=== PATIENT | female | born 1990 | race Caucasian/White ===

== ENCOUNTER → 2022-07-06 | Outpatient (CLI) | payer BC, SELFPAY ==
[2022-07-10 04:06] LABS: Chlamydia By Nucleic Acid AMP Negative (Negative)
[2022-07-10 18:54] LABS: Gonococcus By Nucleic Acid AMP Negative (Negative)
[2022-07-14 08:27] LABS: HPV APTIMA, High Risk Negative (Negative)
== END | disposition home or self-care (01) ==
LOC: LABSPEC 16:22
PROVIDERS: Referring Provider Obstetrics & Gynecology; Visit Provider Obstetrics & Gynecology
DX: Z34.00 Encounter for supervision of normal first pregnancy, unspecified trimester (principal)
CPT/HCPCS: 87086; 87088; 87491; 87591; 87624; 88175; G0145

== ENCOUNTER → 2022-07-20 | Outpatient (CLI) | payer BC, SELFPAY ==
[2022-07-20 14:44] LABS: Absolute Neutrophil Count 6.4 X10^3/uL (2.0-7.7); Basophil# 0.05 X10^3/uL; Basophil% 0.5 % (0-1); Eosinophil# 0.14 X10^3/uL; Eosinophils% 1.4 % (0-5); Hematocrit 38.1 % (37-47); Hemoglobin 13.4 g/dL (12.0-15.0); Lymphocyte % 27.9 % (19-41); Mean Corp Hgb Conc 35.2 g/dL (32-36); Mean Corpuscular Hgb 32.4 pg (27.0-32.0); Mean Corpuscular Volume 92.3 fL (81-99); Mean Platelet Vol. 9.5 fl (6.2-12.0); Monocyte# 0.64 X10^3/uL; Monocyte% 6.4 % (0-10); NRBC Flagged by Analyzer 0 % (0-5); Neutrophil # 6.39 X10^3/uL (2.7-7.7); Neutrophil % 63.5 % (47-70); Platelet Count 346 K/mm3 (150-450); RBC Distribution Width CV 11.9 % (11.6-14.6); RBC Distribution Width SD 41.1 fl (35.1-43.9); Red Blood Count 4.13 M/mm3 (4.2-5.4); White Blood Count 10.1 K/mm3 (4.4-11.0)
[2022-07-20 15:58] LABS: HIV - WCH Non-Reactive (Nonreactive); Hepatitis B Surface Antigen Non-Reactive (Nonreactive); Hepatitis C Antibody Non-Reactive (Nonreactive); Rubella IgG Reactive (Nonreactive); Syphilis Antibodies Non-reactive
[2022-07-20 16:09] LABS: NATERA MAILED SPECIMEN
== END | disposition home or self-care (01) ==
LOC: PAVLAB 14:12
PROVIDERS: Referring Provider Obstetrics & Gynecology; Visit Provider Obstetrics & Gynecology
DX: Z34.81 Encounter for supervision of other normal pregnancy, first trimester (principal); Z31.430 Encounter of female for testing for genetic disease carrier status for procreative management
CPT/HCPCS: 36415; 85025; 86703; 86762; 86780; 86803; 86850; 86900; 86901; 87340

== ENCOUNTER → 2022-11-17 | Outpatient (CLI) | payer BC, SELFPAY ==
[2022-11-17 11:32] LABS: Absolute Lymphocyte Count 2.12 X10^3/uL (0.83-4.51); Absolute Neutrophil Count 7.1 X10^3/uL (2.0-7.7); Basophil# 0.05 X10^3/uL; Basophil% 0.5 % (0-1); Eosinophil# 0.23 X10^3/uL; Eosinophils% 2.2 % (0-5); Hemoglobin 11.8 g/dL (12.0-15.0); Lymphocyte # 2.12 X10^3/ul (0.83-4.51); Lymphocyte % 20.3 % (19-41); Mean Corp Hgb Conc 33.7 g/dL (32-36); Mean Corpuscular Hgb 32.3 pg (27.0-32.0); Mean Corpuscular Volume 95.9 fL (81-99); Mean Platelet Vol. 9.4 fl (6.2-12.0); Monocyte# 0.88 X10^3/uL; Monocyte% 8.4 % (0-10); NRBC Flagged by Analyzer 0 % (0-5); Neutrophil # 7.08 X10^3/uL (2.7-7.7); Neutrophil % 67.9 % (47-70); Platelet Count 319 K/mm3 (150-450); RBC Distribution Width SD 41.7 fl (35.1-43.9); Red Blood Count 3.65 M/mm3 (4.2-5.4); White Blood Count 10.4 K/mm3 (4.4-11.0)
[2022-11-17 11:59] LABS: Glucose Challenge Gest 1H 50g 120 mg/dL (70-140)
[2022-11-17 12:23] LABS: HIV - WCH Non-Reactive (Nonreactive); Syphilis Antibodies Non-reactive
--- NOTE | 2022-11-17 12:26 | US_ITS ---
STUDY: SECOND AND THIRD TRIMESTER OBSTETRICAL ULTRASOUND - LIMITED REASON FOR EXAM: Female, 32 years old placental location -- 28 wks PRIOR ULTRASOUND: None. TECHNIQUE: Transabdominal TECHNICAL QUALITY: Adequate. FINDINGS: There is a single intrauterine fetus. The fetus is in a cephalic presentation. There is demonstrated cardiac activity with a heart rate of 137 bpm. There is a normal amniotic fluid volume. The largest amniotic fluid pocket measures 2.4 cm x 4.1 cm. The amniotic fluid index (CORIN) is within normal limits. The placenta is posterior in location and is not low lying. The tip of the placenta is a 2.3 cm away from the cervical os. There are Grade 1 placental changes. The cervix measures 3.2 cm in length. BIOMETRY: Age by LMP: 28 weeks, 4 days. MARIMAR by LMP: February 05, 2023. US/OB Limited (No Biometrics) IMPRESSION: The placenta is along the posterior wall of the uterus without placenta previa. The tip of the placenta is a 2.3 cm away from the cervical os. Electronically Signed: Gregg Cerna MD at 14:33 EDT ,
== END | disposition home or self-care (01) ==
LOC: US 12:21
PROVIDERS: Obstetrics & Gynecology; Referring Provider Obstetrics & Gynecology; Visit Provider Obstetrics & Gynecology
DX: O26.899 Other specified pregnancy related conditions, unspecified trimester (principal); O44.43 Low lying placenta NOS or without hemorrhage, third trimester; Z13.1 Encounter for screening for diabetes mellitus
CPT/HCPCS: 36415; 76815; 82950; 85025; 86703; 86780; 86850; 86900; 86901

== ENCOUNTER → 2022-12-11 | Outpatient (CLI) | payer BC, SELFPAY ==
--- NOTE | 2022-12-11 11:33 | US_ITS ---
STUDY: SECOND AND THIRD TRIMESTER OBSTETRICAL ULTRASOUND - LIMITED REASON FOR EXAM: Female, 32 years old, evaluate growth. LMP: 05/01/2022. PRIOR ULTRASOUND: 11/17/2022. TECHNIQUE: Transabdominal TECHNICAL QUALITY: Adequate. FINDINGS: There is a single intrauterine fetus. The fetus is in a cephalic presentation. There is demonstrated cardiac activity with a heart rate of 144 bpm. There is a normal amniotic fluid volume. The largest amniotic fluid pocket measures 6.2 cm. The amniotic fluid index (CORIN) is 13.8 cm. The placenta is posterior in location and is not low lying. There are Grade 1 placental changes. The cervix measures 3.5 cm in length. BIOMETRY: BPD: 8.2 cm: 32 weeks, 6 days HC: 29 cm: 32 weeks, 0 days AC: 20 cm: 32 weeks, 0 days FL: 5.9 cm: 30 weeks, 5 days Age by LMP: 32 weeks, 0 days. MARIMAR by LMP: 02/05/2023. age by prior US: Not included on prior exam. age by current US: 31 weeks, 4 days. MARIMAR by current US: 02/08/2023. Estimated weight: 1850 grams, +/- 278 grams, 35 percentile. anatomy is not included on this examination and is not evaluated. US/OB Limited With Biometrics IMPRESSION: Single live intrauterine fetus in cephalic presentation with an estimated gestational age of 31 weeks and 4 days. The MARIMAR is 02/08/2023. Electronically Signed: Timothy Olmedo MD at 12:14 EDT ,
== END | disposition home or self-care (01) ==
LOC: US 11:32
PROVIDERS: Referring Provider Obstetrics & Gynecology; Visit Provider Obstetrics & Gynecology
DX: Z34.00 Encounter for supervision of normal first pregnancy, unspecified trimester (principal)
CPT/HCPCS: 76816

== ENCOUNTER → 2023-01-09 | Outpatient (CLI) | payer BC, SELFPAY ==
--- NOTE | 2023-01-09 11:26 | US_ITS ---
STUDY: SECOND AND THIRD TRIMESTER OBSTETRICAL ULTRASOUND - LIMITED REASON FOR EXAM: Female, 32 years old growth LMP: May 01, 2022 PRIOR ULTRASOUND: Prior study dated: December 11, 2022 TECHNIQUE: Transabdominal TECHNICAL QUALITY: Adequate. FINDINGS: There is a single intrauterine fetus. The fetus is in a cephalic presentation. There is demonstrated cardiac activity with a heart rate of 135 bpm. There is a normal amniotic fluid volume. The largest amniotic fluid pocket measures 5.74 cm. The amniotic fluid index (CORIN) is 20.44 cm. The placenta is posterior. There are Grade 2 placental changes. BIOMETRY: BPD: 8.90 cm: 36 weeks, 0 days HC: 31.84 cm: 35 weeks, 6 days AC: 30.58 cm: 34 weeks, 4 days FL: 6.76 cm: 34 weeks, 5 days Age by LMP: 36 weeks, 1 days. MARIMAR by LMP: February 05, 2023. age by prior US: 31 weeks, 4 days. MARIMAR by prior US: February 08, 2023. age by current US: 35 weeks, 2 days. MARIMAR by current US: February 11, 2023. Estimated weight: 2559 grams, +/- 384 grams, 22.5 percentile. US/OB Limited With Biometrics IMPRESSION: Single live intrauterine with an estimated gestational age of 35 weeks and 2 days. Electronically Signed: Lovely Ceballos MD at 8:52 EDT ,
== END | disposition home or self-care (01) ==
LOC: US 11:25
PROVIDERS: Referring Provider Obstetrics & Gynecology; Visit Provider Obstetrics & Gynecology
DX: Z34.00 Encounter for supervision of normal first pregnancy, unspecified trimester (principal)
CPT/HCPCS: 76816

== ENCOUNTER → 2023-01-12 | Outpatient (CLI) | payer BC, SELFPAY | END | disposition home or self-care (01) | LOC: LABSPEC 17:11 | PROVIDERS: Referring Provider Advanced Practice Midwife; Visit Provider Advanced Practice Midwife | DX: Z34.00 Encounter for supervision of normal first pregnancy, unspecified trimester (principal) | CPT/HCPCS: 87077; 87081; 87186 ==

== ENCOUNTER → 2023-01-23 | Outpatient (CLI) | payer BC, SELFPAY ==
--- NOTE | 2023-01-23 12:22 | US_ITS ---
STUDY: SECOND AND THIRD TRIMESTER OBSTETRICAL ULTRASOUND - LIMITED REASON FOR EXAM: Female, 32 years old . Amniotic fluid check. LMP: May 01, 2022. PRIOR ULTRASOUND: Comparison is made with prior study January 09, 2023. TECHNIQUE: Transabdominal TECHNICAL QUALITY: Adequate. FINDINGS: There is a single intrauterine fetus. The fetus is in a cephalic presentation. There is demonstrated cardiac activity with a heart rate of 129 bpm. There is a normal amniotic fluid volume. The largest amniotic fluid pocket measures 5.8 cm x 6.9 cm. The amniotic fluid index (CORIN) is 15.12 cm. The placenta is posterior in location and is not low lying. There are Grade 2 placental changes. The cervical length was not measured due to head position. BIOMETRY: Age by LMP: 38 weeks, 1 days. MARIMAR by LMP: February 05, 2023. age by prior US: 37 weeks, 2 days. MARIMAR by prior US: February 11, 2023. US/OB Limited (No Biometrics) IMPRESSION: Normal amniotic fluid. Electronically Signed: Gregg Cerna MD at 13:31 EDT ,
== END | disposition home or self-care (01) ==
PROVIDERS: Referring Provider Registered Nurse; Visit Provider Registered Nurse
DX: O40.9XX0 Polyhydramnios, unspecified trimester, not applicable or unspecified (principal); Z3A.36 36 weeks gestation of pregnancy
CPT/HCPCS: 76815

== ENCOUNTER 2023-02-10 09:15 | Inpatient (IN) | payer BC, SELFPAY ==
[2023-02-10] VITALS (50 sets, daily range): BP systolic 103–147; BP diastolic 56–91; PULSE 80–127; RESP 16; TEMP 36.6–37.5; O2SAT 97–100; BMI 28.0
[2023-02-10] MEDS: LACTATED RINGERS 500 ML 999 ML IV ×2 (09:51→15:09)
[2023-02-10 10:08] LABS: Absolute Lymphocyte Count 1.63 X10^3/uL (0.83-4.51); Absolute Neutrophil Count 14.1 X10^3/uL (2.0-7.7); Basophil# 0.04 X10^3/uL; Basophil% 0.2 % (0-1); Eosinophil# 0.04 X10^3/uL; Eosinophils% 0.2 % (0-5); Hematocrit 36.1 % (37-47); Lymphocyte # 1.63 X10^3/ul (0.83-4.51); Lymphocyte % 9.5 % (19-41); Mean Corp Hgb Conc 33.2 g/dL (32-36); Mean Corpuscular Hgb 31.3 pg (27.0-32.0); Mean Platelet Vol. 10.3 fl (6.2-12.0); Monocyte# 1.17 X10^3/uL; Monocyte% 6.9 % (0-10); NRBC Flagged by Analyzer 0 % (0-5); Neutrophil # 14.09 X10^3/uL (2.7-7.7); Neutrophil % 82.6 % (47-70); Platelet Count 267 K/mm3 (150-450); RBC Distribution Width CV 14.4 % (11.6-14.6); RBC Distribution Width SD 49.3 fl (35.1-43.9); Red Blood Count 3.84 M/mm3 (4.2-5.4); White Blood Count 17.1 K/mm3 (4.4-11.0)
[2023-02-10] MEDS: Lactated Ringers 1,000 ML 200 ML IV (10:25)
[2023-02-10 10:34] LABS: Syphilis Antibodies Non-reactive
[2023-02-10] MEDS: fentaNYL-bupivacaine (epidural) 100 ML BAG EPIDURAL ×2 (10:34→15:08)
--- NOTE | 2023-02-10 10:52 | HP.PCM.OB_ITS ---
HPI - General General Date of Admission: 02/10/23 Date of Service: 02/10/23 Chief Complaint: contraction HPI Narrative MANPREET ZAMORANO, is a 32 F who presents at 40+5 with intensifying contractions since this 4am this morning. active fetus. no lof/vb. GBS positive fetus with echogenic bowel on ultrasound with stable growth scans. 01/09 22% 2559g Maternal Data Information MARIMAR Calculator Estimated Delivery Date Method Current WG Current Estimate 02/05/23 LMP (Certain) 40w 5d Other Estimates 01/31/23 Ultrasound #1 41w 3d PFSH PFSH Medical History Abnormal genetic test during Home Medications pyridoxine (vitamin B6) 25 mg tablet 25 mg PO DAILY 06/27/22 [History Last Taken Unknown] [id number] 1 mg tablet tab PO 02/10/23 [History Last Taken 02/09/23] Allergy/AdvReac Type Severity Reaction Status Date / Time No Known Allergies Allergy Verified 02/10/23 09:08 Family History Grandmother Diabetes Grandmother Colon cancer maternal grandmother Grandfather Heart disease Myocardial infarction paternal grandfather Father Myocardial infarction, Onset Age: 52 Heart disease Surgical History H/O colonoscopy Social History adopted: No household members: significant other housing: apartment current occupational status: employed current occupation: [employer] current occupational exposures/hazards: No pets and animals: Yes (does not do litter box) pets and animals: cat(s) history of recent travel: Yes (maggie in march) out of country: Yes sexually active: Yes Smoking Status: Former smoker Electronic Cigarette Use: with nicotine how long ago did patient quit smoking: not since aware of preg second hand exposure: No alcohol intake: current substance use type: does not use well-balanced diet: rarely or never caffeine: Yes Type: coffee eating out: 4 or more times/week seatbelt use: always do you feel safe at home: Yes additional social history: boyfriend- Meño- IT History 1 Elective abortions Hx Para 0 Spontaneous abortions Hx # Term Pregnancies Ectopic pregnancies Hx # Pregnancies Multiple births # of living children Visit Details Expected Delivery Route/Plan Labor Preferences- CB/BF classes: discussed labor support person: Meño labor intervention preferences: none pain management options preferred: epidural cut cord/dad catch: yes cord : Wants PP control planned: NFP discussed possible routes of delivery and associated risks: special requests: [] Plans Covid status: discussed Flu vaccine: discussed Tdap vaccine: declines Rhogam: done LARC form signed: done movement and labor precautions reviewed. Problem list reviewed and updated with the most current plan of care details and appropriate orders placed. Relevant counseling for the gestational age provided. Continue routine care and follow up unless otherwise noted in visit notes/problem list details OB Flowsheet Initial Weight: 127 lb Date -?-?-?-?-?-?-?-?-?-?-?-?- EGA Weight BP Urine Prot -?-?-?-?-?-?-?-?-?-?-?-?- Glucose FHR FuHt Pres Dilation -?-?-?-?-?-?-?-?-?-?-?-?- Effaced St Visit Note 07/06/22 -?-?-?-?-?-?-?-?-?-?-?-?- 9w 3d 127 lb (+0 oz) 114/76 -?-?-?-?-?-?-?-?-?-?-?-?- 175 -?-?-?-?-?-?-?-?-?-?-?-?- JV- single live iUP measuring 10 weeks 1 day. within 7 days of LMP. MARIMAR per LMP 02/05/23 JV- single live iUP measurin g 10 weeks 1 day. within 7 days of LMP. MARIMAR per LMP 02/05/23. Desires NIPT and carrier testing 08/03/22 -?-?-?-?-?-?-?-?-?-?-?-?- 13w 3d 124 lb 2 oz (-2 lb 14 oz) 137/80 Negative -?-?-?-?-?-?-?-?-?-?-?-?- Negative 150 -?-?-?-?-?-?-?-?-?-?-?-?- JV- bedside hand held us performed. normal NIPT. horizon is pending. no complaints other than some low level nausea. plan to start pepcid. 08/28/22 -?-?-?-?-?-?-?-?-?-?-?-?- 17w 0d 128 lb 6 oz (+1 lb 6 oz) 118/82 Negative -?-?-?-?-?-?-?-?-?-?-?-?- Negative 152 -?-?-?-?-?-?-?-?-?-?-?-?- MH-No VB. Thinks feels flutters. BF has not done genetic screen yet but has box and will do soon. MFM US next week 09/29/22 -?-?-?-?-?-?-?-?-?-?-?-?- 21w 4d 131 lb (+4 lb) 130/83 Negative -?-?-?-?-?-?-?-?-?-?-?-?- Negative 150 -?-?-?-?-?-?-?-?-?-?-?-?- JV- previa, has follow up next week for echogenic bowel. 10/27/22 -?-?-?-?-?-?-?-?-?-?-?-?- 25w 4d 137 lb (+10 lb) 118/68 Negative -?-?-?-?-?-?-?-?-?-?-?-?- Negative 144 26 -?-?-?-?-?-?-?-?-?-?-?-?- JV- no lof, vagi nal bleeding, or dec fm. needs follow up scan for previa follow up. 11/17/22 -?-?-?-?-?-?-?-?-?-?-?-?- 28w 4d 140 lb 8 oz (+13 lb 8 oz) 120/76 Negative -?-?-?-?-?-?-?-?-?-?-?-?- Negative 150 29 -?-?-?-?-?-?-?-?-?-?-?-?- KW- +fm. No vb/c tx/lof. labs today. us after appt for previa KW- +fm. No vb/ctx/lof. labs today. Rhogam today. discussed Tdap. us after appt for previa 11/27/22 -?-?-?-?-?-?-?-?-?-?-?-?- 30w 0d 142 lb (+15 lb) 139/71 Negative -?-?-?-?-?-?-?-?-?-?-?-?- Negative 136 30 -?-?-?-?-?-?-?-?-?-?-?-?- KW-+fm, no vb/lo f/ctx. US reviewed. previa resolved. LARC done. 12/11/22 -?--?-?-?-?-?-?-?-?-?-?-?- 32w 0d 145 lb 8 oz (+18 lb 8 oz) 124/85 Negative -?-?-?-?-?-?-?-?-?-?-?-?- Negative 140 32 -?-?-?-?-?-?-?-?-?-?--?-?- LC- no lof/vb/ct x. good fm. growth obtained today- results pending. declines tdap 12/29/22 -?-?-?-?-?-?-?-?-?-?-?-?- 34w 4d 146 lb 2 oz (+19 lb 2 oz) 122/80 Negative -?-?-?-?-?-?-?-?-?-?-?-?- Negative 143 35 Cephalic -?-?-?-?-?-?-?-?-?-?-?-?- JV- no lof, vagi nal bleeding, or dec fm. 01/12/23 -?-?-?-?-?-?-?-?-?-?-?-?- 36w 4d 148 lb 6 oz (+21 lb 6 oz) 125/76 -?-?-?-?-?-?-?-?-?-?-?-?- 135 37 Cephalic 2 -?-?-?-?-?-?-?-?-?-?-?-?- 60 -2 KW-no vb/l of/ctx. good. fm. GBS today. 01/19/23 -?-?-?-?-?-?-?-?-?-?-?-?- 37w 4d 149 lb 4 oz (+22 lb 4 oz) 126/84 Negative -?-?-?-?-?-?-?-?-?-?-?-?- Negative 140 37 Cephalic 2 -?-?-?-?-?-?-?-?-?-?-?-?- 70 -1 LC- no vb/ ctx/lof. good fm. GBS positive. 01/26/23 -?-?-?-?-?-?-?-?-?-?-?-?- 38w 4d 149 lb (+22 lb) 124/75 -?-?-?-?-?-?-?-?-?-?-?-?- 140 39 Cephalic 2 -?-?-?-?-?-?-?-?-?-?-?-?- 70 -1 Sm- no vb lof good fm no regular ctx 01/31/23 -?-?-?-?-?-?-?-?-?-?-?-?- 39w 2d 152 lb 8 oz (+25 lb 8 oz) 128/84 Negative -?-?-?-?-?-?-?-?-?-?-?-?- Negative 156 39 Cephalic 2 -?-?-?-?-?-?-?-?-?-?-?-?- 80 -1 JV- no lof , vaginal bleeding, or dec fm. labor precautions discussed. 02/05/23 -?-?-?-?-?-?-?-?-?-?-?-?- 40w 0d 152 lb 6 oz (+25 lb 6 oz) 130/86 Negative -?-?-?-?-?-?-?-?-?-?-?-?- Negative 140 40 Cephalic 2 -?-?-?-?-?-?-?-?-?-?-?-?- 80 -1 LC- here f or vaginal bleeding after orgasm. lightening now. +brown blood in vagina. no active bleeding. active fetus. no lof. pelvic rest for now. 02/07/23 -?-?-?-?-?-?-?-?-?-?-?-?- 40w 2d 155 lb 4 oz (+28 lb 4 oz) 145/91 126/82 Negative -?-?-?-?-?-?-?-?-?-?-?-?- Negative 136 40 Cephalic 2 .5 -?-?-?-?-?-?-?-?-?-?-?-?- 80 -1 LC- dark b rown discharge. no regular ctx LC- dark brown discharge. no regular ctx, no lof. good fm. membrane sweep today. IOL set up for sunday. NST FHR Rate Baby A Baseline: 130 Variability:: Moderate Accelerations:: 15 x 15 Decelerations:: None NST Reactive:: Yes FHR Category:: Category I Uterine Activity:: q4 minutes ROS Cardiovascular Cardiovascular: Denies abdominal pain, chest pain, diaphoresis or dyspnea Respiratory/Chest Respiratory/Chest: Denies change in mental status, chest congestion, chest tight ness, cough, shortness of breath at rest, shortness of breath with exertion, breast mass, breast pain, breast skin changes, breast swelling, change in breast shape or nipple discharge Genitourinary Genitourinary: Reports change in urinary stream Musculoskeletal Musculoskeletal: Reports none Integumentary Integumentary: Reports none Neurologic Neurologic: Reports none Psychiatric Psychiatric: Reports none Endocrine Endocrinology: Reports none Hematologic/Lymphatic Hematologic/Lymphatic: Reports none Allergic/Immunologic Allergic/Immunologic: Reports none Vital Signs Vital Signs Vital Signs: 02/10/23 09:01 02/10/23 09:01 02/10/23 09:49 Temperature Temperature Source Pulse Rate 93 Blood Pressure 140/91 H 118/73 BP Systolic 140 118 BP Diastolic 91 73 Pulse Ox 02/10/23 09:49 02/10/23 10:03 02/10/23 10:03 Temperature Temperature Source Pulse Rate 97 94 Blood Pressure 125/79 H BP Systolic 125 BP Diastolic 79 Pulse Ox 02/10/23 10:22 02/10/23 10:22 02/10/23 10:27 Temperature Temperature Source Pulse Rate 117 H 106 H Blood Pressure BP Systolic BP Diastolic Pulse Ox 98 02/10/23 10:27 02/10/23 10:31 02/10/23 10:31 Temperature Temperature Source Pulse Rate 109 H Blood Pressure 122/64 H BP Systolic 122 BP Diastolic 64 Pulse Ox 100 02/10/23 10:32 02/10/23 10:32 02/10/23 10:37 Temperature Temperature Source Pulse Rate 105 H Blood Pressure 123/71 H BP Systolic 123 BP Diastolic 71 Pulse Ox 100 02/10/23 10:37 02/10/23 10:37 02/10/23 10:41 Temperature Temperature Source Pulse Rate 109 H Blood Pressure 129/73 H BP Systolic 129 BP Diastolic 73 Pulse Ox 99 02/10/23 10:41 02/10/23 10:42 02/10/23 10:42 Temperature Temperature Source Pulse Rate 102 H 92 Blood Pressure BP Systolic BP Diastolic Pulse Ox 100 02/10/23 10:45 02/10/23 10:45 02/10/23 10:47 Temperature 98.0 F Temperature Source Temporal Pulse Rate Blood Pressure 138/85 H BP Systolic 138 BP Diastolic 85 Pulse Ox 02/10/23 10:47 02/10/23 10:47 02/10/23 10:47 Temperature Temperature Source Pulse Rate 106 H 94 Blood Pressure BP Systolic BP Diastolic Pulse Ox 100 02/10/23 10:51 02/10/23 10:51 Temperature Temperature Source Pulse Rate 115 H Blood Pressure 122/76 H BP Systolic 122 BP Diastolic 76 Pulse Ox Weight Weight: 153 lb 6.4 oz Body Mass Index (BMI) 28.0 Physical Exam Const alert, oriented x3 and no apparent distress General Appearance: cooperative, comfortable and well kempt Orientation / Consciousness: awake and oriented to person Exam Limitations: no limitations HEENT normocephalic Neck full ROM Chest inspection of chest normal Resp normal respiratory effort, normal air movement and no retractions Effort and Inspection: able to speak in complete sentences and symmetric chest movement Cardio regular rate Peripheral Pulses: pulses 2+ throughout GI normal to inspection, nondistended, normoactive bowel sounds Inspection: gravid no CVA tenderness and appearance of the vagina normal External Female Exam: normal appearance of the urethra; Negative for external lesion OB / External & Speculum: external exam normal Manual OB Exam: estimated gestational size appropriate and presentation cephalic Uterus Palpation: Negative for uterus tender Extremity normal to inspection Skin no rashes or lesions noted Neuro deep tendon reflexes 2+ bilaterally and gait normal Motor Exam: strength 5/5 throughout and clonus absent Psych Activity / Motor Behavior: appropriate eye contact Speech: normal speech Labs Labs Labs: Blood Type B NEGATIVE Antibody Screen NEGATIVE Hct 36.1 % (37-47) L Hgb 12.0 g/dL (12.0-15.0) Obstetrics US Syphilis Total Ab Non-reactive Rubella IgG Antibody Reactive (Nonreactive) Hep Bs Antigen Non-Reactive (Nonreactive) Chlamydia DNA (RUSLAN) Negative (Negative) Neisseria gonorrhoeae DNA (RUSLAN) Negative (Negative) HIV 1&2 Antibody Non-Reactive (Nonreactive) Glucose 1 Hr 50 gm 120 mg/dL (70-140) Assessment & Plan (1) Spontaneous onset of labor: PLAN: admit to [facility] with routine orders. (2) Positive GBS test: COMMENT: treat in labor (3) Echogenic bowel of fetus on ultrasound: COMMENT: growth scans q4 weeks: 8/7 35%, 9/5 22% (4) Abnormal genetic test during : COMMENT: FOB neg. carrier for Cystic Fibrosis, Glycogen Storage Disease Type 2, (Pompe Disease), Glycogen Storage Disease Type 5 (Clover Disease) and Irgdpw-Plrecvt-Asdoey Dysplasia/Jugucz-Vqsevg-Ysopzdm Syndrome (5) Rh negative status during : COMMENT: Rhogam @ 28 weeks and PRN bleeding (6) Supervision of normal first : COMMENT: PRR MARIMAR-02/05/23 girl Arabella Reinoso (7) : QUALIFIERS: Weeks of gestation: 40 weeks Qualified Code(s): Z3A.40 - 40 weeks gestation of COMMENT: GBS pos, NIPT low risk, afp declined. carrier screening done. 270/274. FOB neg.254/254 PLAN: Plan Patient presents IAL, plan expectant management for , pitocin/AROM PRN if needed. Pain management: plans epidural. GBS positive plan IV PCN. Management of any complications: none I have reviewed the PFSH and made any clinically relevant updates. updated on admission, exam and poc and agrees with primary reforestation worker management. available as needed.
[2023-02-10] MEDS: Penicillin G Pot 5,000,000 UNITS in 0.9% Normal Saline (100mL MB+) 100 ML 150 UNITS IV (11:05)
[2023-02-10] MEDS: Penicillin G 3,000,000 Units 50 ML 100 UNITS IV (15:50)
[2023-02-10] MEDS: Ondansetron 4 MG/2 ML Vial IV (16:42)
[2023-02-10] MEDS: Oxytocin 15 Units/NS 250ml 15 UNITS/250 ML IV.SOLN 83 UNITS IV (18:30)
[2023-02-10] MEDS: Oxytocin 10 UNITS/ML Vial IM (18:30)
--- NOTE | 2023-02-10 19:21 | EX.PCM.OBRPT ---
Assessment & Plan (1) (spontaneous vaginal delivery): COMMENT: LC IAL 40+5, girl Arabella (2) Third degree laceration of perineum during delivery, : Maternal Data Information MARIMAR Calculator Estimated Delivery Date Method Current WG Current Estimate 02/05/23 LMP (Certain) 40w 5d Other Estimates 01/31/23 Ultrasound #1 41w 3d Final MARIMAR: 02/05/23 Final MARIMAR Source: LMP Vaginal Delivery Maternal Presentation Maternal Presentation: Active Labor Maternal Presentation: pt presented with spontaneous labor at at 40+5, AROM for light/mod meconium. Operative Information Date of Procedure: 02/10/23 Pre-Operative Diagnosis: see problem list Post-Operative Diagnosis: Surgery / Procedure Performed: Spontaneous Vaginal Delivery Type of Anesthesia: Epidural Drain: Sherman to straight drain Estimated Blood Loss: 600 Time of Delivery: 18:21 Findings Description of Procedure: Patient began pushing and delivered the head in the NADEEN presentation. The head was delivered atraumatically. The anterior and posterior shoulders delivered without complication followed by the rest of the infant and the was placed on the maternal abdomen. Management Supervisor and respiratory therapist at bedside for meconium. Delayed cord clamping was employed for approximately 3 minutes as infant had spontaneous cry and vigorous. Cord was clamped and cut and gentle traction was applied to the cord and the placenta delivered spontaneously immediately following it was noted to be intact with three-vessel cord. The perineum and vagina were inspected and noted to have a 3rd degree laceration involving anal mucosa with right perilabial tear. dr diaz consulted for third degree repair, see note. EBL was 600cc. Patient and tolerated delivery well, entered recovery phase bonding skin to skin Presentation: Vertex Amniotic Membrane Rupture Type: Artificial Amniotic Fluid Description: Lightly stained meconium and Moderate meconium Placental Delivery Description: Spontaneous Placenta Disposition: [facility] Cord Vessel Description: 3 Vessels Cord Entanglement: None A Gender: Female (1 minute): 8 (5 minute): 8 Delayed Cord Clamping: Yes Post Vaginal Delivery Medications Given After Delivery: IV Pitocin and IM Pitocin Admit VTE Documentation VTE Present on Admission: No Procedures Urinary/Genital [id number]: [id number] Vaginal Delivery [facility]
--- NOTE | 2023-02-10 19:41 | DCINST_ITS ---
Discharge Instructions Diet Discharge Diet: No restrictions Activity Discharge Activity: May Not Drive and May Shower May resume sexual activity in: 6 weeks Weight Bearing Status: Full weight bearing Dressing / Incision Call your doctor if your incision/area has: Sudden Increased Bleeding, Increased Pain/ Swelling and Foul Smelling Discharge Call your doctor if you observe: Fever of 101 or Higher, Numbness or Tingling, Change in Color, Inability to urinate, Inability to have a bowel movement, Using more than 1 pad per hour, Shortness of breath, Dizziness, Fainting spells, Chest pain, Calf discomfort and Uncontrolled pain Follow Up Care Please Follow Up With: Tiffanie Velasquez CNM When: 6 weeks , please call office to make an appointment. Congratulations on the of your baby! Test Results: Test results from this visit will be discussed in further detail at your follow- up appointment, if applicable. Discharge Plan Admission Admit Date/Time: 02/10/23 09:15 Attending Provider: Tiffanie Velasquez Primary Care Provider: Care Physician,Shadia Primary Discharge Orders/Prescriptions Prescriptions: No Action pyridoxine (vitamin B6) 25 mg tablet 25 mg PO DAILY [id number]-[id number]-FA 1 mg tablet PO Referrals / Follow Up: Care Physician,No Primary [Primary Care Provider] - Disposition Disposition (needs filled in before D/C Order can be placed): Home, Self Care
--- NOTE | 2023-02-10 19:45 | PCM.OP.BLANK ---
Operative Report third degree laceration identified- cleansed with betadine twice through the repair. capsule reapproximated with two figure or eight sutures of 2-0 vicryl, and the the rest of the repair closed in the usual fashion with 3-0 rapide, no button holes present as confirm with several rectal exams. stool softeners and antibiotics will be ordered postop. interrupted sutures placed over right labial tear. Procedures Urinary/Genital [id number]: [id number] Episiotomy or vaginal repair(non-delivery)
[2023-02-10] MEDS: Cefotetan 1 GM in 0.9% Normal Saline (50mL MB+) 50 ML IV (20:40)
[2023-02-10] MEDS: Naproxen 500 MG Tablet PO (20:41)
[2023-02-10] MEDS: Senna/Docusate Sodium 1 Tablet PO (21:12)
[2023-02-10] MEDS: 0.9% Saline Lock 10 ML Syringe IV (21:13)
--- NOTE | 2023-02-10 21:40 | NURSING ---
epidural catheter removed at this time tip intact, pt tolerated well, band aid applied
[2023-02-10] MEDS: Acetaminophen 500 MG Tablet 1000 MG PO (22:13)
--- NOTE | 2023-02-10 22:16 | NURSING ---
Report received from Maryellen PALAFOX, taking over pt care at this time.
[2023-02-11 03:36] VITALS: BP 115/62; PULSE 103; RESP 16; TEMP 36.4; O2SAT 97
[2023-02-11] MEDS: Benzocaine/Lanolin/Aloe Vera 1 SPRAY EACH TOPICAL (03:36)
[2023-02-11 06:07] LABS: Hematocrit 25.3 % (37-47); Hemoglobin 8.5 g/dL (12.0-15.0); Mean Corp Hgb Conc 33.6 g/dL (32-36); Mean Corpuscular Hgb 31.8 pg (27.0-32.0); Mean Corpuscular Volume 94.8 fL (81-99); Mean Platelet Vol. 10.6 fl (6.2-12.0); Platelet Count 255 K/mm3 (150-450); RBC Distribution Width CV 14.5 % (11.6-14.6); RBC Distribution Width SD 49.7 fl (35.1-43.9); Red Blood Count 2.67 M/mm3 (4.2-5.4); White Blood Count 18.7 K/mm3 (4.4-11.0)
[2023-02-11 07:55] VITALS: BP 115/55; PULSE 98; RESP 18; TEMP 36.4; O2SAT 99
[2023-02-11] MEDS: Naproxen 500 MG Tablet PO (11:14)
--- NOTE | 2023-02-11 11:45 | PN.OBGYN_ITS ---
Subjective Subjective Patient doing well without complaints. Tolerating PO. Ambulating and voiding without difficulty. passing gas. Feeding well, pinching at time. Denies chest pain, shortness of breath, calf pain/swelling, fevers, chills, lightheadedness. Objective Data Objective Data Vital Signs: Vital Signs Temp Pulse Resp BP Pulse Ox O2 Del Method 97.5 F L 98 18 115/55 L 99 Room Air 02/11/23 07:55 02/11/23 07:55 02/11/23 07:55 02/11/23 07:55 02/11/23 07:55 02/11/23 07:55 Oxygen Delivery Method Room Air Weight: 153 lb 6.4 oz Body Mass Index (BMI) 28.0 Intake & Output: Intake and Output for Last 24 Hours 02/09/23 02/10/23 02/11/23 23:59 23:59 23:59 Intake Total 3155.00 / 3155.00 Output Total 1900 / 1900 1200 / 1200 Balance 1255.00 / 1255.00 -1200 / -1200 Lab / Micro Data 02/11/23 05:20 Labs: Laboratory Results - last 24 hr 02/10/23 21:15: Screen NEGATIVE, Baby's Blood Type A POSITIVE, Baby's BROOK NEGATIVE 02/11/23 05:20: WBC 18.7 H, RBC 2.67 L, Hgb 8.5 L, Hct 25.3 L, MCV 94.8, MCH 31.8, MCHC 33.6, RDW Std Deviation 49.7 H, RDW Coeff of Gildardo 14.5, Plt Count 255, MPV 10.6 Physical Exam Const alert and no apparent distress Chest inspection of chest normal Nipple/Areola: nipples/areola normal Resp normal respiratory effort and normal air movement Cardio regular rate and regular rhythm Uterus Palpation: uterus fundus firm Extremity normal to inspection, no calf tenderness and no pedal edema Skin no rashes or lesions noted Psych mental status grossly normal Assessment & Plan (1) Third degree laceration of perineum during delivery, : COMMENT: sitz bath TID, colace BID. fiber rich food, pain management (2) (spontaneous vaginal delivery): COMMENT: LC IAL 40+5, girl Bell (3) Anemia: COMMENT: asymptomatic Venofer x1 PLAN: Plan s/p PPD # 1 1. routine post delivery care 2. breast feeding- support given, desires to see for additional suppor t today. 3. rh positive 4. rubella immune 5. anticipate d/c tomorrow.
[2023-02-11] MEDS: 0.9% Saline Lock 10 ML Syringe IV (13:22)
[2023-02-11 14:00] VITALS: BP 120/58; PULSE 94; RESP 18; TEMP 36.8
[2023-02-11] MEDS: Senna/Docusate Sodium 1 Tablet PO ×2 (15:44→22:08)
--- NOTE | 2023-02-11 16:00 | NURSING ---
This RN assuming care at 1600
[2023-02-11 18:20] VITALS: BP 113/65; PULSE 98; RESP 16; TEMP 37
[2023-02-11 20:36] VITALS: BP 111/52; PULSE 91; RESP 16; TEMP 36.3
[2023-02-12] MEDS: Acetaminophen 500 MG Tablet 1000 MG PO (01:13)
[2023-02-12 01:16] VITALS: BP 117/64; PULSE 93; RESP 16; TEMP 36.5
[2023-02-12 08:00] VITALS: BP 126/72; PULSE 100; RESP 16; TEMP 36.4
[2023-02-12] MEDS: Senna/Docusate Sodium 1 Tablet PO (08:25)
[2023-02-12] MEDS: Naproxen 500 MG Tablet PO (08:26)
--- NOTE | 2023-02-12 08:29 | PCM.PN.OB ---
Subjective Subjective Patient doing well without complaints. Tolerating PO. Ambulating and voiding without difficulty. Feeding well. Denies chest pain, shortness of breath, calf pain/swelling, fevers, chills, lightheadedness. Objective Data Objective Data Vital Signs: Vital Signs Temp Pulse Resp BP Pulse Ox O2 Del Method 97.7 F L 93 16 117/64 99 Room Air 02/12/23 01:16 02/12/23 01:16 02/12/23 01:16 02/12/23 01:16 02/11/23 07:55 02/11/23 18:20 Oxygen Delivery Method Room Air Weight: 153 lb 6.4 oz Body Mass Index (BMI) 28.0 Intake & Output: Intake and Output for Last 24 Hours 02/10/23 02/11/23 02/12/23 23:59 23:59 23:59 Intake Total 3155.00 / 3155.00 Output Total 1900 / 1900 1200 / 1200 Balance 1255.00 / 1255.00 -1200 / -1200 Lab / Micro Data 02/11/23 05:20 Physical Exam Const alert and no apparent distress Chest inspection of chest normal Nipple/Areola: nipples/areola normal Resp normal respiratory effort and normal air movement Cardio regular rate and regular rhythm Uterus Palpation: uterus fundus firm Extremity normal to inspection, no calf tenderness and no pedal edema Skin no rashes or lesions noted Psych mental status grossly normal Assessment & Plan (1) Anemia: COMMENT: asymptomatic unable to obtain iv access. will start floradix daily at home. (2) Third degree laceration of perineum during delivery, : COMMENT: sitz bath TID, colace BID. fiber rich food, pain management (3) (spontaneous vaginal delivery): COMMENT: LC IAL 40+5, girl Arabella (4) Rh negative status during : COMMENT: Rhogam @ 28 weeks and PRN bleeding PLAN: Plan s/p PPD # 1. routine post delivery care 2. breast feeding- support given 3. rh negative, rhogam per policy 4. rubella immune 5. d/c home today
--- NOTE | 2023-02-12 08:31 | PCM.DC.SUM ---
Providers Date of Admission: 02/10/23 Date of Discharge: 02/12/23 Primary Care Physician: No Primary Care Phys Reason For Visit: VAGINAL DELIVERY Diagnosis Discharge Diagnosis (1) Anemia: Status: Acute Code(s): D64.9 - Anemia, unspecified (2) Third degree laceration of perineum during delivery, : Status: Acute Code(s): O70.20 - Third degree perineal laceration during delivery, unspecified (3) (spontaneous vaginal delivery): Status: Acute Code(s): O80 - Encounter for full-term uncomplicated delivery (4) Rh negative status during : Status: Acute Code(s): O26.899 - Other specified related conditions, unspecified trimester; Z67.91 - Unspecified blood type, Rh negative Plan s/p PPD # 1. routine post delivery care 2. breast feeding- support given 3. rh negative, rhogam per policy 4. rubella immune 5. d/c home today Medications at Discharge Home Medications pyridoxine (vitamin B6) 25 mg tablet 25 mg PO DAILY 06/27/22 [id number] 1 mg tablet tab PO 02/10/23 Hospital Course Operations None Procedures None Physical Exam Narrative admitted in spontaneous labor, with 3rd degree laceration. required additional support and laceration care Const alert and no apparent distress Chest inspection of chest normal Nipple/Areola: nipples/areola normal Resp normal respiratory effort and normal air movement Cardio regular rate and regular rhythm Uterus Palpation: uterus fundus firm Extremity normal to inspection, no calf tenderness and no pedal edema Skin no rashes or lesions noted Psych mental status grossly normal Weight / BMI Weight Weight: 153 lb 6.4 oz Body Mass Index (BMI) 28.0 ABG / Lab / Microbiology Data 02/11/23 05:20 D/C Instructions Discharge Diet: No restrictions (increased fiber) Discharge Activity: Return to Normal Activity (no tubs/swimming x6 weeks) May resume sexual activity in: - (addressed at visit. do not resume sexual activity until after 6 weeks appointment) Weight Bearing Status: Full weight bearing Call your doctor if your incision/area has: Sudden Increased Bleeding, Increased Pain/ Swelling and Foul Smelling Discharge Call your doctor if you observe: Fever of 101 or Higher, Numbness or Tingling, Change in Color, Inability to urinate, Inability to have a bowel movement, Using more than 1 pad per hour, Shortness of breath, Dizziness, Fainting spells, Chest pain, Calf discomfort and Uncontrolled pain Additional Instructions: colace 100mg twice to three times a day for stool softener. sitz bath for comfort at home Please Follow Up With: Tiffanie Velasquez CNM When: 6 weeks , please call office to make an appointment. Congratulations on the of your baby girl Bell!!! Meaningful Use Info Meaningful Use Diagnoses (Choose all that apply): None applicable Discharge Plan Admission Admit Date/Time: 02/10/23 09:15 Attending Provider: Tiffanie Velasqeuz Primary Care Provider: Care Physician,Shadia Primary Discharge Orders/Prescriptions Prescriptions: No Action pyridoxine (vitamin B6) 25 mg tablet 25 mg PO DAILY [id number] 1 mg tablet PO Referrals / Follow Up: Care Physician,No Primary [Primary Care Provider] - Disposition Disposition (needs filled in before D/C Order can be placed): Home, Self Care
--- NOTE | 2023-02-12 10:13 | CASEMGMT ---
Labor and Delivery Social Work Sw received consult due to family member with substance abuse history. Sw spoke to bedside RN, Luisa, who reports that she does not feel as though a full social work/psychosocial assessment is not necessary at this time. Luisa stated that parents will be ready for discharge soon and can meet with social work. - Sw presented to bedside, introduced self to parents and assessed for needs. - Mother of baby (MOB- Justine) and father of baby (FOB) state that they do not have any needs. Parents report that they have all necessary items for baby including: car seat, safe sleep space, clothes, diapers, wipes and a breast pump. - Sw assessed for any needs or concerns at this time, to which parents deny. - MOB and baby to be discharged today when medically ready Malgorzata Sampson, TABLE MAKER, TELECOMMUNICATIONS CLERK
== END 2023-02-12 11:40 | disposition home or self-care (01) | DRG 768 ==
LOC: WPOUT 09:17 → WP 09:17
PROVIDERS: Admitting Provider Registered Nurse; Visit Provider Registered Nurse
DX: O48.0 Post-term pregnancy (principal); O90.81 Anemia of the puerperium; Z37.0 Single live birth; O99.824 Streptococcus B carrier state complicating childbirth; Z3A.40 40 weeks gestation of pregnancy; Z87.891 Personal history of nicotine dependence; O77.0 Labor and delivery complicated by meconium in amniotic fluid
CPT/HCPCS: 59025; 59050; 85025; 85027; 85461; 86780; 86850; 86900; 86901; 99221; J1756; J7120; A4216; G0378; J2405; J2790; J3490

== ENCOUNTER → 2023-03-26 | Outpatient (CLI) | payer BC, SELFPAY ==
[2023-03-26 12:58] LABS: Absolute Lymphocyte Count 2.05 X10^3/uL (0.83-4.51); Absolute Neutrophil Count 3.3 X10^3/uL (2.0-7.7); Basophil# 0.05 X10^3/uL; Basophil% 0.8 % (0-1); Eosinophil# 0.38 X10^3/uL; Eosinophils% 5.9 % (0-5); Hemoglobin 12.8 g/dL (12.0-15.0); Lymphocyte # 2.05 X10^3/ul (0.83-4.51); Lymphocyte % 32.1 % (19-41); Mean Corpuscular Volume 93.7 fL (81-99); Mean Platelet Vol. 9.3 fl (6.2-12.0); Monocyte# 0.61 X10^3/uL; Monocyte% 9.5 % (0-10); NRBC Flagged by Analyzer 0 % (0-5); Neutrophil # 3.28 X10^3/uL (2.7-7.7); Neutrophil % 51.4 % (47-70); Platelet Count 333 K/mm3 (150-450); RBC Distribution Width CV 12.5 % (11.6-14.6); RBC Distribution Width SD 42.7 fl (35.1-43.9); Red Blood Count 4.27 M/mm3 (4.2-5.4); White Blood Count 6.4 K/mm3 (4.4-11.0)
== END | disposition home or self-care (01) ==
LOC: LAB 11:57
PROVIDERS: Referring Provider Registered Nurse; Visit Provider Registered Nurse
DX: O72.1 Other immediate postpartum hemorrhage (principal)
CPT/HCPCS: 36415; 85025

== ENCOUNTER → 2023-04-05 | Outpatient (CLI) | payer BC, SELFPAY ==
--- NOTE | 2023-04-05 09:59 | US_ITS ---
STUDY: ULTRASOUND TRANSVAGINAL CLINICAL: Female, 32 years old. continued bleeding, enlarged uterus TECHNIQUE: Transvaginal COMPARISON: None. FINDINGS: Normal uterine size measuring 7.5 x 6.5 x 4.1 cm in maximal craniocaudal dimension. There are no myometrial masses. The uterus is retroflexed. Normal endometrial thickness measuring 8 mm. There are no endometrial masses, and there is no fluid in the endometrial cavity. Normal uterine cervix. Normal right ovary, measuring 3.6 x 1.7 x 1.9 cm. There are multiple follicles without a dominant cyst. Normal left ovary, measuring 4.1 x 2.4 x 2.4 cm. There are multiple follicles without a dominant cyst. There is a small amount of free fluid in the pelvis. Polycystic ovary disease: No. US/Transvaginal Non- IMPRESSION: Normal transvaginal pelvic ultrasound. Electronically Signed: Varinder Bazzi MD at 19:25 EST ,
== END | disposition home or self-care (01) ==
LOC: US 09:57
PROVIDERS: Referring Provider Registered Nurse; Visit Provider Registered Nurse
DX: O72.1 Other immediate postpartum hemorrhage (principal); Z3A.00 Weeks of gestation of pregnancy not specified
CPT/HCPCS: 76830

== ENCOUNTER → 2025-01-21 | Outpatient (CLI) | payer BC, SELFPAY ==
[2025-01-21 16:41] LABS: Hematocrit 40.1 % (37-47); Hemoglobin 13.3 g/dL (12.0-15.0); Immature Granulocytes Count 0.020 X10^3/uL (0.0-0.0); Mean Corp Hgb Conc 33.2 g/dL (32-36); Mean Corpuscular Volume 92.2 fL (81-99); Mean Platelet Vol. 9.4 fl (6.2-12.0); NRBC Flagged by Analyzer 0 % (0-5); Platelet Count 401 K/mm3 (150-450); RBC Distribution Width CV 12.4 % (11.6-14.6); RBC Distribution Width SD 42.1 fl (35.1-43.9); Red Blood Count 4.35 M/mm3 (4.2-5.4); White Blood Count 9.7 K/mm3 (4.4-11.0)
[2025-01-21 16:56] LABS: AST(SGOT) 20 U/L (<=31); Alanine Aminotransfer ALT/SGPT 13 U/L (<=34); Albumin, Serum 4.9 g/dL (3.5-5.0); Alkaline Phosphatase 63 U/L (35-104); Anion Gap 13 (5-15); BUN 14 mg/dL (4-19); BUN/Creat Ratio 14.6 RATIO (10-20); Calcium,Total 9.5 mg/dL (7.6-11.0); Carbon Dioxide 22.8 mmol/L (21.0-32.0); Chloride 101 mmol/L (98-108); Globulin 3.1 g/dL (2.2-4.2); Glucose 86 mg/dL (70-99); Potassium 4.3 mmol/L (3.3-5.1)
[2025-01-23 04:07] LABS: PROGESTERONE 13.9 ng/mL (.)
== END | disposition home or self-care (01) ==
PROVIDERS: Referring Provider Nurse Practitioner Family; Visit Provider Nurse Practitioner Family
DX: Z31.9 Encounter for procreative management, unspecified (principal)
CPT/HCPCS: 36415; 80053; 84144; 84439; 84443; 85025

== ENCOUNTER → 2025-01-26 | Outpatient (CLI) | payer BC, SELFPAY ==
--- NOTE | 2025-01-26 15:24 | US_ITS ---
PROCEDURE: PELVIC W/ TRANSVAGINAL REASON FOR EXAM: INFERTILITY TECHNIQUE: Procedure Code: [id number] Modality: US Procedure: PELVIC W/ TRANSVAGINAL COMPARISON: Prior study dated April 05, 2023. FINDINGS: LMP: April 05, 2023. Measurements: Uterus: 6.9 cm x 5.8 cm x 3.7 cm with a volume of 78.8 mL Endometrial Thickness: 9 mm. It is echogenic. Right Ovary: 3.6 cm x 2.2 cm x 1.8 cm with a volume of 7.7 mL. Left Ovary: 2.9 cm x 2.4 cm x 2 cm with a volume of 6.6 mL. TRANSABDOMINAL: Uterus: Normal size, myometrial echotexture, and contour. Endometrium: Unremarkable. Right ovary: Normal size and echotexture. Left ovary: Dominant follicle measuring 2 cm x 1.6 cm 1.8 cm. Other: No large pelvic mass identified. Transvaginal sonography was performed to better visualize the endometrium. TRANSVAGINAL: Uterus: Retroverted. Normal contour and myometrial echotexture. Endometrium: Normal echotexture. Right ovary: Normal size and echotexture. Left ovary: Dominant follicle in the left ovary. Other adnexal findings: None. Cul-de-sac: No free intraperitoneal fluid identified. Tenderness: No tenderness US/Pelvic w/ Transvaginal IMPRESSION: Dominant follicle in the left ovary. No other abnormality is seen. Reading Location: [place] [id number]
== END | disposition home or self-care (01) ==
PROVIDERS: PCP Registered Nurse; Referring Provider Nurse Practitioner Family; Visit Provider Nurse Practitioner Family
DX: Z31.9 Encounter for procreative management, unspecified (principal)
CPT/HCPCS: 76830; 76856

== ENCOUNTER → 2025-02-02 | Outpatient (CLI) | payer BC, SELFPAY | END | disposition home or self-care (01) | LOC: BWCLAB 13:33 | PROVIDERS: PCP Registered Nurse; Referring Provider Nurse Practitioner Family; Visit Provider Nurse Practitioner Family | DX: Z31.9 Encounter for procreative management, unspecified (principal) ==

== ENCOUNTER → 2025-02-20 | Outpatient (CLI) | payer BC, SELFPAY ==
--- OUTSIDE RECORDS SUMMARY | 2025-02-20 15:58 | XMS RPT_ITS | CCD ---
Author Organization [facility] Care Team Providers Care Sql Server Dba Name Role Phone Care Physician, No Primary Primary Care Provider Unavailable Care Physician, No Primary Referring Provider Un available Dr. Flower Hatch Attending Provider [phone] No pickle cutter, Md Primary Care Provider Hortensia vailable FLOWER CONWAY Referring Unavailab le NO PRIMARY CARE, Primary Care Unavailable BRAYDEN MCCOY Attending Unavailable FLOWER CONWAY Referring Unavailab le NO PRIMARY CARE, Primary Care Unavailable JANETH BURCH Attending Unavailable NO PRIMARY CARE, Primary Care Unavailable JANETH BURCH Attending Unavailable JANETH BURCH Referring Unavailable FLOWER CONWAY Referring Unavailab le NO PRIMARY CARE, Primary Care Unavailable JANETH BURCH Attending Unavailable NO PRIMARY CARE, Primary Care Unavailable JANETH BURCH Attending Unavailable FLOWER CONWAY Referring Unavailab le Care Physician, No Primary Primary Care Provider Unavailable Care Physician, No Primary Referring Provider Un available Dr. Flower Hatch Attending Provider [phone] Dorys ROSALES, FREDDIE Rosado Attending Provider [phone] BRANDON Laird Attending Provider [phone] Care Physician, No Primary Primary Care Provider Unavailable Care Physician, No Primary Referring Provider Un available Dr. Flower Hatch Attending Provider [phone] BRANDON Velasquez Attending Provider 1 Care Physician, No Primary Primary Care Provider Unavailable Care Physician, No Primary Referring Provider Un available Care Physician, No Primary Primary Care Provider Unavailable Care Physician, No Primary Referring Provider Un available Dr. Flower Hatch Attending Provider [phone] Dr. Cathei Farr Attending Provider [phone] Care Physician, No Primary Primary Care Provider Unavailable Care Physician, No Primary Referring Provider Un available BRANDON Velasquez Attending Provider [phone] Dr. Flower Hatch Attending Provider [phone] BRANDON Laird Attending Provider [phone] Dr. Cathie Farr Attending Provider [phone] BRANDON Velasquez Admit Provider [phone] BRANDON Velasquze Other Provider Malik ORCHARD WORKER, ORCHARD WORKER-C Kaye Attending Provider [phone] MONICA CNC MACHINE OPERATOR-LATHING SUPERVISOR, MARYELLEN Quiroz Primary Care Physi wayne MONICA CNC MACHINE OPERATOR-LATHING SUPERVISOR, MARYELLEN Quiroz Attending Un available MONICA FOREMAN-LATHING SUPERVISOR, MARYELLEN Quiroz Primary Care Un available Care Physician, No Primary Primary Care Physicia n Unavailable Care Physician, No Primary Referring Provider Un available Shivam ROSALES-C, Crystal Attending Physician [phone] Shivam ORCHARD WORKER-C, Crystal Referring Provider [phone] Monica ORCHARD WORKER-C, Maryellen Primary Care Physician Crystal Langley Referring Unavailable Care Physician, No Primary Primary Care Unava ilable Crystal Langley Attending Unavailable Crystal Langley Referring Unavailable Monica ORCHARD WORKER, Maryellen Primary Care UnavailCrystal Stallworth Attending Unavailable Crystal Langley Referring Unavailable Monica ORCHARD WORKER, Maryellen Primary Care Unavailabl e Crystal Langley Attending Unavailable Crystal Langley Attending Unavailable Care Physician, No Primary Primary Care Unava ilable Care Physician, No Primary Referring Unava ilable Crystal Langley Attending Unavailable Monica ORCHARD WORKER, Maryellen Primary Care Unavailabl e Care Physician, No Primary Referring Unava ilable Medications Current Medications Medication Drug Class(es) Dates Sig (Normalized) Sig (Original) levothyroxine sodium 0.025 mg oral tablet (4 sources) l-Thyroxine Start: 01-21-2025 take 1 tablet by mouth once daily Hxartefs-Qbg-Lm-Fa (2 sources) Start: 02-10-2023 take 1 tablet by mouth once Ervqfnnv-Wqu-Kw-Fa Active TABLET PO February 09, 2023 11:00pm valACYclovir 1000 mg oral tablet (1 source) Herpesvirus Nucleoside Analog DNA Polymerase Inhibitor, Herpes Simplex Virus Nucleoside Analog DNA Polymerase Inhibitor, Herpes Zoster Virus Nucleoside Analog DNA Polymerase Inhibitor Start: 11-17-2024 take 1 tablet by mouth twice daily valACYclovir 1 g oral tablet TAKE ONE TABLET BY MOUTH TWICE DAILY FOR 7 DAYS Start Date: 11/17/24 Status: Ordered Repeat number: 1 Completed/Discontinued Medications Medication Drug Class(es) Dates Sig (Normalized) Sig (Original) cyclobenzaprine hydrochloride 10 mg oral tablet (6 sources) Muscle Relaxant Start: 03-26-2023 End: 01-21-2025 take 1 tablet by mouth three times daily as needed for muscle spasms Cyclobenzaprine 10 mg tablet Discontinued 10 mg PO THREE TIMES A DAY as needed for muscle spasm 30 0 March 26, 2023 1:00am January 21, 2025 2:26pm docusate sodium 100 mg oral tablet (6 sources) Start: 03-26-2023 End: 01-21-2025 take 1 tablet by mouth twice daily Docusate Sodium 100 mg tablet Discontinued 100 mg PO TWICE A DAY 60 6 March 26, 2023 1:00am January 21, 2025 2:26pm Refsmptf-Zvv-Yr-Fa 1 mg tablet (4 sources) Start: 02-10-2023 End: 01-21-2025 take 1 tablet by mouth once Mcninofc-Oxb-Do-Fa 1 mg tablet Discontinued {tbl} PO February 10, 2023 12:00am January 21, 2025 2:26pm pyridoxine hydrochloride 25 mg oral tablet (12 sources) Start: 06-27-2022 End: 01-21-2025 take 1 tablet by mouth once daily Pyridoxine (Vitamin B6) 25 mg tablet Discontinued 25 mg PO DAILY June 27, 2022 1:00am January 21, 2025 2:27pm Problems Active Problems Problem Classification Problem Date Documented Date Episodic/Chronic Bacterial infection; unspecified site (20 sources) Bacteria present; Translations: [Streptococcus, group B, as the cause of diseases classified elsewhere] 01-15-2023 Episodic Comment on above: treat in labor Contraceptive and procreative management (8 sources) Infertility study done; Translations: [Encounter for fertility testing] Onset: Episodic Deficiency and other anemia (6 sources) Anemia; Translations: [Anemia, unspecified] 02-13-2023 Episodic Comment on above: asymptomaticunable t o obtain iv access. will start floradix daily at home. Deficiency and other anemia (2 sources) Anemia, unspecified; Translations: [Anemia, unspecified] 02-12-2023 Episodic Genitourinary symptoms and ill-defined conditions (8 sources) Incontinence; Translations: [Unspecified urinary incontinence] 03-26-2023 Chronic Comment on above: colace BIDtoilet q2- 3 hours for urinationpelvic floor PT Hemorrhage during ; abruptio placenta; placenta previa (20 sources) Low lying placenta; Translations: [Low lying placenta NOS or without hemorrhage, third trimester] 11-16-2022 Episodic Comment on above: repeat US to confirm location, 11/20 not previa or low lying- Resolved. pelvic rest and rpt at 28 weeks, previa resolved but still low lying OB-related trauma to perineum and vulva (8 sources) Third degree perineal tear during delivery with problem ; Translations: [Third degree perineal laceration during delivery, unspecified] 03-26-2023 Episodic Comment on above: sitz bath TID, colac e BID. fiber rich food, pain managementcontinue colace for stool incontinences- having BM 2x a week currently.pelvic floor PT Other complications of ; puerperium affecting management of mother (6 sources) hemorrhage; Translations: [Other immediate hemorrhage] 03-26-2023 Episodic Comment on above: >6 week bleeding enl arged uterus on pelvic exam.TVUS orderedcontinue on floradix for iron supplementation Other complications of ; puerperium affecting management of mother (2 sources) Other disorders of breast associated with and the puerperium; Translations: [Other and unspecified disorder of breast associated with childbirth, condition or complication] 02-14-2023 Episodic Other complications of ; puerperium affecting management of mother (2 sources) Other immediate hemorrhage; Translations: [Other immediate hemorrhage, unspecified as to episode of care or not applicable] 03-26-2023 Episodic Other complications of (11 sources) RhD negative; Translations: [Other specified related conditions, unspecified trimester] 07-21-2022 Episodic Comment on above: Rhogam @ 28 weeks an d PRN bleeding Other complications of (11 sources) ultrasound scan abnormal; Translations: [Abnormal ultrasonic finding on screening of mother] Onset: 3 09-06-2022 Episodic Comment on above: growth scans q4 week s: 8/7 35%, 9/5 22% Other complications of (10 sources) Abnormal findings on screening of mother; Translations: [Abnormal chromosomal and genetic finding on screening of mother] 08-08-2022 Episodic Comment on above: FOB neg. carrier for Cystic Fibrosis, Glycogen Storage Disease Type 2, (Pompe Disease), Glycogen Storage Disease Type 5 (Clover Disease) and Rbllla-Boszzlp-Dnvoai Dysplasia/Zegczx-Jgnwor-Sgitfco Syndrome Other complications of (20 sources) Other specified related conditions, unspecified trimester; Translations: [Other specified complications of , antepartum condition or complication] 2022 Episodic Other complications of (20 sources) Abnormal chromosomal and genetic finding on screening of mother; Translations: [Abnormal finding on screening] 08-28-2022 Episodic Other complications of (20 sources) Abnormal ultrasonic finding on screening of mother; Translations: [Abnormal finding on screening] 12-29-2022 Episodic Other and delivery including normal (20 sources) Normal ; Translations: [Encounter for supervision of normal first , unspecified trimester] 06-27-2022 Episodic Comment on above: PRR MARIMAR-02/05/23 girl Arabella BF-Emño LC IAL 40+5, girl Arabella GBS pos, NIPT low ri sk, afp declined. carrier screening done. 270/274. FOB neg.254/254 Polyhydramnios and other problems of amniotic cavity (13 sources) Polyhydramnios; Translations: [Polyhydramnios, unspecified trimester, not applicable or unspecified] 01-26-2023 Episodic Comment on above: mild CORIN 20, rescan normal CORIN =15 Residual codes; unclassified (12 sources) Family history of gene mutation; Translations: [Family history of carrier of genetic disease] 07-06-2022 Episodic Comment on above: [id number] mutation. car rier screen ordered. pt states it is part of cystic fibrosis diagnosis Residual codes; unclassified (12 sources) History of colonoscopy; Translations: [Other specified postprocedural states] 06-27-2022 Episodic Comment on above: normal per pt Residual codes; unclassified (20 sources) Family history of carrier of genetic disease; Translations: [Family history of genetic disease carrier] 07-06-2022 Episodic Residual codes; unclassified (4 sources) bowel echogenicity on obstetric ultrasound scan 11-16-2022 Episodic Comment on above: [facility] recommends growt hs q 4 weeks Spondylosis; intervertebral disc disorders; other back problems (8 sources) Spasm of back muscles; Translations: [Muscle spasm of back] 03-26-2023 Episodic Comment on above: flexeril PRN, advil, heating pad, stretcheschiropractic care Past or Other Problems Problem Classification Problem Date Documented Da te Episodic/Chronic Unclassified (13 sources) bowel echogenicity on obstetric ultrasound scan; Translations: [Echogenic bowel of fetus] 11-16-2022 Unclassified (8 sources) Spontaneous onset of labor; Translations: [Spontaneous onset of labor] 02-13-2023 Results Test Name Value Interpretation Reference Range Facility Pelvic w/ Transvaginalon Pelvic w/ Transvaginal [facility] [address] [place], [place] [id number] Pelvic w/ Transvaginal MR#: [id number] Acct: [id number] Name: MANPREET TANG Rep #: [id number] : 1990 F 34 From: Gregg mims MD PCP: FREDDIE Duron Status: REG CLI Study: Pelvic w/ Transvaginal Date of Exam: 01/26/25 Exam# [id number] Ordering Dr: Crystal Langley ORCHARD WORKERLucienC PROCEDURE: PELVIC W/ TRANSVAGINAL REASON FOR EXAM: INFERTILITY TECHNIQUE: Procedure Code: [id number] Modality: US Procedure: PELVIC W/ TRANSVAGINAL COMPARISON: Prior study dated April 05, 2023. FINDINGS: LMP: April 05, 2023. Measurements: Uterus: 6.9 cm x 5.8 cm x 3.7 cm with a volume of 78.8 mL Endometrial Thickness: 9 mm. It is echogenic. Right Ovary: 3.6 cm x 2.2 cm x 1.8 cm with a volume of 7.7 mL. Left Ovary: 2.9 cm x 2.4 cm x 2 cm with a volume of 6.6 mL. TRANSABDOMINAL: Uterus: Normal size, myometrial echotexture, and contour. Endometrium: Unremarkable. Right ovary: Normal size and echotexture. Left ovary: Dominant follicle measuring 2 cm x 1.6 cm 1.8 cm. Other: No large pelvic mass identified. Transvaginal sonography was performed to better visualize the endometrium. TRANSVAGINAL: Uterus: Retroverted. Normal contour and myometrial echotexture. Endometrium: Normal echotexture. Right ovary: Normal size and echotexture. Left ovary: Dominant follicle in the left ovary. Other adnexal findings: None. Cul-de-sac: No free intraperitoneal fluid identified. Tenderness: No tenderness US/Pelvic w/ Transvaginal IMPRESSION: Dominant follicle in the left ovary. No other abnormality is seen. Reading Location: [place] [address] CC: FREDDIE Langley; FREDDIE Anderson [employer] Door Fundraising Collector: Signed Normal [facility] PROGESTERONE [id number] 01-24-20 PROGESTERONE 13.9 ng/mL Normal . [facility] Comment on above: Order Comment: N day 21 Result Comment: Foll icular phase 0.1 - 0.9 Luteal phase 1.8 - 23.9 Ovulation phase 0.1 - 12.0 First trimester 11.0 - 44.3 Second trimester 25.4 - 83.3 Third trimester 58.7 - 214.0 Postmenopausal 0.0 - 0.1 Performed at: [facility] [id number] Supervisor Television Chassis Repair: Abel Tran PhD, Phone: [phone] Performed By: #### L 501.1454, S306.0790, L500.7620, L578.0950, L100.0100 #### [facility] [address] [place], [place], [id number] Absolute lymphocyte countOrd ered By: Crystal Langley on 01-21-2025 Lymphocytes Auto (Unsp spec) [#/Vol] 2.49 10*3/uL 0.83-4.51 [facility] Absolute neutrophil countOrd ered By: Crystal Langley on 01-21-2025 Neutrophils (Bld) [#/Vol] 5.8 10*3/uL 2.0-7.7 [facility] Anion gap in Serum or Plasma Ordered By: Crystal Langley on 01-21-2025 Anion gap [Moles/Vol] 13 mmol/L 5-15 [facility] Automated lymphocyte count a s percentage of total leukocytesOrdered By: Crystal Langley on 01-21-2025 Lymphocytes/100 WBC Auto (Unsp spec) 25.6 % 19- [facility] BUN/creatinine ratioOrdered By: Crystal Langley on 01-21-2025 Urea nitrogen/Creatinine [Mass ratio] 14.6 mg/mg 10- [facility] Basophil percentageOrdered B y: Crystal Langley on 01-21-2025 Basophils/100 WBC (Bld) 0.8 % 0-1 [facility] Bilirubin, totalOrdered By: Crystal Langley on 01-21-2025 Bilirubin [Mass/Vol] 0.27 mg/dL 0.00-1.30 [facility] CBC W/Diff, Automatedon 01-05 Absolute Lymph 2.49 X10 3/uL Normal 0.83-4.51 [facility] Comment on above: Performed By: #### L [id number], L506.0400, L500.4050, L801.2600, L100.0100 #### [facility] [address] [place], [address] Absolute Neut 5.8 X10 3/uL Normal 2.0-7.7 [facility] Comment on above: Performed By: #### L [id number], L506.0400, L500.4050, L801.2600, L100.0100 #### [facility] [address] [place], [address] Basophils/100 WBC (Bld) 0.8 % Normal 0-1 [facility] Comment on above: Performed By: #### L [id number], L506.0400, L500.4050, L801.2600, L100.0100 #### [facility] [address] [place], [address] Eosinophils/100 WBC (Bld) 3.6 % Normal 0-5 [facility] Comment on above: Performed By: #### L [id number], L506.0400, L500.4050, L801.2600, L100.0100 #### [facility] [address] [place], [address] Erythrocyte distribution width (RBC) [Ratio] 12.4 % Normal 11.6-14.6 [facility] Comment on above: Performed By: #### L [id number], L506.0400, L500.4050, L801.2600, L100.0100 #### [facility] [address] [place], [address] Hematocrit (Bld) [Volume fraction] 40.1 % Normal 37-47 [facility] Comment on above: Performed By: #### L 501.9520, L506.0400, L500.4050, L801.2600, L100.0100 #### [facility] [address] [place], [address] Hemoglobin (Bld) [Mass/Vol] 13.3 g/dL Normal 12.0-15.0 [facility] Comment on above: Performed By: #### L 501.9520, L506.0400, L500.4050, L801.2600, L100.0100 #### [facility] [address] [place], [address] IG% 0.200 Normal 0.0-0.9 [facility] Comment on above: Result Comment: IG% - Immature Granulocytes (promyelocytes, myelocytes and metamyelocytes) > 1% indicates that a LEFT SHIFT is Present. Performed By: #### L 501.9520, L506.0400, L500.4050, L801.2600, L100.0100 #### [facility] [address] [place], [address] Lymphocytes/100 WBC (Bld) 25.6 % Normal 19-41 [facility] Comment on above: Performed By: #### L 501.9520, L506.0400, L500.4050, L801.2600, L100.0100 #### [facility] [address] [place], [address] MCH (RBC) [Entitic mass] 30.6 pg Normal 27.0-32.0 [facility] Comment on above: Performed By: #### L 501.9520, L506.0400, L500.4050, L801.2600, L100.0100 #### [facility] [address] [place], [address] MCHC (RBC) [Mass/Vol] 33.2 g/dL Normal 32-36 [facility] Comment on above: Performed By: #### L 501.9520, L506.0400, L500.4050, L801.2600, L100.0100 #### [facility] [address] [place], [address] MCV (RBC) [Entitic vol] 92.2 fL Normal 81-99 [facility] Comment on above: Performed By: #### L 501.9520, L506.0400, L500.4050, L801.2600, L100.0100 #### [facility] [address] [place], [address] Monocytes/100 WBC (Bld) 9.9 % Normal 0-10 [facility] Comment on above: Performed By: #### L 501.9520, L506.0400, L500.4050, L801.2600, L100.0100 #### [facility] [address] [place], [address] Neutrophils/100 WBC (Bld) 59.9 % Normal 47-70 [facility] Comment on above: Performed By: #### L 501.9520, L506.0400, L500.4050, L801.2600, L100.0100 #### [facility] [address] [place], [address] Nucleated RBC (Bld) [#/Vol] 0 10*3/uL Normal 0-5 [facility] Comment on above: Performed By: #### L 501.9520, L506.0400, L500.4050, L801.2600, L100.0100 #### [facility] [address] [place], [address] Platelet mean volume (Bld) [Entitic vol] 9.4 fL Normal 6.2-12.0 [facility] Comment on above: Performed By: #### L 501.9520, L506.0400, L500.4050, L801.2600, L100.0100 #### [facility] [address] [place], [address] Platelets (Bld) [#/Vol] 401 10*3/uL Normal 150-450 [facility] Comment on above: Performed By: #### L 501.9520, L506.0400, L500.4050, L801.2600, L100.0100 #### [facility] [address] [place], [address] RBC (Bld) [#/Vol] 4.35 10*6/uL Normal 4.2-5.4 [facility] Comment on above: Performed By: #### L 501.9520, L506.0400, L500.4050, L801.2600, L100.0100 #### [facility] [address] [place], [address] RDW SD 42.1 fl Normal 35.1-43.9 [facility] Comment on above: Performed By: #### L 501.9520, L506.0400, L500.4050, L801.2600, L100.0100 #### [facility] [address] [place], [address] WBC (Bld) [#/Vol] 9.7 10*3/uL Normal 4.4-11.0 [facility] Comment on above: Performed By: #### L 501.9520, L506.0400, L500.4050, L801.2600, L100.0100 #### [facility] [address] [place], [address] Carbon dioxide, total [Moles /volume] in Central venous bloodOrdered By: Crystal Langley on 01-21-2025 CO2 [Moles/Vol] 22.8 mmol/L 21.0-32.0 [facility] Chloride assayOrdered By: Hilda Langley on 01-21-2025 Chloride [Moles/Vol] 101 mmol/L 98-108 [facility] Comprehensive Metabolic Prof ilon 01-21-2025 Albumin [Mass/Vol] 4.9 g/dL Normal 3.5-5.0 [facility] Comment on above: Order Comment: day 2 1 Performed By: #### L 501.9520, L506.0400, L500.4050, L801.2600, L100.0100 #### [facility] [address] [place], [address] Albumin/Globulin [Mass ratio] 1.6 {ratio} Normal 0.9-2.4 [facility] Comment on above: Order Comment: day 2 1 Performed By: #### L 501.9520, L506.0400, L500.4050, L801.2600, L100.0100 #### [facility] [address] [place], [address] ALK PHOS 63 U/L Normal 35-104 [facility] Comment on above: Order Comment: day 2 1 Performed By: #### L 501.9520, L506.0400, L500.4050, L801.2600, L100.0100 #### [facility] [address] [place], [address] ALT [Catalytic activity/Vol] 13 U/L Normal <=34 [facility] Comment on above: Order Comment: day 2 1 Performed By: #### L 501.9520, L506.0400, L500.4050, L801.2600, L100.0100 #### [facility] [address] [place], [address] AST [Catalytic activity/Vol] 20 U/L Normal <=31 [facility] Comment on above: Order Comment: day 2 1 Performed By: #### L 501.9520, L506.0400, L500.4050, L801.2600, L100.0100 #### [facility] [address] [place], [address] Bilirubin [Mass/Vol] 0.27 mg/dL Normal 0.00-1.30 [facility] Comment on above: Order Comment: day 2 1 Performed By: #### L 501.9520, L506.0400, L500.4050, L801.2600, L100.0100 #### [facility] [address] [place], [address] BUN/CRE 14.6 RATIO Normal 10-20 [facility] Comment on above: Order Comment: day 2 1 Performed By: #### L 501.9520, L506.0400, L500.4050, L801.2600, L100.0100 #### [facility] [address] [place], [address] Calcium [Mass/Vol] 9.5 mg/dL Normal 7.6-11.0 [facility] Comment on above: Order Comment: day 2 1 Performed By: #### L 501.9520, L506.0400, L500.4050, L801.2600, L100.0100 #### [facility] [address] [place], [address] Chloride [Moles/Vol] 101 mmol/L Normal 98-108 [facility] Comment on above: Order Comment: day 2 1 Performed By: #### L 501.9520, L506.0400, L500.4050, L801.2600, L100.0100 #### [facility] [address] [place], [address] CO2 [Moles/Vol] 22.8 mmol/L Normal 21.0-32.0 [facility] Comment on above: Order Comment: day 2 1 Performed By: #### L [id number], L506.0400, L500.4050, L801.2600, L100.0100 #### [facility] [address] [place], [address] Creatinine [Mass/Vol] 0.96 mg/dL Normal 0.70-1.20 [facility] Comment on above: Order Comment: day 2 1 Performed By: #### L [id number], L506.0400, L500.4050, L801.2600, L100.0100 #### [facility] [address] [place], [address] GAP 13 Normal 5-15 [facility] Comment on above: Order Comment: day 2 1 Performed By: #### L [id number], L506.0400, L500.4050, L801.2600, L100.0100 #### [facility] [address] [place], [address] GFR/1.73 sq M.predicted among non-blacks MDRD (S/P/Bld) [Vol rate/Area] 80 mL/min/{1.73_m2} Normal >60 [facility] Comment on above: Order Comment: day 2 1 Result Comment: mL/m in/1.73m2 CKD-EPI Creatinine Equation (2020) Performed By: #### L [id number], L506.0400, L500.4050, L801.2600, L100.0100 #### [facility] [address] [place], [address] Globulin (S) [Mass/Vol] 3.1 g/dL Normal 2.2-4.2 [facility] Comment on above: Order Comment: day 2 1 Performed By: #### L [id number], L506.0400, L500.4050, L801.2600, L100.0100 #### [facility] [address] [place], [address] Glucose [Mass/Vol] 86 mg/dL Normal 70-99 [facility] Comment on above: Order Comment: day 2 1 Performed By: #### L [id number], L506.0400, L500.4050, L801.2600, L100.0100 #### [facility] [address] [place], [address] Potassium [Moles/Vol] 4.3 mmol/L Normal 3.3-5.1 [facility] Comment on above: Order Comment: day 2 1 Performed By: #### L [id number], L506.0400, L500.4050, L801.2600, L100.0100 #### [facility] [address] [place], [address] Sodium [Moles/Vol] 137 mmol/L Normal 133-145 [facility] Comment on above: Order Comment: day 2 1 Performed By: #### L [id number], L506.0400, L500.4050, L801.2600, L100.0100 #### [facility] [address] [place], [place], [id number] (112) T PROT 8.0 g/dL Normal 5.9-8.4 [facility] Comment on above: Order Comment: day 2 1 Performed By: #### L [id number], L506.0400, L500.4050, L801.2600, L100.0100 #### [facility] [address] [place], [address] Urea nitrogen [Mass/Vol] 14 mg/dL Normal 4-19 [facility] Comment on above: Order Comment: day 2 1 Performed By: #### L [id number], L506.0400, L500.4050, L801.2600, L100.0100 #### [facility] [address] [place], [address] Eosinophil percentageOrdered By: Crystal Langley on 01-21-2025 Eosinophils/100 WBC (Bld) 3.6 % 0-5 [facility] Erythrocyte distribution wid th ratioOrdered By: Crystal Langley on 01-21-2025 Erythrocyte distribution width (RBC) [Ratio] 12.4 % 11.6-14.6 [facility] Erythrocyte distribution wid th standard deviationOrdered By: Crystal Langley on 01-21-2025 Erythrocyte distribution width (RBC) [Ratio] 42.1 fl 35.1-43.9 [facility] Glomerular filtration rate ( GFR) estimation/1.73 sq m using serum, plasma, or whole bOrdered By: Crystal Langley on 01-21-2025 GFR/1.73 sq M.predicted among non-blacks MDRD (S/P/Bld) [Vol rate/Area] 80 mL/min/{1.73_m2} >60 [facility] Comment on above: mL/min/1.73m2 CKD-EP I Creatinine Equation (2020) Hematocrit Auto (Bld) [Volum e fraction]Ordered By: Crystal Langley on 01-21-2025 Hematocrit (Bld) [Volume fraction] 40.1 % 37-47 [facility] Hemoglobin measurementOrdere d By: Crystal Langley on 01-21-2025 Hemoglobin (Bld) [Mass/Vol] 13.3 g/dL 12.0-15.0 [facility] Immature granulocytes/100 WB C Auto (Bld)Ordered By: Crystal Langley on 01-21-2025 Immature granulocytes/100 WBC (Bld) 0.200 % 0.0-0.9 [facility] Comment on above: IG% - Immature Granu locytes (promyelocytes, myelocytes and metamyelocytes) > 1% indicates that a LEFT SHIFT is Present. Laboratory - Chemistry and C hemistry - challengeOrdered By: Crystal Langley on 01-21-2025 AST [Catalytic activity/Vol] 20 U/L <32 [facility] MCV (mean corpuscular volume ) determinationOrdered By: Crystal Langley on 01-21-2025 MCV (RBC) [Entitic vol] 92.2 fL 81-99 [facility] Mean corpuscular hemoglobin (MCH) determinationOrdered By: Crystal Langley on 01-21-2025 MCH (RBC) [Entitic mass] 30.6 pg 27.0-32.0 [facility] Mean corpuscular hemoglobin concentration (MCHC) determinationOrdered By: Crystal Langley on 01-21-2025 MCHC (RBC) [Mass/Vol] 33.2 g/dL 32-36 [facility] Mean platelet volume determi nationOrdered By: Crystal Langley on 01-21-2025 Platelet mean volume (Bld) [Entitic vol] 9.4 fL 6.2-12.0 [facility] Monocyte percentageOrdered B y: Crystal Langley on 01-21-2025 Monocytes/100 WBC (Bld) 9.9 % 0-10 [facility] Neutrophil percentageOrdered By: Crystal Langley on 01-21-2025 Neutrophils/100 WBC (Bld) 59.9 % 47-70 [facility] Nucleated red blood cell per centageOrdered By: Crystal Langley on 01-21-2025 Nucleated RBC/100 WBC (Bld) [Ratio] 0 % 0-5 [facility] Track Walker Office Visit Reporton 01-21-2025 Track Walker Office Visit Report [facility] [address], [address] [place] [address] OFFICE VISIT Date of Service: 01/21/25 MR#: [id number] Acct: [id number] Name: MANPREET TANG Rep #: [id number] : 1990 Provider: FREDDIE Hudson Age/Sex: 34/F Location: [facility] Status: Signed Intake Vital Signs 03/28/23 10:06 01/21/25 14:26 01/21/25 14:29 Height 5 ft 2 in 5 ft 2 in 5 ft 2 in Weight: 136 lb 5 oz BMI 24.9 BP 146/83 H Intake Visit Reasons: DISCUSS FERTILITY Funder Required: No Is patient in pain?: No Allergies No Known Allergies Allergy (Verified 01/21/25 14:26) Medications ???Medication ???Instructions ???Recorded ???Confirmed ???Type levothyroxine 25 mcg tablet 25 mcg PO QDAY 01/21/25 01/21/25 H istory (Levoxyl) Is last menstrual period known: Yes Last Menstrual Period: 01/04/25 Post menopausal: No Patient : No : Yes Control Method: none PFSH Medical History Abnormal genetic test during Surgical History H/O colonoscopy Family History Grandmother Diabetes Grandmother Colon cancer maternal grandmother Grandfather Heart disease Myocardial infarction paternal grandfather Father Myocardial infarction, Onset Age: 52 Heart disease Social History adopted: No household members: significant other housing: apartment current occupational status: employed current occupation: [employer] current occupational exposures/hazards: No pets and animals: Yes (does not do litter box) pets and animals: cat(s) history of recent travel: Yes (maggie in march) out of country: Yes sexually active: Yes Smoking Status: Former smoker Electronic Cigarette Use: with nicotine how long ago did patient quit smoking: not since aware of preg second hand exposure: No alcohol intake: current substance use type: does not use well-balanced diet: rarely or never caffeine: Yes Type: coffee eating out: 4 or more times/week seatbelt use: always do you feel safe at home: Yes additional social history: boyfriend- Meño- [employer] HPI DISCUSS FERTILITY Details: MANPREET TANG is a 34 year old who presents for discussion on fertility. Has not been on control since the of her first child in 2022; she continues to breast feed. Just at night time. She has had regular menses since 2022. Did not have any issues with fertility with first child. She is tracking ovulation at home with Ovia. She did do ovulation testing strips but felt these were giving mixed results. Female Reproductive History Last Menstrual Period: 01/04/25 Cycle Length: 21-35 Bleeding Duration: 5 History 1 Elective abortions Hx Para 1 Spontaneous abortions Hx # Term Pregnancies Ectopic pregnancies Hx # Pregnancies Multiple births # of living children 1 Past Pregnancies Del. Date Name GA/Weeks Outcome Route Bth Weight [facility]23 Arabella [facility] live - full term Female [facility] Ana Velasquez Delivery Date: 02/10/23 Last Updated by: Cyndi Espinosa 3rd degree tear ROS Const Constitutional: Reports system reviewed and no additional complaints, except as documented Eyes Eyes: Reports system reviewed and no additional complaints, except as documented Cardio Card: Reports system reviewed and no additional complaints, except as documented Resp Resp: Reports system reviewed and no additional complaints, except as documented : Reports system reviewed and no additional complaints, except as documented Exam Const General: cooperative, healthy appearing, comfortable, no acute distress and well developed Orientation: alert, awake and oriented x3 HENMT Head: normal to inspection Eyes General: appearance normal, both eyes and all related structures Neck Neck: normal visual inspection Resp Effort Inspection: normal respiratory effort and able to speak in complete sentences Skin General: no rashes or lesions noted Neuro General: patient alert, patient awake, patient oriented x3 and moves all extremities Psych Affect: normal affect Speech and Movement: speech and movement normal Coding Level of Care Code Established Pt Off vis,est,level 3 Patient Type Established Diagnoses Infertility counseling Z31.69 Assessment and Plan Assessment and Plan (1) Infertility counseling: Status: Acute Plan: planning to stop in the next few weeks. Labwork and ultrasound ordered. Records request from PCP to review labs. Day 3 and 21 labs ordered. Mariza (more content not included)... Normal [facility] Platelet countOrdered By: Hilda Langley on 01-21-2025 Platelets (Bld) [#/Vol] 401 10*3/uL 150-450 [facility] Potassium measurement (mass/ volume)Ordered By: Crystal Langley on 01-21-2025 Potassium (Unsp spec) [Mass/Vol] 4.3 mmol/L 3.3-5.1 [facility] RBC Auto (Bld) [#/Vol]Ordere d By: Crystal Langley on 01-21-2025 RBC (Bld) [#/Vol] 4.35 10*6/uL 4.2-5.4 [facility] Serum creatinine measurement (mass/volume)Ordered By: Crystal Langley on 01-21-2025 Creatinine [Mass/Vol] 0.96 mg/dL 0.70-1.20 [facility] Serum globulin measurementOr dered By: Crystal Langley on 01-21-2025 Globulin (S) [Mass/Vol] 3.1 g/dL 2.2-4.2 [facility] Serum glucose measurement (m ass/volume)Ordered By: Crystal Langley on 01-21-2025 Glucose [Mass/Vol] 86 mg/dL 70-99 [facility] Serum or plasma alanine floyd otransferase (ALT) measurementOrdered By: Crystal Langley on 01-21-2025 ALT [Catalytic activity/Vol] 13 U/L <35 [facility] Serum or plasma albumin corrine urement (mass/volume)Ordered By: Crystal Langley on 01-21-2025 Albumin [Mass/Vol] 4.9 g/dL 3.5-5.0 [facility] Serum or plasma albumin/glob ulin mass ratioOrdered By: Crystal Langley on 01-21-2025 Albumin/Globulin [Mass ratio] 1.6 {ratio} 0.9-2.4 [facility] Serum or plasma alkaline berto sphatase measurementOrdered By: Crystal Langley on 01-21-2025 ALP [Catalytic activity/Vol] 63 U/L 35-104 [facility] Serum or plasma calcium corrine urement (mass/volume)Ordered By: Crystal Langley on 01-21-2025 Calcium [Mass/Vol] 9.5 mg/dL 7.6-11.0 [facility] Serum or plasma urea nitroge n measurement (mass/volume)Ordered By: Crystal Langley on 01-21-2025 Urea nitrogen [Mass/Vol] 14 mg/dL 4-19 [facility] Sodium levelOrdered By: Danuta Langley on 01-21-2025 Sodium [Moles/Vol] 137 mmol/L 133-145 [facility] T4 Free Directon 01-21-2025 T4 FREE DIRECT 1.10 ng/dL Normal 0.76-1.46 [facility] Comment on above: Order Comment: N day Performed By: #### L [id number], L506.0400, L500.4050, L801.2600, L100.0100 #### [facility] [address] [place], [place], [address] T4 freeOrdered By: Crystal miller on 01-21-2025 Free T4 [Mass/Vol] 1.10 ng/dL 0.76-1.46 [facility] TSH DL <= 0.005 mIU/L QnOrde red By: Crystal Langley on 01-21-2025 TSH Qn 0.716 uIU/mL 0.300-4.200 [facility] Thyroid Stim Hormone (TSH)on 01-21-2025 TSH 0.716 uIU/mL Normal 0.300-4.200 [facility] Comment on above: Performed By: #### L [id number], L506.0400, L500.4050, L801.2600, L100.0100 #### [facility] [address] [place], [address] Total proteinOrdered By: Earl Langley on 01-21-2025 Protein [Mass/Vol] 8.0 g/dL 5.9-8.4 [facility] White blood cell (WBC) count Ordered By: Crystal Langley on 01-21-2025 WBC (Bld) [#/Vol] 9.7 10*3/uL 4.4-11.0 [facility] ESTGENon 11-20-2024 Estradiol 32.9 pg/mL Normal [facility] Comment on above: Result Comment: Adul t Female Range Follicular phase 12.5 - 166.0 Ovulation phase 85.8 - 498.0 Luteal phase 43.8 - 211.0 Postmenopausal <6.0 - 54.7 1st trimester 215.0 - >4300.0 Nina ECLIA methodology Performed At: [facility] [address] [id number] Augusto Stephens MD Ph:[phone] Performed At: [facility] [address] [id number] Marc Roman PhD Ph:[phone] Performed By: #### P SAMY, FSH, TESTO, LH #### [address] [address] #### [id number], ANEU, TSH, FT4, CMP, ADIFF, GFR, CBC #### [address] [address] Estrone 29 pg/mL Normal 27-231 [facility] Comment on above: Result Comment: Rang e Adult (Premenopausal) 27 - 231 Menstrual Cycle (1-10 days) 19 - 149 Menstrual Cycle (11-20 days) 32 - 176 Menstrual Cycle (21-30 days) 37 - 200 Performed By: #### P SAMY, FSH, TESTO, LH #### [address] [address] #### [id number], ANEU, TSH, FT4, CMP, ADIFF, GFR, CBC #### [address] [address] FSHon 11-18-2024 FSH 8.5 mIU/mL Normal [facility] Comment on above: Result Comment: Adul t Female FSH Reference Ranges (03/30/99): Follicular phase 2.5 - 10.2 mIU/mL Midcycle phase 3.4 - 33.4 mIU/mL Luteal phase 1.5 - 9.1 mIU/mL Post menopausal 23.0 -116.3 mIU/mL Adult Male: 1.4 - 18.1 mIU/mL Performed By: #### P SAMY, FSH, TESTO, LH #### [place] [address] #### [id number], ANEU, TSH, FT4, CMP, ADIFF, GFR, CBC #### [address] [address] LHon 11-18-2024 LH 5.4 mIU/mL Normal [facility] Comment on above: Result Comment: No te - New Reference Range in effect 19Adult Female LH Reference Ranges: Follicular phase 1.9 - 12.5 mIU/mL Midcycle phase 8.7 - 76.3 mIU/mL Luteal phase 0.5 - 16.9 mIU/mL Post menopausal 5.0 - 55.2 mIU/mL Performed By: #### P SAMY, FSH, TESTO, LH #### [place] [address] #### [id number], ANEU, TSH, FT4, CMP, ADIFF, GFR, CBC #### [address] [address] PROGon 11-18-2024 Progesterone Level 0.2 ng/mL Normal [facility] Comment on above: Result Comment: Adul t Female Progesterone Reference Ranges: Follicular phase <0.21 - 1.40 ng/mL Luteal phase 3.34 - 25.56 ng/mL Mid-Luteal phase 4.44 - 28.03 ng/mL Postmenopausal <0.21 - 0.73 ng/ml Female: First trimester 11.22 - 90.00 ng/ml Second trimester 25.55 - 89.40 ng/ml Third trimester 48.40 - 422.50 ng/ml Performed By: #### P SAMY, FSH, TESTO, LH #### [place] [address] #### [id number], ANEU, TSH, FT4, CMP, ADIFF, GFR, CBC #### [address] [address] TESTOon 11-18-2024 Testosterone Lvl 14.82 ng/dL Normal [facility] Comment on above: Result Comment: Norm al Reference Ranges for Females: Female Premenopause Age 21-60 9.01-47.94 ng/dL Female Postmenopause Age 45-89 <7.00-45.62 ng/dL Performed By: #### P SAMY, FSH, TESTO, LH #### [place] [address] #### [id number], ANEU, TSH, FT4, CMP, ADIFF, GFR, CBC #### [address] [address] .Auto Diffon 11-17-2024 Basophil, Absolute 0.1 10 3/mcL Normal 0.0-0.3 [facility] Comment on above: Performed By: #### P SAMY, FSH, TESTO, LH #### [place] [address] #### [id number], ANEU, TSH, FT4, CMP, ADIFF, GFR, CBC #### [address] [address] Basophils/100 WBC (Bld) 0.8 % Normal 0.0-2.5 [facility] Comment on above: Performed By: #### P SAMY, FSH, TESTO, LH #### [place] [address] #### [id number], ANEU, TSH, FT4, CMP, ADIFF, GFR, CBC #### [address] [address] Eosinophil, Absolute 0.2 10 3/mcL Normal 0.0-0.7 [facility] Comment on above: Performed By: #### P SAMY, FSH, TESTO, LH #### [place] [address] #### [id number], ANEU, TSH, FT4, CMP, ADIFF, GFR, CBC #### [address] [address] Eosinophils/100 WBC (Bld) 3.7 % Normal 0.0-6.0 [facility] Comment on above: Performed By: #### P SAMY, FSH, TESTO, LH #### [place] [address] #### [id number], ANEU, TSH, FT4, CMP, ADIFF, GFR, CBC #### [address] [address] Lymphocyte, Absolute 2.0 10 3/mcL Normal 0.9-4.3 [facility] Comment on above: Performed By: #### P SAMY, FSH, TESTO, LH #### [place] [address] #### [id number], ANEU, TSH, FT4, CMP, ADIFF, GFR, CBC #### [address] [address] Lymphocytes/100 WBC (Bld) 30.5 % Normal 20.0-40.0 [facility] Comment on above: Performed By: #### P SAMY, FSH, TESTO, LH #### [place] [address] #### [id number], ANEU, TSH, FT4, CMP, ADIFF, GFR, CBC #### [address] [address] Monocyte, Absolute 0.6 10 3/mcL Normal 0.1-1.4 [facility] Comment on above: Performed By: #### P SAMY, FSH, TESTO, LH #### [place] [address] #### [id number], ANEU, TSH, FT4, CMP, ADIFF, GFR, CBC #### [address] [address] Monocytes/100 WBC (Bld) 8.5 % Normal 2.0-13.0 [facility] Comment on above: Performed By: #### P SAMY, FSH, TESTO, LH #### [address] [address] #### [id number], ANEU, TSH, FT4, CMP, ADIFF, GFR, CBC #### [address] [address] Neutrophils/100 WBC (Bld) 56.5 % Normal 50.0-75.0 [facility] Comment on above: Performed By: #### P SAMY, FSH, TESTO, #### [place] [address] #### [id number], ANEU, TSH, FT4, CMP, ADIFF, GFR, CBC #### [address] [address] .GFRon 11-17-2024 Estimated Glomerular Filtration Rate 105 ml/min/1.73sqm Normal [facility] Comment on above: Result Comment: Stages of Chronic Kidney Disease (CKD) Stage Description eGFR(ml/min/1.73 sq.m.) CKD 1 Normal kidney function or >=90 normal kindney function with possible kidney damage (ex. Proteinuria) CKD 2 Kidney damage with mild loss 60-89 of kidney function CKD 3a Mild to moderate loss of kidney 45-59 function CKD 3b Moderate to severe loss of 30-44 of kindey function CKD 4 Severe loss of kidney function 15-29 CKD 5 Kidney failure <15 Note: (go live 2024) the eGFR calculation was updated to the 2020 CKD-EPI creatinine equation without a race factor to calculate the eGFR results. Performed By: #### P SAMY, FSH, TESTO, #### [address] [address] #### [id number], ANEU, TSH, FT4, CMP, ADIFF, GFR, CBC #### [address] [address] .NEUABSon 11-17-2024 Neutrophil, Absolute 3.7 10 3/mcL Normal 2.3-8.1 [facility] Comment on above: Performed By: #### P SAMY, FSH, TESTO, LH #### [place] [address] #### [id number], ANEU, TSH, FT4, CMP, ADIFF, GFR, CBC #### [address] [address] CBCon 11-17-2024 Erythrocyte distribution width (RBC) [Ratio] 13.5 % Normal 11.5-15.5 [facility] Comment on above: Performed By: #### P SAMY, FSH, TESTO, LH #### [place] [address] #### [id number], ANEU, TSH, FT4, CMP, ADIFF, GFR, CBC #### [address] [address] Hematocrit (Bld) [Volume fraction] 38.0 % Normal 34.0-46.0 [facility] Comment on above: Performed By: #### P SAMY, FSH, TESTO, LH #### [place] [address] #### 324243, ANEU, TSH, FT4, CMP, ADIFF, GFR, CBC #### [address] [address] Hgb 13.0 G/dL Normal 12.0-16.0 [facility] Comment on above: Performed By: #### P SAMY, FSH, TESTO, LH #### [place] [address] #### [id number], ANEU, TSH, FT4, CMP, ADIFF, GFR, CBC #### [address] [address] MCH (RBC) [Entitic mass] 30.9 pg Normal 27.0-33.0 [facility] Comment on above: Performed By: #### P SAMY, FSH, TESTO, LH #### [place] [address] #### [id number], ANEU, TSH, FT4, CMP, ADIFF, GFR, CBC #### [address] [address] MCHC 34.1 G/dL Normal 32.0-36.0 [facility] Comment on above: Performed By: #### P SAMY, FSH, TESTO, LH #### [place] [address] #### [id number], ANEU, TSH, FT4, CMP, ADIFF, GFR, CBC #### [address] [address] MCV (RBC) [Entitic vol] 90.6 fL Normal 80.0-99.0 [facility] Comment on above: Performed By: #### P SAMY, FSH, TESTO, LH #### [place] [address] #### [id number], ANEU, TSH, FT4, CMP, ADIFF, GFR, CBC #### [address] [address] Platelet 360 10 3/mcL Normal 150-450 [facility] Comment on above: Performed By: #### P SAMY, FSH, TESTO, LH #### [place] [address] #### [id number], ANEU, TSH, FT4, CMP, ADIFF, GFR, CBC #### [address] [address] Platelet mean volume (Bld) [Entitic vol] 7.3 fL Normal 6.6-10.5 [facility] Comment on above: Performed By: #### P SAMY, FSH, TESTO, LH #### [place] [address] #### [id number], ANEU, TSH, FT4, CMP, ADIFF, GFR, CBC #### [address] [address] RBC 4.20 10 6/mcL Normal 4.10-5.30 [facility] Comment on above: Performed By: #### P SAMY, FSH, TESTO, LH #### [place] [address] #### [id number], ANEU, TSH, FT4, CMP, ADIFF, GFR, CBC #### [address] [address] WBC 6.6 10 3/mcL Normal 4.5-10.8 [facility] Comment on above: Performed By: #### P SAMY, FSH, TESTO, LH #### [place] [address] #### [id number], ANEU, TSH, FT4, CMP, ADIFF, GFR, CBC #### [address] [address] CMPon 11-17-2024 Albumin Level 4.2 G/dL Normal 3.5-5.0 [facility] Comment on above: Performed By: #### P SAMY, FSH, TESTO, LH #### [place] [address] #### [id number], ANEU, TSH, FT4, CMP, ADIFF, GFR, CBC #### [address] [address] Albumin/Globulin [Mass ratio] 1.2 {ratio} Normal 1.1-2.5 [facility] Comment on above: Performed By: #### P SAMY, FSH, TESTO, LH #### [place] [address] #### [id number], ANEU, TSH, FT4, CMP, ADIFF, GFR, CBC #### [address] [address] ALP [Catalytic activity/Vol] 55 U/L Normal 40-135 [facility] Comment on above: Performed By: #### P SAMY, FSH, TESTO, LH #### [place] [address] #### [id number], ANEU, TSH, FT4, CMP, ADIFF, GFR, CBC #### [address] [address] ALT [Catalytic activity/Vol] 21 U/L Normal 14-59 [facility] Comment on above: Performed By: #### P SAMY, FSH, TESTO, LH #### [place] [address] #### [id number], ANEU, TSH, FT4, CMP, ADIFF, GFR, CBC #### [address] [address] AST [Catalytic activity/Vol] 11 U/L Normal 10-40 [facility] Comment on above: Performed By: #### P SAMY, FSH, TESTO, LH #### [place] [address] #### [id number], ANEU, TSH, FT4, CMP, ADIFF, GFR, CBC #### [address] [address] Bili Total 0.3 mg/dL Normal 0.2-1.0 [facility] Comment on above: Result Comment: Use of this assay is not recommended for patients undergoing treatment with eltrombopag due to the potential for falsely elevated results. Performed By: #### P SAMY, FSH, TESTO, LH #### [place] [address] #### [id number], ANEU, TSH, FT4, CMP, ADIFF, GFR, CBC #### [address] [address] BUN/Creatinine Ratio 21 ratio Normal 7-27 [facility] Comment on above: Performed By: #### P SAMY, FSH, TESTO, LH #### [place] [address] #### [id number], ANEU, TSH, FT4, CMP, ADIFF, GFR, CBC #### [address] [address] Calcium [Mass/Vol] 9.2 mg/dL Normal 8.4-10.2 [facility] Comment on above: Performed By: #### P SAMY, FSH, TESTO, LH #### [place] [address] #### 994130, ANEU, TSH, FT4, CMP, ADIFF, GFR, CBC #### [address] [address] Chloride [Moles/Vol] 103 mmol/L Normal 98-107 [facility] Comment on above: Performed By: #### P SAMY, FSH, TESTO, LH #### [place] [address] #### [id number], ANEU, TSH, FT4, CMP, ADIFF, GFR, CBC #### [address] [address] CO2 [Moles/Vol] 28 mmol/L Normal 22-29 [facility] Comment on above: Performed By: #### P SAMY, FSH, TESTO, LH #### [place] [address] #### 857757, ANEU, TSH, FT4, CMP, ADIFF, GFR, CBC #### [place] [id number] Creatinine [Mass/Vol] 0.76 mg/dL Normal 0.51-0.95 [facility] Comment on above: Performed By: #### P SAMY, FSH, TESTO, LH #### [place] [address] #### [id number], ANEU, TSH, FT4, CMP, ADIFF, GFR, CBC #### [address] [address] Electrolyte Balance 9.0 mEq/L Normal 4.0-15.0 [facility] Comment on above: Performed By: #### P SAMY, FSH, TESTO, LH #### [place] [address] #### [id number], ANEU, TSH, FT4, CMP, ADIFF, GFR, CBC #### [address] [address] Globulin 3.5 G/dL Normal 2.7-4.4 [facility] Comment on above: Performed By: #### P SAMY, FSH, TESTO, LH #### [address] [address] #### 935862, ANEU, TSH, FT4, CMP, ADIFF, GFR, CBC #### [address] [address] Glucose [Mass/Vol] 92 mg/dL Normal 70-105 [facility] Comment on above: Performed By: #### P SAMY, FSH, TESTO, LH #### [place] [address] #### [id number], ANEU, TSH, FT4, CMP, ADIFF, GFR, CBC #### [address] [address] Potassium [Moles/Vol] 3.8 mmol/L Normal 3.5-5.1 [facility] Comment on above: Performed By: #### P SAMY, FSH, TESTO, LH #### [place] [address] #### [id number], ANEU, TSH, FT4, CMP, ADIFF, GFR, CBC #### [address] [address] Sodium [Moles/Vol] 140 mmol/L Normal 136-145 [facility] Comment on above: Performed By: #### P SAMY, FSH, TESTO, LH #### [place] [address] #### [id number], ANEU, TSH, FT4, CMP, ADIFF, GFR, CBC #### [address] [address] Total Protein 7.7 G/dL Normal 6.4-8.2 [facility] Comment on above: Performed By: #### P SAMY, FSH, TESTO, LH #### [place] [address] #### [id number], ANEU, TSH, FT4, CMP, ADIFF, GFR, CBC #### [address] [address] Urea nitrogen [Mass/Vol] 16 mg/dL Normal 7-18 [facility] Comment on above: Performed By: #### P SAMY, FSH, TESTO, LH #### [address] [address] #### [id number], ANEU, TSH, FT4, CMP, ADIFF, GFR, CBC #### [place] [address] [place], [place] [address] FT4on 11-17-2024 Free T4 [Mass/Vol] 0.67 ng/dL Low 0.76-1.46 [facility] Comment on above: Performed By: #### P SAMY, FSH, TESTO, LH #### [address] [address] #### [id number], ANEU, TSH, FT4, CMP, ADIFF, GFR, CBC #### [address] [address] LABORATORYOrdered By: SYSTEM SYSTEM on 11-17-2024 Albumin BCP dye [Mass/Vol] 4.2 G/dL Normal 3.5 - 5.0 G/dL AO ADM SS Albumin/Globulin [Mass ratio] 1.2 {ratio} Normal 1.1 - 2.5 ratio AO ADM SS ALP [Catalytic activity/Vol] 55 U/L Normal 40 - 135 U/L AO ADM SS ALT With P-5'-P [Catalytic activity/Vol] 21 U/L Normal 14 - 59 U/L AO ADM SS AST With P-5'-P [Catalytic activity/Vol] 11 U/L Normal 10 - 40 U/L AO ADM SS Basophils (Bld) [#/Vol] 0.1 103/mcL Normal 0.0 - 0.3 10^3/mcL AO Workflow SS Basophils/100 WBC (Bld) 0.8 % Normal 0.0 - 2.5 % AO Workflow SS Bilirubin [Mass/Vol] 0.3 mg/dL Normal 0.2 - 1 .0 mg/dL AO ADM SS Comment on above: Interpretive Data: U se of this assay is not recommended for patients undergoing treatment with eltrombopag due to the potential for falsely elevated results. Calcium [Mass/Vol] 9.2 mg/dL Normal 8.4 - 10. 2 mg/dL AO ADM SS Chloride [Moles/Vol] 103 mmol/L Normal 98 - 10 7 mmol/L AO ADM SS CO2 [Moles/Vol] 28 mmol/L Normal 22 - 29 mmol/L AO ADM SS Creatinine [Mass/Vol] 0.76 mg/dL Normal 0.51 - 0.95 mg/dL AO ADM SS Electrolyte Balance 9.0 mEq/L Normal 4.0 - 15 .0 mEq/L AO ADM SS Eosinophil, Absolute 0.2 103/mcL Normal 0.0 - 0 .7 10^3/mcL AO Workflow SS Eosinophils/100 WBC (Bld) 3.7 % Normal 0.0 - 6.0 % AO Workflow SS Erythrocyte distribution width (RBC) [Ratio] 13.5 % Normal 11.5 - 15.5 % AO Workflow SS Estimated Glomerular Filtration Rate 105 ml/min/1.73sqm Invalid Interpretation Code AO Chemistry S Comment on above: Interpretive Data: Stages of Chronic Kidney Disease (CKD) Stage Description eGFR(ml/min/1.73 sq.m.) CKD 1 Normal kidney function or >=90 normal kindney function with possible kidney damage (ex. Proteinuria) CKD 2 Kidney damage with mild loss 60-89 of kidney function CKD 3a Mild to moderate loss of kidney 45-59 function CKD 3b Moderate to severe loss of 30-44 of kindey function CKD 4 Severe loss of kidney function 15-29 CKD 5 Kidney failure <15 Note: (go live 2024) the eGFR calculation was updated to the 2020 CKD-EPI creatinine equation without a race factor to calculate the eGFR results. Free T4 [Mass/Vol] 0.67 ng/dL Low 0.76 - 1. 46 ng/dL AO ADM SS Globulin 3.5 G/dL Normal 2.7 - 4.4 G/dL AO ADM SS Glucose [Mass/Vol] 92 mg/dL Normal 70 - 105 mg/dL AO ADM SS Hematocrit (Bld) [Volume fraction] 38.0 % Normal 34.0 - 46.0 % AO Workflow SS Hemoglobin (Bld) [Mass/Vol] 13.0 G/dL Normal 12.0 - 16.0 G/dL AO Workflow SS Lymphocytes (Bld) [#/Vol] 2.0 103/mcL Normal 0.9 - 4.3 10^3/mcL AO Workflow SS Lymphocytes/100 WBC (Bld) 30.5 % Normal 20.0 - 40.0 % AO Workflow SS MCH (RBC) [Entitic mass] 30.9 pg Normal 27. 0 - 33.0 pg AO Workflow SS MCHC 34.1 G/dL Normal 32.0 - 36.0 G/dL AO Workflow SS MCV (RBC) [Entitic vol] 90.6 fL Normal 80.0 - 99.0 fL AO Workflow SS Monocytes (Bld) [#/Vol] 0.6 103/mcL Normal 0.1 - 1.4 10^3/mcL AO Workflow SS Monocytes/100 WBC (Bld) 8.5 % Normal 2.0 - 13.0 % AO Workflow SS Neutrophils (Bld) [#/Vol] 3.7 103/mcL Normal 2.3 - 8.1 10^3/mcL AO Workflow SS Neutrophils/100 WBC (Bld) 56.5 % Normal 50.0 - 75.0 % AO Workflow SS Platelet mean volume (Bld) [Entitic vol] 7.3 fL Normal 6.6 - 10.5 fL AO Workflow SS Platelets (Bld) [#/Vol] 360 103/mcL Normal 150 - 450 10^3/mcL AO Workflow SS Potassium [Moles/Vol] 3.8 mmol/L Normal 3.5 - 5.1 mmol/L AO ADM SS Protein [Mass/Vol] 7.7 G/dL Normal 6.4 - 8.2 G/dL AO ADM SS RBC (Bld) [#/Vol] 4.20 106/mcL Normal 4.10 - 5.3 0 10^6/mcL AO Workflow SS Sodium [Moles/Vol] 140 mmol/L Normal 136 - 145 mmol/L AO ADM SS TSH Qn 1.39 m[IU]/L Normal 0.36 - 3.74 mcIU/mL AO ADM SS Urea nitrogen [Mass/Vol] 16 mg/dL Normal 7 - 18 mg/d L AO ADM SS Urea nitrogen/Creatinine [Mass ratio] 21 ratio Normal 7 - 27 ratio AO ADM SS WBC (Bld) [#/Vol] 6.6 103/mcL Normal 4.5 - 10.8 10^3/mcL AO Workflow SS TSHon 11-17-2024 TSH Qn 1.39 m[IU]/L Normal 0.36-3.74 [facility] Comment on above: Performed By: #### P SAMY, FSH, TESTO, LH #### [facility] [address] [place] [address] #### [id number], ANEU, TSH, FT4, CMP, ADIFF, GFR, CBC #### [facility] [address] [place], [place] [address] Absolute lymphocyte countOrd ered By: Tiffanie Velasquez on 03-26-2023 Lymphocytes Auto (Unsp spec) [#/Vol] 2.05 10*3/uL 0.83-4.51 [facility] Basophil percentageOrdered B y: Tiffanie Velasquez on 03-26-2023 Basophils/100 WBC (Bld) 0.8 % 0-1 [facility] Eosinophils/100 WBC (Bld) 5.9 % 0-5 [facility] Neutrophils (Bld) [#/Vol] 3.3 10*3/uL 2.0-7.7 [facility] Neutrophils/100 WBC (Bld) 51.4 % 47-70 [facility] WBC (Bld) [#/Vol] 6.4 10*3/uL 4.4-11.0 [facility] Blood erythrocytes count (nu mber/volume)Ordered By: Tiffanie Velasquez on 03-26-2023 RBC (Bld) [#/Vol] 4.27 10*6/uL 4.2-5.4 [facility] Blood hemoglobin measurement (mass/volume)Ordered By: Tiffanie Velasquez on 03-26-2023 Hemoglobin (Bld) [Mass/Vol] 12.8 g/dL 12.0-15.0 [facility] Blood lymphocytes/100 leukoc ytesOrdered By: Tiffanie Velasquez on 03-26-2023 Lymphocytes/100 WBC (Bld) 32.1 % 19-41 [facility] Blood monocytes/100 leukocyt esOrdered By: Tiffanie Velasquez on 03-26-2023 Monocytes/100 WBC (Bld) 9.5 % 0-10 [facility] Blood platelet mean volumeOr dered By: Tiffanie Velasquez on 03-26-2023 Platelet mean volume (Bld) [Entitic vol] 9.3 fL 6.2-12.0 [facility] Determination of erythrocyte mean corpuscular volume (MCV)Ordered By: Tiffanie Velasquez on 03-26-2023 MCV (RBC) [Entitic vol] 93.7 fL 81-99 [facility] Hematocrit Auto (Bld) [Volum e fraction]Ordered By: Tiffanie Velasquez on 03-26-2023 Hematocrit (Bld) [Volume fraction] 40.0 % 37-47 [facility] Laboratory - Hematology and Cell countsOrdered By: Tiffanie Velasquez on 03-26-2023 Erythrocyte distribution width (RBC) [Entitic vol] 42.7 fL 35.1-43.9 [facility] Erythrocyte distribution width (RBC) [Ratio] 12.5 % 11.6-14.6 [facility] Immature granulocytes/100 WBC (Bld) 0.300 % 0.0-0.9 [facility] Comment on above: IG% - Immature Granu locytes (promyelocytes, myelocytes and metamyelocytes) > 1% indicates that a LEFT SHIFT is Present. MCH (RBC) [Entitic mass] 30.0 pg 27.0-32.0 [facility] Nucleated RBC/100 WBC (Bld) [Ratio] 0 % 0-5 [facility] MCHC Auto (RBC) [Mass/Vol]Or dered By: Tiffanie Velasquez on 03-26-2023 MCHC (RBC) [Mass/Vol] 32.0 g/dL 32-36 [facility] Platelets bldOrdered By: Sherron Velasquez on 03-26-2023 Platelets (Bld) [#/Vol] 333 10*3/uL 150-450 [facility] Basophil percentageOrdered B y: Tiffanie Velasquez on 02-11-2023 WBC (Bld) [#/Vol] 18.7 10*3/uL 4.4-11.0 [facility] Blood erythrocytes count (nu mber/volume)Ordered By: Tiffanie Velasquez on 02-11-2023 RBC (Bld) [#/Vol] 2.67 10*6/uL 4.2-5.4 [facility] Blood hemoglobin measurement (mass/volume)Ordered By: Tiffanie Velasquez on 02-11-2023 Hemoglobin (Bld) [Mass/Vol] 8.5 g/dL 12.0-15.0 [facility] Blood platelet mean volumeOr dered By: Tiffanie Velasquez on 02-11-2023 Platelet mean volume (Bld) [Entitic vol] 10.6 fL 6.2-12.0 [facility] Determination of erythrocyte mean corpuscular volume (MCV)Ordered By: Tiffanie Velasquez on 02-11-2023 MCV (RBC) [Entitic vol] 94.8 fL 81-99 [facility] Hematocrit Auto (Bld) [Volum e fraction]Ordered By: Tiffanie Velasquez on 02-11-2023 Hematocrit (Bld) [Volume fraction] 25.3 % 37-47 [facility] Laboratory - Hematology and Cell countsOrdered By: Tiffanie Velasquez on 02-11-2023 Erythrocyte distribution width (RBC) [Entitic vol] 49.7 fL 35.1-43.9 [facility] Erythrocyte distribution width (RBC) [Ratio] 14.5 % 11.6-14.6 [facility] MCH (RBC) [Entitic mass] 31.8 pg 27.0-32.0 [facility] MCHC Auto (RBC) [Mass/Vol]Or dered By: Tiffanie Velasquez on 02-11-2023 MCHC (RBC) [Mass/Vol] 33.6 g/dL 32-36 [facility] Platelets bldOrdered By: Sherron Velasquez on 02-11-2023 Platelets (Bld) [#/Vol] 255 10*3/uL 150-450 [facility] Absolute lymphocyte countOrd ered By: Tiffanie Velasquez on 02-10-2023 Lymphocytes Auto (Unsp spec) [#/Vol] 1.63 10*3/uL 0.83-4.51 [facility] Basophil percentageOrdered B y: Tiffanie Velasquez on 02-10-2023 Basophils/100 WBC (Bld) 0.2 % 0-1 [facility] Eosinophils/100 WBC (Bld) 0.2 % 0-5 [facility] Neutrophils (Bld) [#/Vol] 14.1 10*3/uL 2.0-7.7 [facility] Neutrophils/100 WBC (Bld) 82.6 % 47-70 [facility] Blood lymphocytes/100 leukoc ytesOrdered By: Tiffanie Velasquez on 02-10-2023 Lymphocytes/100 WBC (Bld) 9.5 % 19-41 [facility] Blood monocytes/100 leukocyt esOrdered By: Tiffanie Velasquez on 02-10-2023 Monocytes/100 WBC (Bld) 6.9 % 0-10 [facility] Laboratory - Hematology and Cell countsOrdered By: Tiffanie Velasquez on 02-10-2023 Immature granulocytes/100 WBC (Bld) 0.600 % 0.0-0.9 [facility] Comment on above: IG% - Immature Granu locytes (promyelocytes, myelocytes and metamyelocytes) > 1% indicates that a LEFT SHIFT is Present. Nucleated RBC/100 WBC (Bld) [Ratio] 0 % 0-5 [facility] Serum Treponema species anti body detectionOrdered By: Tiffanie Velasquez on 02-10-2023 Treponema sp Ab Ql (S) Non-Reactive [facility] Laboratory - Chemistry and C hemistry - challengeon 02-07-2023 Glucose Ql (U) Negative [facility] Laboratory - Urinalysison Protein Ql (U) Negative [facility] Laboratory - Chemistry and C hemistry - challengeon 02-05-2023 Glucose Ql (U) Negative [facility] Laboratory - Urinalysison Protein Ql (U) Negative [facility] Laboratory - Chemistry and C hemistry - challengeon 01-31-2023 Glucose Ql (U) Negative [facility] Laboratory - Urinalysison Protein Ql (U) Negative [facility] Laboratory - Chemistry and C hemistry - challengeon 01-19-2023 Glucose Ql (U) Negative [facility] Laboratory - Urinalysison Protein Ql (U) Negative [facility] No Panel InformationOrdered By: Leigh Ann Laird on 01-12-2023 Group B Streptococcus Culture Streptococcus agalactiae (B) [facility] Group B Streptococcus Culture Streptococcus agalactiae (B) [facility] Laboratory - Chemistry and C hemistry - challengeon 12-29-2022 Glucose Ql (U) Negative [facility] Laboratory - Urinalysison Protein Ql (U) Negative [facility] Laboratory - Chemistry and C hemistry - challengeon 12-11-2022 Glucose Ql (U) Negative [facility] Laboratory - Urinalysison Protein Ql (U) Negative [facility] Laboratory - Chemistry and C hemistry - challengeon 11-27-2022 Glucose Ql (U) Negative [facility] Laboratory - Urinalysison Protein Ql (U) Negative [facility] Absolute lymphocyte countOrd ered By: Flower Llamas on 11-17-2022 Lymphocytes Auto (Unsp spec) [#/Vol] 2.12 10*3/uL 0.83-4.51 [facility] Basophil percentageOrdered B y: Flower Llamas on 11-17-2022 Basophils/100 WBC (Bld) 0.5 % 0-1 [facility] Eosinophils/100 WBC (Bld) 2.2 % 0-5 [facility] Neutrophils (Bld) [#/Vol] 7.1 10*3/uL 2.0-7.7 [facility] Neutrophils/100 WBC (Bld) 67.9 % 47-70 [facility] WBC (Bld) [#/Vol] 10.4 10*3/uL 4.4-11.0 [facility] Blood erythrocytes count (nu mber/volume)Ordered By: Flower Llamas on 11-17-2022 RBC (Bld) [#/Vol] 3.65 10*6/uL 4.2-5.4 [facility] Blood hemoglobin measurement (mass/volume)Ordered By: Flower Llamas on 11-17-2022 Hemoglobin (Bld) [Mass/Vol] 11.8 g/dL 12.0-15.0 [facility] Blood lymphocytes/100 leukoc ytesOrdered By: Flower Llamas on 11-17-2022 Lymphocytes/100 WBC (Bld) 20.3 % 19-41 [facility] Blood monocytes/100 leukocyt esOrdered By: Flower Llamas on 11-17-2022 Monocytes/100 WBC (Bld) 8.4 % 0-10 [facility] Blood platelet mean volumeOr dered By: Flower Llamas on 11-17-2022 Platelet mean volume (Bld) [Entitic vol] 9.4 fL 6.2-12.0 [facility] Determination of erythrocyte mean corpuscular volume (MCV)Ordered By: Flower Llamas on 11-17-2022 MCV (RBC) [Entitic vol] 95.9 fL 81-99 [facility] Gestational diabetes screen 1-hour screen with 50g oral glucose loadOrdered By: Flower Llamas on 11-17-2022 Glucose 1 Hr post 50 g glucose PO [Mass/Vol] 120 mg/dL 70-140 [facility] HIV 1 and HIV-2 antibody ass ay with HIV-1 p24 antigen detectionOrdered By: Flower Llamas on 11-17-2022 HIV 1+2 Ab+HIV1 p24 Ag IA Ql Non-Reactive Nonreactive [facility] Hematocrit Auto (Bld) [Volum e fraction]Ordered By: Flower Llamas on 11-17-2022 Hematocrit (Bld) [Volume fraction] 35.0 % 37-47 [facility] Laboratory - Chemistry and C hemistry - challengeon 11-17-2022 Glucose Ql (U) Negative [facility] Laboratory - Hematology and Cell countsOrdered By: Flower Llamas on 11-17-2022 Erythrocyte distribution width (RBC) [Entitic vol] 41.7 fL 35.1-43.9 [facility] Erythrocyte distribution width (RBC) [Ratio] 12.0 % 11.6-14.6 [facility] Immature granulocytes/100 WBC (Bld) 0.700 % 0.0-0.9 [facility] Comment on above: IG% - Immature Granu locytes (promyelocytes, myelocytes and metamyelocytes) > 1% indicates that a LEFT SHIFT is Present. MCH (RBC) [Entitic mass] 32.3 pg 27.0-32.0 [facility] Nucleated RBC/100 WBC (Bld) [Ratio] 0 % 0-5 [facility] Laboratory - Urinalysison Protein Ql (U) Negative [facility] MCHC Auto (RBC) [Mass/Vol]Or dered By: Flower Llamas on 11-17-2022 MCHC (RBC) [Mass/Vol] 33.7 g/dL 32-36 [facility] Platelets bldOrdered By: Darcy Pazsebastien on 11-17-2022 Platelets (Bld) [#/Vol] 319 10*3/uL 150-450 [facility] Serum Treponema species anti body detectionOrdered By: Flower Llamas on 11-17-2022 Treponema sp Ab Ql (S) Non-Reactive [facility] Laboratory - Chemistry and C hemistry - challengeon 10-27-2022 Glucose Ql (U) Negative [facility] Laboratory - Urinalysison Protein Ql (U) Negative [facility] Laboratory - Chemistry and C hemistry - challengeon 09-29-2022 Glucose Ql (U) Negative [facility] Laboratory - Urinalysison Protein Ql (U) Negative [facility] Toxoplasma IGG AND IGM (Pren atal Screen)on 09-15-2022 Toxoplasma IgG (Dye Test) <1:16 Normal <1:16 NEGATIVE [facility] Comment on above: Order Comment: Order a CMV Avidity test if IgM is positive. Release to patient->Automatic [id number]&Blood Performed By: #### T SLPN #### [place] [address] Toxoplasma IgM LOLY 0.0 Normal [facility] Comment on above: Order Comment: Order a CMV Avidity test if IgM is positive. Release to patient->Automatic 72067&Blood Result Comment: 0.0-1.6 = Negative 1.7-1.9 = Equivocal >= 2.0 = Positive Testing Performed: [facility] [address] [facility] [place] [address] Performed By: #### T SLPN #### [address] [id number] CMV IgG Abon 09-09-2022 CMV IgG Ab Positive Abnormal Negative [facility] Comment on above: Order Comment: Order a CMV Avidity test if IgM is positive. Release to patient->Automatic [id number]&Blood Result Comment: Test Performed by: [address] [address] [employer]: Gomez Canas M.D. Ph.D.; CLIA# [id number] Performed By: #### C MVIG #### [address] [address] CMV IgM Abon 09-09-2022 CMV IgM Ab Negative Normal Negative [facility] Comment on above: Order Comment: Order a CMV Avidity test if IgM is positive. Release to patient->Automatic [id number]&Blood Result Comment: Test Performed by: [facility] - [address] [address] [employer]: Gomez Canas M.D. Ph.D.; CLIA# [id number] Performed By: #### C MVIM #### [address] [address] Progress Noteon 09-05-2022 Track Fitter Authentication Interface Message Text MFM ultrasound finding telephone call after her ultrasound: 1. Elias living intrauterine at 18w 1d with biometry consistent with clinical dates. 2. Anatomic survey was adequately visualized and appeared normal. There is the appearance of echogenic bowel today 3. Amniotic fluid appeared normal. 4. Placenta is posterior, grade 1. 5. Transvaginal cervical length to evaluate for risk for labor was performed and appeared normal, 46.9 mm. I discussed the findings of echogenic bowel today. She denies early vaginal bleeding. She reports no early rash, does not work with Children. 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 FOB has the kit to be tested. We talked about the findings of isolated echogenic bowel today, for which the prevalence is 0.4-1% in normal fetuses without structural abnormalities, We talked about possible other underlying pathologies/etiologi es which can explain this finding which include: uterine bleeding, aneuploidy, cystic fibrosis, infection such as CMV and Toxoplasmosis, possible early growth restriction, and GI obstruction or malformations, and also etiology undetermined. 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 She has low risk NIPT today. There are no other abnormalities noted on today's ultrasound and this was discussed with the patient today. Isolated echogenic bowel without evidence of underlying pathology is unlikely to be clinically significant, but we will follow for evidence of growth restriction throughout the remainder of the with serial growth ultrasounds every 4 weeks. In normal fetuses this will resolve over a period of weeks without adverse sequelae, but will follow closely. Possible amniocentesis for confirmation of cause if any of our initial testing returns abnormal was discussed and also discussed the possibility of genetics and follow up MFM consultation with her next growth scan. Orders placed for Toxo IgM and IgG and CMV IgM and IgG and she plans to have her have his carrier screening sent today I let Dr. Conway know also of this finding today and her follow up with Dr. Conway is 09/29/22 for her next routine visit Plan CMV/TOXO IgM and IgG ordered and to be drawn 2. Carrier screening for FOB, he has the kit for send off 3. Continued serial growth every 4 weeks throughout the , possible genetics with follow up as well as follow up [facility] visit 4. I will send handout to her email today as well regarding echogenic bowel. Normal [facility] Laboratory - Chemistry and C hemistry - challengeon 08-28-2022 Glucose Ql (U) Negative [facility] Laboratory - Urinalysison Protein Ql (U) Negative [facility] Laboratory - Chemistry and C hemistry - challengeon 2022 Glucose Ql (U) Negative [facility] Laboratory - Urinalysison Protein Ql (U) Negative [facility] Absolute lymphocyte countOrd ered By: Dr. Llamas on 07-20-2022 Lymphocytes Auto (Unsp spec) [#/Vol] 2.80 10*3/uL 0.83-4.51 [facility] Basophil percentageOrdered B y: Dr. Llamas on 07-20-2022 Basophils/100 WBC (Bld) 0.5 % 0-1 [facility] Eosinophils/100 WBC (Bld) 1.4 % 0-5 [facility] Neutrophils (Bld) [#/Vol] 6.4 10*3/uL 2.0-7.7 [facility] Neutrophils/100 WBC (Bld) 63.5 % 47-70 [facility] WBC (Bld) [#/Vol] 10.1 10*3/uL 4.4-11.0 [facility] Blood erythrocytes count (nu mber/volume)Ordered By: Dr. Llamas on 07-20-2022 RBC (Bld) [#/Vol] 4.13 10*6/uL 4.2-5.4 [facility] Blood hemoglobin measurement (mass/volume)Ordered By: Dr. Llamas on 07-20-2022 Hemoglobin (Bld) [Mass/Vol] 13.4 g/dL 12.0-15.0 [facility] Blood lymphocytes/100 leukoc ytesOrdered By: Dr. Llamas on 07-20-2022 Lymphocytes/100 WBC (Bld) 27.9 % 19-41 [facility] Blood monocytes/100 leukocyt esOrdered By: Dr. Llamas on 07-20-2022 Monocytes/100 WBC (Bld) 6.4 % 0-10 [facility] Blood platelet mean volumeOr dered By: Dr. Llamas on 07-20-2022 Platelet mean volume (Bld) [Entitic vol] 9.5 fL 6.2-12.0 [facility] Determination of erythrocyte mean corpuscular volume (MCV)Ordered By: Dr. Llamas on 07-20-2022 MCV (RBC) [Entitic vol] 92.3 fL 81-99 [facility] HIV 1 and HIV-2 antibody ass ay with HIV-1 p24 antigen detectionOrdered By: Dr. Llamas on 07-20-2022 HIV 1+2 Ab+HIV1 p24 Ag IA Ql Non-Reactive Nonreactive [facility] Hematocrit Auto (Bld) [Volum e fraction]Ordered By: Dr. Llamas on 07-20-2022 Hematocrit (Bld) [Volume fraction] 38.1 % 37-47 [facility] Laboratory - Hematology and Cell countsOrdered By: Dr. Llamas on 07-20-2022 Erythrocyte distribution width (RBC) [Entitic vol] 41.1 fL 35.1-43.9 [facility] Erythrocyte distribution width (RBC) [Ratio] 11.9 % 11.6-14.6 [facility] Immature granulocytes/100 WBC (Bld) 0.300 % 0.0-0.9 [facility] Comment on above: IG% - Immature Granu locytes (promyelocytes, myelocytes and metamyelocytes) > 1% indicates that a LEFT SHIFT is Present. MCH (RBC) [Entitic mass] 32.4 pg 27.0-32.0 [facility] Nucleated RBC/100 WBC (Bld) [Ratio] 0 % 0-5 [facility] MCHC Auto (RBC) [Mass/Vol]Or dered By: Dr. Llamas on 07-20-2022 MCHC (RBC) [Mass/Vol] 35.2 g/dL 32-36 [facility] No Panel InformationOrdered By: Dr. Llamas on 07-20-2022 Miscellaneous Test Comment MAILED SPECIMEN [facility] Hepatitis B Surface Antigen Non-Reactive Nonreactive [facility] Hepatitis C Antibody Non-Reactive Nonreactive [facility] Comment on above: Non Reactive: < 0.8 Equivocal: >/= 0.8 to < 1.0 Reactive: >/= 1.0The CDC recommends that a reactive/equivocal HCV antibody result be followed up by the HCV Nucleic Acid Amplificationtest (921820) Rubella IgG Antibody Reactive Nonreactive [facility] Comment on above: Antibody Results Int erpretation of Immune Status Non Reactive Presumed Non-Immune Equivocal Equivocal Reactive Presumed Immune Platelets bldOrdered By: Dr. Llamas on 07-20-2022 Platelets (Bld) [#/Vol] 346 10*3/uL 150-450 [facility] Serum Treponema species anti body detectionOrdered By: Dr. Llamas on 07-20-2022 Treponema sp Ab Ql (S) Non-Reactive [facility] Culture, urineOrdered By: Dr Sydney Llamas on 07-08-2022 Bacteria identified Cx Nom (U) Mixed Gram Pos & Gram Neg Org [facility] [facility] Cervical or vagninal specime n microscopic examination by cytology stain (reported asOrdered By: Dr. Llamas on 07-06-2022 Cytology report Cyto stain Doc (Cvx/Vag) Comment . [facility] Comment on above: The Pap smear is a s creening test designed to aid in thedetection of premalignant and malignant conditions of theuterine cervix. It is not a diagnostic procedure andshould not be used as the sole means of detecting cervicalcancer. Both false-positive and false-negative reports dooccur. Chlamydia trachomatis rRNA d etection by probe and target amplification methodOrdered By: Dr. Llamas on 07-06-2022 C. trachomatis rRNA RUSLAN+probe Ql (Unsp spec) Negative Negative [facility] Detection in cervical specim en of any of human papilloma virus (HPV) 16, 18, 31, 33,Ordered By: Dr. Llamas on 07-06-2022 HPV 16+18+31+33+35+39+45+51+ 52+56+58+59+66+68 DNA Probe+sig amp Ql (Cvx) Negative Negative [facility] Comment on above: This nucleic acid am plification test detects fourteen high-risk HPV types (16,18,31,33,35,39,45,51,52,56,58,59,66,68)without differentiation. Laboratory - CytologyOrdered By: Dr. Llamas on 07-06-2022 Director [facility] Cyto stain Nom (Cvx/Vag) [ID] Comment . [facility] Comment on above: Katt Stewart, Cyto technologist (ASCP) Laboratory - Microbiology an d Antimicrobial susceptibilityOrdered By: Dr. Llamas on 07-06-2022 N. gonorrhoeae DNA RUSLAN+probe Ql (Unsp spec) Negative Negative [facility] Comment on above: Performed at: =[address] [id number] Director: Libby Jin MD, Phone: [phone] Laboratory - Miscellaneous t estsOrdered By: Dr. Llamas on 07-06-2022 Service comment (Unsp spec) [Interp] Comment . [facility] Comment on above: This liquid based Th inPrep(R) pap test was screened withthe use of an image guided system. Service comment (Unsp spec) [Interp] . . [facility] Liquid-based cerv Pap + CT/G C by RUSLAN w reflex to high-risk HPV for ASCUSOrdered By: Dr. Llamas on 07-06-2022 Cytology report Cyto stain.thin prep Doc (Cvx/Vag) Comment . [facility] Comment on above: Criteria not met, HP V Genotype not performed.Performed at: - [facility] [id number] [place], [place] [id number] Director: Libby Jin MD, Phone: [phone] at: =G - [facility] [address] [place], [place] [id number] Director: Libby Jin MD, Phone: [phone] No Panel InformationOrdered By: Dr. Llamas on 07-06-2022 Pathology report final diagnosis Narrative Comment . [facility] Comment on above: NEGATIVE FOR INTRAEP ITHELIAL LESION OR MALIGNANCY. OBSOLETEon 07-14-2019 OBSOLETE Refill (OBGYLN) MANPREET TANG ([id number]) 1990 F Date Time Provider Department 07/14/19 SILVIA SCHMITZ OBGYPRATIBHA During your visit today, we recorded the following information about you: Cora Blackwell RN 07/14/2019 11:52 AM Signed Patient overdue for annual exam, last . Seen 10/2018 for problem visit. Order pended, routed to provider. Routed to schedulers, please assist with appt for avoid interruption in medication. Thank you. Magda Be 07/15/2019 5:05 PM Signed Called patient in regard to scheduling below Annual REFUELING RAMPMAN Exam. Advised patient that she would not received any further refills of below medication from provider until Annual REFUELING RAMPMAN Exam had been completed per overdue since 2017. Patient verbalized understanding and states that she lives closer to [place] and will schedule with a provider closer to there. Allergies As of Date: 07/14/2019 (No Known Allergies) Date Reviewed: 11/29/2018 Reviewed by: Brett Lagunas Ma - Fully Assessed Reason for Visit: Refill Request [94] Visit Diagnosis:Dysmenorrh ea [N94.6] Order(s):L-Norgest and E Estradiol-E Estrad (SEASONIQUE) 0.15 mg-30 mcg (84)/10 mcg (7)Take 1 tablet by mouth once daily.Disp: 3 PackageRfl: 0 Prescriptions as of 07/14/2019 Sig: L NORGEST/E ESTRADIOL-E ESTRA* Take 1 tablet by mouth once d* METRONIDAZOLE 500 MG TABLET Take 1 tablet by mouth twice * Patient not taking: Reported on 11/29/2018 Problem List As Of Date 07/14/2019 Noted Resolved Bloating [R14.0] 11/29/2018 Prescriptions ordered this encounter Disp Refills Start End L NORGEST/E ESTRADIOL-E ESTRAD 0.15 * 3 Pa* 0 07/14/2019 Route: ORAL Sig: Take 1 tablet by mouth once daily. Medications Discontinued During This Encounter L-Norgest and E Estradiol-E Estrad (* 1 Pa* 5 01/22/2019 07/14/2019 Route: ORAL Sig: Take 1 tablet by mouth once daily. Disc: Auto DC at discharge. Encounter Status:Closed by SILVIA SCHMITZ MD on 07/14/19 [facility] OBSOLETEon 01-17-2019 OBSOLETE Refill (OBGYLN) MANPREET TANG ([id number]) 1990 F Date Time Provider Department 01/17/19 DAVIN EDGE (LATHING SUPERVISOR) OBGYLN During your visit today, we recorded the following information about you: Silvia Schmitz MD 01/22/2019 10:31 AM Signed Rx Filed Allergies As of Date: 01/17/2019 (No Known Allergies) Date Reviewed: 11/29/2018 Reviewed by: Brett Lagunas Ma - Fully Assessed Reason for Visit: Refill Request [94] Visit Diagnosis:Dysmenorrh ea [N94.6] Order(s):L-Norgest and E Estradiol-E Estrad (SEASONIQUE) 0.15 mg-30 mcg (84)/10 mcg (7) 3MPkTake 1 tablet by mouth once daily.Disp: 1 PackageRfl: 5 Prescriptions as of 01/17/2019 Sig: L NORGEST/E ESTRADIOL-E ESTRA* Take 1 tablet by mouth once d* METRONIDAZOLE 500 MG TABLET Take 1 tablet by mouth twice * Patient not taking: Reported on 11/29/2018 Problem List As Of Date 01/17/2019 Noted Resolved Bloating [R14.0] INVALID FOR* Prescriptions ordered this encounter Disp Refills Start End L NORGEST/E ESTRADIOL-E ESTRAD 0.15 * 1 Pa* 5 01/22/2019 Route: ORAL Sig: Take 1 tablet by mouth once daily. Medications Discontinued During This Encounter L-Norgest and E Estradiol-E Estrad (* 1 Pa* 3 10/31/2018 01/22/2019 Route: ORAL Sig: Take 1 tablet by mouth once daily. Disc: Reason for discontinue is not on file. Encounter Status:Closed by SILVIA SCHMITZ MD on 01/22/19 [facility] MANPREET TANG ([id number]) 1990 F Date Time Provider Department 12/17/18 8:00 AM NURSE GI LAB I GASTMN During your visit today, we recorded the following information about you: Arias Jones, RN, RN 12/17/2018 9:02 AM Signed Name: Manpreet S Clyde [facility]#: [id number] Date: 12/17/2018 H-PYLORI BREATH TEST Indication: Bloating The patient has been NPO for 12 hours, and has not had any antibiotic treatment during the last 4 weeks. A baseline alveolar breath sample was obtained. then which the patient was given a 75mg dose of Pranactin - Citric (C-Urea). 15 minutes later a second alveolar breath sample was obtained and the specimens were sent to the [facility]'s lab for processing. Arias Jones RN Referring Provider: KI LOUIS [[id number]] Allergies As of Date: 12/17/2018 (No Known Allergies) Date Reviewed: 11/29/2018 Reviewed by: Brett Lagunas Ma - Fully Assessed Reason for Visit: Procedure [88] Cmt: Breath Test H Pylori Visit Diagnosis:Bloating [R14.0] Order(s):BREATH TEST H PYLORI [SQHPYLBR] Order #: [id number] Prescriptions as of 12/17/2018 Sig: METRONIDAZOLE 500 MG TABLET Take 1 tablet by mouth twice * Patient not taking: Reported on 11/29/2018 L NORGEST/E ESTRADIOL-E ESTRA* Take 1 tablet by mouth once d* Problem List As Of Date 12/17/2018 Noted Resolved Bloating [R14.0] INVALID FOR* Encounter Status:Closed by ARIAS JONES on 12/17/[address] [facility] H pylori Breath Teston 12-17 H pylori Breath Test 0.4 Normal <2.4 [facility] Comment on above: Result Comment: Nega tive for H. pylori Performed By: #### H PYLBR ####[facility] [id number] [place], [place] [id number] PROGRESSon 12-17-2018 PROGRESS HNO ID: [id number] Author: Arias De La Cruz) VIVIENNE Jones Service: ? Author Type: Registered Nurse Type: Progress Notes Filed: 12/17/2018 9:02 AM Note Text: Name: Manpreet Tang [facility]#: [id number] Date: 12/17/2018 H-PYLORI BREATH TEST Indication: Bloating The patient has been NPO for 12 hours, and has not had any antibiotic treatment during the last 4 weeks. A baseline alveolar breath sample was obtained. then which the patient was given a 75mg dose of Pranactin - Citric (C-Urea). 15 minutes later a second alveolar breath sample was obtained and the specimens were sent to the [facility]'s lab for processing. Arias Jones RN Normal [facility] CNOVon 11-29-2018 CNOV Office Visit (GAINLL) MANPREET TANG ([id number]) 1990 F Date Time Provider Department 11/29/18 11:30 AM KI LOUIS During your visit today, we recorded the following information about you: Pulse Blood pressure Weight Height 86/minute 110/60 54.4 kg 1.575 m Brett Lagunas Ma 11/29/2018 11:31 AM Signed [facility] LAB AND RADIOLOGY FACTS LAB HOURS: Lab is open 7:30am to 6pm -, and open 8am -12pm on Saturdays RADIOLOGY HOURS: Sunday- 7:00 am-6:00 pm, Sunday 7:30 am- 5 pm. Lab Orders 365 days after they are entered. If your lab orders , you may be required to wait in the lab while they are reinstated STANDING ORDERS are recurring orders with an expiration date. The interval will indicate how often the test should be completed. FASTING LAB means nothing to eat or drink (except water) 10-12 hours before your blood is drawn. CT/MRI/IVP If you have one of these radiology exams ordered along with blood work, please complete the blood work at least one day prior to the scheduled exam. [facility] [place] [facility]: Sunday through Sunday 6:00am to 9:00pm. Sunday and Sunday 8:00am to 4:00pm. The walk in clinic is for patients 2 years and older. [facility]: Sunday through Sunday 8:00am to 8:00pm. Sunday and Sunday 8:00am to 4:00pm. The walk in clinic is for patients 2 years and older. [facility]: Sunday through Sunday 8:00am to 8:00pm. Sunday and Sunday 8:00am to 4:00pm. The walk in clinic is for patients 2 years and older. [facility] WALK IN MAMMOGRAM HOURS Sunday-Sunday 3:00pm- 7:00 pm Sunday 8:00 am- 12:00 pm For Express Care LOCATIONS, HOURS OF OPERATION and CURRENT WAIT TIMES, visit the following link [email or web address] dFR[types][0]=Expres s%20Care%20ClinicsAN D for details. Ki Louis MD 11/29/2018 11:51 AM Signed DEPARTMENT OF GASTROENTEROLOGY - NEW PATIENT/CONSULT REASON FOR VISIT Manpreet Tang is a 28 year old female who is scheduled at the request of Silvia Schmitz for New Patient (bloating); Rectal Bleeding; and Diarrhea. My final recommendations will be communicated back to the requesting physician by the way of the shared medical record, fax, or via US Mail HISTORY OF PRESENT ILLNESS Manpreet Tang is a 28 year old female who presents today for an evaluation of gas and bloating that began 3.5 years ago, intermittent, but continues to occur. Also has had rectal bleeding. Colonoscopy 2017: The perianal exam findings include a skin tag. The digital rectal exam was normal. The colon (entire examined portion) appeared normal. There is no endoscopic evidence of bleeding, diverticula,?inflamm ation, mass or polyps in the entire colon. The terminal ileum appeared normal. The retroflexed view of the distal rectum and anal verge was normal and showed no anal or rectal abnormalities. Celiac screen 2017: IgA 145 78 - 391 mg/dL Final CCM Transglutaminase Ab, IgA 4 <20 Units Final CCM Comment: Negative ? ? ? : ? < 20 Units Weak Positive ?: ?20 - 30 Units Moderate Pos to Strong Pos: >30 Units CRP normal, ESR normal TSH ok. Amylase/lipase normal. CMP/CBC normal No unintentional weight loss. Drinks 1 cup of regular coffee per day. +non-dairy creamer. No soda. No juice. Eats a lot of cheese. No improvement when she eliminated dairy x 30 days. Trial of Miralax and a probiotic did increase her bowel movements but did not reduce bloating. Flagyl for BV did not incidentally reduce bloating. Gets bigger as day progresses. No past medical history on file. PAST SURGICAL HISTORY Procedure Laterality Date - COLONOSCOPY N/A 05/31/2016 Colin- skin tags, repeat at age 50 Current Outpatient Medications Medication Sig Dispense Refill - L-Norgest and E Estradiol-E Estrad (SEASONIQUE) 0.15 mg-30 mcg (84)/10 mcg (7) 3MPk Take 1 tablet by mouth once daily. 1 Package 3 - metroNIDAZOLE (FLAGYL) 500 mg tablet Take 1 tablet by mouth twice daily. for vaginosis. Do not drink alcohol while taking this medication (Patient not taking: Reported on 11/29/2018 ) 14 tablet 0 No current facility-administere d medications for this visit. ALLERGIES No Known Allergies Social History Socioeconomic History Marital status: Single Spouse name: Not on file Number of children: Not on file Years of education: Not on file Highest education level: Not on file Occupational History Not on file Social Needs Financial resource strain: Not on file Food insecurity: Worry: Not on file Inability: Not on file Transportation needs: Medical: Not on file Non-medical: Not on file Tobacco Use Smoking status: Current Some Day Smoker Smokeless tobacco: Never Used Tobacco comment: uses the e-cig Substance and Sexual Activity Alcohol use: Yes Comment: occasionally Drug use: Not on file Sexual activity: Not on file Lifestyle Physical activity: Days per week: Not on file Minutes per session: Not on file Stress: Not on file Relationships Social connections: Talks on phone: Not on file Gets together: Not on file Attends synagogue service: Not on file Active member of club or organization: Not on file Attends meetings of clubs or organizations: Not on file Relationship status: Not on file Intimate partner violence: Fear of current or ex partner: Not on file Emotionally abused: Not on file Physically abused: Not on file Forced sexual activity: Not on file Other Topics Concerns: Not on file Social History Narrative Not on file FAMILY HISTORY (grandparents, parents, brothers, sisters, aunts, or uncles) Liver Problems: No Ulcerative Colitis: No Crohn's Disease: No Colon Cancer: No Colon Polyps: No IBS: No Celiac disease: No Bleeding Disorders: No GI SPECIFIC REVIEW OF SYMPTOMS Difficulty swallowing / foods sticking in throat: no Heartburn: no Hoarseness: no Chronic cough: no Regurgitation: no Chest pain: no Filling up quickly at meals:no Loss of appetite: no Nausea: no Vomiting: no Abdominal pain: no Recent change in bowel movements: no Bloody or black, bowel movements: no Constipation: no Diarrhea: no Loss of control of bowel movements: no Night sweats: no Fever: no Chills: no Thought or memory problems: no Fluid in abdomen (ascites): no Prominent leg swelling: no Vomiting blood: no Recent change in weight: No REVIEW OF SYSTEMS EyesNegative for vision changes, diplopia or epiphora. Ears, Mouth, nose, throat:No problems Cardiovascular: No Problems Respiratory: Negative for cough, wheezing and shortness of breath Gastrointestinal : No problems Genitourinary: Negative Musuloskeletal: Denies significant problems Integumentary: no rashes, lesions, or jaundice Neurological: No history of neurologic problems Endocrine: Negative for cold or heat intolerance, polyuria, polydipsia and goiter. Psychiatric: Cooperative and agreeable Allergic/ Immunologic: Negative All others negative PAST MEDICAL HISTORY Colon polyps: no Colon cancer: no Other cancer: no Radiation / Chemotherapy: no Crohn's disease / Ulcerative colitis: no High cholesterol or triglycerides: no Ulcers: no Gallstones: no Hepatitis / Jaundice: no Heart Disease: no Lung Disease: no Liver problems: no Thyroid disease: no Kidney stones: no Pancreatitis: no Diabetes: no Arthritis: no Rheumatic fever: no Gastrointestinal bleeding: no Depression or other mental illness: no Other personal illness: as above PHYSICAL EXAMINATION BP 110/60 Pulse 86 Ht 5' 2 (1.58m) Wt 120 lb (54.4kg) BMI 21.94 kg/(m2). General Appearance: Well appearing, alert, in no acute distress, well-hydrated, well nourished. Eyes: PERRLA, conjunctiva and sclera normal Oropharynx: Lips, tongue, and oral mucosa normal. There is no thrush or oral ulcers. Lungs:breath sounds clear to auscultation bilaterally, no crackles, rhonchi, or wheezes Heart: regular rate and rhythm, no murmurs or gallops. Abdomen: not distended, normal bowel sounds, soft and depressible, no guarding or rebound, no palpable mass, no organomegaly Rectal exam: Deferred. Extremities: no cyanosis or edema Skin: no jaundice, no spider angiomas, no palmar erythema Neuro:alert, oriented x 3, pleasant and in no acute distress RECENT LABS CBC: WBC (k/uL) Date Value 07/03/2016 5.48 10/26/2015 8.05 Hematocrit (%) Date Value 07/03/2016 41.9 MCV (fL) Date Value 07/03/2016 93.7 Platelet Count (k/uL) Date Value 07/03/2016 323 Lymph% (%) Date Value 07/03/2016 31.6 Comprehensive Metabolic Panel: Glucose (mg/dL) Date Value 07/03/2016 78 BUN (mg/dL) Date Value 07/03/2016 8 Creatinine (mg/dL) Date Value 07/03/2016 0.73 Sodium (mmol/L) Date Value 07/03/2016 143 Potassium (mmol/L) Date Value 07/03/2016 4.4 Chloride (mmol/L) Date Value 07/03/2016 105 CO2 (mmol/L) Date Value 07/03/2016 24 Protein, Total (g/dL) Date Value 10/26/2015 7.0 Albumin (g/dL) Date Value 10/26/2015 4.7 Calcium (mg/dL) Date Value 07/03/2016 9.7 Alkaline Phosphatase (U/L) Date Value 10/26/2015 48 Bilirubin, Total (mg/dL) Date Value 10/26/2015 0.3 AST (U/L) Date Value 10/26/2015 17 ALT (U/L) Date Value 10/26/2015 6 Assessment IMPRESSION Ms. Tang is a 28 year old year old female who presents with chronic bloating that has not improved with probiotics, miralax, celiac testing negative. PLAN ASSESSMENT/PLAN: 1. Bloating - ICD9: 787.3, ICD10: R14.0 - Trial of IBGard - BREATH TEST H PYLORI - BREATH TEST GLUCOSE - Trial of FODMAP diet. Instructions given to patient. Plan is to follow up after test(s) Ki Louis MD November 29, 2018 11:39 AM Referring Provider: SILVIA SCHMITZ [[id number]] Allergies As of Date: 11/29/2018 (No Known Allergies) Date Reviewed: 11/29/2018 Reviewed by: Brett Lagunas Ma - Fully Assessed Reason for Visit: New Patient [172] Cmt: bloating Rectal Bleeding [202] Diarrhea [35] Reason For Visit History Recorded Visit Diagnosis:Bloating [R14.0] Order(s):BREATH TEST H PYLORI [SQHPYLBR] Order #: [id number] FUTURE BREATH TEST GLUCOSE [[id number]] Order #: [id number] FUTURE Prescriptions as of 11/29/2018 Sig: L NORGEST/E ESTRADIOL-E ESTRA* Take 1 tablet by mouth once d* METRONIDAZOLE 500 MG TABLET Take 1 tablet by mouth twice * Patient not taking: Reported on 11/29/2018 Problem List As Of Date 11/29/2018 Noted Resolved Bloating [R14.0] INVALID FOR* Other instructions from your clinician: [facility] LAB AND RADIOLOGY FACTS LAB HOURS: Lab is open 7:30am to 6pm , and open 8am -12pm on Saturdays RADIOLOGY HOURS: Sunday- 7:00 am-6:00 pm, Sunday 7:30 am- 5 pm. Lab Orders 365 days after they are entered. If your lab orders , you may be required to wait in the lab while they are reinstated STANDING ORDERS are recurring orders with an expiration date. The interval will indicate how often the test should be completed. FASTING LAB means nothing to eat or drink (except water) 10-12 hours before your blood is drawn. CT/MRI/IVP If you have one of these radiology exams ordered along with blood work, please complete the blood work at least one day prior to the scheduled exam. [facility] [place] [facility]: Sunday through Sunday 6:00am to 9:00pm. Sunday and Sunday 8:00am to 4:00pm. The walk in clinic is for patients 2 years and older. [facility]: Sunday through Sunday 8:00am to 8:00pm. Sunday and Sunday 8:00am to 4:00pm. The walk in clinic is for patients 2 years and older. [facility]: Sunday 8:00am to 8:00pm. Sunday and Sunday 8:00am to 4:00pm. The walk in clinic is for patients 2 years and older. [facility] WALK IN MAMMOGRAM HOURS Sunday-Sunday 3:00pm- 7:00 pm Sunday 8:00 am- 12:00 pm For Express Care LOCATIONS, HOURS OF OPERATION and CURRENT WAIT TIMES, visit the following link [email or web address] dFR[types][0]=Expres s%20Care%20Clin icsS[facility] for details. Encounter Status:Closed by KI LOUIS MD on 11/29/18 Normal [facility] US BREAST LTD LTon 11-29 [facility] US BREAST LTD LT * * *Final Report* * * DATE OF EXAM: Nov 29 2018 2:10PM [facility] Denisse - MARIO US BREAST LTD LT / PROCEDURE REASON: Breast pain, left * * * * Physician Interpretation * * * * RESULT: #[id number] - [facility] US BREAST LTD LT ULTRASOUND OF LEFT BREAST: 11/29/2018 HISTORY: Breast Pain, Left. RESULT: No prior exams were available for comparison. Real-time ultrasound of the left breast was performed. Targeted ultrasound was performed for the patient's regions of pain at 9:00, 12:00, 3:00, and 6:00. There are no suspicious sonographic findings. IMPRESSION: NEGATIVE There is no sonographic evidence of malignancy. There is no abnormality seen in the left breast to correspond with the pain, however, clinical followup is recommended. Follow-up with ACR/NCCN guidelines. Gwyn morris/nahid:11/29/2018 17:08:52 Regional Business Development Manager(s): RT Nikole(Dwayne)(M), [facility] Ultrasound BI-RADS: 1 Negative Multiple national specialty organizations have released breast cancer screening guidelines for women at average risk for developing breast cancer - guidelines that are based on both evidence and opinion, yet differ on when to start and how often to screen for breast cancer. With representation from Breast Imaging, Internal Medicine, Women's Health, Family Medicine, and Medical/Surgical Oncology, the [facility] has carefully reviewed the data and reached the following consensus: 1) All women should engage in shared decision-making with their providers to decide when to start and how often to screen; 2) All women should have the opportunity to start screening mammography at age 40; 3) For women ages 45-55, we recommend annual screening mammograms; 4) For women ages 55 and over, we support both the transition from an annual to a biennial interval if this aligns more with patient's values and preferences, or continuation with annual screening; 5) All women should discuss with their providers when to stop screening mammograms. [employer] To Door Fundraising Collector: Nahid Transcribe Date/Time: Nov 29 2018 2:23P Dictated by : GWYN OBANDO MD This examination was interpreted and the report reviewed and electronically signed by: GWYN OBANDO MD on Nov 29 2018 5:08PM EST [id number] Normal [facility] PROGRESSon 11-29-2018 PROGRESS HNO ID: [id number] Author: Yen Burton Mamm-T Service: Radiology Author Type: ? Type: Progress Notes Filed: 11/29/2018 2:08 PM Note Text: Radiology Service Progress Note PATIENT NAME: Manpreet Tang DATE OF SERVICE: November 29, 2018 TIME: 2:07 PM PATIENT IDENTITY VERIFICATION COMPLETED USING TWO (2) METHODS: Patient confirmed name verbally and Date of . PATIENT GENDER DATA: Female. status: : No status: NO. PATIENT RELEVANT IMPLANT DATA REVIEWED: Yes RADIOLOGY DEPARTMENT: Mammography PERIPHERAL IV DATA: Not applicable SIGNED BY: Yen Burton Mamm-T November 29, 2018 2:[address] [facility] PROGRESS HNO ID: [id number] Author: Ki Louis Service: ? Author Type: Physician Type: Progress Notes Filed: 11/29/2018 11:51 AM Note Text: DEPARTMENT OF GASTROENTEROLOGY - NEW PATIENT/CONSULT REASON FOR VISIT Manpreet Tang is a 28 year old female who is scheduled at the request of Silvia Schmitz for New Patient (bloating); Rectal Bleeding; and Diarrhea. My final recommendations will be communicated back to the requesting physician by the way of the shared medical record, fax, or via US Mail HISTORY OF PRESENT ILLNESS Manpreet Tang is a 28 year old female who presents today for an evaluation of gas and bloating that began 3.5 years ago, intermittent, but continues to occur. Also has had rectal bleeding. Colonoscopy 2017: The perianal exam findings include a skin tag. The digital rectal exam was normal. The colon (entire examined portion) appeared normal. There is no endoscopic evidence of bleeding, diverticula,?inflamm ation, mass or polyps in the entire colon. The terminal ileum appeared normal. The retroflexed view of the distal rectum and anal verge was normal and showed no anal or rectal abnormalities. Celiac screen 2017: IgA 145 78 - 391 mg/dL Final CCM Transglutaminase Ab, IgA 4 <20 Units Final CCM Comment: Negative ? ? ? : ? < 20 Units Weak Positive ?: ?20 - 30 Units Moderate Pos to Strong Pos: >30 Units CRP normal, ESR normal TSH ok. Amylase/lipase normal. CMP/CBC normal No unintentional weight loss. Drinks 1 cup of regular coffee per day. +non-dairy creamer. No soda. No juice. Eats a lot of cheese. No improvement when she eliminated dairy x 30 days. Trial of Miralax and a probiotic did increase her bowel movements but did not reduce bloating. Flagyl for BV did not incidentally reduce bloating. Gets bigger as day progresses. No past medical history on file. PAST SURGICAL HISTORY Procedure Laterality Date - COLONOSCOPY N/A 05/31/2016 Colin- skin tags, repeat at age 50 Current Outpatient Medications Medication Sig Dispense Refill - L-Norgest and E Estradiol-E Estrad (SEASONIQUE) 0.15 mg-30 mcg (84)/10 mcg (7) 3MPk Take 1 tablet by mouth once daily. 1 Package 3 - metroNIDAZOLE (FLAGYL) 500 mg tablet Take 1 tablet by mouth twice daily. for vaginosis. Do not drink alcohol while taking this medication (Patient not taking: Reported on 11/29/2018 ) 14 tablet 0 No current facility-administere d medications for this visit. ALLERGIES No Known Allergies Social History Socioeconomic History Marital status: Single Spouse name: Not on file Number of children: Not on file Years of education: Not on file Highest education level: Not on file Occupational History Not on file Social Needs Financial resource strain: Not on file Food insecurity: Worry: Not on file Inability: Not on file Transportation needs: Medical: Not on file Non-medical: Not on file Tobacco Use Smoking status: Current Some Day Smoker Smokeless tobacco: Never Used Tobacco comment: uses the e-cig Substance and Sexual Activity Alcohol use: Yes Comment: occasionally Drug use: Not on file Sexual activity: Not on file Lifestyle Physical activity: Days per week: Not on file Minutes per session: Not on file Stress: Not on file Relationships Social connections: Talks on phone: Not on file Gets together: Not on file Attends synagogue service: Not on file Active member of club or organization: Not on file Attends meetings of clubs or organizations: Not on file Relationship status: Not on file Intimate partner violence: Fear of current or ex partner: Not on file Emotionally abused: Not on file Physically abused: Not on file Forced sexual activity: Not on file Other Topics Concerns: Not on file Social History Narrative Not on file FAMILY HISTORY (grandparents, parents, brothers, sisters, aunts, or uncles) Liver Problems: No Ulcerative Colitis: No Crohn's Disease: No Colon Cancer: No Colon Polyps: No IBS: No Celiac disease: No Bleeding Disorders: No GI SPECIFIC REVIEW OF SYMPTOMS Difficulty swallowing / foods sticking in throat: no Heartburn: no Hoarseness: no Chronic cough: no Regurgitation: no Chest pain: no Filling up quickly at meals:no Loss of appetite: no Nausea: no Vomiting: no Abdominal pain: no Recent change in bowel movements: no Bloody or black, bowel movements: no Constipation: no Diarrhea: no Loss of control of bowel movements: no Night sweats: no Fever: no Chills: no Thought or memory problems: no Fluid in abdomen (ascites): no Prominent leg swelling: no Vomiting blood: no Recent change in weight: No REVIEW OF SYSTEMS EyesNegative for vision changes, diplopia or epiphora. Ears, Mouth, nose, throat:No problems Cardiovascular: No Problems Respiratory: Negative for cough, wheezing and shortness of breath Gastrointestinal : No problems Genitourinary: Negative Musuloskeletal: Denies significant problems Integumentary: no rashes, lesions, or jaundice Neurological: No history of neurologic problems Endocrine: Negative for cold or heat intolerance, polyuria, polydipsia and goiter. Psychiatric: Cooperative and agreeable Allergic/ Immunologic: Negative All others negative PAST MEDICAL HISTORY Colon polyps: no Colon cancer: no Other cancer: no Radiation / Chemotherapy: no Crohn's disease / Ulcerative colitis: no High cholesterol or triglycerides: no Ulcers: no Gallstones: no Hepatitis / Jaundice: no Heart Disease: no Lung Disease: no Liver problems: no Thyroid disease: no Kidney stones: no Pancreatitis: no Diabetes: no Arthritis: no Rheumatic fever: no Gastrointestinal bleeding: no Depression or other mental illness: no Other personal illness: as above PHYSICAL EXAMINATION BP 110/60 Pulse 86 Ht 5' 2 (1.58m) Wt 120 lb (54.4kg) BMI 21.94 kg/(m2). General Appearance: Well appearing, alert, in no acute distress, well-hydrated, well nourished. Eyes: PERRLA, conjunctiva and sclera normal Oropharynx: Lips, tongue, and oral mucosa normal. There is no thrush or oral ulcers. Lungs:breath sounds clear to auscultation bilaterally, no crackles, rhonchi, or wheezes Heart: regular rate and rhythm, no murmurs or gallops. Abdomen: not distended, normal bowel sounds, soft and depressible, no guarding or rebound, no palpable mass, no organomegaly Rectal exam: Deferred. Extremities: no cyanosis or edema Skin: no jaundice, no spider angiomas, no palmar erythema Neuro:alert, oriented x 3, pleasant and in no acute distress RECENT LABS CBC: WBC (k/uL) Date Value 07/03/2016 5.48 10/26/2015 8.05 Hematocrit (%) Date Value 07/03/2016 41.9 MCV (fL) Date Value 07/03/2016 93.7 Platelet Count (k/uL) Date Value 07/03/2016 323 Lymph% (%) Date Value 07/03/2016 31.6 Comprehensive Metabolic Panel: Glucose (mg/dL) Date Value 07/03/2016 78 BUN (mg/dL) Date Value 07/03/2016 8 Creatinine (mg/dL) Date Value 07/03/2016 0.73 Sodium (mmol/L) Date Value 07/03/2016 143 Potassium (mmol/L) Date Value 07/03/2016 4.4 Chloride (mmol/L) Date Value 07/03/2016 105 CO2 (mmol/L) Date Value 07/03/2016 24 Protein, Total (g/dL) Date Value 10/26/2015 7.0 Albumin (g/dL) Date Value 10/26/2015 4.7 Calcium (mg/dL) Date Value 07/03/2016 9.7 Alkaline Phosphatase (U/L) Date Value 10/26/2015 48 Bilirubin, Total (mg/dL) Date Value 10/26/2015 0.3 AST (U/L) Date Value 10/26/2015 17 ALT (U/L) Date Value 10/26/2015 6 Assessment IMPRESSION Ms. Tang is a 28 year old year old female who presents with chronic bloating that has not improved with probiotics, miralax, celiac testing negative. PLAN ASSESSMENT/PLAN: 1. Bloating - ICD9: 787.3, ICD10: R14.0 - Trial of IBGard - BREATH TEST H PYLORI - BREATH TEST GLUCOSE - Trial of FODMAP diet. Instructions given to patient. Plan is to follow up after test(s) Ki Louis MD November 29, 2018 11:[address] [facility] CNPNon 11-04-2018 CNPN Telephone (OBGYLN) MANPREET TANG ([id number]) 1990 F Date Time Provider Department 11/04/18 SILVIA SCHMITZ OBKATIA During your visit today, we recorded the following information about you: Silvia Schmitz MD 11/04/2018 1:15 PM Signed Positive Yeast Infection. eRx sent to pharmacy. 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 Thank you Dr Schmitz. Cora Dailey RN 11/04/2018 1:51 PM Signed Attempted to call patient, VM not set up. Cora Dailey RN 11/05/2018 10:26 AM Signed Attempted to call patient, VM not set up. Cora Dailey RN 11/06/2018 10:44 AM Signed Attempted to call patient, VM not set up. Charmaine Soto RN 11/08/2018 2:38 PM Signed attempted to reach. VM full. Charmaine Soto RN 11/08/2018 2:41 PM Signed letter sent Allergies As of Date: 11/04/2018 (No Known Allergies) Date Reviewed: 10/29/2018 Reviewed by: Anel Calderon Ma - Fully Assessed Reason for Visit: Vaginal Problem [117] Primary Visit Diagnosis:Yeast vaginitis [B37.3] Order(s):[] terconazole vaginal cream (TERAZOL 3) 0.8 % vaginal creamUse 1 Applicator vaginally daily at bedtime for 3 days.Disp: 3 ApplicatorRfl: 0 Prescriptions as of 11/04/2018 Sig: TERCONAZOLE 0.8 % VAGINAL CRE* Use 1 Applicator vaginally da* METRONIDAZOLE 500 MG TABLET Take 1 tablet by mouth twice * L NORGEST/E ESTRADIOL-E ESTRA* Take 1 tablet by mouth once d* Problem List As Of Date: 11/04/2018 (None) Prescriptions ordered this encounter Disp Refills Start End TERCONAZOLE 0.8 % VAGINAL CREAM 3 Ap* 0 11/04/2018 11/07/2018 Route: VAGINAL Sig: Use 1 Applicator vaginally daily at bedtime for 3 days. Letter Text Encounter Status:Closed by SILVIA SCHMITZ MD on 11/04/18 [facility] OBSOLETEon 10-31-2018 OBSOLETE Refill (OBGYLN) MANPREET TANG ([id number]) 1990 F Date Time Provider Department 10/31/18 SILVIA SCHMITZ OBGYLN During your visit today, we recorded the following information about you: Cora Dailey RN 10/31/2018 2:46 PM Signed Patient calling in with c/o abdominal / pelvic pain. Started a few hours after VE in the office on 10/29/18. Patient states possible dx of endometriosis. Patient states she has had nausea, vomiting, diarrhea since OV. NANDV resolved yesterday. Denies fever. Advised patient, could be stomach bug, coincidence to OV. Also, + cultures could be contributing to the discomfort. + BV, + Yeast Orders pended. Advised patient, if pain gets severe, should be evaluated in the ER. Patient verbalizes understanding. Patient aware to check pharmacy for medications. States prescription for Seasonique was to be called to the pharmacy. Do not see in note. Asking if provider was going to put in consult regarding cyst in left breast. Routed to providers for review. Davin Edge APRN.JIM 10/31/2018 3:01 PM Signed Agree with below. Please assist to schedule breast US, radiologist will decide if mammogram is necessary. The following approved medication requests have been transmitted electronically. Signed Prescriptions Disp Refills metroNIDAZOLE (FLAGYL) 500 mg tablet 14 tablet 0 Sig: Take 1 tablet by mouth twice daily. for vaginosis. Do not drink alcohol while taking this medication Authorizing Provider: DAVIN EDGE) fluconazole (DIFLUCAN) 150 mg tablet 1 tablet 1 Sig: Take 1 tablet by mouth one time only for 1 dose. repeat if needed in one week Authorizing Provider: DAVIN EDGE) L-Norgest and E Estradiol-E Estrad (SEASONIQUE) 0.15 mg-30 mcg (84)/10 mcg (7) 3MPk 1 Package 3 Sig: Take 1 tablet by mouth once daily. Authorizing Provider: DAVIN EDGE) Davin Edge APRN.CNP Allergies As of Date: 10/31/2018 (No Known Allergies) Date Reviewed: 10/29/2018 Reviewed by: Anel Calderon Ma - Fully Assessed Primary Visit Diagnosis:Bacterial vaginosis [N76.0, B96.89] Other Visit Diagnoses:Vaginal yeast infection [B37.3] Dysmenorrhea [N94.6] Breast pain, left [N64.4] Order(s):metroNIDAZO LE (FLAGYL) 500 mg tabletTake 1 tablet by mouth twice daily. for vaginosis. Do not drink alcohol while taking this medicationDisp: 14 tabletRfl: 0 fluconazole (DIFLUCAN) 150 mg tabletTake 1 tablet by mouth one time only for 1 dose. repeat if needed in one weekDisp: 1 tabletRfl: 1 L-Norgest and E Estradiol-E Estrad (SEASONIQUE) 0.15 mg-30 mcg (84)/10 mcg (7) 3MPkTake 1 tablet by mouth once daily.Disp: 1 PackageRfl: 3 US BREAST LTD LT [[id number]] Order #: [id number] FUTURE MARIO DIAGNOSTIC LT [[id number]] Order #: [id number] FUTURE Prescriptions as of 10/31/2018 Sig: METRONIDAZOLE 500 MG TABLET Take 1 tablet by mouth twice * FLUCONAZOLE 150 MG TABLET Take 1 tablet by mouth one ti* L NORGEST/E ESTRADIOL-E ESTRA* Take 1 tablet by mouth once d* Problem List As Of Date: 10/31/2018 (None) Prescriptions ordered this encounter Disp Refills Start End METRONIDAZOLE 500 MG TABLET 14 t* 0 10/31/2018 Route: ORAL Sig: Take 1 tablet by mouth twice daily. for vaginosis. Do not drink alcohol while taking this medication FLUCONAZOLE 150 MG TABLET 1 ta* 1 10/31/2018 10/31/2018 Route: ORAL Sig: Take 1 tablet by mouth one time only for 1 dose. repeat if needed in one week L NORGEST/E ESTRADIOL-E ESTRAD 0.15 * 1 Pa* 3 10/31/2018 Route: ORAL Sig: Take 1 tablet by mouth once daily. Encounter Status:Closed by CORA DAILEY RN on 10/31/[address] [facility] Vag Pathogens DNAon 10-31-19 19 Roz sp DNA Probe Positive Critically abnormal Negative for Roz species by DNA Probe [facility] Comment on above: Result Comment: This is indicative of candidiasis when consistent with clinical signs and symptoms. Performed By: #### V AGDNA #### [facility] [address] [place] [address] Hernandez vag DNA Probe Positive Critically abnormal Negative for Gardnerella vaginalis by DNA Probe [facility] Comment on above: Result Comment: This is suggestive, but not diagnostic of bacterial vaginosis, results should be interpreted in conjunction with other data such as pH, amine odor, clue cells and vaginal discharge characteristics. Performed By: #### V AGDNA #### [facility] [address] [place] [address] Trich vag DNA Probe Negative Normal Negative for Trichomonas vaginalis by DNA Probe [facility] Comment on above: Performed By: #### V AGDNA #### [facility] [address] [place] [address] CNOVon 10-29-2018 CNOV Office Visit (OBGYLN) MANPREET TANG ([id number]) 1990 F Date Time Provider Department 10/29/18 4:45 PM SILVIA SCHMITZ OBGYLN During your visit today, we recorded the following information about you: Pulse Blood pressure Height Last Period 113/minute 139/81 1.575 m 10/23/18 Silvia Schmitz MD 10/29/2018 6:57 PM Signed CC: Discuss pelvic pain Manpreet Tang is a 28 year old . Patient presents for discuss pelvic pain and would like hormone testing . Patient with extensive history of pelvic pain. Severe bloating and bloody stools. Painful cycles and painful intercourse. Patient with multiple complaints that have GI component and Gynecological component. Also has pain in the left breast Superior aspect of breast. No LMP recorded. No family history on file. Patient is identified by name and birthdate: Yes Medications were reviewed and verified. Her health maintenance record has been reviewed and has been updated: Yes Is patient having any pain? No 0 on a scale of 0 to 10 Obstetrical History: OB History T0 L0 SAB0 TAB0 Ectopic0 Multiple0 Live Births0 No past medical history on file. PAST SURGICAL HISTORY Procedure Laterality Date - COLONOSCOPY N/A 05/31/2016 Colin- skin tags, repeat at age 50 No current outpatient medications on file. No current facility-administere d medications for this visit. ALLERGIES No Known Allergies Social History Social History Narrative Not on file The above information has been reviewed and confirmed with the patient. History of present illness also confirmed EXAM: BP 139/81 Pulse 113 Ht 5' 2 (1.575 m) LMP 10/23/2018 BMI 21.22 kg/m? Thyroid: normal to inspection and palpation and midliline no palpable masses or nodules Breasts: NL Symmetry, No Masses/Tenderness/Di scharge and No Skin Changes Heart: regular rate and rhythm, no murmer, gallop or rub, no lifts, heaves, or thrills, PMI not displaced Abdomen: Benign, soft, non-tender and no masses External Genitalia: normal vagina and normal vaginal tone, normal uterus, size and consistency, normal adnexa without tenderness and tears at the perineum Vagina: Normal mucosa, no discharge, no odor Cervix: no discharge or lesions Uterus: retroflexed, irregular and tender, reproduces her pain Adnexae: no masses, nontender Rectal: Deferred exam ASSESMENT/PLAN: 28 year old White female here for annual exam. ASSESSMENT/PLAN: 1. Bloating - ICD9: 787.3, ICD10: R14.0 (primary diagnosis) 2. Hematochezia not due to hemorrhage from anus - ICD9: 578.1, ICD10: K92.1 - CONSULT TO GASTROENTEROLOGY 3. Vaginal discharge - ICD9: 623.5, ICD10: N89.8 - VAGINAL PATHOGENS DNA PROBES Silvia Schmitz MD October 29, 2018 6:47 PM Referring Provider: SELF [200] Allergies As of Date: 10/29/2018 (No Known Allergies) Date Reviewed: 10/29/2018 Reviewed by: Anel Calderon Ma - Fully Assessed Reason for Visit: Pelvic Pain [282] Primary Visit Diagnosis:Bloating [R14.0] Other Visit Diagnoses:Hematochez ia not due to hemorrhage from anus [K92.1] Vaginal discharge [N89.8] Order(s):CONSULT TO GASTROENTEROLOGY [9010] Order #: [id number]: 1 VAGINAL PATHOGENS DNA PROBES [SQVAGDNA] Order #: [id number] Problem List As Of Date: 10/29/2018 (None) Encounter Status:Closed by SILVIA SCHMITZ MD on 10/29/18 [facility] PROGRESSon 10-29-2018 PROGRESS HNO ID: [id number] Author: Silvia Schmitz Service: ? Author Type: Physician Type: Progress Notes Filed: 10/29/2018 6:57 PM Note Text: CC: Discuss pelvic pain Manpreet Tang is a 28 year old . Patient presents for discuss pelvic pain and would like hormone testing . Patient with extensive history of pelvic pain. Severe bloating and bloody stools. Painful cycles and painful intercourse. Patient with multiple complaints that have GI component and Gynecological component. Also has pain in the left breast Superior aspect of breast. No LMP recorded. No family history on file. Patient is identified by name and birthdate: Yes Medications were reviewed and verified. Her health maintenance record has been reviewed and has been updated: Yes Is patient having any pain? No 0 on a scale of 0 to 10 Obstetrical History: OB History T0 L0 SAB0 TAB0 Ectopic0 Multiple0 Live Births0 No past medical history on file. PAST SURGICAL HISTORY Procedure Laterality Date - COLONOSCOPY N/A 05/31/2016 Colin- skin tags, repeat at age 50 No current outpatient medications on file. No current facility-administere d medications for this visit. ALLERGIES No Known Allergies Social History Social History Narrative Not on file The above information has been reviewed and confirmed with the patient. History of present illness also confirmed EXAM: BP 139/81 Pulse 113 Ht 5' 2 (1.575 m) LMP 10/23/2018 BMI 21.22 kg/m? Thyroid: normal to inspection and palpation and midliline no palpable masses or nodules Breasts: NL Symmetry, No Masses/Tenderness/Di scharge and No Skin Changes Heart: regular rate and rhythm, no murmer, gallop or rub, no lifts, heaves, or thrills, PMI not displaced Abdomen: Benign, soft, non-tender and no masses External Genitalia: normal vagina and normal vaginal tone, normal uterus, size and consistency, normal adnexa without tenderness and tears at the perineum Vagina: Normal mucosa, no discharge, no odor Cervix: no discharge or lesions Uterus: retroflexed, irregular and tender, reproduces her pain Adnexae: no masses, nontender Rectal: Deferred exam ASSESMENT/PLAN: 28 year old White female here for annual exam. ASSESSMENT/PLAN: 1. Bloating - ICD9: 787.3, ICD10: R14.0 (primary diagnosis) 2. Hematochezia not due to hemorrhage from anus - ICD9: 578.1, ICD10: K92.1 - CONSULT TO GASTROENTEROLOGY 3. Vaginal discharge - ICD9: 623.5, ICD10: N89.8 - VAGINAL PATHOGENS DNA PROBES Silvia Schmitz MD October 29, 2018 6:[address] [facility] Vital Signs Date Time Vital Sign Value Performing Clinician Faci lity 01-21-2025 14:29-0400 Body height 157.48 cm No Primary Care Physician [facility] 01-21-2025 14:0400 Body mass index (BMI) [Ratio] 24.9 kg/m2 No Primary Care Physician [facility] 01-21-2025 14: Body weight 61.83 kg No Primary Care Physician [facility] 01-21-2025 14:040 Diastolic blood pressure 83 mm[Hg] No Primary Care Physician [facility] 01-21-2025 14:26-0400 Systolic blood pressure 146 mm[Hg] No Primary Care Physician [facility] 03-28-2023 10:06-0500 Body height 157.48 cm No Primary Care Physician [facility] 03-26-2023 10:57-0500 Body mass index (BMI) [Ratio] 23.8 kg/m2 No Primary Care Physician [facility] 03-26-2023 10:57-0500 Body weight 58.96 kg No Primary Care Physician [facility] 03-26-2023 10:57-0500 Diastolic blood pressure 74 mm[Hg] No Primary Care Physician [facility] 03-26-2023 10:57-0500 Systolic blood pressure 127 mm[Hg] No Primary Care Physician [facility] 02-12-2023 08:00-0400 Body temperature 97.6 [degF] No Primary Care Physician [facility] 02-12-2023 08:00-0400 Diastolic blood pressure 72 mm[Hg] No Primary Care Physician [facility] 02-12-2023 08:00-0400 Heart rate 100 /min No Primary Care Physician [facility] 02-12-2023 08:00-0400 Respiratory rate 16 /min No Primary Care Physician [facility] 02-12-2023 08:00-0400 Systolic blood pressure 126 mm[Hg] No Primary Care Physician [facility] 02-11-2023 07:55-0400 SaO2% (BldA) [Mass fraction] 99 % No Primary Care Physician [facility] 02-10-2023 09:02-0400 Body mass index (BMI) [Ratio] 28 kg/m2 No Primary Care Physician [facility] 02-10-2023 09:02-0400 Body weight 69.58 kg No Primary Care Physician [facility] 02-07-2023 11:13-0400 Diastolic blood pressure 82 mm[Hg] No Primary Care Physician [facility] 02-07-2023 11:13-0400 Systolic blood pressure 126 mm[Hg] No Primary Care Physician [facility] 02-07-2023 10:38-0400 Body mass index (BMI) [Ratio] 28.3 kg/m2 No Primary Care Physician [facility] 02-07-2023 10:38-0400 Body weight 70.42 kg No Primary Care Physician [facility] 02-05-2023 12:49-0400 Body mass index (BMI) [Ratio] 27.8 kg/m2 No Primary Care Physician [facility] 02-05-2023 12:49-0400 Body weight 69.11 kg No Primary Care Physician [facility] 02-05-2023 12:49-0400 Diastolic blood pressure 86 mm[Hg] No Primary Care Physician [facility] 02-05-2023 12:49-0400 Systolic blood pressure 130 mm[Hg] No Primary Care Physician [facility] 01-31-2023 13:55-0400 Body mass index (BMI) [Ratio] 27.8 kg/m2 No Primary Care Physician [facility] 01-31-2023 13:55-0400 Body weight 69.17 kg No Primary Care Physician [facility] 01-31-2023 13:55-0400 Diastolic blood pressure 84 mm[Hg] No Primary Care Physician [facility] 01-31-2023 13:55-0400 Systolic blood pressure 128 mm[Hg] No Primary Care Physician [facility] 01-26-2023 11:16-0400 Body height 157.48 cm No Primary Care Physician [facility] 01-26-2023 11:12-0400 Body mass index (BMI) [Ratio] 27.2 kg/m2 No Primary Care Physician [facility] 01-26-2023 11:12-0400 Body weight 67.58 kg No Primary Care Physician [facility] 01-26-2023 11:12-0400 Diastolic blood pressure 75 mm[Hg] No Primary Care Physician [facility] 01-26-2023 11:12-0400 Systolic blood pressure 124 mm[Hg] No Primary Care Physician [facility] 01-19-2023 09:18-0400 Body mass index (BMI) [Ratio] 27.3 kg/m2 No Primary Care Physician [facility] 01-19-2023 09:18-0400 Body weight 67.69 kg No Primary Care Physician [facility] 01-19-2023 09:18-0400 Diastolic blood pressure 84 mm[Hg] No Primary Care Physician [facility] 01-19-2023 09:18-0400 Systolic blood pressure 126 mm[Hg] No Primary Care Physician [facility] 01-12-2023 11:43-0400 Body height 157.48 cm No Primary Care Physician [facility] 01-12-2023 11:42-0400 Body mass index (BMI) [Ratio] 27.1 kg/m2 No Primary Care Physician [facility] 01-12-2023 11:42-0400 Body weight 67.3 kg No Primary Care Physician [facility] 01-12-2023 11:42-0400 Diastolic blood pressure 76 mm[Hg] No Primary Care Physician [facility] 01-12-2023 11:42-0400 Systolic blood pressure 125 mm[Hg] No Primary Care Physician [facility] 12-29-2022 11:52-0400 Body mass index (BMI) [Ratio] 26.7 kg/m2 No Primary Care Physician [facility] 12-29-2022 11:52-0400 Body weight 66.28 kg No Primary Care Physician [facility] 12-29-2022 11:52-0400 Diastolic blood pressure 80 mm[Hg] No Primary Care Physician [facility] 12-29-2022 11:52-0400 Systolic blood pressure 122 mm[Hg] No Primary Care Physician [facility] 12-11-2022 13:03-0400 Body height 157.48 cm No Primary Care Physician [facility] 12-11-2022 13:02-0400 Body mass index (BMI) [Ratio] 26.6 kg/m2 No Primary Care Physician [facility] 12-11-2022 13:02-0400 Body weight 65.99 kg No Primary Care Physician [facility] 12-11-2022 13:02-0400 Diastolic blood pressure 85 mm[Hg] No Primary Care Physician [facility] 12-11-2022 13:02-0400 Systolic blood pressure 124 mm[Hg] No Primary Care Physician [facility] 11-27-2022 11:38-0400 Body mass index (BMI) [Ratio] 25.9 kg/m2 No Primary Care Physician [facility] 11-27-2022 11:38-0400 Body weight 64.41 kg No Primary Care Physician [facility] 11-27-2022 11:38-0400 Diastolic blood pressure 71 mm[Hg] No Primary Care Physician [facility] 11-27-2022 11:38-0400 Systolic blood pressure 139 mm[Hg] No Primary Care Physician [facility] 11-17-2022 11:45-0400 Body height 157.48 cm No Primary Care Physician [facility] 11-17-2022 11:35-0400 Body mass index (BMI) [Ratio] 25.7 kg/m2 No Primary Care Physician [facility] 11-17-2022 11:35-0400 Body weight 63.72 kg No Primary Care Physician [facility] 11-17-2022 11:35-0400 Diastolic blood pressure 76 mm[Hg] No Primary Care Physician [facility] 11-17-2022 11:35-0400 Systolic blood pressure 120 mm[Hg] No Primary Care Physician [facility] 10-27-2022 11:55-0400 Body mass index (BMI) [Ratio] 25 kg/m2 No Primary Care Physician [facility] 10-27-2022 11:55-0400 Body weight 62.14 kg No Primary Care Physician [facility] 10-27-2022 11:55-0400 Diastolic blood pressure 68 mm[Hg] No Primary Care Physician [facility] 10-27-2022 11:55-0400 Systolic blood pressure 118 mm[Hg] No Primary Care Physician [facility] 09-29-2022 11:28-0400 Body mass index (BMI) [Ratio] 23.9 kg/m2 No Primary Care Physician [facility] 09-29-2022 11:28-0400 Body weight 59.42 kg No Primary Care Physician [facility] 09-29-2022 11:28-0400 Diastolic blood pressure 83 mm[Hg] No Primary Care Physician [facility] 09-29-2022 11:28-0400 Systolic blood pressure 130 mm[Hg] No Primary Care Physician [facility] 08-28-2022 11:28-0400 Body mass index (BMI) [Ratio] 23.4 kg/m2 No Primary Care Physician [facility] 08-28-2022 11:28-0400 Body weight 58.22 kg No Primary Care Physician [facility] 08-28-2022 11:28-0400 Diastolic blood pressure 82 mm[Hg] No Primary Care Physician [facility] 08-28-2022 11:28-0400 Systolic blood pressure 118 mm[Hg] No Primary Care Physician [facility] 2022 11:53-0400 Body mass index (BMI) [Ratio] 22.6 kg/m2 No Primary Care Physician [facility] 2022 11:53-0400 Body weight 56.3 kg No Primary Care Physician [facility] 2022 11:53-0400 Diastolic blood pressure 80 mm[Hg] No Primary Care Physician [facility] 2022 11:53-0400 Systolic blood pressure 137 mm[Hg] No Primary Care Physician [facility] 07-06-2022 10:28-0500 Body height 157.48 cm No Primary Care Physician [facility] 07-06-2022 10:28-0500 Body mass index (BMI) [Ratio] 23.2 kg/m2 No Primary Care Physician [facility] 07-06-2022 10:28-0500 Body weight 57.6 kg No Primary Care Physician [facility] 07-06-2022 10:28-0500 Diastolic blood pressure 76 mm[Hg] No Primary Care Physician [facility] 07-06-2022 10:28-0500 Systolic blood pressure 114 mm[Hg] No Primary Care Physician [facility] Encounters Encounter Date Encounter Type Care Provider Facility Start: 03-12-2025 ambulatory Crystal Langley Facility :[facility] Start: 02-02-2025 End: 02-02-2025 ambulatory No Primary Care Physician -Lab [facility] Start: 02-02-2025 End: 02-02-2025 Patient encounter procedure Crystal Langley ORCHARD WORKER-C -Lab [facility] Start: 02-02-2025 End: 02-02-2025 ambulatory Crystal Langley Facility:[facility] Start: 01-26-2025 End: 01-26-2025 ambulatory No Primary Care Physician -Ultrasound [facility] Start: 01-26-2025 End: 01-26-2025 Patient encounter procedure Crystal Langley ORCHARD WORKER-C -Ultrasound [facility] Work Phone: Start: 01-26-2025 End: 01-26-2025 ambulatory Crystal Langley Facility:[facility] Start: 01-21-2025 End: 01-21-2025 Patient encounter procedure Crystal FRAZIER -[facility] Work Phone: Start: 01-21-2025 End: 01-21-2025 ambulatory No Primary Care Physician -[facility] Start: 01-21-2025 End: 01-21-2025 ambulatory Crystal Langley Facility:[facility] Start: 11-17-2024 End: 11-17-2024 ambulatory MARYELLEN ANDERSON CNC MACHINE OPERATOR-LATHING SUPERVISOR Facility:[facility] Start: 11-17-2024 End: 11-17-2024 Patient encounter procedure MARYELLEN ANDERSON CNC MACHINE OPERATOR-LATHING SUPERVISOR [facility] Start: 11-17-2024 End: 11-17-2024 Well adult monitoring check done MARYELLEN ANDERSON CNC MACHINE OPERATOR-LATHING SUPERVISOR [facility] Start: 04-05-2023 End: 04-05-2023 ambulatory No Primary Care Physician [facility] Work Phone: Start: 04-05-2023 End: 04-05-2023 Patient encounter procedure No Primary Care Physician [facility], [facility] Work Phone: Start: 03-26-2023 End: 03-26-2023 ambulatory No Primary Care Physician [facility] Work Phone: Start: 03-26-2023 End: 03-26-2023 Patient encounter procedure No Primary Care Physician [facility]-Laboratory Work Phone: Start: 03-26-2023 End: 03-26-2023 Patient encounter procedure No Primary Care Physician [facility] Work Phone: Start: 02-14-2023 End: 02-14-2023 Patient encounter procedure No Primary Care Physician [facility] Work Phone: Start: 02-12-2023 Non-patient / Non-visit No Primary Care Physician [facility] Start: 02-11-2023 Non-patient / Non-visit No Primary Care Physician [facility] Start: 02-10-2023 Non-patient / Non-visit No Primary Care Physician [facility] Start: 02-10-2023 End: 02-12-2023 Evaluation and management of inpatient No Primary Care Physician [facility] Work Phone: Start: 02-07-2023 End: 02-07-2023 Patient encounter procedure No Primary Care Physician [facility] Work Phone: Start: 02-05-2023 End: 02-05-2023 Patient encounter procedure No Primary Care Physician [facility] Work Phone: Start: 01-31-2023 End: 01-31-2023 Patient encounter procedure No Primary Care Physician [facility] Work Phone: Start: 01-26-2023 End: 01-26-2023 Patient encounter procedure No Primary Care Physician [facility] Work Phone: Start: 01-23-2023 End: 01-23-2023 ambulatory No Primary Care Physician [facility] Work Phone: Start: 01-23-2023 End: 01-23-2023 Patient encounter procedure No Primary Care Physician [facility] Ultrasound Work Phone: Start: 01-19-2023 End: 01-19-2023 Patient encounter procedure No Primary Care Physician [facility] Work Phone: Start: 01-12-2023 End: 01-12-2023 Patient encounter procedure No Primary Care Physician [facility]-Laboratory, Specimen Work Phone: Start: 01-12-2023 End: 01-12-2023 Patient encounter procedure No Primary Care Physician [facility] Work Phone: Start: 01-09-2023 End: 01-09-2023 ambulatory No Primary Care Physician [facility] Work Phone: Start: 01-09-2023 End: 01-09-2023 Patient encounter procedure No Primary Care Physician [facility]-Ultrasound, [facility] Work Phone: Start: 12-29-2022 End: 12-29-2022 Patient encounter procedure No Primary Care Physician [facility] Work Phone: Start: 12-11-2022 End: 12-11-2022 Patient encounter procedure No Primary Care Physician [facility] Work Phone: Start: 12-11-2022 End: 12-11-2022 ambulatory No Primary Care Physician [facility] Work Phone: Start: 12-11-2022 End: 12-11-2022 Patient encounter procedure No Primary Care Physician [facility]-Ultrasound, [facility] Work Phone: Start: 11-27-2022 End: 11-27-2022 Patient encounter procedure No Primary Care Physician [facility] Work Phone: Start: 11-17-2022 End: 11-17-2022 ambulatory No Primary Care Physician [facility] Work Phone: Start: 11-17-2022 End: 11-17-2022 Patient encounter procedure No Primary Care Physician [facility] Work Phone: Start: 10-27-2022 End: 10-27-2022 Patient encounter procedure No Primary Care Physician [facility] Work Phone: Start: 10-04-2022 End: 10-04-2022 ambulatory MD NO PRIMARY CARE [facility] Start: 09-29-2022 End: 09-29-2022 Patient encounter procedure No Primary Care Physician 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 Start: 09-05-2022 End: 09-05-2022 ambulatory [place] [facility] Start: 08-28-2022 End: 08-28-2022 Patient encounter procedure No Primary Care Physician [facility] Work Phone: Start: 2022 End: 2022 Patient encounter procedure No Primary Care Physician [facility] Work Phone: Start: 07-20-2022 End: 07-20-2022 ambulatory No Primary Care Physician [facility] Work Phone: Start: 07-20-2022 End: 07-20-2022 Patient encounter procedure No Primary Care Physician [facility]-Laboratory, OP Pavilion Start: 07-06-2022 End: 07-06-2022 ambulatory No Primary Care Physician [facility] Work Phone: Start: 07-06-2022 End: 07-06-2022 Patient encounter procedure No Primary Care Physician [facility]-Laboratory, Specimen Start: 07-06-2022 End: 07-06-2022 Patient encounter procedure No Primary Care Physician [facility] Procedures Date Procedure Procedure Detail Performing Clinician Start: 01-26-2025 Pelvic echography No Pr imary Care Physician Start: 01-21-2025 Serum progesterone measurement No Primary Care Physician Comment on above: Follicular phase 0.1 - 0.9 Luteal phase 1.8 - 23.9 Ovulation phase 0.1 - 12.0 First trimester 11.0 - 44.3 Second trimester 25.4 - 83.3 Third trimester 58.7 - 214.0 Postmenopausal 0.0 - 0.1Performed at: [address] [id number] Director: Abel Tran PhD, Phone: [phone] Start: 04-05-2023 Transvaginal echography No Primary Care Physician Start: 01-23-2023 Ultrasonography for antepartum monitoring of fetus No Primary Care Physician Start: 01-12-2023 Group B Streptococcu s Culture No Primary Care Physician Start: 01-09-2023 Ultrasound scan for growth No Primary Care Physician Start: 12-11-2022 Ultrasound scan for growth No Primary Care Physician Start: 11-17-2022 Ultrasonography for antepartum monitoring of fetus No Primary Care Physician Urine culture No Primary Car e Physician Plan of Treatment Date Care Activity Detail Author Start: 01-21-2025 CBC W Auto Differential panel - Blood [facility] Start: 01-21-2025 Comprehensive metabolic 2000 panel - Serum or Plasma [facility] Start: 01-21-2025 Serum progesterone measurement [facility] Start: 01-21-2025 T4 free measurement [facility] Start: 01-21-2025 Thyroid stimulating hormone measurement [facility] Start: 01-21-2025 [facility] Start: 03-26-2023 Patient referral [facility] Work Phone: Start: 02-12-2023 Patient discharge [facility] Start: 02-11-2023 Administration of blood product [facility] Start: 02-10-2023 Administration of medication [facility] Start: 02-10-2023 Application of ice collar, cap or bag [facility] Start: 02-10-2023 Catheterization of vein [facility] Start: 02-10-2023 Introduction of urinary catheter [facility] Start: 02-10-2023 Measuring intake and output [facility] Start: 02-10-2023 Notification of physician [facility] Start: 02-10-2023 Procedure discontinued [facility] Start: 02-10-2023 Provision of activity privileges [facility] Start: 02-10-2023 Vital signs measurements [facility] Start: 02-10-2023 [facility] Start: 02-10-2023 Admission procedure [facility] Start: 02-10-2023 Consultation [facility] Start: 01-05-2023 FLU (Season Ended) FLU (Season Ended) [facility] Start: 10-04-2022 End: 10-04-2022 Patient encounter procedure [facility] Start: 10-04-2022 End: 10-04-2022 Professional / ancillary services management 10/04/2022 12:00 PM EDT Ancillary Procedure Visit [facility] [address], [address] [place] [address] [facility] Start: 07-06-2022 Liquid based cervical cytology screening [facility] Start: 08-04-2011 Microscopic observation [Identifier] in Cervix by Cyto stain Pap Smear [facility] Start: 2006 MenB (1 of 2 - MenB 2-Dose Series Bexsero) MenB (1 of 2 - MenB 2-Dose Series Bexsero) [facility] Start: 1997 Tetanus Diphtheria and Pertussis Vaccines (1 - Tdap) Tetanus Diphtheria and Pertussis Vaccines (1 - Tdap) [facility] Start: 08-04-1991 MMR (1 of 1 - Standard series) MMR (1 of 1 - Standard series) [facility] Start: 08-04-1991 Varicella (1 of 2 - 2-dose childhood series) Varicella (1 of 2 - 2-dose childhood series) [facility] Start: 02-03-1991 COVID-19 (#1) COVID-19 (#1) [facility] Start: 1990 Hepatitis B (1 of 3 - 3-dose series) Hepatitis B (1 of 3 - 3-dose series) [facility] Alanine aminotransfe rase [Enzymatic activity/volume] in Serum or Plasma [facility] Albumin [Mass/volume ] in Serum or Plasma [facility] Alkaline phosphatase [Enzymatic activity/volume] in Serum or Plasma [facility] Anion gap in Serum or Plasma [facility] Bilirubin, total measurement [facility] BUN/Creatinine ratio [facility] Calcium [Mass/volume ] in Serum or Plasma [facility] Carbon dioxide, tota l [Moles/volume] in Central venous blood [facility] CBC W Auto Different ial panel - Blood [facility] CMV IgG Ab CMV IgG Ab Lab Routine Echogenic bowel of fetus on ultrasound 09/06/2022 1:03 PM EDT [facility] Work Phone: CMV IgM Ab CMV IgM Ab Lab Routine Echogenic bowel of fetus on ultrasound 09/06/2022 1:03 PM EDT [facility] Creatinine [Mass/vol ume] in Serum or Plasma [facility] Erythrocyte mean cor puscular volume determination [facility] Glucose [Mass/volume ] in Serum or Plasma [facility] Hematocrit [Volume F raction] of Blood [facility] Hemoglobin [Mass/vol ume] in Blood [facility] Hepatitis B surface antigen measurement [facility] Hepatitis C antibody measurement [facility] HIV 1+2 Ab+HIV1 p24 Ag [Presence] in Serum or Plasma by Immunoassay [facility] Leukocytes [#/volume ] in Blood [facility] Mean corpuscular hem oglobin concentration determination [facility] Mean corpuscular hem oglobin determination [facility] Measurement of renal function [facility] Neutrophil count [facility] Neutrophil percent differential count [facility] Path report.final Dx Spec [facility] Patient Education After a Vagina l Incision Care After Vaginal Taking a Sitz Bath [facility] Work Phone: Patient referral [facility] Work Phone: Platelets [#/volume] in Blood [facility] Potassium measurement [facility] Red blood cell count [facility] Red cell distributio n width determination [facility] Rubella IgG measurement [facility] Serum chloride measurement [facility] Sodium measurement [facility] Total protein measurement [facility] Toxoplasma IgG & IgM (initial screening for neg IgM by another lab) [place] Toxoplasma IgG & IgM (initial screening for neg IgM by another lab) [place] Lab Routine Echogenic bowel of fetus on ultrasound 09/06/2022 1:03 PM EDT [facility] Treponema sp Ab [Pre sence] in Serum [facility] Urea nitrogen [Mass/ volume] in Serum or Plasma [facility] US Pelvis [facility] US Pelvis transvaginal [facility] Payers Date Payer Category Payer Self-pay 2024 Private Health Insurance [id number] 2024 Unknown [id number] 2019 Unknown DARRYL ANDREWS BC BS PPO [id number] 2019-Present [id number] [place] [address] [id number] 1990 Unknown [id number] 1990 Unknown [id number] 479 1990 Unknown [id number] 479 1990 Unknown [id number] 479 1990 Unknown [id number] 479 1990 Unknown [id number] 627 Unknown [id number] 462 Unknown [id number] 462 Unknown [id number] 462 Unknown [id number] 462 Unknown [id number] 462 Social History Date Type Detail Facility Start: 07-06-2022 End: 03-26-2023 Tobacco smoking status NHIS Unknown if ever smoked [facility] Start: 1990 Sex Assigned At Female [facility] Start: 1990 Sex Assigned At Not on file [facility] Gender identity Not on file [facility] Start: 11-17-2024 Tobacco smoking status Never s moked tobacco (finding) [facility] [employer] Sexual Orientation [facility] Sex Female (finding) [facility] Start: 03-26-2023 Tobacco smoking stat us NHIS Ex-smoker (finding) [facility] Goals Date Patient Goal Desired Activity /State Clinical Notes 07-06-2022 to 01-28-2025 Note Date & Type Note Facility 01-28-2025 Radiology Diagnostic study note [facility] Imaging Services [address] [place] [address] Pelvic w/ Transvaginal MR#: [id number] Acct: [id number] Name: MANPREET TANG Rep #: [id number] : 1990 F 34 From: Trace Cerna MD PCP: FREDDIE Duron Status: RE G CLI Study:Pelvic w/ Transvaginal Date of Exam: 01/26/25 Exam# [id number] Ordering Dr: Crystal Langley PROCEDURE: PELVIC W/ TRANSVAGINAL REASON FOR EXAM: INFERTILITY TECHNIQUE: Procedure Code: [id number] Modality: US Procedure: PELVIC W/ TRANSVAGINAL COMPARISON: Prior study dated April 05, 2023. FINDINGS: LMP: April 05, 2023. Measurements: Uterus: 6.9 cm x 5.8 cm x 3.7 cm with a volume of 78.8 mL Endometrial Thickness: 9 mm. It is echogenic. Right Ovary: 3.6 cm x 2.2 cm x 1.8 cm with a volume of 7.7 mL. Left Ovary: 2.9 cm x 2.4 cm x 2 cm with a volume of 6.6 mL. TRANSABDOMINAL: Uterus: Normal size, myometrial echotexture, and contour. Endometrium: Unremarkable. Right ovary: Normal size and echotexture. Left ovary: Dominant follicle measuring 2 cm x 1.6 cm 1.8 cm. Other: No large pelvic mass identified. Transvaginal sonography was performed to better visualize the endometrium. TRANSVAGINAL: Uterus: Retroverted. Normal contour and myometrial echotexture. Endometrium: Normal echotexture. Right ovary: Normal size and echotexture. Left ovary: Dominant follicle in the left ovary. Other adnexal findings: None. Cul-de-sac: No free intraperitoneal fluid identified. Tenderness: No tenderness US/Pelvic w/ Transvaginal IMPRESSION: Dominant follicle in the left ovary. No other abnormality is seen. Reading Location: [place] [address] CC: FREDDIE Langley; FREDDIE Anderson ~ [employer] Fundraising Collector: Signed [facility] 01-21-2025 Evaluation note Diagnosis Onset Date Resolution Infertility counseling acute Se ptember 2024 2:20pm [facility] Work Phone: 1(821) 433-693107-14-2025 Evaluation + Plan note Diagnostic Tests Pending * Testosterone Level Total 11/17/24 * Follicle Stimulating Hormone Level 11/17/24 * Estrogens Fractionated, S 11/17/24 * Luteinizing Hormone 11/17/24 * Progesterone Level 11/17/24 [facility] Consultation has been requested by Dr. 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 Please refer to the ultrasound report for full details. Genetic Counseling Summary I discussed with the couple the following issues: 1. We talked about a negative FOB result is not a 100% test, and given ethnicity of FOB (Causasian/[place]) we talked about the 97% accuracy of testing for CF, we talked through the possibility of also of false positive testing for carrier screening on the screening as well 2. We talked about the concerns for echogenic bowel and today's ultrasound with resolution 3. See genetics notes about her carrier status and symptoms associated with Type 5 and also meedsgb-fskussz-qerhap dysplasia Follow Up She expressed understanding of the above information. Continued serial growth every 4 weeks Continued pelvic rest until the placenta migrates Follow up TV for placental migration Questions answered The total patient time of the visit was 30 minutes, of which greater than 50% of the time was spent counseling and coordinating care. Janeth Burch [facility]03-02-2023 NotePap Smear Specimen AdequacyMarch 2022 5:31pmComment.Satisfactory for evaluation. No endocervical component is identified.[facility] INTER[facility]ACED A#[id number] Memorial HospitalComment on above:Satisfactory for evaluation. No endocervical component is identified.Evaluation note* Diagnosis Onset Date Resolution Status Family history of gene mutation acute acute Supervision of normal first [facility] Work Phone: Evaluation note* Diagnosis Echogenic bowel of fetus on ultrasound [facility] Onset Date Resolution Status Family history of gene mutation acute acute Rh negative status during acute Supervision of normal first acute Abnormal genetic test during acute Family history of gene mutation acute acute Rh negative status during acute Supervision of normal first acute Abnormal genetic test during acute Family history of gene mutation acute acute Rh negative status during acute Supervision of normal first acute Echogenic bowel of fetus res olved Placenta previa resolved Abnormal genetic test during acute Family history of gene mutation acute acute Rh negative status during acute Supervision of normal first acute Echogenic bowel of fetus res olved Placenta previa resolved Abnormal genetic test during acute Family history of gene mutation acute Low lying placenta nos or wi thout hemorrhage, third trimester acute acute Rh negative status during acute Supervision of normal first [facility] Work Phone: Evaluation note* Diagnosis Onset Date Resolution Status Abnormal genetic test during acute Family history of gene mutation acute acute Rh negative status during acute Supervision of normal first acute Abnormal genetic test during acute Family history of gene mutation acute acute Rh negative status during acute Supervision of normal first acute Echogenic bowel of fetus res olved Placenta previa resolved Abnormal genetic test during acute Family history of gene mutation acute acute Rh negative status during acute Supervision of normal first acute Echogenic bowel of fetus res olved Placenta previa resolved Abnormal genetic test during acute Family history of gene mutation acute Low lying placenta nos or wi thout hemorrhage, third trimester acute acute Rh negative status during acute Supervision of normal first acute Abnormal genetic test during acute Family history of gene mutation acute Low lying placenta nos or wi thout hemorrhage, third trimester acute acute Rh negative status during acute Supervision of normal first acute Abnormal genetic test during acute Family history of gene mutation acute Low lying placenta nos or wi thout hemorrhage, third trimester acute acute Rh negative status during acute Supervision of normal first acute [facility] Work Phone: Evaluation note* Diagnosis Onset Date Resolution Status Abnormal genetic test during acute Family history of gene mutation acute acute Rh negative status during acute Supervision of normal first acute Echogenic bowel of fetus res olved Placenta previa resolved Abnormal genetic test during acute Family history of gene mutation acute acute Rh negative status during acute Supervision of normal first acute Echogenic bowel of fetus res olved Placenta previa resolved Abnormal genetic test during acute Family history of gene mutation acute Low lying placenta nos or wi thout hemorrhage, third trimester acute acute Rh negative status during acute Supervision of normal first acute Abnormal genetic test during acute Family history of gene mutation acute Low lying placenta nos or wi thout hemorrhage, third trimester acute acute Rh negative status during acute Supervision of normal first acute Abnormal genetic test during acute Family history of gene mutation acute Low lying placenta nos or wi thout hemorrhage, third trimester acute acute Rh negative status during acute Supervision of normal first acute Abnormal genetic test during acute Echogenic bowel of fetus on ultrasound acute Family history of gene mutation acute Low lying placenta nos or wi thout hemorrhage, third trimester acute acute Rh negative status during acute Supervision of normal first acute Abnormal genetic test during acute Echogenic bowel of fetus on ultrasound acute Family history of gene mutation acute Low lying placenta nos or wi thout hemorrhage, third trimester acute acute Rh negative status during acute Supervision of normal first acute [facility] Work Phone: Evaluation note* Diagnosis Onset Date Resolution Status Abnormal genetic test during acute acute Rh negative status during acute Supervision of normal first acute Echogenic bowel of fetus res olved Family history of gene mutation resolved Placenta previa resolved Abnormal genetic test during acute acute Rh negative status during acute Supervision of normal first acute Family history of gene mutation resolved Low lying placenta nos or wi thout hemorrhage, third trimester resolved Abnormal genetic test during acute acute Rh negative status during acute Supervision of normal first acute Family history of gene mutation resolved Low lying placenta nos or wi thout hemorrhage, third trimester resolved Abnormal genetic test during acute acute Rh negative status during acute Supervision of normal first acute Family history of gene mutation resolved Low lying placenta nos or wi thout hemorrhage, third trimester resolved Abnormal genetic test during acute Echogenic bowel of fetus on ultrasound acute acute Rh negative status during acute Supervision of normal first acute Family history of gene mutation resolved Low lying placenta nos or wi thout hemorrhage, third trimester resolved Abnormal genetic test during acute Echogenic bowel of fetus on ultrasound acute acute Rh negative status during acute Supervision of normal first acute Family history of gene mutation resolved Low lying placenta nos or wi thout hemorrhage, third trimester resolved Abnormal genetic test during acute Echogenic bowel of fetus on ultrasound acute Positive GBS test acute acute Rh negative status during acute Supervision of normal first acute Family history of gene mutation resolved Polyhydramnios resolved Abnormal genetic test during acute Echogenic bowel of fetus on ultrasound acute Positive GBS test acute acute Rh negative status during acute Supervision of normal first acute Family history of gene mutation resolved Low lying placenta nos or wi thout hemorrhage, third trimester resolved Polyhydramnios resolved [facility] Work Phone: Evaluation note* Diagnosis Onset Date Resolution Status Abnormal genetic test during resolved Family history of gene mutation resolved Low lying placenta nos or wi thout hemorrhage, third trimester resolved resolved Rh negative status during resolved Supervision of normal first resolved Abnormal genetic test during resolved Echogenic bowel of fetus on ultrasound resolved Family history of gene mutation resolved Low lying placenta nos or wi thout hemorrhage, third trimester resolved resolved Rh negative status during resolved Supervision of normal first resolved Abnormal genetic test during resolved Echogenic bowel of fetus on ultrasound resolved Family history of gene mutation resolved Low lying placenta nos or wi thout hemorrhage, third trimester resolved resolved Rh negative status during resolved Supervision of normal first resolved Abnormal genetic test during resolved Echogenic bowel of fetus on ultrasound resolved Family history of gene mutation resolved Polyhydramnios resolved Positive GBS test resolved resolved Rh negative status during resolved Supervision of normal first resolved Abnormal genetic test during resolved Echogenic bowel of fetus on ultrasound resolved Family history of gene mutation resolved Low lying placenta nos or wi thout hemorrhage, third trimester resolved Polyhydramnios resolved Positive GBS test resolved resolved Rh negative status during resolved Supervision of normal first resolved Abnormal genetic test during resolved Echogenic bowel of fetus on ultrasound resolved Positive GBS test resolved resolved Rh negative status during resolved Supervision of normal first resolved Abnormal genetic test during resolved Echogenic bowel of fetus on ultrasound resolved Positive GBS test resolved resolved Rh negative status during resolved Supervision of normal first resolved Anemia acute (spontaneous vaginal delivery) acute Third degree laceration of p erineum during delivery, acute Abnormal genetic test during resolved Echogenic bowel of fetus on ultrasound resolved Positive GBS test resolved resolved Rh negative status during resolved Spontaneous onset of labor r esolved Supervision of normal first resolved nipple pain nonea ctive Care and examination of lactating mother noneactive Back muscle spasm acute Bowel and bladder incontinence acute bleeding acute care following vaginal delivery acute Routine Follow-Up noneactive [facility] Work Phone: Evaluation noteNo assessment information available [facility] Work Phone: Hospital course Narrative No data available for this [facility] Hospital Discharge instructions No data available for this [facility] Progress note No data available for this [facility] Reason for referral (narrative)No reason for referral [facility] Work Phone: Summary Purpose Family History No Family History Records Found Relationship Condition Age at Onset Recorded Date/T [place] grandmother Diabetes mellitus Unknown grandmother Malignant neoplasm of colon Unknown grandfather Cardiac disease Unknown Myocardial infarction Unknown father Myocardial infarction 52 Cardiac disease Unknown Advance Directives No Advanced Directives Records Found Advance Directive Response Recorded Date/ Time Living Will No February 10 3 8:37am Power of [employer] No February 10 023 8:37am Chief Complaint and Reason for Visit Chief Complaint NOB LMP 05/01 Reason for Visit Family history of ge ne mutation Supervision of normal first Chief Complaint 14 WK OB 17 WK OB 21 WK OB 25 wk ob 28 WK OB/GLUCOSE O44.43 ONE HOUR DRAW AT 11:15AM Reason for Visit Family history of ge ne mutation Rh negative status during Supervision of normal first Abnormal genetic test during Family history of gene mutation Rh negative status during Supervision of normal first Abnormal genetic test during Family history of gene mutation Rh negative status during Supervision of normal first Echogenic bowel of fetus Placenta previa Abnormal genetic test during Family history of gene mutation Rh negative status during Supervision of normal first Echogenic bowel of fetus Placenta previa Abnormal genetic test during Family history of gene mutation Low lying placenta nos or without hemorrhage, third trimester Rh negative status during Supervision of normal first Chief Complaint 17 WK OB 21 WK OB 25 wk ob 28 WK OB/GLUCOSE O44.43 ONE HOUR DRAW AT 11:15AM 30 WK OB ECHOGENIC BOWEL OF FETUS 32 WK OB Reason for Visit Abnormal genetic nancy t during Family history of gene mutation Rh negative status during Supervision of normal first Abnormal genetic test during Family history of gene mutation Rh negative status during Supervision of normal first Echogenic bowel of fetus Placenta previa Abnormal genetic test during Family history of gene mutation Rh negative status during Supervision of normal first Echogenic bowel of fetus Placenta previa Abnormal genetic test during Family history of gene mutation Low lying placenta nos or without hemorrhage, third trimester Rh negative status during Supervision of normal first Abnormal genetic test during Family history of gene mutation Low lying placenta nos or without hemorrhage, third trimester Rh negative status during Supervision of normal first Abnormal genetic test during Family history of gene mutation Low lying placenta nos or without hemorrhage, third trimester Rh negative status during Supervision of normal first Chief Complaint 21 WK OB 25 wk ob 28 WK OB/GLUCOSE O44.43 ONE HOUR DRAW AT 11:15AM 30 WK OB ECHOGENIC BOWEL OF FETUS 32 WK OB 34 WK OB GROWTH 36 WK OB Reason for Visit Abnormal genetic nancy t during Family history of gene mutation Rh negative status during Supervision of normal first Echogenic bowel of fetus Placenta previa Abnormal genetic test during Family history of gene mutation Rh negative status during Supervision of normal first Echogenic bowel of fetus Placenta previa Abnormal genetic test during Family history of gene mutation Low lying placenta nos or without hemorrhage, third trimester Rh negative status during Supervision of normal first Abnormal genetic test during Family history of gene mutation Low lying placenta nos or without hemorrhage, third trimester Rh negative status during Supervision of normal first Abnormal genetic test during Family history of gene mutation Low lying placenta nos or without hemorrhage, third trimester Rh negative status during Supervision of normal first Abnormal genetic test during Echogenic bowel of fetus on ultrasound Family history of gene mutation Low lying placenta nos or without hemorrhage, third trimester Rh negative status during Supervision of normal first Abnormal genetic test during Echogenic bowel of fetus on ultrasound Family history of gene mutation Low lying placenta nos or without hemorrhage, third trimester Rh negative status during Supervision of normal first Chief Complaint 25 wk ob 28 WK OB/GLUCOSE O44.43 ONE HOUR DRAW AT 11:15AM 30 WK OB ECHOGENIC BOWEL OF FETUS 32 WK OB 34 WK OB GROWTH 36 WK OB 37 WK OB O28.3 Abnormal ultrasonic finding on scr 38 WK OB *Req for SM* Reason for Visit Abnormal genetic nancy t during Rh negative status during Supervision of normal first Echogenic bowel of fetus Family history of gene mutation Placenta previa Abnormal genetic test during Rh negative status during Supervision of normal first Family history of gene mutation Low lying placenta nos or without hemorrhage, third trimester Abnormal genetic test during Rh negative status during Supervision of normal first Family history of gene mutation Low lying placenta nos or without hemorrhage, third trimester Abnormal genetic test during Rh negative status during Supervision of normal first Family history of gene mutation Low lying placenta nos or without hemorrhage, third trimester Abnormal genetic test during Echogenic bowel of fetus on ultrasound Rh negative status during Supervision of normal first Family history of gene mutation Low lying placenta nos or without hemorrhage, third trimester Abnormal genetic test during Echogenic bowel of fetus on ultrasound Rh negative status during Supervision of normal first Family history of gene mutation Low lying placenta nos or without hemorrhage, third trimester Abnormal genetic test during Echogenic bowel of fetus on ultrasound Positive GBS test Rh negative status during Supervision of normal first Family history of gene mutation Polyhydramnios Abnormal genetic test during Echogenic bowel of fetus on ultrasound Positive GBS test Rh negative status during Supervision of normal first Family history of gene mutation Low lying placenta nos or without hemorrhage, third trimester Polyhydramnios Chief Complaint ECHOGENIC BOWEL OF F ETUS 32 WK OB 34 WK OB GROWTH 36 WK OB 37 WK OB O28.3 Abnormal ultrasonic finding on scr 38 WK OB *Req for SM* 39 WK OB 40 weeks-bleeding/ok per LC 40 WK OB VAGINAL DELIVERY R/O LABOR VAGINAL DELIVERY VAGINAL DELIVERY sore nipples visit (obstetrics) E-ORDER Reason for Visit Abnormal genetic nancy t during Family history of gene mutation Low lying placenta nos or without hemorrhage, third trimester Rh negative status during Supervision of normal first Abnormal genetic test during Echogenic bowel of fetus on ultrasound Family history of gene mutation Low lying placenta nos or without hemorrhage, third trimester Rh negative status during Supervision of normal first Abnormal genetic test during Echogenic bowel of fetus on ultrasound Family history of gene mutation Low lying placenta nos or without hemorrhage, third trimester Rh negative status during Supervision of normal first Abnormal genetic test during Echogenic bowel of fetus on ultrasound Family history of gene mutation Polyhydramnios Positive GBS test Rh negative status during Supervision of normal first Abnormal genetic test during Echogenic bowel of fetus on ultrasound Family history of gene mutation Low lying placenta nos or without hemorrhage, third trimester Polyhydramnios Positive GBS test Rh negative status during Supervision of normal first Abnormal genetic test during Echogenic bowel of fetus on ultrasound Positive GBS test Rh negative status during Supervision of normal first Abnormal genetic test during Echogenic bowel of fetus on ultrasound Positive GBS test Rh negative status during Supervision of normal first Anemia (spontaneous vaginal delivery) Third degree laceration of perineum during delivery, Abnormal genetic test during Echogenic bowel of fetus on ultrasound Positive GBS test Rh negative status during Spontaneous onset of labor Supervision of normal first nipple pain Care and examination of lactating mother Back muscle spasm Bowel and bladder incontinence bleeding care following vaginal delivery Routine Follow-Up Chief Complaint ECHOGENIC BOWEL OF F ETUS 32 WK OB 34 WK OB GROWTH 36 WK OB 37 WK OB O28.3 Abnormal ultrasonic finding on scr 38 WK OB *Req for SM* 39 WK OB 40 weeks-bleeding/ok per LC 40 WK OB VAGINAL DELIVERY R/O LABOR VAGINAL DELIVERY VAGINAL DELIVERY sore nipples visit (obstetrics) E-ORDER POST- BLEEDING Reason for Visit Abnormal genetic nancy t during Family history of gene mutation Low lying placenta nos or without hemorrhage, third trimester Rh negative status during Supervision of normal first Abnormal genetic test during Echogenic bowel of fetus on ultrasound Family history of gene mutation Low lying placenta nos or without hemorrhage, third trimester Rh negative status during Supervision of normal first Abnormal genetic test during Echogenic bowel of fetus on ultrasound Family history of gene mutation Low lying placenta nos or without hemorrhage, third trimester Rh negative status during Supervision of normal first Abnormal genetic test during Echogenic bowel of fetus on ultrasound Family history of gene mutation Polyhydramnios Positive GBS test Rh negative status during Supervision of normal first Abnormal genetic test during Echogenic bowel of fetus on ultrasound Family history of gene mutation Low lying placenta nos or without hemorrhage, third trimester Polyhydramnios Positive GBS test Rh negative status during Supervision of normal first Abnormal genetic test during Echogenic bowel of fetus on ultrasound Positive GBS test Rh negative status during Supervision of normal first Abnormal genetic test during Echogenic bowel of fetus on ultrasound Positive GBS test Rh negative status during Supervision of normal first Anemia (spontaneous vaginal delivery) Third degree laceration of perineum during delivery, Abnormal genetic test during Echogenic bowel of fetus on ultrasound Positive GBS test Rh negative status during Spontaneous onset of labor Supervision of normal first nipple pain Care and examination of lactating mother Back muscle spasm Bowel and bladder incontinence bleeding care following vaginal delivery Routine Follow-Up Chief Complaint Admit Date DISCUSS FERTILITY January 21, 2025 2:20pm Chief Complaint Admit Date DISCUSS FERTILITY January 21, 2025 2:20pm INFERTILITY January 26, 2025 3:18pm Reason for Visit Admit Date Infertility counseling January 21 2:20pm Additional Source Comments INFORMATION SOURCE (unrecogn ized section and content) DATE CREATED AUTHOR 07/15/2019 [facility] DATE CREATED AUTHOR AUTHOR'S ORGANIZ ATION 11/10/2022 [facility] DATE CREATED AUTHOR AUTHOR'S ORGANIZ ATION 11/21/2024 [facility] DATE CREATED AUTHOR AUTHOR'S ORGANIZ ATION 02/18/2025 [facility] Care Teams (unrecognized sec tion and content) Team Status: Active Member Role Status Dates No Primary Care Physician Primary Care Provider Active Team Status: Inactive Member Role Status Dates No Primary Care Physician Primary Care Provider, Refer ring Provider Active Dr. Flower Hatch DO Attending Provider Activ e Team Status: Inactive Member Role Status Dates No Primary Care Physician Primary Care Provider Active Dr. Flower Hatch DO Attending Provider, Refe rring Provider Active [employer] Relationship Specialty Start Date End Date No Primary Care[place] [address] PCP - General Pediatrics 08/08/22 Team Status: Inactive Member Role Status Dates No Primary Care Physician Primary Care Provider, Refer ring Provider Active Ashlee Saul ORCHARD WORKER, ORCHARD WORKER-C Attending Provider Active Team Status: Inactive Member Role Status Dates No Primary Care Physician Primary Care Provider, Refer ring Provider Active Leigh Ann Laird CNM Attending Provider Active Team Status: Inactive Member Role Status Dates No Primary Care Physician Primary Care Provider Active Dr. Cathie Farr MD Attending Provider, Referr ing Provider Active Dr. Flower Hatch DO Other Provider Active Team Status: Inactive Member Role Status Dates No Primary Care Physician Primary Care Provider, Refer ring Provider Active Tiffanie Velasquez CNM Attending Provider Active Team Status: Active Member Role Status Dates No Primary Care Physician Primary Care Provider Active Leigh Ann Laird CNM Attending Provider, Referring Pro vider Active Team Status: Inactive Member Role Status Dates No Primary Care Physician Primary Care Provider, Refer ring Provider Active Dr. Cathie Farr MD Attending Provider Active Team Status: Inactive Member Role Status Dates No Primary Care Physician Primary Care Provider Active Tiffanie Velasquez CNM Attending Provider, Referring Pr ovider Active Team Status: Inactive Member Role Status Dates No Primary Care Physician Primary Care Provider Active Leigh Ann Laird CNM Attending Provider, Referring Pro vider Active Team Status: Active Member Role Status Dates No Primary Care Physician Primary Care Provider Active Tiffanie Velasquez CNM Admit Provider, At tending Provider, Other Provider Active Team Status: Inactive Member Role Status Dates No Primary Care Physician Primary Care Provider, Refer ring Provider Active Kaye Gan ORCHARD WORKER, ORCHARD WORKER-C Attending Provider Active Team Status: Inactive Member Role Status Dates No Primary Care Physician Primary Care Provider Active Tiffanie Velasquez CNM Admit Provider, Attending Provid er Active Team Status: Active Member Role/Relationship Status Dates No Primary Care Physician Primary care physician Activ e Team Status: Inactive Member Role/Relationship Status Dates No Primary Care Physician Primary care physician Activ e Start: January 21, 2025 End: January 21, 2025 No Primary Care Physician Referring Provider Active Start: January 21, 2025 End: January 21, 2025 FREDDIE Moser Attending physician Active Start: January 21, 2025 End: January 21, 2025 Team Status: Active Member Role/Relationship Status Dates No Primary Care Physician Primary care physician Activ e Start: January 21, 2025 FREDDIE Moser Attending physician Active Start: January 21, 2025 FREDDIE Moser Referring Provider Active Start: January 21, 2025 Team Status: Active Member Role/Relationship Status Dates Maryellen Anderson NP, ORCHARD WORKER-C Primary care physician Acti ve Team Status: Inactive Member Role/Relationship Status Dates No Primary Care Physician Primary care physician Activ e Start: January 21, 2025 End: January 21, 2025 FREDDIE Moser Attending physician Active Start: January 21, 2025 End: January 21, 2025 FREDDIE Moser Referring Provider Active Start: January 21, 2025 End: January 21, 2025 Team Status: Active Member Role/Relationship Status Dates Maryellen Anderson NP, ORCHARD WORKER-C Primary care physician Acti ve Start: January 26, 2025 FREDDIE Mosre Attending physician Active Start: January 26, 2025 FREDDIE Moser Referring Provider Active Start: January 26, 2025 Team Status: Active Member Role/Relationship Status Dates Maryellen Anderson NP, ORCHARD WORKER-C Primary care physician Acti ve Start: February 02, 2025 FREDDIE Moser Attending physician Active Start: February 02, 2025 FREDDIE Moser Referring Provider Active Start: February 02, 2025 Team Status: Inactive Member Role/Relationship Status Dates FREDDIE Duron NP Primary care physician Acti ve Start: January 26, 2025 End: January 26, 2025 FREDDIE Moser Attending physician Active Start: January 26, 2025 End: January 26, 2025 FREDDIE Moser Referring Provider Active Start: January 26, 2025 End: January 26, 2025 Team Status: Inactive Member Role/Relationship Status Dates FREDDIE Duron NP Primary care physician Acti ve Start: February 02, 2025 End: February 02, 2025 FREDDIE Moser Attending physician Active Start: February 02, 2025 End: February 02, 2025 FREDDIE Moser Referring Provider Active Start: February 02, 2025 End: February 02, 2025 Goals (unrecognized section and content) Type Care Experience svdLabor Preferences -CB/BF classes: discussed labor support person: Nubia intervention preferences: nonepain management options preferred: epidural cut cord/dad catch: yes cordbreastfeeding: WantsPP control planned: NFPdiscussed possible routes of delivery and associated risks: special requests: [] FOR RECORDS PERTAINING TO PATIENTS WHO ARE OR HAVE BEEN ENROLLED IN A CHEMICAL DEPENDENCY/SUBSTANCEABUSE PROGRAM, SOME INFORMATION MAY BE OMITTED. This clinical summary was aggregated from multiple sources. Caution should be exercised in using it in the provision of clinical care. This summary normalizes information from multiple sources, and as a consequence, information in this document may materially change the coding, format and clinical context of patient data. In addition, data may be omitted in some cases. CLINICAL DECISIONS SHOULD BE BASED ON THE PRIMARY CLINICAL RECORDS. [employer] [facility]. provides no warranty or guarantee of the accuracy or completeness of information in this document.
--- OUTSIDE RECORDS SUMMARY | 2025-02-20 15:58 | XMS RPT_ITS | CCD ---
Author Organization [facility] Care Team Providers Care Radiology Transporter Name Role Phone Care Physician, No Primary Primary Care Provider Unavailable Care Physician, No Primary Referring Provider Un available Dr. Flower Hatch Attending Provider [phone] No data processing specialist, Md Primary Care Provider Hortensia vailable FLOWER [...] available Dr. Flower Hatch Attending Provider [phone] BRANDON Velasquez Attending Provider 1 Care Physician, No Primary Primary Care Provider Unavailable Care Physician, No Primary Referring Provider Un available Care Physician, No Primary Primary Care Provider Unavailable Care Physician, No Primary Referring Provider Un available Dr. Flower Hatch Attending Provider [phone] Dr. Cathie Farr Attending Provider [phone] Care Physician, No Primary Primary Care Provider Unavailable Care Physician, No Primary Referring Provider Un available BRANDON Velasquez Attending Provider [phone] Dr. Flower Hatch Attending Provider [phone] BRANDON Laird Attending Provider [phone] Dr. Cathie Farr Attending Provider [phone] BRANDON Velasquez Admit Provider [phone] BRANDON Velasquez Other Provider Malik MEAT INSPECTOR, MEAT INSPECTOR-C Kaye Attending Provider [phone] MONICA GENERAL ADMINISTRATOR-IT SUPPORT CONSULTANT, MARYELLEN Quiroz Primary Care Physi wayne MONICA GENERAL ADMINISTRATOR-IT SUPPORT CONSULTANT, MARYELLEN Quiroz Attending Un available MONICA FOREMAN-IT SUPPORT CONSULTANT, MARYELLEN Quiroz Primary Care Un available Care Physician, No Primary Primary Care Physicia n Unavailable Care Physician, No Primary Referring Provider Un available Shivam ROSALES-C, Crystal Attending Physician [phone] Shivam MEAT INSPECTOR-C, Crystal Referring Provider [phone] Monica MEAT INSPECTOR-C, Maryellen Primary Care Physician Crystal Langley Referring Unavailable Care Physician, No Primary Primary Care Unava ilable Crystal Langley Attending Unavailable Crystal Langley Referring Unavailable Monica MEAT INSPECTOR, Maryellen Primary Care UnavailCrystal Stallworth Attending Unavailable Crystal Langley Referring Unavailable Monica MEAT INSPECTOR, Maryellen Primary Care Unavailabl e Crystal Langley Attending Unavailable rCystal Langley Attending Unavailable Care Physician, No Primary Primary Care Unava ilable Care Physician, No Primary Referring Unava ilable Crystal Langley Attending Unavailable Monica MEAT INSPECTOR, Maryellen Primary Care Unavailabl e Care Physician, No Primary Referring Unava ilable Medications Current Medications Medication Drug Class(es) Dates Sig (Normalized) Sig (Original) levothyroxine sodium 0.025 mg oral tablet (4 sources) l-Thyroxine Start: 01-21-2025 take 1 tablet by mouth once daily Yksiuzpv-Qwc-Jm-Fa (2 sources) Start: 02-10-2023 take 1 tablet by mouth once Iqmfruwq-Mmd-Cj-Fa Active TABLET PO February 09, 2023 11:00pm [...] 26, 2023 1:00am January 21, 2025 2:26pm Qopigynm-Dlm-Ds-Fa 1 mg tablet (4 sources) Start: 02-10-2023 End: 01-21-2025 take 1 tablet by mouth once Ufjmmnyu-Rqh-Zn-Fa 1 mg tablet Discontinued {tbl} PO February [...] 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 car rier screen ordered. pt states [...] ultrasound scan 11-16-2022 Episodic Comment on above: [facility] recommends growt hs q 4 weeks [...] Facility Pelvic w/ Transvaginalon Pelvic w/ Transvaginal [facility] [address], [place] [id number] Pelvic w/ Transvaginal MR#: [id number] Acct: [id number] Name: MANPREET TANG Rep #: [id number] : 1990 F 34 From: Gregg mims MD PCP: FREDDIE Duron Status: REG CLI Study: Pelvic w/ Transvaginal Date of Exam: 01/26/25 Exam# [id number] Ordering Dr: Crystal Langley MEAT INSPECTORLucienC PROCEDURE: PELVIC W/ TRANSVAGINAL REASON FOR EXAM: [...] No other abnormality is seen. Reading Location: [place] [address] CC: FREDDIE Langley; FREDDIE Anderson Family And Marriage Counsellor: Signed Normal [facility] PROGESTERONE 4317on 01-24-20 PROGESTERONE 13.9 ng/mL Normal . [facility] Comment on above: Order Comment: N day 21 Result Comment: Foll icular phase 0.1 - 0.9 Luteal phase 1.8 - 23.9 Ovulation phase 0.1 - 12.0 First trimester 11.0 - 44.3 Second trimester 25.4 - 83.3 Third trimester 58.7 - 214.0 Postmenopausal 0.0 - 0.1 Performed at: [facility] [address] [id number] Cook Night: Abel Tran PhD, Phone: [phone] Performed By: #### L 501.9668, G406.3770, L500.4180, L893.2320, L100.0100 #### [facility] [address] [place], [place], [id number] Absolute lymphocyte countOrd ered By: Crystal Langley on 01-21-2025 Lymphocytes Auto (Unsp spec) [#/Vol] 2.49 10*3/uL 0.83-4.51 [facility] Absolute neutrophil countOrd ered By: Crystal Langley on 01-21-2025 Neutrophils (Bld) [#/Vol] 5.8 10*3/uL 2.0-7.7 [facility] Anion gap in Serum or Plasma Ordered By: Crystal Langley on 01-21-2025 Anion gap [Moles/Vol] 13 mmol/L 5-15 [facility] Automated lymphocyte count a s percentage of total leukocytesOrdered By: Crystal Langley on 01-21-2025 Lymphocytes/100 WBC Auto (Unsp spec) 25.6 % 19- [facility] BUN/creatinine ratioOrdered By: Crystal Langley on 01-21-2025 Urea nitrogen/Creatinine [Mass ratio] 14.6 mg/mg 10- [facility] Basophil percentageOrdered B y: Crystal Langley on 01-21-2025 Basophils/100 WBC (Bld) 0.8 % 0-1 [facility] Bilirubin, totalOrdered By: Crystal Langley on 01-21-2025 Bilirubin [Mass/Vol] 0.27 mg/dL 0.00-1.30 [facility] CBC W/Diff, Automatedon 01-05 Absolute Lymph 2.49 X10 3/uL Normal 0.83-4.51 [facility] Comment on above: Performed By: #### L 501.9520, L506.0400, L500.4050, L801.2600, L100.0100 #### [facility] [address] [place], [address] Absolute Neut 5.8 X10 3/uL Normal 2.0-7.7 [facility] Comment on above: Performed By: #### L 501.9520, L506.0400, L500.4050, L801.2600, L100.0100 #### [facility] [address] [place], [address] Basophils/100 WBC (Bld) 0.8 % Normal 0-1 [facility] Comment on above: Performed By: #### L 501.9520, L506.0400, L500.4050, L801.2600, L100.0100 #### [facility] [address] [place], [address] Eosinophils/100 WBC (Bld) 3.6 % Normal 0-5 [facility] Comment on above: Performed By: #### L 501.9520, L506.0400, L500.4050, L801.2600, L100.0100 #### [facility] [address] [place], [address] Erythrocyte distribution width (RBC) [Ratio] 12.4 % Normal 11.6-14.6 [facility] Comment on above: Performed By: #### L 501.9520, L506.0400, L500.4050, L801.2600, L100.0100 #### [facility] [address] [place], [address] Hematocrit (Bld) [Volume fraction] 40.1 % Normal 37-47 [facility] Comment on above: Performed By: #### L 501.9520, L506.0400, L500.4050, L801.2600, L100.0100 #### [facility] [address] [place], [address] Hemoglobin (Bld) [Mass/Vol] 13.3 g/dL Normal 12.0-15.0 [facility] Comment on above: Performed By: #### L 501.9520, L506.0400, L500.4050, L801.2600, L100.0100 #### [facility] [address] [place], [address] IG% 0.200 Normal 0.0-0.9 [facility] Comment on above: Result Comment: IG% - Immature Granulocytes (promyelocytes, myelocytes and metamyelocytes) > 1% indicates that a LEFT SHIFT is Present. Performed By: #### L 501.9520, L506.0400, L500.4050, L801.2600, L100.0100 #### [facility] [address] [place], [address] Lymphocytes/100 WBC (Bld) 25.6 % Normal 19-41 [facility] Comment on above: Performed By: #### L 501.9520, L506.0400, L500.4050, L801.2600, L100.0100 #### [facility] [address] [place], [address] MCH (RBC) [Entitic mass] 30.6 pg Normal 27.0-32.0 [facility] Comment on above: Performed By: #### L 501.9520, L506.0400, L500.4050, L801.2600, L100.0100 #### [facility] [address] [place], [address] MCHC (RBC) [Mass/Vol] 33.2 g/dL Normal 32-36 [facility] Comment on above: Performed By: #### L 501.9520, L506.0400, L500.4050, L801.2600, L100.0100 #### [facility] [address] [place], [address] MCV (RBC) [Entitic vol] 92.2 fL Normal 81-99 [facility] Comment on above: Performed By: #### L 501.9520, L506.0400, L500.4050, L801.2600, L100.0100 #### [facility] [address] [place], [address] Monocytes/100 WBC (Bld) 9.9 % Normal 0-10 [facility] Comment on above: Performed By: #### L 501.9520, L506.0400, L500.4050, L801.2600, L100.0100 #### [facility] [address] [place], [address] Neutrophils/100 WBC (Bld) 59.9 % Normal 47-70 [facility] Comment on above: Performed By: #### L 501.9520, L506.0400, L500.4050, L801.2600, L100.0100 #### [facility] [address] [place], [address] Nucleated RBC (Bld) [#/Vol] 0 10*3/uL Normal 0-5 [facility] Comment on above: Performed By: #### L 501.9520, L506.0400, L500.4050, L801.2600, L100.0100 #### [facility] [address] [place], [address] Platelet mean volume (Bld) [Entitic vol] 9.4 fL Normal 6.2-12.0 [facility] Comment on above: Performed By: #### L 501.9520, L506.0400, L500.4050, L801.2600, L100.0100 #### [facility] [address] [place], [address] Platelets (Bld) [#/Vol] 401 10*3/uL Normal 150-450 [facility] Comment on above: Performed By: #### L 501.9520, L506.0400, L500.4050, L801.2600, L100.0100 #### [facility] [address] [place], [address] RBC (Bld) [#/Vol] 4.35 10*6/uL Normal 4.2-5.4 [facility] Comment on above: Performed By: #### L 501.9520, L506.0400, L500.4050, L801.2600, L100.0100 #### [facility] [address] [place], [address] RDW SD 42.1 fl Normal 35.1-43.9 [facility] Comment on above: Performed By: #### L 501.9520, L506.0400, L500.4050, L801.2600, L100.0100 #### [facility] [address] [place], [address] WBC (Bld) [#/Vol] 9.7 10*3/uL Normal 4.4-11.0 [facility] Comment on above: Performed By: #### L 501.9520, L506.0400, L500.4050, L801.2600, L100.0100 #### [facility] [address] [place], [address] Carbon dioxide, total [Moles /volume] in Central venous bloodOrdered By: Crystal Langley on 01-21-2025 CO2 [Moles/Vol] 22.8 mmol/L 21.0-32.0 [facility] Chloride assayOrdered By: Hilda Langley on 01-21-2025 Chloride [Moles/Vol] 101 mmol/L 98-108 [facility] Comprehensive Metabolic Prof ilon 01-21-2025 Albumin [Mass/Vol] 4.9 g/dL Normal 3.5-5.0 [facility] Comment on above: Order Comment: day 2 1 Performed By: #### L 501.9520, L506.0400, L500.4050, L801.2600, L100.0100 #### [facility] [address] [place], [address] Albumin/Globulin [Mass ratio] 1.6 {ratio} Normal 0.9-2.4 [facility] Comment on above: Order Comment: day 2 1 Performed By: #### L 501.9520, L506.0400, L500.4050, L801.2600, L100.0100 #### [facility] [address] [place], [address] ALK PHOS 63 U/L Normal 35-104 [facility] Comment on above: Order Comment: day 2 1 Performed By: #### L 501.9520, L506.0400, L500.4050, L801.2600, L100.0100 #### [facility] [address] [place], [address] ALT [Catalytic activity/Vol] 13 U/L Normal <=34 [facility] Comment on above: Order Comment: day 2 1 Performed By: #### L 501.9520, L506.0400, L500.4050, L801.2600, L100.0100 #### [facility] [address] [place], [address] AST [Catalytic activity/Vol] 20 U/L Normal <=31 [facility] Comment on above: Order Comment: day 2 1 Performed By: #### L 501.9520, L506.0400, L500.4050, L801.2600, L100.0100 #### [facility] [address] [place], [address] Bilirubin [Mass/Vol] 0.27 mg/dL Normal 0.00-1.30 [facility] Comment on above: Order Comment: day 2 1 Performed By: #### L 501.9520, L506.0400, L500.4050, L801.2600, L100.0100 #### [facility] [address] [place], [address] BUN/CRE 14.6 RATIO Normal 10-20 [facility] Comment on above: Order Comment: day 2 1 Performed By: #### L 501.9520, L506.0400, L500.4050, L801.2600, L100.0100 #### [facility] [address] [place], [address] Calcium [Mass/Vol] 9.5 mg/dL Normal 7.6-11.0 [facility] Comment on above: Order Comment: day 2 1 Performed By: #### L 501.9520, L506.0400, L500.4050, L801.2600, L100.0100 #### [facility] [address] [place], [address] Chloride [Moles/Vol] 101 mmol/L Normal 98-108 [facility] Comment on above: Order Comment: day 2 1 Performed By: #### L 501.9520, L506.0400, L500.4050, L801.2600, L100.0100 #### [facility] [address] [place], [address] CO2 [Moles/Vol] 22.8 mmol/L Normal 21.0-32.0 [facility] Comment on above: Order Comment: day 2 1 Performed By: #### L 501.9520, L506.0400, L500.4050, L801.2600, L100.0100 #### [facility] [address] [place], [address] Creatinine [Mass/Vol] 0.96 mg/dL Normal 0.70-1.20 [facility] Comment on above: Order Comment: day 2 1 Performed By: #### L 501.9520, L506.0400, L500.4050, L801.2600, L100.0100 #### [facility] [address] [place], [address] GAP 13 Normal 5-15 [facility] Comment on above: Order Comment: day 2 1 Performed By: #### L 501.9520, L506.0400, L500.4050, L801.2600, L100.0100 #### [facility] [address] [place], [address] GFR/1.73 sq M.predicted among non-blacks MDRD (S/P/Bld) [Vol rate/Area] 80 mL/min/{1.73_m2} Normal >60 [facility] Comment on above: Order Comment: day 2 1 Result Comment: mL/m in/1.73m2 CKD-EPI Creatinine Equation (2020) Performed By: #### L 501.9520, L506.0400, L500.4050, L801.2600, L100.0100 #### [facility] [address] [place], [address] Globulin (S) [Mass/Vol] 3.1 g/dL Normal 2.2-4.2 [facility] Comment on above: Order Comment: day 2 1 Performed By: #### L 501.9520, L506.0400, L500.4050, L801.2600, L100.0100 #### [facility] [address] [place], [address] Glucose [Mass/Vol] 86 mg/dL Normal 70-99 [facility] Comment on above: Order Comment: day 2 1 Performed By: #### L 501.9520, L506.0400, L500.4050, L801.2600, L100.0100 #### [facility] [address] [place], [address] Potassium [Moles/Vol] 4.3 mmol/L Normal 3.3-5.1 [facility] Comment on above: Order Comment: day 2 1 Performed By: #### L 501.9520, L506.0400, L500.4050, L801.2600, L100.0100 #### [facility] [address] [place], [address] Sodium [Moles/Vol] 137 mmol/L Normal 133-145 [facility] Comment on above: Order Comment: day 2 1 Performed By: #### L 501.9520, L506.0400, L500.4050, L801.2600, L100.0100 #### [facility] [address] [place], [place], [id number] (860) T PROT 8.0 g/dL Normal 5.9-8.4 [facility] Comment on above: Order Comment: day 2 1 Performed By: #### L 501.9520, L506.0400, L500.4050, L801.2600, L100.0100 #### [facility] [address] [place], [address] Urea nitrogen [Mass/Vol] 14 mg/dL Normal 4-19 [facility] Comment on above: Order Comment: day 2 1 Performed By: #### L 501.9520, L506.0400, L500.4050, L801.2600, L100.0100 #### [facility] [address] [place], [address] Eosinophil percentageOrdered By: Crystal Langley on 01-21-2025 Eosinophils/100 WBC (Bld) 3.6 % 0-5 [facility] Erythrocyte distribution wid th ratioOrdered By: Crystal Langley on 01-21-2025 Erythrocyte distribution width (RBC) [Ratio] 12.4 % 11.6-14.6 [facility] Erythrocyte distribution wid th standard deviationOrdered By: Crystal Langley on 01-21-2025 Erythrocyte distribution width (RBC) [Ratio] 42.1 fl 35.1-43.9 [facility] Glomerular filtration rate ( GFR) estimation/1.73 sq m using serum, plasma, or whole bOrdered By: Crystal Langley on 01-21-2025 GFR/1.73 sq M.predicted among non-blacks MDRD (S/P/Bld) [Vol rate/Area] 80 mL/min/{1.73_m2} >60 [facility] Comment on above: mL/min/1.73m2 CKD-EP I Creatinine Equation (2020) Hematocrit Auto (Bld) [Volum e fraction]Ordered By: Crystal Langley on 01-21-2025 Hematocrit (Bld) [Volume fraction] 40.1 % 37-47 [facility] Hemoglobin measurementOrdere d By: Crystal Langley on 01-21-2025 Hemoglobin (Bld) [Mass/Vol] 13.3 g/dL 12.0-15.0 [facility] Immature granulocytes/100 WB C Auto (Bld)Ordered By: Crystal Langley on 01-21-2025 Immature granulocytes/100 WBC (Bld) 0.200 % 0.0-0.9 [facility] Comment on above: IG% - Immature Granu locytes (promyelocytes, myelocytes and metamyelocytes) > 1% indicates that a LEFT SHIFT is Present. Laboratory - Chemistry and C hemistry - challengeOrdered By: Crystal Langley on 01-21-2025 AST [Catalytic activity/Vol] 20 U/L <32 [facility] MCV (mean corpuscular volume ) determinationOrdered By: Crystal Langley on 01-21-2025 MCV (RBC) [Entitic vol] 92.2 fL 81-99 [facility] Mean corpuscular hemoglobin (MCH) determinationOrdered By: Crystal Langley on 01-21-2025 MCH (RBC) [Entitic mass] 30.6 pg 27.0-32.0 [facility] Mean corpuscular hemoglobin concentration (MCHC) determinationOrdered By: Crystal Langley on 01-21-2025 MCHC (RBC) [Mass/Vol] 33.2 g/dL 32-36 [facility] Mean platelet volume determi nationOrdered By: Crystal Langley on 01-21-2025 Platelet mean volume (Bld) [Entitic vol] 9.4 fL 6.2-12.0 [facility] Monocyte percentageOrdered B y: Crystal Langley on 01-21-2025 Monocytes/100 WBC (Bld) 9.9 % 0-10 [facility] Neutrophil percentageOrdered By: Crystal Langley on 01-21-2025 Neutrophils/100 WBC (Bld) 59.9 % 47-70 [facility] Nucleated red blood cell per centageOrdered By: Crystal Langley on 01-21-2025 Nucleated RBC/100 WBC (Bld) [Ratio] 0 % 0-5 [facility] Rat Farmer Office Visit Reporton 01-21-2025 Rat Farmer Office Visit Report [facility] [address], [address] [place] [address] OFFICE VISIT Date of Service: 01/21/25 MR#: [id number] Acct: [id number] Name: MANPREET TANG Rep #: [id number] : 1990 Provider: FREDDIE Hudson Age/Sex: 34/F Location: [facility] Status: Signed Intake Vital Signs 03/28/23 10:06 01/21/25 14:26 01/21/25 14:29 Height 5 ft 2 in 5 ft 2 in 5 ft 2 in Weight: 136 lb 5 oz BMI 24.9 BP 146/83 H Intake Visit Reasons: DISCUSS FERTILITY Credit Verification Clerk Required: No Is patient in pain?: No [...] apartment current occupational status: employed current occupation: [employer] current occupational exposures/hazards: No pets and animals: [...] [facility] F[facility] Arabella 39 live - full term Female [facility] Ana Velasquez Delivery Date: 02/10/23 Last Updated [...] ordered. Mariza (more content not included)... Normal [facility] Platelet countOrdered By: Hilda Langley on 01-21-2025 Platelets (Bld) [#/Vol] 401 10*3/uL 150-450 [facility] Potassium measurement (mass/ volume)Ordered By: Crystal Langley on 01-21-2025 Potassium (Unsp spec) [Mass/Vol] 4.3 mmol/L 3.3-5.1 [facility] RBC Auto (Bld) [#/Vol]Ordere d By: Crystal Langley on 01-21-2025 RBC (Bld) [#/Vol] 4.35 10*6/uL 4.2-5.4 [facility] Serum creatinine measurement (mass/volume)Ordered By: Crysatl Langley on 01-21-2025 Creatinine [Mass/Vol] 0.96 mg/dL 0.70-1.20 [facility] Serum globulin measurementOr dered By: Crystal Langley on 01-21-2025 Globulin (S) [Mass/Vol] 3.1 g/dL 2.2-4.2 [facility] Serum glucose measurement (m ass/volume)Ordered By: Crystal Langley on 01-21-2025 Glucose [Mass/Vol] 86 mg/dL 70-99 [facility] Serum or plasma alanine floyd otransferase (ALT) measurementOrdered By: Crystal Langley on 01-21-2025 ALT [Catalytic activity/Vol] 13 U/L <35 [facility] Serum or plasma albumin corrine urement (mass/volume)Ordered By: Crystal Langley on 01-21-2025 Albumin [Mass/Vol] 4.9 g/dL 3.5-5.0 [facility] Serum or plasma albumin/glob ulin mass ratioOrdered By: Crystal Langley on 01-21-2025 Albumin/Globulin [Mass ratio] 1.6 {ratio} 0.9-2.4 [facility] Serum or plasma alkaline berto sphatase measurementOrdered By: Crystal Langley on 01-21-2025 ALP [Catalytic activity/Vol] 63 U/L 35-104 [facility] Serum or plasma calcium corrine urement (mass/volume)Ordered By: Crystal Langley on 01-21-2025 Calcium [Mass/Vol] 9.5 mg/dL 7.6-11.0 [facility] Serum or plasma urea nitroge n measurement (mass/volume)Ordered By: Crystal Langley on 01-21-2025 Urea nitrogen [Mass/Vol] 14 mg/dL 4-19 [facility] Sodium levelOrdered By: Danuta Langley on 01-21-2025 Sodium [Moles/Vol] 137 mmol/L 133-145 [facility] T4 Free Directon 01-21-2025 T4 FREE DIRECT 1.10 ng/dL Normal 0.76-1.46 [facility] Comment on above: Order Comment: N day Performed By: #### L 501.9520, L506.0400, L500.4050, L801.2600, L100.0100 #### [facility] [address] [place], [place], [address] T4 freeOrdered By: Crystal miller on 01-21-2025 Free T4 [Mass/Vol] 1.10 ng/dL 0.76-1.46 [facility] TSH DL <= 0.005 mIU/L QnOrde red By: Crystal Langley on 01-21-2025 TSH Qn 0.716 uIU/mL 0.300-4.200 [facility] Thyroid Stim Hormone (TSH)on 01-21-2025 TSH 0.716 uIU/mL Normal 0.300-4.200 [facility] Comment on above: Performed By: #### L 501.9520, L506.0400, L500.4050, L801.2600, L100.0100 #### [facility] [address] [place], [address] Total proteinOrdered By: Earl Langely on 01-21-2025 Protein [Mass/Vol] 8.0 g/dL 5.9-8.4 [facility] White blood cell (WBC) count Ordered By: Crystal Langley on 01-21-2025 WBC (Bld) [#/Vol] 9.7 10*3/uL 4.4-11.0 [facility] ESTGENon 11-20-2024 Estradiol 32.9 pg/mL Normal [facility] Comment on above: Result Comment: Adul t Female Range Follicular phase 12.5 - 166.0 Ovulation phase 85.8 - 498.0 Luteal phase 43.8 - 211.0 Postmenopausal <6.0 - 54.7 1st trimester 215.0 - >4300.0 Nina ECLIA methodology Performed At: [facility] [address] [id number] Augusto Stephens MD Ph:[phone] Performed At: [facility] [address] [id number] Marc Roman PhD Ph:[phone] Performed By: #### P SAMY, FSH, TESTO, LH #### [address] [address] #### [id number], ANEU, TSH, FT4, CMP, ADIFF, GFR, CBC #### [address] [address] Estrone 29 pg/mL Normal 27-231 [facility] Comment on above: Result Comment: Rang e Adult (Premenopausal) 27 - 231 Menstrual Cycle (1-10 days) 19 - 149 Menstrual Cycle (11-20 days) 32 - 176 Menstrual Cycle (21-30 days) 37 - 200 Performed By: #### P SAMY, FSH, TESTO, LH #### [address] [address] #### [id number], ANEU, TSH, FT4, CMP, ADIFF, GFR, CBC #### [address] [address] FSHon 11-18-2024 FSH 8.5 mIU/mL Normal [facility] Comment on above: Result Comment: Adul t Female FSH Reference Ranges (03/30/99): Follicular phase 2.5 - 10.2 mIU/mL Midcycle phase 3.4 - 33.4 mIU/mL Luteal phase 1.5 - 9.1 mIU/mL Post menopausal 23.0 -116.3 mIU/mL Adult Male: 1.4 - 18.1 mIU/mL Performed By: #### P SAMY, FSH, TESTO, LH #### [place] [address] #### [id number], ANEU, TSH, FT4, CMP, ADIFF, GFR, CBC #### [address] [address] LHon 11-18-2024 LH 5.4 mIU/mL Normal [facility] Comment on above: Result Comment: No te - New Reference Range in effect 19Adult Female LH Reference Ranges: Follicular phase 1.9 - 12.5 mIU/mL Midcycle phase 8.7 - 76.3 mIU/mL Luteal phase 0.5 - 16.9 mIU/mL Post menopausal 5.0 - 55.2 mIU/mL Performed By: #### P SAMY, FSH, TESTO, LH #### [place] [address] #### [id number], ANEU, TSH, FT4, CMP, ADIFF, GFR, CBC #### [address] [address] PROGon 11-18-2024 Progesterone Level 0.2 ng/mL Normal [facility] Comment on above: Result Comment: Adul t Female Progesterone Reference Ranges: Follicular phase <0.21 - 1.40 ng/mL Luteal phase 3.34 - 25.56 ng/mL Mid-Luteal phase 4.44 - 28.03 ng/mL Postmenopausal <0.21 - 0.73 ng/ml Female: First trimester 11.22 - 90.00 ng/ml Second trimester 25.55 - 89.40 ng/ml Third trimester 48.40 - 422.50 ng/ml Performed By: #### P SAMY, FSH, TESTO, LH #### [place] [address] #### [id number], ANEU, TSH, FT4, CMP, ADIFF, GFR, CBC #### [address] [address] TESTOon 11-18-2024 Testosterone Lvl 14.82 ng/dL Normal [facility] Comment on above: Result Comment: Norm al Reference Ranges for Females: Female Premenopause Age 21-60 9.01-47.94 ng/dL Female Postmenopause Age 45-89 <7.00-45.62 ng/dL Performed By: #### P SAMY, FSH, TESTO, LH #### [place] [address] #### [id number], ANEU, TSH, FT4, CMP, ADIFF, GFR, CBC #### [address] [address] .Auto Diffon 11-17-2024 Basophil, Absolute 0.1 10 3/mcL Normal 0.0-0.3 [facility] Comment on above: Performed By: #### P SAMY, FSH, TESTO, LH #### [place] [address] #### [id number], ANEU, TSH, FT4, CMP, ADIFF, GFR, CBC #### [address] [address] Basophils/100 WBC (Bld) 0.8 % Normal 0.0-2.5 [facility] Comment on above: Performed By: #### P SAMY, FSH, TESTO, LH #### [place] [address] #### [id number], ANEU, TSH, FT4, CMP, ADIFF, GFR, CBC #### [address] [address] Eosinophil, Absolute 0.2 10 3/mcL Normal 0.0-0.7 [facility] Comment on above: Performed By: #### P SAMY, FSH, TESTO, LH #### [place] [address] #### [id number], ANEU, TSH, FT4, CMP, ADIFF, GFR, CBC #### [address] [address] Eosinophils/100 WBC (Bld) 3.7 % Normal 0.0-6.0 [facility] Comment on above: Performed By: #### P SAMY, FSH, TESTO, LH #### [place] [address] #### [id number], ANEU, TSH, FT4, CMP, ADIFF, GFR, CBC #### [address] [address] Lymphocyte, Absolute 2.0 10 3/mcL Normal 0.9-4.3 [facility] Comment on above: Performed By: #### P SAMY, FSH, TESTO, LH #### [place] [address] #### [id number], ANEU, TSH, FT4, CMP, ADIFF, GFR, CBC #### [address] [address] Lymphocytes/100 WBC (Bld) 30.5 % Normal 20.0-40.0 [facility] Comment on above: Performed By: #### P SAMY, FSH, TESTO, LH #### [place] [address] #### [id number], ANEU, TSH, FT4, CMP, ADIFF, GFR, CBC #### [address] [address] Monocyte, Absolute 0.6 10 3/mcL Normal 0.1-1.4 [facility] Comment on above: Performed By: #### P SAMY, FSH, TESTO, LH #### [place] [address] #### [id number], ANEU, TSH, FT4, CMP, ADIFF, GFR, CBC #### [address] [address] Monocytes/100 WBC (Bld) 8.5 % Normal 2.0-13.0 [facility] Comment on above: Performed By: #### P SAMY, FSH, TESTO, LH #### [address] [address] #### [id number], ANEU, TSH, FT4, CMP, ADIFF, GFR, CBC #### [address] [address] Neutrophils/100 WBC (Bld) 56.5 % Normal 50.0-75.0 [facility] Comment on above: Performed By: #### P SAMY, FSH, TESTO, #### [place] [address] #### [id number], ANEU, TSH, FT4, CMP, ADIFF, GFR, CBC #### [address] [address] .GFRon 11-17-2024 Estimated Glomerular Filtration Rate 105 ml/min/1.73sqm Normal [facility] Comment on above: Result Comment: Stages of [...] By: #### P SAMY, FSH, TESTO, #### [address] [address] #### [id number], ANEU, TSH, FT4, CMP, ADIFF, GFR, CBC #### [address] [address] .NEUABSon 11-17-2024 Neutrophil, Absolute 3.7 10 3/mcL Normal 2.3-8.1 [facility] Comment on above: Performed By: #### P SAMY, FSH, TESTO, LH #### [place] [address] #### [id number], ANEU, TSH, FT4, CMP, ADIFF, GFR, CBC #### [address] [address] CBCon 11-17-2024 Erythrocyte distribution width (RBC) [Ratio] 13.5 % Normal 11.5-15.5 [facility] Comment on above: Performed By: #### P SAMY, FSH, TESTO, LH #### [place] [address] #### [id number], ANEU, TSH, FT4, CMP, ADIFF, GFR, CBC #### [address] [address] Hematocrit (Bld) [Volume fraction] 38.0 % Normal 34.0-46.0 [facility] Comment on above: Performed By: #### P SAMY, FSH, TESTO, LH #### [place] [address] #### [id number], ANEU, TSH, FT4, CMP, ADIFF, GFR, CBC #### [address] [address] Hgb 13.0 G/dL Normal 12.0-16.0 [facility] Comment on above: Performed By: #### P SAMY, FSH, TESTO, LH #### [place] [address] #### [id number], ANEU, TSH, FT4, CMP, ADIFF, GFR, CBC #### [address] [address] MCH (RBC) [Entitic mass] 30.9 pg Normal 27.0-33.0 [facility] Comment on above: Performed By: #### P SAMY, FSH, TESTO, LH #### [place] [address] #### [id number], ANEU, TSH, FT4, CMP, ADIFF, GFR, CBC #### [address] [address] MCHC 34.1 G/dL Normal 32.0-36.0 [facility] Comment on above: Performed By: #### P SAMY, FSH, TESTO, LH #### [place] [address] #### [id number], ANEU, TSH, FT4, CMP, ADIFF, GFR, CBC #### [address] [address] MCV (RBC) [Entitic vol] 90.6 fL Normal 80.0-99.0 [facility] Comment on above: Performed By: #### P SAMY, FSH, TESTO, LH #### [place] [address] #### [id number], ANEU, TSH, FT4, CMP, ADIFF, GFR, CBC #### [address] [address] Platelet 360 10 3/mcL Normal 150-450 [facility] Comment on above: Performed By: #### P SAMY, FSH, TESTO, LH #### [place] [address] #### [id number], ANEU, TSH, FT4, CMP, ADIFF, GFR, CBC #### [address] [address] Platelet mean volume (Bld) [Entitic vol] 7.3 fL Normal 6.6-10.5 [facility] Comment on above: Performed By: #### P SAMY, FSH, TESTO, LH #### [place] [address] #### 855369, ANEU, TSH, FT4, CMP, ADIFF, GFR, CBC #### [address] [address] RBC 4.20 10 6/mcL Normal 4.10-5.30 [facility] Comment on above: Performed By: #### P SAMY, FSH, TESTO, LH #### [place] [address] #### [id number], ANEU, TSH, FT4, CMP, ADIFF, GFR, CBC #### [address] [address] WBC 6.6 10 3/mcL Normal 4.5-10.8 [facility] Comment on above: Performed By: #### P SAMY, FSH, TESTO, LH #### [place] [address] #### [id number], ANEU, TSH, FT4, CMP, ADIFF, GFR, CBC #### [address] [address] CMPon 11-17-2024 Albumin Level 4.2 G/dL Normal 3.5-5.0 [facility] Comment on above: Performed By: #### P SAMY, FSH, TESTO, LH #### [place] [address] #### 810107, ANEU, TSH, FT4, CMP, ADIFF, GFR, CBC #### [address] [address] Albumin/Globulin [Mass ratio] 1.2 {ratio} Normal 1.1-2.5 [facility] Comment on above: Performed By: #### P SAMY, FSH, TESTO, LH #### [place] [address] #### [id number], ANEU, TSH, FT4, CMP, ADIFF, GFR, CBC #### [address] [address] ALP [Catalytic activity/Vol] 55 U/L Normal 40-135 [facility] Comment on above: Performed By: #### P SAMY, FSH, TESTO, LH #### [place] [address] #### 710652, ANEU, TSH, FT4, CMP, ADIFF, GFR, CBC #### [address] [address] ALT [Catalytic activity/Vol] 21 U/L Normal 14-59 [facility] Comment on above: Performed By: #### P SAMY, FSH, TESTO, LH #### [place] [address] #### 475256, ANEU, TSH, FT4, CMP, ADIFF, GFR, CBC #### [address] [address] AST [Catalytic activity/Vol] 11 U/L Normal 10-40 [facility] Comment on above: Performed By: #### P SAMY, FSH, TESTO, LH #### [place] [address] #### 830304, ANEU, TSH, FT4, CMP, ADIFF, GFR, CBC #### [address] [address] Bili Total 0.3 mg/dL Normal 0.2-1.0 [facility] Comment on above: Result Comment: Use of this assay is not recommended for patients undergoing treatment with eltrombopag due to the potential for falsely elevated results. Performed By: #### P SAMY, FSH, TESTO, LH #### [place] [address] #### [id number], ANEU, TSH, FT4, CMP, ADIFF, GFR, CBC #### [address] [address] BUN/Creatinine Ratio 21 ratio Normal 7-27 [facility] Comment on above: Performed By: #### P SAMY, FSH, TESTO, LH #### [place] [address] #### 050253, ANEU, TSH, FT4, CMP, ADIFF, GFR, CBC #### [address] [address] Calcium [Mass/Vol] 9.2 mg/dL Normal 8.4-10.2 [facility] Comment on above: Performed By: #### P SAMY, FSH, TESTO, LH #### [place] [address] #### 759782, ANEU, TSH, FT4, CMP, ADIFF, GFR, CBC #### [address] [address] Chloride [Moles/Vol] 103 mmol/L Normal 98-107 [facility] Comment on above: Performed By: #### P SAMY, FSH, TESTO, LH #### [place] [address] #### 272030, ANEU, TSH, FT4, CMP, ADIFF, GFR, CBC #### [address] [address] CO2 [Moles/Vol] 28 mmol/L Normal 22-29 [facility] Comment on above: Performed By: #### P SAMY, FSH, TESTO, LH #### [place] [address] #### [id number], ANEU, TSH, FT4, CMP, ADIFF, GFR, CBC #### [place] [id number] Creatinine [Mass/Vol] 0.76 mg/dL Normal 0.51-0.95 [facility] Comment on above: Performed By: #### P SAMY, FSH, TESTO, LH #### [place] [address] #### [id number], ANEU, TSH, FT4, CMP, ADIFF, GFR, CBC #### [address] [address] Electrolyte Balance 9.0 mEq/L Normal 4.0-15.[address] [facility] Comment on above: Performed By: #### P SAMY, FSH, TESTO, LH #### [place] [address] #### 215641, ANEU, TSH, FT4, CMP, ADIFF, GFR, CBC #### [address] [address] Globulin 3.5 G/dL Normal 2.7-4.4 [facility] Comment on above: Performed By: #### P SAMY, FSH, TESTO, LH #### [address] [address] #### [id number], ANEU, TSH, FT4, CMP, ADIFF, GFR, CBC #### [address] [address] Glucose [Mass/Vol] 92 mg/dL Normal 70-105 [facility] Comment on above: Performed By: #### P SAMY, FSH, TESTO, LH #### [place] [address] #### 394658, ANEU, TSH, FT4, CMP, ADIFF, GFR, CBC #### [address] [address] Potassium [Moles/Vol] 3.8 mmol/L Normal 3.5-5.1 [facility] Comment on above: Performed By: #### P SAMY, FSH, TESTO, LH #### [place] [address] #### 779496, ANEU, TSH, FT4, CMP, ADIFF, GFR, CBC #### [address] [address] Sodium [Moles/Vol] 140 mmol/L Normal 136-145 [facility] Comment on above: Performed By: #### P SAMY, FSH, TESTO, LH #### [place] [address] #### 355170, ANEU, TSH, FT4, CMP, ADIFF, GFR, CBC #### [address] [address] Total Protein 7.7 G/dL Normal 6.4-8.2 [facility] Comment on above: Performed By: #### P SAMY, FSH, TESTO, LH #### [place] [address] #### 945494, ANEU, TSH, FT4, CMP, ADIFF, GFR, CBC #### [address] [address] Urea nitrogen [Mass/Vol] 16 mg/dL Normal 7-18 [facility] Comment on above: Performed By: #### P SAMY, FSH, TESTO, LH #### [address] [address] #### [id number], ANEU, TSH, FT4, CMP, ADIFF, GFR, CBC #### [place] [id number] [place], [place] [address] FT4on 11-17-2024 Free T4 [Mass/Vol] 0.67 ng/dL Low 0.76-1.46 [facility] Comment on above: Performed By: #### P SAMY, FSH, TESTO, LH #### [address] [address] #### 312857, ANEU, TSH, FT4, CMP, ADIFF, GFR, CBC #### [address] [address] LABORATORYOrdered By: SYSTEM SYSTEM on 11-17-2024 Albumin [...] 11-17-2024 TSH Qn 1.39 m[IU]/L Normal 0.36-3.74 [facility] Comment on above: Performed By: #### P SAMY, FSH, TESTO, LH #### [facility] [address] [place] [address] #### [id number], ANEU, TSH, FT4, CMP, ADIFF, GFR, CBC #### [facility] [address] [place], [place] [address] Absolute lymphocyte countOrd ered By: Tiffanie Velasquez on 03-26-2023 Lymphocytes Auto (Unsp spec) [#/Vol] 2.05 10*3/uL 0.83-4.51 [facility] Basophil percentageOrdered B y: Tiffanie Velasquez on 03-26-2023 Basophils/100 WBC (Bld) 0.8 % 0-1 [facility] Eosinophils/100 WBC (Bld) 5.9 % 0-5 [facility] Neutrophils (Bld) [#/Vol] 3.3 10*3/uL 2.0-7.7 [facility] Neutrophils/100 WBC (Bld) 51.4 % 47-70 [facility] WBC (Bld) [#/Vol] 6.4 10*3/uL 4.4-11.0 [facility] Blood erythrocytes count (nu mber/volume)Ordered By: Tiffanie Velasquez on 03-26-2023 RBC (Bld) [#/Vol] 4.27 10*6/uL 4.2-5.4 [facility] Blood hemoglobin measurement (mass/volume)Ordered By: Tiffanie Velasquez on 03-26-2023 Hemoglobin (Bld) [Mass/Vol] 12.8 g/dL 12.0-15.0 [facility] Blood lymphocytes/100 leukoc ytesOrdered By: Tiffanie Velasquez on 03-26-2023 Lymphocytes/100 WBC (Bld) 32.1 % 19-41 [facility] Blood monocytes/100 leukocyt esOrdered By: Tiffanie Velasquez on 03-26-2023 Monocytes/100 WBC (Bld) 9.5 % 0-10 [facility] Blood platelet mean volumeOr dered By: Tiffanie Velasquez on 03-26-2023 Platelet mean volume (Bld) [Entitic vol] 9.3 fL 6.2-12.0 [facility] Determination of erythrocyte mean corpuscular volume (MCV)Ordered By: Tiffanie Velasquez on 03-26-2023 MCV (RBC) [Entitic vol] 93.7 fL 81-99 [facility] Hematocrit Auto (Bld) [Volum e fraction]Ordered By: Tiffanie Velasquez on 03-26-2023 Hematocrit (Bld) [Volume fraction] 40.0 % 37-47 [facility] Laboratory - Hematology and Cell countsOrdered By: Tiffanie Velasquez on 03-26-2023 Erythrocyte distribution width (RBC) [Entitic vol] 42.7 fL 35.1-43.9 [facility] Erythrocyte distribution width (RBC) [Ratio] 12.5 % 11.6-14.6 [facility] Immature granulocytes/100 WBC (Bld) 0.300 % 0.0-0.9 [facility] Comment on above: IG% - Immature Granu locytes (promyelocytes, myelocytes and metamyelocytes) > 1% indicates that a LEFT SHIFT is Present. MCH (RBC) [Entitic mass] 30.0 pg 27.0-32.0 [facility] Nucleated RBC/100 WBC (Bld) [Ratio] 0 % 0-5 [facility] MCHC Auto (RBC) [Mass/Vol]Or dered By: Tiffanie Velasquez on 03-26-2023 MCHC (RBC) [Mass/Vol] 32.0 g/dL 32-36 [facility] Platelets bldOrdered By: Sherron Velasquez on 03-26-2023 Platelets (Bld) [#/Vol] 333 10*3/uL 150-450 [facility] Basophil percentageOrdered B y: Tiffanie Velasquez on 02-11-2023 WBC (Bld) [#/Vol] 18.7 10*3/uL 4.4-11.0 [facility] Blood erythrocytes count (nu mber/volume)Ordered By: Tiffanie Velasquez on 02-11-2023 RBC (Bld) [#/Vol] 2.67 10*6/uL 4.2-5.4 [facility] Blood hemoglobin measurement (mass/volume)Ordered By: Tiffanie Velasquez on 02-11-2023 Hemoglobin (Bld) [Mass/Vol] 8.5 g/dL 12.0-15.0 [facility] Blood platelet mean volumeOr dered By: Tiffanie Velasquez on 02-11-2023 Platelet mean volume (Bld) [Entitic vol] 10.6 fL 6.2-12.0 [facility] Determination of erythrocyte mean corpuscular volume (MCV)Ordered By: Tiffanie Velasquez on 02-11-2023 MCV (RBC) [Entitic vol] 94.8 fL 81-99 [facility] Hematocrit Auto (Bld) [Volum e fraction]Ordered By: Tiffanie Velasquez on 02-11-2023 Hematocrit (Bld) [Volume fraction] 25.3 % 37-47 [facility] - Hematology and Cell countsOrdered By: Tiffanie Velasquez on 02-11-2023 Erythrocyte distribution width (RBC) [Entitic vol] 49.7 fL 35.1-43.9 [facility] Erythrocyte distribution width (RBC) [Ratio] 14.5 % 11.6-14.6 [facility] MCH (RBC) [Entitic mass] 31.8 pg 27.0-32.0 [facility] MCHC Auto (RBC) [Mass/Vol]Or dered By: Tiffanie Velasquez on 02-11-2023 MCHC (RBC) [Mass/Vol] 33.6 g/dL 32-36 [facility] Platelets bldOrdered By: Sherron Velasquez on 02-11-2023 Platelets (Bld) [#/Vol] 255 10*3/uL 150-450 [facility] Absolute lymphocyte countOrd ered By: Tiffanie Velasquez on 02-10-2023 Lymphocytes Auto (Unsp spec) [#/Vol] 1.63 10*3/uL 0.83-4.51 [facility] Basophil percentageOrdered B y: Tiffanie Velasquez on 02-10-2023 Basophils/100 WBC (Bld) 0.2 % 0-1 [facility] Eosinophils/100 WBC (Bld) 0.2 % 0-5 [facility] Neutrophils (Bld) [#/Vol] 14.1 10*3/uL 2.0-7.7 [facility] Neutrophils/100 WBC (Bld) 82.6 % 47-70 [facility] Blood lymphocytes/100 leukoc ytesOrdered By: Tiffanie Velasquez on 02-10-2023 Lymphocytes/100 WBC (Bld) 9.5 % 19-41 [facility] Blood monocytes/100 leukocyt esOrdered By: Tiffanie Velasquez on 02-10-2023 Monocytes/100 WBC (Bld) 6.9 % 0-10 [facility] Laboratory - Hematology and Cell countsOrdered By: Tiffanie Velasquez on 02-10-2023 Immature granulocytes/100 WBC (Bld) 0.600 % 0.0-0.9 [facility] Comment on above: IG% - Immature Granu locytes (promyelocytes, myelocytes and metamyelocytes) > 1% indicates that a LEFT SHIFT is Present. Nucleated RBC/100 WBC (Bld) [Ratio] 0 % 0-5 [facility] Serum Treponema species anti body detectionOrdered By: Tiffanie Velasquez on 02-10-2023 Treponema sp Ab Ql (S) Non-Reactive [facility] - Chemistry and C hemistry - challengeon 02-07-2023 Glucose Ql (U) Negative [facility] - Urinalysison Protein Ql (U) Negative [facility] - Chemistry and C hemistry - challengeon 02-05-2023 Glucose Ql (U) Negative [facility] - Urinalysison Protein Ql (U) Negative [facility] - Chemistry and C hemistry - challengeon 01-31-2023 Glucose Ql (U) Negative [facility] - Urinalysison Protein Ql (U) Negative [facility] - Chemistry and C hemistry - challengeon 01-19-2023 Glucose Ql (U) Negative [facility] - Urinalysison Protein Ql (U) Negative [facility] No Panel InformationOrdered By: Leigh Ann Laird on 01-12-2023 Group B Streptococcus Culture Streptococcus agalactiae (B) [facility] Group B Streptococcus Culture Streptococcus agalactiae (B) [facility] - Chemistry and C hemistry - challengeon 12-29-2022 Glucose Ql (U) Negative [facility] - Urinalysison Protein Ql (U) Negative [facility] - Chemistry and C hemistry - challengeon 12-11-2022 Glucose Ql (U) Negative [facility] - Urinalysison Protein Ql (U) Negative [facility] - Chemistry and C hemistry - challengeon 11-27-2022 Glucose Ql (U) Negative [facility] - Urinalysison Protein Ql (U) Negative [facility] Absolute lymphocyte countOrd ered By: Flower Llamas on 11-17-2022 Lymphocytes Auto (Unsp spec) [#/Vol] 2.12 10*3/uL 0.83-4.51 [facility] Basophil percentageOrdered B y: Flower Llamas on 11-17-2022 Basophils/100 WBC (Bld) 0.5 % 0-1 [facility] Eosinophils/100 WBC (Bld) 2.2 % 0-5 [facility] Neutrophils (Bld) [#/Vol] 7.1 10*3/uL 2.0-7.7 [facility] Neutrophils/100 WBC (Bld) 67.9 % 47-70 [facility] WBC (Bld) [#/Vol] 10.4 10*3/uL 4.4-11.0 [facility] Blood erythrocytes count (nu mber/volume)Ordered By: Flower Llamas on 11-17-2022 RBC (Bld) [#/Vol] 3.65 10*6/uL 4.2-5.4 [facility] Blood hemoglobin measurement (mass/volume)Ordered By: Flower Llamas on 11-17-2022 Hemoglobin (Bld) [Mass/Vol] 11.8 g/dL 12.0-15.0 [facility] Blood lymphocytes/100 leukoc ytesOrdered By: Flower Llamas on 11-17-2022 Lymphocytes/100 WBC (Bld) 20.3 % 19-41 [facility] Blood monocytes/100 leukocyt esOrdered By: Flower Llamas on 11-17-2022 Monocytes/100 WBC (Bld) 8.4 % 0-10 [facility] Blood platelet mean volumeOr dered By: Flower Llamas on 11-17-2022 Platelet mean volume (Bld) [Entitic vol] 9.4 fL 6.2-12.0 [facility] Determination of erythrocyte mean corpuscular volume (MCV)Ordered By: Flower Llamas on 11-17-2022 MCV (RBC) [Entitic vol] 95.9 fL 81-99 [facility] Gestational diabetes screen 1-hour screen with 50g oral glucose loadOrdered By: Flower Llamas on 11-17-2022 Glucose 1 Hr post 50 g glucose PO [Mass/Vol] 120 mg/dL 70-140 [facility] HIV 1 and HIV-2 antibody ass ay with HIV-1 p24 antigen detectionOrdered By: Flower Llamas on 11-17-2022 HIV 1+2 Ab+HIV1 p24 Ag IA Ql Non-Reactive Nonreactive [facility] Hematocrit Auto (Bld) [Volum e fraction]Ordered By: Flower Llamas on 11-17-2022 Hematocrit (Bld) [Volume fraction] 35.0 % 37-47 [facility] - Chemistry and C hemistry - challengeon 11-17-2022 Glucose Ql (U) Negative [facility] - Hematology and Cell countsOrdered By: Flower Llamas on 11-17-2022 Erythrocyte distribution width (RBC) [Entitic vol] 41.7 fL 35.1-43.9 [facility] Erythrocyte distribution width (RBC) [Ratio] 12.0 % 11.6-14.6 [facility] Immature granulocytes/100 WBC (Bld) 0.700 % 0.0-0.9 [facility] Comment on above: IG% - Immature Granu locytes (promyelocytes, myelocytes and metamyelocytes) > 1% indicates that a LEFT SHIFT is Present. MCH (RBC) [Entitic mass] 32.3 pg 27.0-32.0 [facility] Nucleated RBC/100 WBC (Bld) [Ratio] 0 % 0-5 [facility] Laboratory - Urinalysison Protein Ql (U) Negative [facility] MCHC Auto (RBC) [Mass/Vol]Or dered By: Flower Llamas on 11-17-2022 MCHC (RBC) [Mass/Vol] 33.7 g/dL 32-36 [facility] Platelets bldOrdered By: Darcy Pazsebastien on 11-17-2022 Platelets (Bld) [#/Vol] 319 10*3/uL 150-450 [facility] Serum Treponema species anti body detectionOrdered By: Flower Llamas on 11-17-2022 Treponema sp Ab Ql (S) Non-Reactive [facility] - Chemistry and C hemistry - challengeon 10-27-2022 Glucose Ql (U) Negative [facility] - Urinalysison Protein Ql (U) Negative [facility] - Chemistry and C hemistry - challengeon 09-29-2022 Glucose Ql (U) Negative [facility] - Urinalysison Protein Ql (U) Negative [facility] Toxoplasma IGG AND IGM (Pren atal Screen)on 09-15-2022 Toxoplasma IgG (Dye Test) <1:16 Normal <1:16 NEGATIVE [facility] Comment on above: Order Comment: Order a CMV Avidity test if IgM is positive. Release to patient->Automatic [id number]&Blood Performed By: #### T SLPN #### [place] [address] Toxoplasma IgM LOLY 0.0 Normal [facility] Comment on above: Order Comment: Order a CMV Avidity test if IgM is positive. Release to patient->Automatic [id number]&Blood Result Comment: 0.0-1.6 = Negative 1.7-1.9 = Equivocal >= 2.0 = Positive Testing Performed: [facility], [facility] [address] [place] [address] Performed By: #### T SLPN #### [address] [id number] CMV IgG Abon 09-09-2022 CMV IgG Ab Positive Abnormal Negative [facility] Comment on above: Order Comment: Order a CMV Avidity test if IgM is positive. Release to patient->Automatic 42463&Blood Result Comment: Test Performed by: [address] [address] Cook Night: Gomez Canas M.D. Ph.D.; CLIA# [id number] Performed By: #### C MVIG #### [address] [address] CMV IgM Abon 09-09-2022 CMV IgM Ab Negative Normal Negative [facility] Comment on above: Order Comment: Order a CMV Avidity test if IgM is positive. Release to patient->Automatic 95339&Blood Result Comment: Test Performed by: [facility] [place] - [address] [address] Cook Night: Gomez Canas M.D. Ph.D.; CLIA# [id number] Performed By: #### C MVIM #### [address] [address] Progress Noteon 09-05-2022 Acid Dumper Authentication Interface Message Text MFM ultrasound finding [...] follow up as well as follow up [facility] visit 4. I will send handout to her email today as well regarding echogenic bowel. Normal [facility] Laboratory - Chemistry and C hemistry - challengeon 08-28-2022 Glucose Ql (U) Negative [facility] Laboratory - Urinalysison Protein Ql (U) Negative [facility] Laboratory - Chemistry and C hemistry - challengeon 2022 Glucose Ql (U) Negative [facility] Laboratory - Urinalysison Protein Ql (U) Negative [facility] Absolute lymphocyte countOrd ered By: Dr. Llamas on 07-20-2022 Lymphocytes Auto (Unsp spec) [#/Vol] 2.80 10*3/uL 0.83-4.51 [facility] Basophil percentageOrdered B y: Dr. Llamas on 07-20-2022 Basophils/100 WBC (Bld) 0.5 % 0-1 [facility] Eosinophils/100 WBC (Bld) 1.4 % 0-5 [facility] Neutrophils (Bld) [#/Vol] 6.4 10*3/uL 2.0-7.7 [facility] Neutrophils/100 WBC (Bld) 63.5 % 47-70 [facility] WBC (Bld) [#/Vol] 10.1 10*3/uL 4.4-11.0 [facility] Blood erythrocytes count (nu mber/volume)Ordered By: Dr. Llamas on 07-20-2022 RBC (Bld) [#/Vol] 4.13 10*6/uL 4.2-5.4 [facility] Blood hemoglobin measurement (mass/volume)Ordered By: Dr. Llamas on 07-20-2022 Hemoglobin (Bld) [Mass/Vol] 13.4 g/dL 12.0-15.0 [facility] Blood lymphocytes/100 leukoc ytesOrdered By: Dr. Llamas on 07-20-2022 Lymphocytes/100 WBC (Bld) 27.9 % 19-41 [facility] Blood monocytes/100 leukocyt esOrdered By: Dr. Llamas on 07-20-2022 Monocytes/100 WBC (Bld) 6.4 % 0-10 [facility] Blood platelet mean volumeOr dered By: Dr. Llamas on 07-20-2022 Platelet mean volume (Bld) [Entitic vol] 9.5 fL 6.2-12.0 [facility] Determination of erythrocyte mean corpuscular volume (MCV)Ordered By: Dr. Llamas on 07-20-2022 MCV (RBC) [Entitic vol] 92.3 fL 81-99 [facility] HIV 1 and HIV-2 antibody ass ay with HIV-1 p24 antigen detectionOrdered By: Dr. Llamas on 07-20-2022 HIV 1+2 Ab+HIV1 p24 Ag IA Ql Non-Reactive Nonreactive [facility] Hematocrit Auto (Bld) [Volum e fraction]Ordered By: Dr. Llamas on 07-20-2022 Hematocrit (Bld) [Volume fraction] 38.1 % 37-47 [facility] Laboratory - Hematology and Cell countsOrdered By: Dr. Llamas on 07-20-2022 Erythrocyte distribution width (RBC) [Entitic vol] 41.1 fL 35.1-43.9 [facility] Erythrocyte distribution width (RBC) [Ratio] 11.9 % 11.6-14.6 [facility] Immature granulocytes/100 WBC (Bld) 0.300 % 0.0-0.9 [facility] Comment on above: IG% - Immature Granu locytes (promyelocytes, myelocytes and metamyelocytes) > 1% indicates that a LEFT SHIFT is Present. MCH (RBC) [Entitic mass] 32.4 pg 27.0-32.0 [facility] Nucleated RBC/100 WBC (Bld) [Ratio] 0 % 0-5 [facility] MCHC Auto (RBC) [Mass/Vol]Or dered By: Dr. Llamas on 07-20-2022 MCHC (RBC) [Mass/Vol] 35.2 g/dL 32-36 [facility] No Panel InformationOrdered By: Dr. Llamas on 07-20-2022 Miscellaneous Test Comment MAILED SPECIMEN [facility] Hepatitis B Surface Antigen Non-Reactive Nonreactive [facility] Hepatitis C Antibody Non-Reactive Nonreactive [facility] Comment on above: Non Reactive: < 0.8 Equivocal: >/= 0.8 to < 1.0 Reactive: >/= 1.0The CDC recommends that a reactive/equivocal HCV antibody result be followed up by the HCV Nucleic Acid Amplificationtest (277311) Rubella IgG Antibody Reactive Nonreactive [facility] Comment on above: Antibody Results Int erpretation of Immune Status Non Reactive Presumed Non-Immune Equivocal Equivocal Reactive Presumed Immune Platelets bldOrdered By: Dr. Llamas on 07-20-2022 Platelets (Bld) [#/Vol] 346 10*3/uL 150-450 [facility] Serum Treponema species anti body detectionOrdered By: Dr. Llamas on 07-20-2022 Treponema sp Ab Ql (S) Non-Reactive [facility] Culture, urineOrdered By: Dr Sydney Llamas on 07-08-2022 Bacteria identified Cx Nom (U) Mixed Gram Pos & Gram Neg Org [facility] Cervical or vagninal specime n microscopic examination by cytology stain (reported asOrdered By: Dr. Llamas on 07-06-2022 Cytology report Cyto stain Doc (Cvx/Vag) Comment . [facility] Comment on above: The Pap smear is [...] rRNA RUSLAN+probe Ql (Unsp spec) Negative Negative [facility] Detection in cervical specim en of any of human papilloma virus (HPV) 16, 18, 31, 33,Ordered By: Dr. Llamas on 07-06-2022 HPV 16+18+31+33+35+39+45+51+ 52+56+58+59+66+68 DNA Probe+sig amp Ql (Cvx) Negative Negative [facility] Comment on above: This nucleic acid am plification test detects fourteen high-risk HPV types (16,18,31,33,35,39,45,51,52,56,58,59,66,68)without differentiation. Laboratory - CytologyOrdered By: Dr. Llamas on 07-06-2022 Compliance Specialist Cyto stain Nom (Cvx/Vag) [ID] Comment . [facility] Comment on above: Katt Stewart, Cyto technologist (ASCP) Laboratory - Microbiology an d Antimicrobial susceptibilityOrdered By: Dr. Llamas on 07-06-2022 N. gonorrhoeae DNA RUSLAN+probe Ql (Unsp spec) Negative Negative [facility] Comment on above: Performed at: =[address] [id number] Director: Libby Jin MD, Phone: [phone] Laboratory - Miscellaneous t estsOrdered By: Dr. Llamas on 07-06-2022 Service comment (Unsp spec) [Interp] Comment . [facility] Comment on above: This liquid based Th inPrep(R) pap test was screened withthe use of an image guided system. Service comment (Unsp spec) [Interp] . . [facility] Liquid-based cerv Pap + CT/G C by RUSLAN w reflex to high-risk HPV for ASCUSOrdered By: Dr. Llamas on 07-06-2022 Cytology report Cyto stain.thin prep Doc (Cvx/Vag) Comment . [facility] Comment on above: Criteria not met, HP V Genotype not performed.Performed at: - [facility] [id number] [place], [place] [id number] Director: Libby Jin MD, Phone: [phone] at: =G - [facility] [address] [place], [place] [id number] Director: Libby Jin MD, Phone: [phone] No Panel InformationOrdered By: Dr. Llamas on 07-06-2022 Pathology report final diagnosis Narrative Comment . [facility] Comment on above: NEGATIVE FOR INTRAEP ITHELIAL LESION OR MALIGNANCY. 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 Advised patient that she would not received any further refills of below medication from provider until Annual HOTEL DESK CLERK Exam had been completed per overdue since 2017. Patient verbalized understanding and states that she lives closer to [place] and will schedule with a provider closer [...] Status:Closed by SILVIA SCHMITZ MD on 07/14/19 [facility] OBSOLETEon 01-17-2019 OBSOLETE Refill (OBGYLN) MANPREET TANG ([id number]) 1990 F Date Time Provider Department 01/17/19 DAVIN EDGE (IT SUPPORT CONSULTANT) OBGYLN During your visit today, we recorded [...] Status:Closed by SILVIA SCHMITZ MD on 01/22/19 [facility] (GA[facility] MANPREET TANG ([id number]) 1990 F Date Time Provider Department 12/17/18 8:00 AM NURSE GI LAB I GASTMN During your visit today, we recorded the following information about you: Arias Jones, RN, RN 12/17/2018 9:02 AM Signed Name: Manpreet S Clyde [facility]#: [id number] Date: 12/17/2018 H-PYLORI BREATH TEST Indication: Bloating [...] Arias Jones RN Referring Provider: KI LOUIS [[id number]] Allergies As of Date: 12/17/2018 (No Known Allergies) Date Reviewed: 11/29/2018 Reviewed by: Brett Lagunas Ma - Fully Assessed Reason for Visit: Procedure [88] Cmt: Breath Test H Pylori Visit Diagnosis:Bloating [R14.0] Order(s):BREATH TEST H PYLORI [SQHPYLBR] Order #: [id number] Prescriptions as of 12/17/2018 Sig: METRONIDAZOLE 500 MG TABLET Take 1 tablet by mouth twice * Patient not taking: Reported on 11/29/2018 L NORGEST/E ESTRADIOL-E ESTRA* Take 1 tablet by mouth once d* Problem List As Of Date 12/17/2018 Noted Resolved Bloating [R14.0] INVALID FOR* Encounter Status:Closed by ARIAS JONES on 12/17/18 Normal [facility] H pylori Breath Teston 12-17 H pylori Breath Test 0.4 Normal <2.4 [facility] Comment on above: Result Comment: Nega tive for H. pylori Performed By: #### H PYLBR ####[facility] [id number] [place], [place] [phone] PROGRESSon 12-17-2018 PROGRESS HNO ID: [id number] Author: Arias De La Cruz) VIVIENNE Jones Service: ? Author Type: Registered Nurse Type: Progress Notes Filed: 12/17/2018 9:02 AM Note Text: Name: Manpreet Tang [facility]#: [id number] Date: 12/17/2018 H-PYLORI BREATH TEST Indication: Bloating [...] lab for processing. Arias Jones RN Normal [facility] CNOVon 11-29-2018 CNOV Office Visit (GAINLL) MANPREET TANG ([id number]) 1990 F Date Time Provider Department 11/29/18 11:30 AM KI LOUIS During your visit today, we recorded the following information about you: Pulse Blood pressure Weight Height 86/minute 110/60 54.4 kg 1.575 m Brett Lagunas Ma 11/29/2018 11:31 AM Signed [facility] LAB AND RADIOLOGY FACTS LAB [...] to the scheduled exam. [facility] HOU[facility] [place] [facility]: Sunday through Sunday 6:00am to 9:00pm. Sunday and Sunday 8:00am to 4:00pm. The walk in clinic is for patients 2 years and older. [place] [facility]: Sunday through Sunday 8:00am to 8:00pm. Sunday and Sunday 8:00am to 4:00pm. The walk in clinic is for patients 2 years and older. [place] [facility]: Sunday through Sunday 8:00am to 8:00pm. Sunday and Sunday 8:00am to 4:00pm. The walk in clinic is for patients 2 years and older. [facility] WALK IN MAMMOGRAM HOURS Sunday-Sunday 3:00pm- 7:00 pm Sunday 8:00 am- 12:00 pm For Express Care LOCATIONS, HOURS OF OPERATION and CURRENT WAIT TIMES, visit the following link [email or web address] dFR[types][0]=Expres s%20Care%20ClinicsAN D for details. Ki [...] file Gets together: Not on file Attends anabaptism service: Not on file Active member of [...] 2018 11:39 AM Referring Provider: SILVIA SCHMITZ [[id number]] Allergies As of Date: 11/29/2018 (No Known Allergies) Date Reviewed: 11/29/2018 Reviewed by: Brett Lagunas Ma - Fully Assessed Reason for Visit: New Patient [172] Cmt: bloating Rectal Bleeding [202] Diarrhea [35] Reason For Visit History Recorded Visit Diagnosis:Bloating [R14.0] Order(s):BREATH TEST H PYLORI [SQHPYLBR] Order #: [id number] FUTURE BREATH TEST GLUCOSE [[id number]] Order #: [id number] FUTURE Prescriptions as of 11/29/2018 Sig: L NORGEST/E ESTRADIOL-E ESTRA* Take 1 tablet by mouth once d* METRONIDAZOLE 500 MG TABLET Take 1 tablet by mouth twice * Patient not taking: Reported on 11/29/2018 Problem List As Of Date 11/29/2018 Noted Resolved Bloating [R14.0] INVALID FOR* Other instructions from your clinician: [facility] LAB AND RADIOLOGY FACTS LAB [...] to the scheduled exam. [facility] [place] [facility]: Sunday through Sunday 6:00am to 9:00pm. Sunday and Sunday 8:00am to 4:00pm. The walk in clinic is for patients 2 years and older. [place] [facility]: Sunday through Sunday 8:00am to 8:00pm. Sunday and Sunday 8:00am to 4:00pm. The walk in clinic is for patients 2 years and older. [place] [facility]: Sunday 8:00am to 8:00pm. Sunday and Sunday 8:00am to 4:00pm. The walk in clinic is for patients 2 years and older. [facility] WALK IN MAMMOGRAM HOURS Sunday-Sunday 3:00pm- 7:00 pm Sunday 8:00 am- 12:00 pm For Express Care LOCATIONS, HOURS OF OPERATION and CURRENT WAIT TIMES, visit the following link [email or web address] dFR[types][0]=[email or web address] s%20Care%20Clin ics[facility] for details. Encounter Status:Closed by KI LOUIS MD on 11/29/18 Normal [facility] US BREAST LTD LTon 11-29 [facility] US BREAST LTD LT * * *Final Report* * * DATE OF EXAM: Nov 29 2018 2:10PM MCW Denisse - MARIO US BREAST LTD LT / PROCEDURE REASON: Breast pain, left * * * * Physician Interpretation * * * * RESULT: #[id number] - [facility] US BREAST LTD LT ULTRASOUND OF LEFT [...] Follow-up with ACR/NCCN guidelines. Gwyn morris/nahid:11/29/2018 17:08:52 Drum Loader And Unloader(s): RT Nikole(Dwayne)(M), [facility] BI-RADS: 1 Negative Multiple national specialty [...] Medicine, and Medical/Surgical Oncology, the [facility] has carefully reviewed the data and reached [...] their providers when to stop screening mammograms. Family And Marriage Counsellor: Nahid Transcribe Date/Time: Nov 29 2018 2:23P Dictated by : GWYN OBANDO MD This examination was interpreted and the report reviewed and electronically signed by: GWYN OBANDO MD on Nov 29 2018 5:08PM EST [id number] Normal [facility] PROGRESSon 11-29-2018 PROGRESS HNO ID: [id number] Author: Yen Burton Mamm-T Service: Radiology Author [...] Mamm-T November 29, 2018 2:07 PM Normal [facility] PROGRESS HNO ID: [id number] Author: Ki Louis Service: ? Author Type: [...] file Gets together: Not on file Attends anabaptism service: Not on file Active member of [...] MD November 29, 2018 11:39 AM Normal [facility] CNPNon 11-04-2018 CNPN Telephone (OBGYLN) MANPREET TANG ([id number]) 1990 F Date Time Provider Department 11/04/18 SILVIA SCHMITZ OBKATIA During your visit today, we recorded the following information about you: Silvia Schmitz MD 11/04/2018 1:15 PM Signed Positive Yeast Infection. eRx sent to pharmacy. Please warehouse picker Rx as soon as possible. Thank you [...] Status:Closed by SILVIA SCHMITZ MD on 11/04/18 [facility] OBSOLETEon 10-31-2018 OBSOLETE Refill (OBGYLN) MANPREET TANG ([id number]) 1990 F Date Time Provider Department 10/31/18 SILIVA SCHMITZ OBGYLN During your visit today, we [...] 1 PackageRfl: 3 US BREAST LTD LT [[id number]] Order #: [id number] FUTURE MARIO DIAGNOSTIC LT [[id number]] Order #: [id number] FUTURE Prescriptions as of 10/31/2018 Sig: METRONIDAZOLE [...] by CORA DAILEY RN on 10/31/18 Normal [facility] Vag Pathogens DNAon 10-31-19 19 Roz sp DNA Probe Positive Critically abnormal Negative for Roz species by DNA Probe [facility] Comment on above: Result Comment: This is indicative of candidiasis when consistent with clinical signs and symptoms. Performed By: #### V AGDNA #### [facility] [employer] [address] [place] [address] Hernandez vag DNA Probe Positive Critically abnormal Negative for Gardnerella vaginalis by DNA Probe [facility] Comment on above: Result Comment: This is suggestive, but not diagnostic of bacterial vaginosis, results should be interpreted in conjunction with other data such as pH, amine odor, clue cells and vaginal discharge characteristics. Performed By: #### V AGDNA #### [facility] [employer] [address] [place] [address] Trich vag DNA Probe Negative Normal Negative for Trichomonas vaginalis by DNA Probe [facility] Comment on above: Performed By: #### V AGDNA #### [facility] [employer] [address] [place] [address] CNOVon 10-29-2018 CNOV Office Visit (OBGYLN) MANPREET TANG ([id number]) 1990 F Date Time Provider Department 10/29/18 [...] [N89.8] Order(s):CONSULT TO GASTROENTEROLOGY [9010] Order #: [id number]: 1 VAGINAL PATHOGENS DNA PROBES [SQVAGDNA] Order #: [id number] Problem List As Of Date: 10/29/2018 (None) Encounter Status:Closed by SILVIA SCHMITZ MD on 10/29/18 [facility] PRO[facility] 10-29-2018 PROGRESS HNO ID: [id number] Author: Silvia Schmitz Service: ? Author Type: [...] MD October 29, 2018 6:47 PM Normal [facility] Vital Signs Date Time Vital Sign Value Performing Clinician Faci lity 01-21-2025 14:29-0400 Body height 157.48 cm No Primary Care Physician [facility] 01-21-2025 14:0400 Body mass index (BMI) [Ratio] 24.9 kg/m2 No Primary Care Physician [facility] 01-21-2025 14: Body weight 61.83 kg No Primary Care Physician [facility] 01-21-2025 14:040 Diastolic blood pressure 83 mm[Hg] No Primary Care Physician [facility] 01-21-2025 14:26-0400 Systolic blood pressure 146 mm[Hg] No Primary Care Physician [facility] 03-28-2023 10:06-0500 Body height 157.48 cm No Primary Care Physician [facility] 03-26-2023 10:57-0500 Body mass index (BMI) [Ratio] 23.8 kg/m2 No Primary Care Physician [facility] 03-26-2023 10:57-0500 Body weight 58.96 kg No Primary Care Physician [facility] 03-26-2023 10:57-0500 Diastolic blood pressure 74 mm[Hg] No Primary Care Physician [facility] 03-26-2023 10:57-0500 Systolic blood pressure 127 mm[Hg] No Primary Care Physician [facility] 02-12-2023 08:00-0400 Body temperature 97.6 [degF] No Primary Care Physician [facility] 02-12-2023 08:00-0400 Diastolic blood pressure 72 mm[Hg] No Primary Care Physician [facility] 02-12-2023 08:00-0400 Heart rate 100 /min No Primary Care Physician [facility] 02-12-2023 08:00-0400 Respiratory rate 16 /min No Primary Care Physician [facility] 02-12-2023 08:00-0400 Systolic blood pressure 126 mm[Hg] No Primary Care Physician [facility] 02-11-2023 07:55-0400 SaO2% (BldA) [Mass fraction] 99 % No Primary Care Physician [facility] 02-10-2023 09:02-0400 Body mass index (BMI) [Ratio] 28 kg/m2 No Primary Care Physician [facility] 02-10-2023 09:02-0400 Body weight 69.58 kg No Primary Care Physician [facility] 02-07-2023 11:13-0400 Diastolic blood pressure 82 mm[Hg] No Primary Care Physician [facility] 02-07-2023 11:13-0400 Systolic blood pressure 126 mm[Hg] No Primary Care Physician [facility] 02-07-2023 10:38-0400 Body mass index (BMI) [Ratio] 28.3 kg/m2 No Primary Care Physician [facility] 02-07-2023 10:38-0400 Body weight 70.42 kg No Primary Care Physician [facility] 02-05-2023 12:49-0400 Body mass index (BMI) [Ratio] 27.8 kg/m2 No Primary Care Physician [facility] 02-05-2023 12:49-0400 Body weight 69.11 kg No Primary Care Physician [facility] 02-05-2023 12:49-0400 Diastolic blood pressure 86 mm[Hg] No Primary Care Physician [facility] 02-05-2023 12:49-0400 Systolic blood pressure 130 mm[Hg] No Primary Care Physician [facility] 01-31-2023 13:55-0400 Body mass index (BMI) [Ratio] 27.8 kg/m2 No Primary Care Physician [facility] 01-31-2023 13:55-0400 Body weight 69.17 kg No Primary Care Physician [facility] 01-31-2023 13:55-0400 Diastolic blood pressure 84 mm[Hg] No Primary Care Physician [facility] 01-31-2023 13:55-0400 Systolic blood pressure 128 mm[Hg] No Primary Care Physician [facility] 01-26-2023 11:16-0400 Body height 157.48 cm No Primary Care Physician [facility] 01-26-2023 11:12-0400 Body mass index (BMI) [Ratio] 27.2 kg/m2 No Primary Care Physician [facility] 01-26-2023 11:12-0400 Body weight 67.58 kg No Primary Care Physician [facility] 01-26-2023 11:12-0400 Diastolic blood pressure 75 mm[Hg] No Primary Care Physician [facility] 01-26-2023 11:12-0400 Systolic blood pressure 124 mm[Hg] No Primary Care Physician [facility] 01-19-2023 09:18-0400 Body mass index (BMI) [Ratio] 27.3 kg/m2 No Primary Care Physician [facility] 01-19-2023 09:18-0400 Body weight 67.69 kg No Primary Care Physician [facility] 01-19-2023 09:18-0400 Diastolic blood pressure 84 mm[Hg] No Primary Care Physician [facility] 01-19-2023 09:18-0400 Systolic blood pressure 126 mm[Hg] No Primary Care Physician [facility] 01-12-2023 11:43-0400 Body height 157.48 cm No Primary Care Physician [facility] 01-12-2023 11:42-0400 Body mass index (BMI) [Ratio] 27.1 kg/m2 No Primary Care Physician [facility] 01-12-2023 11:42-0400 Body weight 67.3 kg No Primary Care Physician [facility] 01-12-2023 11:42-0400 Diastolic blood pressure 76 mm[Hg] No Primary Care Physician [facility] 01-12-2023 11:42-0400 Systolic blood pressure 125 mm[Hg] No Primary Care Physician [facility] 12-29-2022 11:52-0400 Body mass index (BMI) [Ratio] 26.7 kg/m2 No Primary Care Physician [facility] 12-29-2022 11:52-0400 Body weight 66.28 kg No Primary Care Physician [facility] 12-29-2022 11:52-0400 Diastolic blood pressure 80 mm[Hg] No Primary Care Physician [facility] 12-29-2022 11:52-0400 Systolic blood pressure 122 mm[Hg] No Primary Care Physician [facility] 12-11-2022 13:03-0400 Body height 157.48 cm No Primary Care Physician [facility] 12-11-2022 13:02-0400 Body mass index (BMI) [Ratio] 26.6 kg/m2 No Primary Care Physician [facility] 12-11-2022 13:02-0400 Body weight 65.99 kg No Primary Care Physician [facility] 12-11-2022 13:02-0400 Diastolic blood pressure 85 mm[Hg] No Primary Care Physician [facility] 12-11-2022 13:02-0400 Systolic blood pressure 124 mm[Hg] No Primary Care Physician [facility] 11-27-2022 11:38-0400 Body mass index (BMI) [Ratio] 25.9 kg/m2 No Primary Care Physician [facility] 11-27-2022 11:38-0400 Body weight 64.41 kg No Primary Care Physician [facility] 11-27-2022 11:38-0400 Diastolic blood pressure 71 mm[Hg] No Primary Care Physician [facility] 11-27-2022 11:38-0400 Systolic blood pressure 139 mm[Hg] No Primary Care Physician [facility] 11-17-2022 11:45-0400 Body height 157.48 cm No Primary Care Physician [facility] 11-17-2022 11:35-0400 Body mass index (BMI) [Ratio] 25.7 kg/m2 No Primary Care Physician [facility] 11-17-2022 11:35-0400 Body weight 63.72 kg No Primary Care Physician [facility] 11-17-2022 11:35-0400 Diastolic blood pressure 76 mm[Hg] No Primary Care Physician [facility] 11-17-2022 11:35-0400 Systolic blood pressure 120 mm[Hg] No Primary Care Physician [facility] 10-27-2022 11:55-0400 Body mass index (BMI) [Ratio] 25 kg/m2 No Primary Care Physician [facility] [facility] 11:55-0400 Body weight 62.14 kg No Primary Care Physician [facility] 10-27-2022 11:55-0400 Diastolic blood pressure 68 mm[Hg] No Primary Care Physician [facility] 10-27-2022 11:55-0400 Systolic blood pressure 118 mm[Hg] No Primary Care Physician [facility] 09-29-2022 11:28-0400 Body mass index (BMI) [Ratio] 23.9 kg/m2 No Primary Care Physician [facility] 09-29-2022 11:28-0400 Body weight 59.42 kg No Primary Care Physician [facility] 09-29-2022 11:28-0400 Diastolic blood pressure 83 mm[Hg] No Primary Care Physician [facility] 09-29-2022 11:28-0400 Systolic blood pressure 130 mm[Hg] No Primary Care Physician [facility] 08-28-2022 11:28-0400 Body mass index (BMI) [Ratio] 23.4 kg/m2 No Primary Care Physician [facility] 08-28-2022 11:28-0400 Body weight 58.22 kg No Primary Care Physician [facility] 08-28-2022 11:28-0400 Diastolic blood pressure 82 mm[Hg] No Primary Care Physician [facility] 08-28-2022 11:28-0400 Systolic blood pressure 118 mm[Hg] No Primary Care Physician [facility] 2022 11:53-0400 Body mass index (BMI) [Ratio] 22.6 kg/m2 No Primary Care Physician [facility] 2022 11:53-0400 Body weight 56.3 kg No Primary Care Physician [facility] 2022 11:53-0400 Diastolic blood pressure 80 mm[Hg] No Primary Care Physician [facility] 2022 11:53-0400 Systolic blood pressure 137 mm[Hg] No Primary Care Physician [facility] 07-06-2022 10:28-0500 Body height 157.48 cm No Primary Care Physician [facility] 07-06-2022 10:28-0500 Body mass index (BMI) [Ratio] 23.2 kg/m2 No Primary Care Physician [facility] 07-06-2022 10:28-0500 Body weight 57.6 kg No Primary Care Physician [facility] 07-06-2022 10:28-0500 Diastolic blood pressure 76 mm[Hg] No Primary Care Physician [facility] 07-06-2022 10:28-0500 Systolic blood pressure 114 mm[Hg] No Primary Care Physician [facility] Encounters Encounter Date Encounter Type Care Provider Facility Start: 03-12-2025 ambulatory Crystal Langley Facility :[facility] Start: 02-02-2025 End: 02-02-2025 ambulatory No Primary Care Physician -Lab [facility] Start: 02-02-2025 End: 02-02-2025 Patient encounter procedure Crystal Langley MEAT INSPECTOR-C -Lab [facility] Start: 02-02-2025 End: 02-02-2025 ambulatory Crystal Langley Facility:[facility] Start: 01-26-2025 End: 01-26-2025 ambulatory No Primary Care Physician -Ultrasound [facility] Start: 01-26-2025 End: 01-26-2025 Patient encounter procedure Crystal Langley MEAT INSPECTOR-C -Ultrasound [facility] Work Phone: Start: 01-26-2025 End: 01-26-2025 ambulatory Crystal Langley Facility:[facility] Start: 01-21-2025 End: 01-21-2025 Patient encounter procedure Crystal FRAZIER -[facility] Work Phone: Start: 01-21-2025 End: 01-21-2025 ambulatory No Primary Care Physician -[facility] Start: 01-21-2025 End: 01-21-2025 ambulatory Crystal Langley Facility:[facility] Start: 11-17-2024 End: 11-17-2024 ambulatory MARYELLEN ANDERSON GENERAL ADMINISTRATOR-IT SUPPORT CONSULTANT Facility:[facility] Start: 11-17-2024 End: 11-17-2024 Patient encounter procedure MARYELLEN ANDERSON GENERAL ADMINISTRATOR-IT SUPPORT CONSULTANT [facility] Start: 11-17-2024 End: 11-17-2024 Well adult monitoring check done MARYELLEN ANDERSON GENERAL ADMINISTRATOR-IT SUPPORT CONSULTANT [facility] Start: 04-05-2023 End: 04-05-2023 ambulatory No Primary Care Physician [facility] Work Phone: Start: 04-05-2023 End: 04-05-2023 Patient encounter procedure No Primary Care Physician [facility] Work Phone: Start: 03-26-2023 End: 03-26-2023 ambulatory No Primary Care Physician [facility] Work Phone: Start: 03-26-2023 End: 03-26-2023 Patient encounter procedure No Primary Care Physician [facility]-Laboratory Work Phone: Start: 03-26-2023 End: 03-26-2023 Patient encounter procedure No Primary Care Physician [facility] Work Phone: Start: 02-14-2023 End: 02-14-2023 Patient encounter procedure No Primary Care Physician [facility] Work Phone: Start: 02-12-2023 Non-patient / Non-visit No Primary Care Physician [facility] Start: 02-11-2023 Non-patient / Non-visit No Primary Care Physician [facility] Start: 02-10-2023 Non-patient / Non-visit No Primary Care Physician [facility] Start: 02-10-2023 End: 02-12-2023 Evaluation and management of inpatient No Primary Care Physician [facility] Work Phone: Start: 02-07-2023 End: 02-07-2023 Patient encounter procedure No Primary Care Physician [facility] Work Phone: Start: 02-05-2023 End: 02-05-2023 Patient encounter procedure No Primary Care Physician [facility] Work Phone: Start: 01-31-2023 End: 01-31-2023 Patient encounter procedure No Primary Care Physician [facility] Work Phone: Start: 01-26-2023 End: 01-26-2023 Patient encounter procedure No Primary Care Physician [facility] Work Phone: Start: 01-23-2023 End: 01-23-2023 ambulatory No Primary Care Physician [facility] Work Phone: Start: 01-23-2023 End: 01-23-2023 Patient encounter procedure No Primary Care Physician [facility] Ul[facility]ound Work Phone: Start: 01-19-2023 End: 01-19-2023 Patient encounter procedure No Primary Care Physician [facility] Work Phone: Start: 01-12-2023 End: 01-12-2023 Patient encounter procedure No Primary Care Physician [facility]-Laboratory, Specimen Work Phone: Start: 01-12-2023 End: 01-12-2023 Patient encounter procedure No Primary Care Physician [facility] Work Phone: Start: 01-09-2023 End: 01-09-2023 ambulatory No Primary Care Physician [facility] Work Phone: Start: 01-09-2023 End: 01-09-2023 Patient encounter procedure No Primary Care Physician [facility]-Ultrasound, [facility] Work Phone: Start: 12-29-2022 End: 12-29-2022 Patient encounter procedure No Primary Care Physician [facility] Work Phone: Start: 12-11-2022 End: 12-11-2022 Patient encounter procedure No Primary Care Physician [facility] Work Phone: Start: 12-11-2022 End: 12-11-2022 ambulatory No Primary Care Physician [facility] Work Phone: Start: 12-11-2022 End: 12-11-2022 Patient encounter procedure No Primary Care Physician [facility]-Ultrasound, [facility] Work Phone: Start: 11-27-2022 End: 11-27-2022 Patient encounter procedure No Primary Care Physician [facility] Work Phone: Start: 11-17-2022 End: 11-17-2022 ambulatory No Primary Care Physician [facility] Work Phone: Start: 11-17-2022 End: 11-17-2022 Patient encounter procedure No Primary Care Physician [facility] Work Phone: Start: 10-27-2022 End: 10-27-2022 Patient encounter procedure No Primary Care Physician [facility] Work Phone: Start: 10-04-2022 End: 10-04-2022 ambulatory MD NO PRIMARY CARE [facility] Start: 09-29-2022 End: 09-29-2022 Patient encounter procedure No Primary Care Physician [facility] Work Phone: Start: 09-06-2022 End: 09-07-2022 ambulatory NO PRIMARY CARE [facility] Start: 09-06-2022 End: 09-06-2022 Subsequent hospital visit by physician Janeth Burch MD Work Phone: [facility] Comment on above: 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 Start: 09-05-2022 End: 09-05-2022 ambulatory [place] [facility] Start: 08-28-2022 End: 08-28-2022 Patient encounter procedure No Primary Care Physician [facility] Work Phone: Start: 2022 End: 2022 Patient encounter procedure No Primary Care Physician [facility] Work Phone: Start: 07-20-2022 End: 07-20-2022 ambulatory No Primary Care Physician [facility] Work Phone: Start: 07-20-2022 End: 07-20-2022 Patient encounter procedure No Primary Care Physician [facility]-Laboratory, [facility] Start: 07-06-2022 End: 07-06-2022 ambulatory No Primary Care Physician [facility] Work Phone: Start: 07-06-2022 End: 07-06-2022 Patient encounter procedure No Primary Care Physician [facility]-Laboratory, Specimen Start: 07-06-2022 End: 07-06-2022 Patient encounter procedure No Primary Care Physician [facility] Procedures Date Procedure Procedure Detail Performing [...] - 214.0 Postmenopausal 0.0 - 0.1Performed at: [address] [id number] Director: Abel Tran PhD, Phone: [phone] Start: 04-05-2023 Transvaginal echography No Primary Care [...] CBC W Auto Differential panel - Blood [facility] Start: 01-21-2025 Comprehensive metabolic 2000 panel - Serum or Plasma [facility] Start: 01-21-2025 Serum progesterone measurement [facility] Start: 01-21-2025 T4 free measurement [facility] Start: 01-21-2025 Thyroid stimulating hormone measurement [facility] Start: 01-21-2025 [facility] Start: 03-26-2023 Patient referral [facility] Work Phone: Start: 02-12-2023 Patient discharge [facility] Start: 02-11-2023 Administration of blood product [facility] Start: 02-10-2023 Administration of medication [facility] Start: 02-10-2023 Application of ice collar, cap or bag [facility] Start: 02-10-2023 Catheterization of vein [facility] Start: 02-10-2023 Introduction of urinary catheter [facility] Start: 02-10-2023 Measuring intake and output [facility] Start: 02-10-2023 Notification of physician [facility] Start: 02-10-2023 Procedure discontinued [facility] Start: 02-10-2023 Provision of activity privileges [facility] Start: 02-10-2023 Vital signs measurements [facility] Start: 02-10-2023 [facility] Start: 02-10-2023 Admission procedure [facility] Start: 02-10-2023 Consultation [facility] Start: 01-05-2023 FLU (Season Ended) FLU (Season Ended) [facility] Start: 10-04-2022 End: 10-04-2022 Patient encounter procedure [facility] Start: 10-04-2022 End: 10-04-2022 Professional / ancillary services management 10/04/2022 12:00 PM EDT Ancillary Procedure Visit [facility] [address] [place] [address] [facility] Start: 07-06-2022 Liquid based cervical cytology screening [facility] Start: 08-04-2011 Microscopic observation [Identifier] in Cervix by Cyto stain Pap Smear [facility] Start: 2006 MenB (1 of 2 - MenB 2-Dose Series Bexsero) MenB (1 of 2 - MenB 2-Dose Series Bexsero) [facility] Start: 1997 Tetanus Diphtheria and Pertussis Vaccines (1 - Tdap) Tetanus Diphtheria and Pertussis Vaccines (1 - Tdap) [facility] Start: 08-04-1991 MMR (1 of 1 - Standard series) MMR (1 of 1 - Standard series) [facility] Start: 08-04-1991 Varicella (1 of 2 - 2-dose childhood series) Varicella (1 of 2 - 2-dose childhood series) [facility] Start: 02-03-1991 COVID-19 (#1) COVID-19 (#1) [facility] Start: 1990 Hepatitis B (1 of 3 - 3-dose series) Hepatitis B (1 of 3 - 3-dose series) [facility] Alanine aminotransfe rase [Enzymatic activity/volume] in Serum or Plasma [facility] Albumin [Mass/volume ] in Serum or Plasma [facility] Alkaline phosphatase [Enzymatic activity/volume] in Serum or Plasma [facility] Anion gap in Serum or Plasma [facility] Bilirubin, total measurement [facility] BUN/Creatinine ratio [facility] Calcium [Mass/volume ] in Serum or Plasma [facility] Carbon dioxide, tota l [Moles/volume] in Central venous blood [facility] CBC W Auto Different ial panel - Blood [facility] CMV IgG Ab CMV IgG Ab Lab Routine Echogenic bowel of fetus on ultrasound 09/06/2022 1:03 PM EDT [facility] Work Phone: CMV IgM Ab CMV IgM Ab Lab Routine Echogenic bowel of fetus on ultrasound 09/06/2022 1:03 PM EDT [facility] Creatinine [Mass/vol ume] in Serum or Plasma [facility] Erythrocyte mean cor puscular volume determination [facility] Glucose [Mass/volume ] in Serum or Plasma [facility] Hematocrit [Volume F raction] of Blood [facility] Hemoglobin [Mass/vol ume] in Blood [facility] Hepatitis B surface antigen measurement [facility] Hepatitis C antibody measurement [facility] HIV 1+2 Ab+HIV1 p24 Ag [Presence] in Serum or Plasma by Immunoassay [facility] Leukocytes [#/volume ] in Blood [facility] Mean corpuscular hem oglobin concentration determination [facility] Mean corpuscular hem oglobin determination [facility] Measurement of renal function [facility] Neutrophil count [facility] Neutrophil percent differential count [facility] Path report.final Dx Spec [facility] Patient Education After a Vagina l Incision Care After Vaginal Taking a Sitz Bath [facility] Work Phone: Patient referral [facility] Work Phone: Platelets [#/volume] in Blood [facility] Potassium measurement [facility] Red blood cell count [facility] Red cell distributio n width determination [facility] Rubella IgG measurement [facility] Serum chloride measurement [facility] Sodium measurement [facility] Total protein measurement [facility] Toxoplasma IgG & IgM (initial screening for neg IgM by another lab) [place] Toxoplasma IgG & IgM (initial screening for neg IgM by another lab) [place] [facility] Routine Echogenic bowel of fetus on ultrasound 09/06/2022 1:03 PM EDT [facility] Treponema sp Ab [Pre sence] in Serum [facility] Urea nitrogen [Mass/ volume] in Serum or Plasma [facility] US Pelvis [facility] US Pelvis transvaginal [facility] Payers Date Payer Category Payer Self-pay 2024 Private Health Insurance [id number] 2024 Unknown [id number] 2019 Unknown DARRYL ANDREWS BC BS PPO [id number] 2019-Present [address] [place] [address] [id number] 1990 Unknown [id number] 1990 Unknown [id number] 479 1990 Unknown [id number] 1990 Unknown [id number] 479 1990 Unknown [id number] 479 1990 Unknown [id number] 627 Unknown [id number] 462 Unknown [id number] 462 Unknown [id number] 462 Unknown [id number] 462 Unknown [id number] 462 Social History Date Type Detail Facility Start: 07-06-2022 End: 03-26-2023 Tobacco smoking status NHIS Unknown if ever smoked [facility] Start: 1990 Sex Assigned At Female [facility] Start: 1990 Sex Assigned At Not on file [facility] Gender identity Not on file [facility] Start: 11-17-2024 Tobacco smoking status Never s moked tobacco (finding) [facility] [place] Sexual Orientation Destini Mercado [facility] Sex Female (finding) [facility] Start: 03-26-2023 Tobacco smoking stat us NHIS Ex-smoker (finding) [facility] Goals Date Patient Goal Desired Activity /State Clinical Notes 07-06-2022 to 01-28-2025 Note Date & Type Note Facility 01-28-2025 Radiology Diagnostic study note [facility] Imaging Services [address] [place] [address] Pelvic w/ Transvaginal MR#: [id number] Acct: [id number] Name: MANPREET TANG Rep #: [id number] : 1990 F 34 From: Trace Cerna MD PCP: FREDDIE Duron Status: RE G CLI Study:Pelvic w/ Transvaginal Date of Exam: 01/26/25 Exam# [id number] Ordering Dr: Crystal Langley PROCEDURE: PELVIC W/ [...] No other abnormality is seen. Reading Location: [place] [address] CC: FREDDIE Langley; FREDDIE Anderson ~ Family And Marriage Counsellor: Signed [facility] 01-21-2025 Evaluation note Diagnosis Onset Date Resolution Infertility counseling acute Se ptember 2024 2:20pm [facility] Work Phone: 1(750) 567-243807-14-2025 Evaluation + Plan note Diagnostic Tests Pending * Testosterone Level Total 11/17/24 * Follicle Stimulating Hormone Level 11/17/24 * Estrogens Fractionated, S 11/17/24 * Luteinizing Hormone 11/17/24 * Progesterone Level 11/17/24 [facility] Consultation has been requested by Dr. 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 Please refer to the ultrasound report for full details. Genetic Counseling Summary I discussed with the couple the following issues: 1. We talked about a negative FOB result is not a 100% test, and given ethnicity of FOB (Causasian/Syrian) we talked about the 97% accuracy of testing for CF, we talked through the possibility of also of false positive testing for carrier screening on the screening as well 2. We talked about the concerns for echogenic bowel and today's ultrasound with resolution 3. See genetics notes about her carrier status and symptoms associated with Type 5 and also fypfluv-uuiayis-bsqoox dysplasia Follow Up She expressed understanding of the above information. Continued serial growth every 4 weeks Continued pelvic rest until the placenta migrates Follow up TV for placental migration Questions answered The total patient time of the visit was 30 minutes, of which greater than 50% of the time was spent counseling and coordinating care. Janeth Burch [facility]03-02-2023 NotePap Smear Specimen AdequacyMarch 2022 5:31pmComment.Satisfactory for evaluation. No endocervical component is identified.[facility] INTERFACED A#[id number] Health SystemComment on above:Satisfactory for evaluation. No endocervical component is identified.Evaluation note* Diagnosis Onset Date Resolution Status Family history of gene mutation acute acute Supervision of normal first [facility] Work Phone: Evaluation note* Diagnosis Echogenic bowel of fetus on ultrasound [facility] Diagnosis Onset Date Resolution Status Family [...] status during acute Supervision of normal first [facility] Work Phone: Evaluation note* Diagnosis Onset Date [...] during acute Supervision of normal first acute [facility] Work Phone: Evaluation note* Diagnosis Onset [...] during acute Supervision of normal first acute [facility] Work Phone: Evaluation note* Diagnosis Onset [...] thout hemorrhage, third trimester resolved Polyhydramnios resolved [facility] Work Phone: Evaluation note* Diagnosis Onset [...] following vaginal delivery acute Routine Follow-Up noneactive [facility] Work Phone: Evaluation noteNo assessment information available [facility] Work Phone: Hospital course Narrative No data available for this [facility] Hospital Discharge instructions No data available for this [facility] Progress note No data available for this [facility] Reason for referral (narrative)No reason for referral [facility] Work Phone: Summary Purpose Family History No [...] No February 10 3 8:37am Power of Delinquent Notice Machine Operator No February 10 023 8:37am Chief Complaint [...] section and content) DATE CREATED AUTHOR 07/15/2019 [facility] DATE CREATED AUTHOR AUTHOR'S ORGANIZ ATION 11/10/2022 [facility] DATE CREATED AUTHOR AUTHOR'S ORGANIZ ATION 11/21/2024 [facility] DATE CREATED AUTHOR AUTHOR'S ORGANIZ ATION 02/18/2025 [facility] Care Teams (unrecognized sec tion and content) [...] DO Attending Provider, Refe rring Provider Active Radiology Transporter Relationship Specialty Start Date End Date No Primary [place], [place] [address] PCP - General Pediatrics 08/08/22 Team Status: Inactive Member Role Status Dates No Primary Care Physician Primary Care Provider, Refer ring Provider Active Ashlee Saul MEAT INSPECTOR, MEAT INSPECTOR-C Attending Provider Active Team Status: Inactive Member [...] Provider, Refer ring Provider Active Kaye Gan MEAT INSPECTOR, MEAT INSPECTOR-C Attending Provider Active Team Status: Inactive Member [...] Member Role/Relationship Status Dates Maryellen Anderson NP, MEAT INSPECTOR-C Primary care physician Acti ve Team Status: [...] Member Role/Relationship Status Dates Maryellen Anderson NP, MEAT INSPECTOR-C Primary care physician Acti ve Start: January 26, 2025 FREDDIE Moser Attending physician Active Start: January 26, 2025 FREDDIE Moser Referring Provider Active Start: January 26, 2025 Team Status: Active Member Role/Relationship Status Dates Maryellen Anderson NP, MEAT INSPECTOR-C Primary care physician Acti ve Start: February [...] Preferences -CB/BF classes: discussed labor support person: Nubai intervention preferences: nonepain management options preferred: epidural [...] BE BASED ON THE PRIMARY CLINICAL RECORDS. [email or web address] [facility]. provides no warranty or guarantee of the accuracy or completeness of information in this document.
[2025-02-22 07:07] LABS: PROGESTERONE 14.7 ng/mL (.)
== END | disposition home or self-care (01) ==
PROVIDERS: Nurse Practitioner Family; PCP Registered Nurse; Visit Provider Obstetrics & Gynecology
DX: Z31.69 Encounter for other general counseling and advice on procreation (principal)
CPT/HCPCS: 36415; 84144

== ENCOUNTER → 2025-04-01 | Outpatient (CLI) | payer BC, SELFPAY | END | disposition home or self-care (01) | LOC: LAB 10:59 | PROVIDERS: PCP Registered Nurse; Referring Provider Student in an Organized Health Care Education/Training Program; Visit Provider Student in an Organized Health Care Education/Training Program | DX: O02.1 Missed abortion (principal) | CPT/HCPCS: 36415; 84702 ==

== ENCOUNTER 2025-04-07 07:51 | Day surgery (SDC) | payer BC, SELFPAY ==
[2025-04-07] VITALS (9 sets, daily range): BP systolic 99–112; BP diastolic 57–76; PULSE 71–100; RESP 16; TEMP 36.1–36.9; O2SAT 99–100; BMI 25.0
--- OUTSIDE RECORDS SUMMARY | 2025-04-07 07:56 | XMS RPT_ITS | CCD ---
Author Organization [facility] Care Team Providers Care Lead Shop Operator Name Role Phone Care Physician, No Primary Primary Care Provider Unavailable Care Physician, No Primary Referring Provider Un available Dr. Flower Hatch Attending Provider [phone] No puppy walker, Md Primary Care Provider Hortensia vailable FLOWER [...] [phone] BRANDON Laird Attending Provider 1 Care Physician, No Primary Primary Care Provider Unavailable Care Physician, No Primary Referring Provider Un available Dr. Flower Hatch Attending Provider [phone] BRANDON Velasquez Attending Provider [phone] Care Physician, No Primary Primary Care Provider Unavailable Care Physician, No Primary Referring Provider Un available Care Physician, No Primary Primary Care Provider Unavailable Care Physician, No Primary Referring Provider Un available Dr. Flower Hatch Attending Provider [phone] Dr. Cathie Farr Attending Provider [phone] Care Physician, No Primary Primary Care Provider Unavailable Care Physician, No Primary Referring Provider Un available BRANDON Velasquez Attending Provider [phone] Dr. Flower Hatch Attending Provider [phone] BRANDON Laird Attending Provider [phone] Dr. Cathie Farr Attending Provider [phone] BRANDON Velasquez Admit Provider BRANDON Velasquez Other Provider Malik BAR GAUGER AND LUBRICATOR TENDER, BAR GAUGER AND LUBRICATOR TENDER-C Kaye Attending Provider [phone] MONICA GOLF COURSE LABORER-PROCESS CONTROL BOARD OPERATOR, MARYELLEN Quiroz Primary Care Physi wayne MONICA GOLF COURSE LABORER-PROCESS CONTROL BOARD OPERATOR, MARYELLEN Quiroz Attending Un available MONICA FOREMAN-PROCESS CONTROL BOARD OPERATOR, MARYELLEN Quiroz Primary Care Un available Care Physician, No Primary Primary Care Physicia n Unavailable Care Physician, No Primary Referring Provider Un available Shivam BAR GAUGER AND LUBRICATOR TENDER-C, Crystal Attending Physician [phone] Shivam BAR GAUGER AND LUBRICATOR TENDER-C, Crystal Referring Provider [phone] Monica BAR GAUGER AND LUBRICATOR TENDER-C, Maryellen Primary Care Physician Crystal Langley Attending Unavailable Monica BAR GAUGER AND LUBRICATOR TENDER, Maryellen Primary Care Unavailabl e Care Physician, No Primary Referring Unava ilable Care Physician, No Primary Primary Care Unava ilable Care Physician, No Primary Referring Unava ilable Crystal Langley Attending Unavailable Crystal Langley Referring Unavailable Care Physician, No Primary Primary Care Unava ilable Crystal Langley Attending Unavailable Crystal Langley Referring Unavailable Monica BAR GAUGER AND LUBRICATOR TENDER, Maryellen Primary Care UnavailCrystal Stallworth Attending Unavailable Monica BAR GAUGER AND LUBRICATOR TENDER, Maryellen Primary Care UnavailCrystal Stallworth Attending Unavailable Crystal Langley Referring Unavailable Flower Hatch Attending Unavaildianne Anderson BAR GAUGER AND LUBRICATOR TENDER, Maryellen Primary Care Unavailabl e Medications Current Medications Medication Drug Class(es) Dates Sig (Normalized) Sig (Original) levothyroxine sodium 0.025 mg oral tablet (4 sources) l-Thyroxine Start: 01-21-2025 take 1 tablet by mouth once daily Rsvuabdr-Gpm-Jy-Fa (2 sources) Start: 02-10-2023 take 1 tablet by mouth once Ouwrlbkk-Afg-Zc-Fa Active TABLET PO February 09, 2023 11:00pm [...] 26, 2023 1:00am January 21, 2025 2:26pm Kkzfvmty-Kjq-Ys-Fa 1 mg tablet (4 sources) Start: 02-10-2023 End: 01-21-2025 take 1 tablet by mouth once Mnyviyci-Rbu-Rj-Fa 1 mg tablet Discontinued {tbl} PO February [...] treat in labor Contraceptive and procreative management (9 sources) Infertility study done; Translations: [Encounter for [...] 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 car rier screen ordered. pt states [...] ultrasound scan 11-16-2022 Episodic Comment on above: [facility] recommends growt hs q 4 weeks Spondylosis; [...] Test Name Value Interpretation Reference Range Facility PROGESTERONE 4317on 02-23-20 PROGESTERONE 14.7 ng/mL Normal . [facility] Comment on above: Order Comment: N day 21 lab Result Comment: Foll icular phase 0.1 - 0.9 Luteal phase 1.8 - 23.9 Ovulation phase 0.1 - 12.0 First trimester 11.0 - 44.3 Second trimester 25.4 - 83.3 Third trimester 58.7 - 214.0 Postmenopausal 0.0 - 0.1 Performed at: - [facility] [id number] Bi Data Architect: Abel Tran PhD, Phone: [phone] Performed By: #### L 956.8554 #### [facility] Laboratory [facility] [place], [address] Pelvic w/ Transvaginalon Pelvic w/ Transvaginal [facility] [address] [place] [address] Pelvic w/ Transvaginal MR#: [id number] Acct: [id number] Name: MANPREET TANG Rep #: [id number] : 1990 F 34 From: Gregg mims MD PCP: FREDDIE Duron Status: REG CLI Study: Pelvic w/ Transvaginal Date of Exam: 01/26/25 Exam# [id number] Ordering Dr: Crystal Langley PROCEDURE: PELVIC W/ [...] No other abnormality is seen. Reading Location: [facility] CC: FREDDIE Langley; FREDDIE Anderson Welder Fabricator: Signed Normal [facility] PROGESTERONE 4317on 01-24-20 25 PROGESTERONE 13.9 ng/mL Normal . [facility] Comment on above: Order Comment: N day 21 Result Comment: Foll icular phase 0.1 - 0.9 Luteal phase 1.8 - 23.9 Ovulation phase 0.1 - 12.0 First trimester 11.0 - 44.3 Second trimester 25.4 - 83.3 Third trimester 58.7 - 214.0 Postmenopausal 0.0 - 0.1 Performed at: [facility] [id number] Bi Data Architect: Abel Tran PhD, Phone: [phone] Performed By: #### L 501.2520, L506.0400, L500.4050, L801.2600, L100.0100 #### [facility] [address] [place], [address] Absolute lymphocyte countOrd ered By: Crystal Langley on 01-21-2025 Lymphocytes Auto (Unsp spec) [#/Vol] 2.49 10*3/uL 0.83-4.51 [facility] Absolute neutrophil countOrd ered By: Crystal Langley on 01-21-2025 Neutrophils (Bld) [#/Vol] 5.8 10*3/uL 2.0-7.7 [facility] Anion gap in Serum or Plasma Ordered By: Crystal Langley on 01-21-2025 Anion gap [Moles/Vol] 13 mmol/L 5-15 [facility] Automated lymphocyte count a s percentage of total leukocytesOrdered By: Crystal Langley on 01-21-2025 Lymphocytes/100 WBC Auto (Unsp spec) 25.6 % - [facility] BUN/creatinine ratioOrdered By: Crystal Langley on 01-21-2025 Urea nitrogen/Creatinine [Mass ratio] 14.6 mg/mg 10-20 [facility] Basophil percentageOrdered B y: Crystal Langley on 01-21-2025 Basophils/100 WBC (Bld) 0.8 % 0-[address] [facility] Bilirubin, totalOrdered By: Crystal Langley on 01-21-2025 Bilirubin [Mass/Vol] 0.27 mg/dL 0.00-1.30 [facility] CBC W/Diff, Automatedon 01-05 Absolute Lymph 2.49 X10 3/uL Normal 0.83-4.51 [facility] Comment on above: Performed By: #### L 501.9520, L506.0400, L500.4050, L801.2600, L100.0100 #### [facility] [address] [place], [address] Absolute Neut 5.8 X10 3/uL Normal 2.0-7.7 [facility] Comment on above: Performed By: #### L 501.9520, L506.0400, L500.4050, L801.2600, L100.0100 #### [facility] [address] [place], [address] Basophils/100 WBC (Bld) 0.8 % Normal 0-[address] [facility] Comment on above: Performed By: #### L 501.9520, L506.0400, L500.4050, L801.2600, L100.0100 #### [facility] [address] [place], [address] Eosinophils/100 WBC (Bld) 3.6 % Normal 0-5 [facility] Comment on above: Performed By: #### L 501.9520, L506.0400, L500.4050, L801.2600, L100.0100 #### [facility] [address] [place], [address] Erythrocyte distribution width (RBC) [Ratio] 12.4 % Normal 11.6-14.6 [facility] Comment on above: Performed By: #### L 501.9520, L506.0400, L500.4050, L801.2600, L100.0100 #### [facility] [address] [place], [address] Hematocrit (Bld) [Volume fraction] 40.1 % Normal 37-47 [facility] Comment on above: Performed By: #### L 501.9520, L506.0400, L500.4050, L801.2600, L100.0100 #### [facility] [address] [place], [address] Hemoglobin (Bld) [Mass/Vol] 13.3 g/dL Normal 12.0-15.0 [facility] Comment on above: Performed By: #### L 501.9520, L506.0400, L500.4050, L801.2600, L100.0100 #### [facility] [address] [place], [address] IG% 0.200 Normal 0.0-0.9 [facility] Comment on above: Result Comment: IG% - Immature Granulocytes (promyelocytes, myelocytes and metamyelocytes) > 1% indicates that a LEFT SHIFT is Present. Performed By: #### L 501.9520, L506.0400, L500.4050, L801.2600, L100.0100 #### [facility] [address] [place], [address] Lymphocytes/100 WBC (Bld) 25.6 % Normal 19-41 [facility] Comment on above: Performed By: #### L 501.9520, L506.0400, L500.4050, L801.2600, L100.0100 #### [facility] [address] [place], [address] MCH (RBC) [Entitic mass] 30.6 pg Normal 27.0-32.0 [facility] Comment on above: Performed By: #### L 501.9520, L506.0400, L500.4050, L801.2600, L100.0100 #### [facility] [address] [place], [address] MCHC (RBC) [Mass/Vol] 33.2 g/dL Normal 32-36 [facility] Comment on above: Performed By: #### L 501.9520, L506.0400, L500.4050, L801.2600, L100.0100 #### [facility] [address] [place], [address] MCV (RBC) [Entitic vol] 92.2 fL Normal 81-99 [facility] Comment on above: Performed By: #### L 501.9520, L506.0400, L500.4050, L801.2600, L100.0100 #### [facility] [address] [place], [address] Monocytes/100 WBC (Bld) 9.9 % Normal 0-10 [facility] Comment on above: Performed By: #### L 501.9520, L506.0400, L500.4050, L801.2600, L100.0100 #### [facility] [address] [place], [address] Neutrophils/100 WBC (Bld) 59.9 % Normal 47-70 [facility] Comment on above: Performed By: #### L 501.9520, L506.0400, L500.4050, L801.2600, L100.0100 #### [facility] [address] [place], [address] Nucleated RBC (Bld) [#/Vol] 0 10*3/uL Normal 0-5 [facility] Comment on above: Performed By: #### L 501.9520, L506.0400, L500.4050, L801.2600, L100.0100 #### [facility] [address] [place], [address] Platelet mean volume (Bld) [Entitic vol] 9.4 fL Normal 6.2-12.0 [facility] Comment on above: Performed By: #### L 501.9520, L506.0400, L500.4050, L801.2600, L100.0100 #### [facility] [address] [place], [address] Platelets (Bld) [#/Vol] 401 10*3/uL Normal 150-450 [facility] Comment on above: Performed By: #### L 501.9520, L506.0400, L500.4050, L801.2600, L100.0100 #### [facility] [address] [place], [address] RBC (Bld) [#/Vol] 4.35 10*6/uL Normal 4.2-5.4 [facility] Comment on above: Performed By: #### L 501.9520, L506.0400, L500.4050, L801.2600, L100.0100 #### [facility] [address] [place], [address] RDW SD 42.1 fl Normal 35.1-43.9 [facility] Comment on above: Performed By: #### L 501.9520, L506.0400, L500.4050, L801.2600, L100.0100 #### [facility] [address] [place], [address] WBC (Bld) [#/Vol] 9.7 10*3/uL Normal 4.4-11.0 [facility] Comment on above: Performed By: #### L 501.9520, L506.0400, L500.4050, L801.2600, L100.0100 #### [facility] [address] [place], [address] Carbon dioxide, total [Moles /volume] in Central venous bloodOrdered By: Crystal Langley on 01-21-2025 CO2 [Moles/Vol] 22.8 mmol/L 21.0-32.0 [facility] Chloride assayOrdered By: Hilda romina Shivam on 01-21-2025 Chloride [Moles/Vol] 101 mmol/L 98-108 [facility] Comprehensive Metabolic Prof ilon 01-21-2025 Albumin [Mass/Vol] 4.9 g/dL Normal 3.5-5.0 [facility] Comment on above: Order Comment: day 2 1 Performed By: #### L 501.9520, L506.0400, L500.4050, L801.2600, L100.0100 #### [facility] [address] [place], [address] Albumin/Globulin [Mass ratio] 1.6 {ratio} Normal 0.9-2.4 [facility] Comment on above: Order Comment: day 2 1 Performed By: #### L 501.9520, L506.0400, L500.4050, L801.2600, L100.0100 #### [facility] [address] [place], [address] ALK PHOS 63 U/L Normal 35-104 [facility] Comment on above: Order Comment: day 2 1 Performed By: #### L 501.9520, L506.0400, L500.4050, L801.2600, L100.0100 #### [facility] [address] [place], [address] ALT [Catalytic activity/Vol] 13 U/L Normal <=34 [facility] Comment on above: Order Comment: day 2 1 Performed By: #### L 501.9520, L506.0400, L500.4050, L801.2600, L100.0100 #### [facility] [address] [place], [address] AST [Catalytic activity/Vol] 20 U/L Normal <=31 [facility] Comment on above: Order Comment: day 2 1 Performed By: #### L 501.9520, L506.0400, L500.4050, L801.2600, L100.0100 #### [facility] [address] [place], [address] Bilirubin [Mass/Vol] 0.27 mg/dL Normal 0.00-1.30 [facility] Comment on above: Order Comment: day 2 1 Performed By: #### L 501.9520, L506.0400, L500.4050, L801.2600, L100.0100 #### [facility] [address] [place], [address] BUN/CRE 14.6 RATIO Normal 10-20 [facility] Comment on above: Order Comment: day 2 1 Performed By: #### L 501.9520, L506.0400, L500.4050, L801.2600, L100.0100 #### [facility] [address] [place], [address] Calcium [Mass/Vol] 9.5 mg/dL Normal 7.6-11.0 [facility] Comment on above: Order Comment: day 2 1 Performed By: #### L 501.9520, L506.0400, L500.4050, L801.2600, L100.0100 #### [facility] [address] [place], [address] Chloride [Moles/Vol] 101 mmol/L Normal 98-108 [facility] Comment on above: Order Comment: day 2 1 Performed By: #### L 501.9520, L506.0400, L500.4050, L801.2600, L100.0100 #### [facility] [address] [place], [address] CO2 [Moles/Vol] 22.8 mmol/L Normal 21.0-32.0 [facility] Comment on above: Order Comment: day 2 1 Performed By: #### L 501.9520, L506.0400, L500.4050, L801.2600, L100.0100 #### [facility] [address] [place], [address] Creatinine [Mass/Vol] 0.96 mg/dL Normal 0.70-1.20 [facility] Comment on above: Order Comment: day 2 1 Performed By: #### L 501.9520, L506.0400, L500.4050, L801.2600, L100.0100 #### [facility] [address] [place], [address] GAP 13 Normal 5-15 [facility] Comment on above: Order Comment: day 2 1 Performed By: #### L 501.9520, L506.0400, L500.4050, L801.2600, L100.0100 #### [facility] [address] [place], [address] GFR/1.73 sq M.predicted among non-blacks MDRD (S/P/Bld) [Vol rate/Area] 80 mL/min/{1.73_m2} Normal >60 [facility] Comment on above: Order Comment: day 2 1 Result Comment: mL/m in/1.73m2 CKD-EPI Creatinine Equation (2020) Performed By: #### L 501.9520, L506.0400, L500.4050, L801.2600, L100.0100 #### [facility] [address] [place], [address] Globulin (S) [Mass/Vol] 3.1 g/dL Normal 2.2-4.2 [facility] Comment on above: Order Comment: day 2 1 Performed By: #### L 501.9520, L506.0400, L500.4050, L801.2600, L100.0100 #### [facility] [address] [place], [address] Glucose [Mass/Vol] 86 mg/dL Normal 70-99 [facility] Comment on above: Order Comment: day 2 1 Performed By: #### L 501.9520, L506.0400, L500.4050, L801.2600, L100.0100 #### [facility] [address] [place], [address] Potassium [Moles/Vol] 4.3 mmol/L Normal 3.3-5.1 [facility] Comment on above: Order Comment: day 2 1 Performed By: #### L 501.9520, L506.0400, L500.4050, L801.2600, L100.0100 #### [facility] [address] [place], [address] Sodium [Moles/Vol] 137 mmol/L Normal 133-145 [facility] Comment on above: Order Comment: day 2 1 Performed By: #### L 501.9520, L506.0400, L500.4050, L801.2600, L100.0100 #### [facility] [address] [place], [address] T PROT 8.0 g/dL Normal 5.9-8.4 [facility] Comment on above: Order Comment: day 2 1 Performed By: #### L 501.9520, L506.0400, L500.4050, L801.2600, L100.0100 #### [facility] [address] [place], [address] Urea nitrogen [Mass/Vol] 14 mg/dL Normal 4-19 [facility] Comment on above: Order Comment: day 2 1 Performed By: #### L 501.9520, L506.0400, L500.4050, L801.2600, L100.0100 #### [facility] [address] [place], [address] Eosinophil percentageOrdered By: Crystal Langley on 01-21-2025 Eosinophils/100 WBC (Bld) 3.6 % 0-5 [facility] Erythrocyte distribution wid th ratioOrdered By: Crystal Langley on 01-21-2025 Erythrocyte distribution width (RBC) [Ratio] 12.4 % 11.6-14.6 [facility] Erythrocyte distribution wid th standard deviationOrdered By: Crystal Langley on 01-21-2025 Erythrocyte distribution width (RBC) [Ratio] 42.1 fl 35.1-43.9 [facility] Glomerular filtration rate ( GFR) estimation/1.73 sq m using serum, plasma, or whole bOrdered By: Crystal Langley on 01-21-2025 GFR/1.73 sq M.predicted among non-blacks MDRD (S/P/Bld) [Vol rate/Area] 80 mL/min/{1.73_m2} >60 [facility] Comment on above: mL/min/1.73m2 CKD-EP I Creatinine Equation (2020) Hematocrit Auto (Bld) [Volum e fraction]Ordered By: Crystal Langley on 01-21-2025 Hematocrit (Bld) [Volume fraction] 40.1 % 37-47 [facility] Hemoglobin measurementOrdere d By: Crystal Langley on 01-21-2025 Hemoglobin (Bld) [Mass/Vol] 13.3 g/dL 12.0-15.0 [facility] Immature granulocytes/100 WB C Auto (Bld)Ordered By: Crystal Langley on 01-21-2025 Immature granulocytes/100 WBC (Bld) 0.200 % 0.0-0.9 [facility] Comment on above: IG% - Immature Granu locytes (promyelocytes, myelocytes and metamyelocytes) > 1% indicates that a LEFT SHIFT is Present. Laboratory - Chemistry and C hemistry - challengeOrdered By: Crystal Langley on 01-21-2025 AST [Catalytic activity/Vol] 20 U/L <32 [facility] MCV (mean corpuscular volume ) determinationOrdered By: Crystal Langley on 01-21-2025 MCV (RBC) [Entitic vol] 92.2 fL 81-[address] [facility] Mean corpuscular hemoglobin (MCH) determinationOrdered By: Crystal Langley on 01-21-2025 MCH (RBC) [Entitic mass] 30.6 pg 27.0-32.0 [facility] Mean corpuscular hemoglobin concentration (MCHC) determinationOrdered By: Crystal Langley on 01-21-2025 MCHC (RBC) [Mass/Vol] 33.2 g/dL 32-36 [facility] Mean platelet volume determi nationOrdered By: Crystal Langley on 01-21-2025 Platelet mean volume (Bld) [Entitic vol] 9.4 fL 6.2-12.0 [facility] Monocyte percentageOrdered B y: Crystal Langley on 01-21-2025 Monocytes/100 WBC (Bld) 9.9 % 0-[address] [facility] Neutrophil percentageOrdered By: Crystal Langley on 01-21-2025 Neutrophils/100 WBC (Bld) 59.9 % 47-70 [facility] Nucleated red blood cell per centageOrdered By: Crystal Langley on 01-21-2025 Nucleated RBC/100 WBC (Bld) [Ratio] 0 % 0-5 [facility] Aircraft Painter Apprentice Office Visit Reporton 01-21-2025 Aircraft Painter Apprentice Office Visit Report [facility] [address], [address] [place] [address] OFFICE VISIT Date of Service: 01/21/25 MR#: [id number] Acct: [id number] Name: MANPREET TANG Rep #: [id number] : 1990 Provider: FREDDIE Hudson Age/Sex: 34/F Location: [facility] [place] Status: Signed Intake Vital Signs 03/28/23 10:06 01/21/25 14:26 01/21/25 14:29 Height 5 ft 2 in 5 ft 2 in 5 ft 2 in Weight: 136 lb 5 oz BMI 24.9 BP 146/83 H Intake Visit Reasons: DISCUSS FERTILITY Stiff Leg Operator Required: No Is patient in pain?: No [...] apartment current occupational status: employed current occupation: [employer] current occupational exposures/hazards: No pets and animals: [...] Date Name GA/Weeks Outcome Route Bth Weight Gen Labor Lgth Anesthesia Del Locatn Provider FOB 02/10/23 Arabella 39 live - full term Female [facility] Ana Velasquez Delivery Date: 02/10/23 Last [...] ordered. Mariza (more content not included)... Normal [facility] Platelet countOrdered By: Hilda Langley on 01-21-2025 Platelets (Bld) [#/Vol] 401 10*3/uL 150-450 [facility] Potassium measurement (mass/ volume)Ordered By: Crystal Lnagley on 01-21-2025 Potassium (Unsp spec) [Mass/Vol] 4.3 mmol/L 3.3-5.1 [facility] RBC Auto (Bld) [#/Vol]Ordere d By: Crystal Langley on 01-21-2025 RBC (Bld) [#/Vol] 4.35 10*6/uL 4.2-5.4 [facility] Serum creatinine measurement (mass/volume)Ordered By: Crystal Langley on 01-21-2025 Creatinine [Mass/Vol] 0.96 mg/dL 0.70-1.20 [facility] Serum globulin measurementOr dered By: Crystal Langley on 01-21-2025 Globulin (S) [Mass/Vol] 3.1 g/dL 2.2-4.[address] [facility] Serum glucose measurement (m ass/volume)Ordered By: Crystal Langley on 01-21-2025 Glucose [Mass/Vol] 86 mg/dL 70-99 [facility] Serum or plasma alanine floyd otransferase (ALT) measurementOrdered By: Crystal Langley on 01-21-2025 ALT [Catalytic activity/Vol] 13 U/L <35 [facility] Serum or plasma albumin corrine urement (mass/volume)Ordered By: Crystal Langley on 01-21-2025 Albumin [Mass/Vol] 4.9 g/dL 3.5-5.0 [facility] Serum or plasma albumin/glob ulin mass ratioOrdered By: Crystal Langley on 01-21-2025 Albumin/Globulin [Mass ratio] 1.6 {ratio} 0.9-2.4 [facility] Serum or plasma alkaline berto sphatase measurementOrdered By: Crystal Langley on 01-21-2025 ALP [Catalytic activity/Vol] 63 U/L 35-104 [facility] Serum or plasma calcium corrine urement (mass/volume)Ordered By: Crystal Langley on 01-21-2025 Calcium [Mass/Vol] 9.5 mg/dL 7.6-11.0 [facility] Serum or plasma urea nitroge n measurement (mass/volume)Ordered By: Crystal Langley on 01-21-2025 Urea nitrogen [Mass/Vol] 14 mg/dL 4-19 [facility] Sodium levelOrdered By: Danuta Langley on 01-21-2025 Sodium [Moles/Vol] 137 mmol/L 133-145 [facility] T4 Free Directon 01-21-2025 T4 FREE DIRECT 1.10 ng/dL Normal 0.76-1.46 [facility] Comment on above: Order Comment: N Performed By: #### L 501.8023, L506.0400, L500.4050, L801.2600, L100.0100 #### [facility] [address] [place], [place], [id number] T4 freeOrdered By: Crystal Steve angela on 01-21-2025 Free T4 [Mass/Vol] 1.10 ng/dL 0.76-1.46 [facility] TSH DL <= 0.005 mIU/L QnOrde red By: Crystal Genegustavo on 01-21-2025 TSH Qn 0.716 uIU/mL 0.300-4.200 [facility] Thyroid Stim Hormone (TSH)on 01-21-2025 TSH 0.716 uIU/mL Normal 0.300-4.200 [facility] Comment on above: Performed By: #### L 501.9520, L506.0400, L500.4050, L801.2600, L100.0100 #### [facility] [address] [place], [place], [id number] Total proteinOrdered By: Earl Langley on 01-21-2025 Protein [Mass/Vol] 8.0 g/dL 5.9-8.4 [facility] White blood cell (WBC) count Ordered By: Crystal Genegustavo on 01-21-2025 WBC (Bld) [#/Vol] 9.7 10*3/uL 4.4-11.0 [facility] ESTGENon 11-20-2024 Estradiol 32.9 pg/mL Normal [facility] Comment on above: Result Comment: Adul t Female Range Follicular phase 12.5 - 166.0 Ovulation phase 85.8 - 498.0 Luteal phase 43.8 - 211.0 Postmenopausal <6.0 - 54.7 1st trimester 215.0 - >4300.0 Nina ECLIA methodology Performed At: [facility] [id number] Augusto Stephens MD Ph:[phone] Performed At: [facility] [id number] Marc Roman PhD Ph:[phone] Performed By: #### P SAMY, FSH, TESTO, LH #### [place] [address] #### [id number], ANEU, TSH, FT4, CMP, ADIFF, GFR, CBC #### [address] [address] Estrone 29 pg/mL Normal 27-231 [facility] Comment on above: Result Comment: Rang e Adult (Premenopausal) 27 - 231 Menstrual Cycle (1-10 days) 19 - 149 Menstrual Cycle (11-20 days) 32 - 176 Menstrual Cycle (21-30 days) 37 - 200 Performed By: #### P SAMY, FSH, TESTO, LH #### [place] [address] #### [id number], ANEU, TSH, FT4, CMP, ADIFF, GFR, CBC #### [address] [address] FSHon 11-18-2024 FSH 8.5 mIU/mL Normal [facility] Comment on above: Result Comment: Adul t Female FSH Reference Ranges (03/30/99): Follicular phase 2.5 - 10.2 mIU/mL Midcycle phase 3.4 - 33.4 mIU/mL Luteal phase 1.5 - 9.1 mIU/mL Post menopausal 23.0 -116.3 mIU/mL Adult Male: 1.4 - 18.1 mIU/mL Performed By: #### P SAMY, FSH, TESTO, LH #### [place] [address] #### [id number], ANEU, TSH, FT4, CMP, ADIFF, GFR, CBC #### [address] [address] LHon 11-18-2024 LH 5.4 mIU/mL Normal [facility] Comment on above: Result Comment: No te - New Reference Range in effect 19Adult Female LH Reference Ranges: Follicular phase 1.9 - 12.5 mIU/mL Midcycle phase 8.7 - 76.3 mIU/mL Luteal phase 0.5 - 16.9 mIU/mL Post menopausal 5.0 - 55.2 mIU/mL Performed By: #### P SAMY, FSH, TESTO, LH #### [place] [address] #### [id number], ANEU, TSH, FT4, CMP, ADIFF, GFR, CBC #### [address] [address] PROGon 11-18-2024 Progesterone Level 0.2 ng/mL Normal [facility] Comment on above: Result Comment: Adul t Female Progesterone Reference Ranges: Follicular phase <0.21 - 1.40 ng/mL Luteal phase 3.34 - 25.56 ng/mL Mid-Luteal phase 4.44 - 28.03 ng/mL Postmenopausal <0.21 - 0.73 ng/ml Female: First trimester 11.22 - 90.00 ng/ml Second trimester 25.55 - 89.40 ng/ml Third trimester 48.40 - 422.50 ng/ml Performed By: #### P SAMY, FSH, TESTO, LH #### [place] [address] #### [id number], ANEU, TSH, FT4, CMP, ADIFF, GFR, CBC #### [place] [id number] TESTOon 11-18-2024 Testosterone Lvl 14.82 ng/dL Normal [facility] Comment on above: Result Comment: Norm al Reference Ranges for Females: Female Premenopause Age 21-60 9.01-47.94 ng/dL Female Postmenopause Age 45-89 <7.00-45.62 ng/dL Performed By: #### P SAMY, FSH, TESTO, LH #### [place] [address] #### [id number], ANEU, TSH, FT4, CMP, ADIFF, GFR, CBC #### [address] [address] .Auto Diffon 11-17-2024 Basophil, Absolute 0.1 10 3/mcL Normal 0.0-0.3 [facility] Comment on above: Performed By: #### P SAMY, FSH, TESTO, LH #### [place] [address] #### [id number], ANEU, TSH, FT4, CMP, ADIFF, GFR, CBC #### [address] [address] Basophils/100 WBC (Bld) 0.8 % Normal 0.0-2.5 [facility] Comment on above: Performed By: #### P SAMY, FSH, TESTO, LH #### [place] [address] #### [id number], ANEU, TSH, FT4, CMP, ADIFF, GFR, CBC #### [address] [address] Eosinophil, Absolute 0.2 10 3/mcL Normal 0.0-0.7 [facility] Comment on above: Performed By: #### P SAMY, FSH, TESTO, LH #### [place] [address] #### [id number], ANEU, TSH, FT4, CMP, ADIFF, GFR, CBC #### [address] [address] Eosinophils/100 WBC (Bld) 3.7 % Normal 0.0-6.0 [facility] Comment on above: Performed By: #### P SAMY, FSH, TESTO, LH #### [place] [address] #### [id number], ANEU, TSH, FT4, CMP, ADIFF, GFR, CBC #### [address] [address] Lymphocyte, Absolute 2.0 10 3/mcL Normal 0.9-4.3 [facility] Comment on above: Performed By: #### P SAMY, FSH, TESTO, LH #### [place] [address] #### [id number], ANEU, TSH, FT4, CMP, ADIFF, GFR, CBC #### [address] [address] Lymphocytes/100 WBC (Bld) 30.5 % Normal 20.0-40.0 [facility] Comment on above: Performed By: #### P SAMY, FSH, TESTO, LH #### [place] [address] #### [id number], ANEU, TSH, FT4, CMP, ADIFF, GFR, CBC #### [address] [address] Monocyte, Absolute 0.6 10 3/mcL Normal 0.1-1.4 [facility] Comment on above: Performed By: #### P SAMY, FSH, TESTO, LH #### [place] [address] #### [id number], ANEU, TSH, FT4, CMP, ADIFF, GFR, CBC #### [address] [address] Monocytes/100 WBC (Bld) 8.5 % Normal 2.0-13.0 [facility] Comment on above: Performed By: #### P SAMY, FSH, TESTO, LH #### [place] [address] #### [id number], ANEU, TSH, FT4, CMP, ADIFF, GFR, CBC #### [address] [address] Neutrophils/100 WBC (Bld) 56.5 % Normal 50.0-75.0 [facility] Comment on above: Performed By: #### P SAMY, FSH, TESTO, LH #### [place] [address] #### [id number], ANEU, TSH, FT4, CMP, ADIFF, GFR, CBC #### [address] [address] .GFRon 11-17-2024 Estimated Glomerular Filtration Rate 105 ml/min/1.73sqm Normal [facility] Comment on above: Result Comment: Stages of [...] #### P SAMY, FSH, TESTO, LH #### [place] [address] #### [id number], ANEU, TSH, FT4, CMP, ADIFF, GFR, CBC #### [address] [address] .NEUABSon 11-17-2024 Neutrophil, Absolute 3.7 10 3/mcL Normal 2.3-8.1 [facility] Comment on above: Performed By: #### P SAMY, FSH, TESTO, #### [place] [address] #### [id number], ANEU, TSH, FT4, CMP, ADIFF, GFR, CBC #### [address] [address] CBCon 11-17-2024 Erythrocyte distribution width (RBC) [Ratio] 13.5 % Normal 11.5-15.5 [facility] Comment on above: Performed By: #### P SAMY, FSH, TESTO, #### [place] [address] #### [id number], ANEU, TSH, FT4, CMP, ADIFF, GFR, CBC #### [address] [address] Hematocrit (Bld) [Volume fraction] 38.0 % Normal 34.0-46.0 [facility] Comment on above: Performed By: #### P SAMY, FSH, TESTO, LH #### [place] [address] #### [id number], ANEU, TSH, FT4, CMP, ADIFF, GFR, CBC #### [address] [address] Hgb 13.0 G/dL Normal 12.0-16.0 [facility] Comment on above: Performed By: #### P SAMY, FSH, TESTO, LH #### [place] [address] #### [id number], ANEU, TSH, FT4, CMP, ADIFF, GFR, CBC #### [address] [address] MCH (RBC) [Entitic mass] 30.9 pg Normal 27.0-33.0 [facility] Comment on above: Performed By: #### P SAMY, FSH, TESTO, LH #### [place] [address] #### [id number], ANEU, TSH, FT4, CMP, ADIFF, GFR, CBC #### [address] [address] MCHC 34.1 G/dL Normal 32.0-36.0 [facility] Comment on above: Performed By: #### P SAMY, FSH, TESTO, LH #### [place] [address] #### [id number], ANEU, TSH, FT4, CMP, ADIFF, GFR, CBC #### [address] [address] MCV (RBC) [Entitic vol] 90.6 fL Normal 80.0-99.0 [facility] Comment on above: Performed By: #### P SAMY, FSH, TESTO, LH #### [place] [address] #### [id number], ANEU, TSH, FT4, CMP, ADIFF, GFR, CBC #### [address] [address] Platelet 360 10 3/mcL Normal 150-450 [facility] Comment on above: Performed By: #### P SAMY, FSH, TESTO, LH #### [place] [address] #### [id number], ANEU, TSH, FT4, CMP, ADIFF, GFR, CBC #### [address] [address] Platelet mean volume (Bld) [Entitic vol] 7.3 fL Normal 6.6-10.5 [facility] Comment on above: Performed By: #### P SAMY, FSH, TESTO, LH #### [place] [address] #### [id number], ANEU, TSH, FT4, CMP, ADIFF, GFR, CBC #### [place] [address] RBC 4.20 10 6/mcL Normal 4.10-5.30 [facility] Comment on above: Performed By: #### P ASMY, FSH, TESTO, LH #### [place] [address] #### [id number], ANEU, TSH, FT4, CMP, ADIFF, GFR, CBC #### [place] [address] WBC 6.6 10 3/mcL Normal 4.5-10.8 [facility] Comment on above: Performed By: #### P SAMY, FSH, TESTO, LH #### [place] [address] #### [id number], ANEU, TSH, FT4, CMP, ADIFF, GFR, CBC #### [address] [address] CMPon 11-17-2024 Albumin Level 4.2 G/dL Normal 3.5-5.0 [facility] Comment on above: Performed By: #### P SAMY, FSH, TESTO, LH #### [place] [address] #### [id number], ANEU, TSH, FT4, CMP, ADIFF, GFR, CBC #### [place] [id number] Albumin/Globulin [Mass ratio] 1.2 {ratio} Normal 1.1-2.5 [facility] Comment on above: Performed By: #### P SAMY, FSH, TESTO, LH #### [place] [address] #### [id number], ANEU, TSH, FT4, CMP, ADIFF, GFR, CBC #### [address] [address] ALP [Catalytic activity/Vol] 55 U/L Normal 40-135 [facility] Comment on above: Performed By: #### P SAMY, FSH, TESTO, LH #### [place] [address] #### [id number], ANEU, TSH, FT4, CMP, ADIFF, GFR, CBC #### [place] [id number] ALT [Catalytic activity/Vol] 21 U/L Normal 14-59 [facility] Comment on above: Performed By: #### P SAMY, FSH, TESTO, LH #### [place] [address] #### [id number], ANEU, TSH, FT4, CMP, ADIFF, GFR, CBC #### [address] [address] AST [Catalytic activity/Vol] 11 U/L Normal 10-40 [facility] Comment on above: Performed By: #### P SAMY, FSH, TESTO, LH #### [place] [address] #### [id number], ANEU, TSH, FT4, CMP, ADIFF, GFR, CBC #### [place] [id number] Bili Total 0.3 mg/dL Normal 0.2-1.0 [facility] Comment on above: Result Comment: Use of this assay is not recommended for patients undergoing treatment with eltrombopag due to the potential for falsely elevated results. Performed By: #### P SAMY, FSH, TESTO, LH #### [place] [address] #### [id number], ANEU, TSH, FT4, CMP, ADIFF, GFR, CBC #### [address] [address] BUN/Creatinine Ratio 21 ratio Normal 7-27 [facility] Comment on above: Performed By: #### P SAMY, FSH, TESTO, LH #### [place] [address] #### [id number], ANEU, TSH, FT4, CMP, ADIFF, GFR, CBC #### [address] [address] Calcium [Mass/Vol] 9.2 mg/dL Normal 8.4-10.2 [facility] Comment on above: Performed By: #### P SAMY, FSH, TESTO, LH #### [place] [address] #### [id number], ANEU, TSH, FT4, CMP, ADIFF, GFR, CBC #### [address] [address] Chloride [Moles/Vol] 103 mmol/L Normal 98-107 [facility] Comment on above: Performed By: #### P SAMY, FSH, TESTO, LH #### [place] [address] #### [id number], ANEU, TSH, FT4, CMP, ADIFF, GFR, CBC #### [address] [address] CO2 [Moles/Vol] 28 mmol/L Normal 22-29 [facility] Comment on above: Performed By: #### P SAMY, FSH, TESTO, LH #### [place] [address] #### [id number], ANEU, TSH, FT4, CMP, ADIFF, GFR, CBC #### [address] [address] Creatinine [Mass/Vol] 0.76 mg/dL Normal 0.51-0.95 [facility] Comment on above: Performed By: #### P SAMY, FSH, TESTO, LH #### [place] [address] #### [id number], ANEU, TSH, FT4, CMP, ADIFF, GFR, CBC #### [address] [address] Electrolyte Balance 9.0 mEq/L Normal 4.0-15.0 [facility] Comment on above: Performed By: #### P SAMY, FSH, TESTO, LH #### [place] [address] #### [id number], ANEU, TSH, FT4, CMP, ADIFF, GFR, CBC #### [address] [address] Globulin 3.5 G/dL Normal 2.7-4.4 [facility] Comment on above: Performed By: #### P SAMY, FSH, TESTO, LH #### [place] [address] #### 637057, ANEU, TSH, FT4, CMP, ADIFF, GFR, CBC #### [address] [address] Glucose [Mass/Vol] 92 mg/dL Normal 70-105 [facility] Comment on above: Performed By: #### P SAMY, FSH, TESTO, LH #### [place] [address] #### [id number], ANEU, TSH, FT4, CMP, ADIFF, GFR, CBC #### [address] [address] Potassium [Moles/Vol] 3.8 mmol/L Normal 3.5-5.1 [facility] Comment on above: Performed By: #### P SAMY, FSH, TESTO, LH #### [place] [address] #### [id number], ANEU, TSH, FT4, CMP, ADIFF, GFR, CBC #### [address] [address] Sodium [Moles/Vol] 140 mmol/L Normal 136-145 [facility] Comment on above: Performed By: #### P SAMY, FSH, TESTO, LH #### [place] [address] #### [id number], ANEU, TSH, FT4, CMP, ADIFF, GFR, CBC #### [address] [address] Total Protein 7.7 G/dL Normal 6.4-8.2 [facility] Comment on above: Performed By: #### P SAMY, FSH, TESTO, LH #### [place] [address] #### [id number], ANEU, TSH, FT4, CMP, ADIFF, GFR, CBC #### [address] [address] Urea nitrogen [Mass/Vol] 16 mg/dL Normal 7-18 [facility] Comment on above: Performed By: #### P SAMY, FSH, TESTO, LH #### [place] [address] #### [id number], ANEU, TSH, FT4, CMP, ADIFF, GFR, CBC #### [address] [address] FT4on 11-17-2024 Free T4 [Mass/Vol] 0.67 ng/dL Low 0.76-1.46 [facility] Comment on above: Performed By: #### P SAMY, FSH, TESTO, LH #### [place] [address] #### [id number], ANEU, TSH, FT4, CMP, ADIFF, GFR, CBC #### [address] [address] LABORATORYOrdered By: SYSTEM SYSTEM on 11-17-2024 Albumin [...] 11-17-2024 TSH Qn 1.39 m[IU]/L Normal 0.36-3.74 [facility] Comment on above: Performed By: #### P SAMY, FSH, TESTO, LH #### [address] [address] #### [id number], ANEU, TSH, FT4, CMP, ADIFF, GFR, CBC #### [facility] [address] [place] [address] Absolute lymphocyte countOrd ered By: Tiffanie Velasquez on 03-26-2023 Lymphocytes Auto (Unsp spec) [#/Vol] 2.05 10*3/uL 0.83-4.51 [facility] Basophil percentageOrdered B y: Tiffanie Velasquez on 03-26-2023 Basophils/100 WBC (Bld) 0.8 % 0-[address] [facility] Eosinophils/100 WBC (Bld) 5.9 % 0-5 [facility] Neutrophils (Bld) [#/Vol] 3.3 10*3/uL 2.0-7.7 [facility] Neutrophils/100 WBC (Bld) 51.4 % 47-70 [facility] WBC (Bld) [#/Vol] 6.4 10*3/uL 4.4-11.0 [facility] Blood erythrocytes count (nu mber/volume)Ordered By: Tiffanie Velasquez on 03-26-2023 RBC (Bld) [#/Vol] 4.27 10*6/uL 4.2-5.4 [facility] Blood hemoglobin measurement (mass/volume)Ordered By: Tiffanie Velasquez on 03-26-2023 Hemoglobin (Bld) [Mass/Vol] 12.8 g/dL 12.0-15.0 [facility] Blood lymphocytes/100 leukoc ytesOrdered By: Tiffanie Velasquez on 03-26-2023 Lymphocytes/100 WBC (Bld) 32.1 % 19-41 [facility] Blood monocytes/100 leukocyt esOrdered By: Tiffanie Velasquez on 03-26-2023 Monocytes/100 WBC (Bld) 9.5 % 0-[address] [facility] Blood platelet mean volumeOr dered By: Tiffanie Velasquez on 03-26-2023 Platelet mean volume (Bld) [Entitic vol] 9.3 fL 6.2-12.0 [facility] Determination of erythrocyte mean corpuscular volume (MCV)Ordered By: Tiffanie Velasquez on 03-26-2023 MCV (RBC) [Entitic vol] 93.7 fL 81-[address] [facility] Hematocrit Auto (Bld) [Volum e fraction]Ordered By: Tiffanie Velasquez on 03-26-2023 Hematocrit (Bld) [Volume fraction] 40.0 % 37-47 [facility] Laboratory - Hematology and Cell countsOrdered By: Tiffanie Velasquez on 03-26-2023 Erythrocyte distribution width (RBC) [Entitic vol] 42.7 fL 35.1-43.9 [facility] Erythrocyte distribution width (RBC) [Ratio] 12.5 % 11.6-14.6 [facility] Immature granulocytes/100 WBC (Bld) 0.300 % 0.0-0.9 [facility] Comment on above: IG% - Immature Granu locytes (promyelocytes, myelocytes and metamyelocytes) > 1% indicates that a LEFT SHIFT is Present. MCH (RBC) [Entitic mass] 30.0 pg 27.0-32.0 [facility] Nucleated RBC/100 WBC (Bld) [Ratio] 0 % 0-5 [facility] MCHC Auto (RBC) [Mass/Vol]Or dered By: Tiffanie Velasquez on 03-26-2023 MCHC (RBC) [Mass/Vol] 32.0 g/dL 32-36 [facility] Platelets bldOrdered By: Sherron Velasquez on 03-26-2023 Platelets (Bld) [#/Vol] 333 10*3/uL 150-450 [facility] Basophil percentageOrdered B y: Tiffanie Velasquez on 02-11-2023 WBC (Bld) [#/Vol] 18.7 10*3/uL 4.4-11.0 [facility] Blood erythrocytes count (nu mber/volume)Ordered By: Tiffanie Velasquez on 02-11-2023 RBC (Bld) [#/Vol] 2.67 10*6/uL 4.2-5.4 [facility] Blood hemoglobin measurement (mass/volume)Ordered By: Tiffanie Velasquez on 02-11-2023 Hemoglobin (Bld) [Mass/Vol] 8.5 g/dL 12.0-15.0 [facility] Blood platelet mean volumeOr dered By: Tiffanie Velasquez on 02-11-2023 Platelet mean volume (Bld) [Entitic vol] 10.6 fL 6.2-12.0 [facility] Determination of erythrocyte mean corpuscular volume (MCV)Ordered By: Tiffanie Velasquez on 02-11-2023 MCV (RBC) [Entitic vol] 94.8 fL 81-[address] [facility] Hematocrit Auto (Bld) [Volum e fraction]Ordered By: Tiffanie Velasquez on 02-11-2023 Hematocrit (Bld) [Volume fraction] 25.3 % 37-47 [facility] Laboratory - Hematology and Cell countsOrdered By: Tiffanie Velasquez on 02-11-2023 Erythrocyte distribution width (RBC) [Entitic vol] 49.7 fL 35.1-43.9 [facility] Erythrocyte distribution width (RBC) [Ratio] 14.5 % 11.6-14.6 [facility] MCH (RBC) [Entitic mass] 31.8 pg 27.0-32.0 [facility] MCHC Auto (RBC) [Mass/Vol]Or dered By: Tiffanie Velasquez on 02-11-2023 MCHC (RBC) [Mass/Vol] 33.6 g/dL 32-36 [facility] Platelets bldOrdered By: Sherron Velasquez on 02-11-2023 Platelets (Bld) [#/Vol] 255 10*3/uL 150-450 [facility] Absolute lymphocyte countOrd ered By: Tiffanie Velasquez on 02-10-2023 Lymphocytes Auto (Unsp spec) [#/Vol] 1.63 10*3/uL 0.83-4.51 [facility] Basophil percentageOrdered B y: Tiffanie Velasquez on 02-10-2023 Basophils/100 WBC (Bld) 0.2 % 0-[address] [facility] Eosinophils/100 WBC (Bld) 0.2 % 0-5 [facility] Neutrophils (Bld) [#/Vol] 14.1 10*3/uL 2.0-7.7 [facility] Neutrophils/100 WBC (Bld) 82.6 % 47-70 [facility] Blood lymphocytes/100 leukoc ytesOrdered By: Tiffanie Velasquez on 02-10-2023 Lymphocytes/100 WBC (Bld) 9.5 % 19-41 [facility] Blood monocytes/100 leukocyt esOrdered By: Tiffanie Velasquez on 02-10-2023 Monocytes/100 WBC (Bld) 6.9 % 0-[address] [facility] Laboratory - Hematology and Cell countsOrdered By: Tiffanie Velasquez on 02-10-2023 Immature granulocytes/100 WBC (Bld) 0.600 % 0.0-0.9 [facility] Comment on above: IG% - Immature Granu locytes (promyelocytes, myelocytes and metamyelocytes) > 1% indicates that a LEFT SHIFT is Present. Nucleated RBC/100 WBC (Bld) [Ratio] 0 % 0-5 [facility] Serum Treponema species anti body detectionOrdered By: Tiffanie Velasquez on 02-10-2023 Treponema sp Ab Ql (S) Non-Reactive [facility] Laboratory - Chemistry and C hemistry - challengeon 02-07-2023 Glucose Ql (U) Negative [facility] Laboratory - Urinalysison Protein Ql (U) Negative [facility] Laboratory - Chemistry and C hemistry - challengeon 02-05-2023 Glucose Ql (U) Negative [facility] Laboratory - Urinalysison Protein Ql (U) Negative [facility] Laboratory - Chemistry and C hemistry - challengeon 01-31-2023 Glucose Ql (U) Negative [facility] Laboratory - Urinalysison Protein Ql (U) Negative [facility] Laboratory - Chemistry and C hemistry - challengeon 01-19-2023 Glucose Ql (U) Negative [facility] Laboratory - Urinalysison Protein Ql (U) Negative [facility] No Panel InformationOrdered By: Leigh Ann Laird on 01-12-2023 Group B Streptococcus Culture Streptococcus agalactiae (B) [facility] Group B Streptococcus Culture Streptococcus agalactiae (B) [facility] Laboratory - Chemistry and C hemistry - challengeon 12-29-2022 Glucose Ql (U) Negative [facility] Laboratory - Urinalysison Protein Ql (U) Negative [facility] Laboratory - Chemistry and C hemistry - challengeon 12-11-2022 Glucose Ql (U) Negative [facility] Laboratory - Urinalysison Protein Ql (U) Negative [facility] Laboratory - Chemistry and C hemistry - challengeon 11-27-2022 Glucose Ql (U) Negative [facility] Laboratory - Urinalysison Protein Ql (U) Negative [facility] Absolute lymphocyte countOrd ered By: Flower Llamas on 11-17-2022 Lymphocytes Auto (Unsp spec) [#/Vol] 2.12 10*3/uL 0.83-4.51 [facility] Basophil percentageOrdered B y: Flower Llamas on 11-17-2022 Basophils/100 WBC (Bld) 0.5 % 0-[address] [facility] Eosinophils/100 WBC (Bld) 2.2 % 0-5 [facility] Neutrophils (Bld) [#/Vol] 7.1 10*3/uL 2.0-7.7 [facility] Neutrophils/100 WBC (Bld) 67.9 % 47-70 [facility] WBC (Bld) [#/Vol] 10.4 10*3/uL 4.4-11.0 [facility] Blood erythrocytes count (nu mber/volume)Ordered By: Flower Llamas on 11-17-2022 RBC (Bld) [#/Vol] 3.65 10*6/uL 4.2-5.4 [facility] Blood hemoglobin measurement (mass/volume)Ordered By: Flower Llamas on 11-17-2022 Hemoglobin (Bld) [Mass/Vol] 11.8 g/dL 12.0-15.0 [facility] Blood lymphocytes/100 leukoc ytesOrdered By: Flower Llamas on 11-17-2022 Lymphocytes/100 WBC (Bld) 20.3 % 19-41 [facility] Blood monocytes/100 leukocyt esOrdered By: Flower Llamas on 11-17-2022 Monocytes/100 WBC (Bld) 8.4 % 0-[address] [facility] Blood platelet mean volumeOr dered By: Flower Llamas on 11-17-2022 Platelet mean volume (Bld) [Entitic vol] 9.4 fL 6.2-12.0 [facility] Determination of erythrocyte mean corpuscular volume (MCV)Ordered By: Flower Llamas on 11-17-2022 MCV (RBC) [Entitic vol] 95.9 fL 81-[address] [facility] Gestational diabetes screen 1-hour screen with 50g oral glucose loadOrdered By: Flower Llamas on 11-17-2022 Glucose 1 Hr post 50 g glucose PO [Mass/Vol] 120 mg/dL 70-140 [facility] HIV 1 and HIV-2 antibody ass ay with HIV-1 p24 antigen detectionOrdered By: Flower Llamas on 11-17-2022 HIV 1+2 Ab+HIV1 p24 Ag IA Ql Non-Reactive Nonreactive [facility] Hematocrit Auto (Bld) [Volum e fraction]Ordered By: Flower Llamas on 11-17-2022 Hematocrit (Bld) [Volume fraction] 35.0 % 37-47 [facility] Laboratory - Chemistry and C hemistry - challengeon 11-17-2022 Glucose Ql (U) Negative [facility] Laboratory - Hematology and Cell countsOrdered By: Flower Llamas on 11-17-2022 Erythrocyte distribution width (RBC) [Entitic vol] 41.7 fL 35.1-43.9 [facility] Erythrocyte distribution width (RBC) [Ratio] 12.0 % 11.6-14.6 [facility] Immature granulocytes/100 WBC (Bld) 0.700 % 0.0-0.9 [facility] Comment on above: IG% - Immature Granu locytes (promyelocytes, myelocytes and metamyelocytes) > 1% indicates that a LEFT SHIFT is Present. MCH (RBC) [Entitic mass] 32.3 pg 27.0-32.0 [facility] Nucleated RBC/100 WBC (Bld) [Ratio] 0 % 0-5 [facility] Laboratory - Urinalysison Protein Ql (U) Negative [facility] MCHC Auto (RBC) [Mass/Vol]Or dered By: Flower Llamas on 11-17-2022 MCHC (RBC) [Mass/Vol] 33.7 g/dL 32-36 [facility] Platelets bldOrdered By: Darcy Llamas on 11-17-2022 Platelets (Bld) [#/Vol] 319 10*3/uL 150-450 [facility] Serum Treponema species anti body detectionOrdered By: Flower Llamas on 11-17-2022 Treponema sp Ab Ql (S) Non-Reactive [facility] Laboratory - Chemistry and C hemistry - challengeon 10-27-2022 Glucose Ql (U) Negative [facility] Laboratory - Urinalysison Protein Ql (U) Negative [facility] Laboratory - Chemistry and C hemistry - challengeon 09-29-2022 Glucose Ql (U) Negative [facility] Laboratory - Urinalysison Protein Ql (U) Negative [facility] Toxoplasma IGG AND IGM (Pren atal Screen)on 09-15-2022 Toxoplasma IgG (Dye Test) <1:16 Normal <1:16 NEGATIVE [facility] Comment on above: Order Comment: Order a CMV Avidity test if IgM is positive. Release to patient->Automatic 99539&Blood Performed By: #### T SLPN #### [address] [address] Toxoplasma IgM LOLY 0.0 Normal [facility] Comment on above: Order Comment: Order a CMV Avidity test if IgM is positive. Release to patient->Automatic 45417&Blood Result Comment: 0.0-1.6 = Negative 1.7-1.9 = Equivocal >= 2.0 = Positive Testing Performed: [facility], [address] [id number] Performed By: #### T SLPN #### [address] [id number] CMV IgG Abon 09-09-2022 CMV IgG Ab Positive Abnormal Negative [facility] Comment on above: Order Comment: Order a CMV Avidity test if IgM is positive. Release to patient->Automatic 83302&Blood Result Comment: Test Performed by: [place] [address] Bi Data Architect: Gomez Canas M.D. Ph.D.; CLIA# [id number] Performed By: #### C MVIG #### [address] [address] CMV IgM Abon 09-09-2022 CMV IgM Ab Negative Normal Negative [facility] Comment on above: Order Comment: Order a CMV Avidity test if IgM is positive. Release to patient->Automatic 46595&Blood Result Comment: Test Performed by: [place] [address] Bi Data Architect: Gomez Canas M.D. Ph.D.; CLIA# [id number] Performed By: #### C MVIM #### [address] [id number] Progress Noteon 09-05-2022 Orthopedic Podiatrist Authentication Interface Message Text MFM ultrasound finding [...] follow up as well as follow up MF visit 4. I will send handout to her email today as well regarding echogenic bowel. Normal [facility] Laboratory - Chemistry and C hemistry - challengeon 04-24-2023 Glucose Ql (U) Negative [facility] Laboratory - Urinalysison Protein Ql (U) Negative [facility] Laboratory - Chemistry and C hemistry - challengeon 2022 Glucose Ql (U) Negative [facility] Laboratory - Urinalysison Protein Ql (U) Negative [facility] Absolute lymphocyte countOrd ered By: Dr. Llamas on 07-20-2022 Lymphocytes Auto (Unsp spec) [#/Vol] 2.80 10*3/uL 0.83-4.51 [facility] Basophil percentageOrdered B y: Dr. Llamas on 07-20-2022 Basophils/100 WBC (Bld) 0.5 % 0-[address] [facility] Eosinophils/100 WBC (Bld) 1.4 % 0-5 [facility] Neutrophils (Bld) [#/Vol] 6.4 10*3/uL 2.0-7.7 [facility] Neutrophils/100 WBC (Bld) 63.5 % 47-70 [facility] WBC (Bld) [#/Vol] 10.1 10*3/uL 4.4-11.0 [facility] Blood erythrocytes count (nu mber/volume)Ordered By: Dr. Llamas on 07-20-2022 RBC (Bld) [#/Vol] 4.13 10*6/uL 4.2-5.4 [facility] Blood hemoglobin measurement (mass/volume)Ordered By: Dr. Llamas on 07-20-2022 Hemoglobin (Bld) [Mass/Vol] 13.4 g/dL 12.0-15.0 [facility] Blood lymphocytes/100 leukoc ytesOrdered By: Dr. Llamas on 07-20-2022 Lymphocytes/100 WBC (Bld) 27.9 % 19-41 [facility] Blood monocytes/100 leukocyt esOrdered By: Dr. Llamas on 07-20-2022 Monocytes/100 WBC (Bld) 6.4 % 0-[address] [facility] Blood platelet mean volumeOr dered By: Dr. Llamas on 07-20-2022 Platelet mean volume (Bld) [Entitic vol] 9.5 fL 6.2-12.0 [facility] Determination of erythrocyte mean corpuscular volume (MCV)Ordered By: Dr. Llamas on 07-20-2022 MCV (RBC) [Entitic vol] 92.3 fL 81-99 [facility] HIV 1 and HIV-2 antibody ass ay with HIV-1 p24 antigen detectionOrdered By: Dr. Llamas on 07-20-2022 HIV 1+2 Ab+HIV1 p24 Ag IA Ql Non-Reactive Nonreactive [facility] Hematocrit Auto (Bld) [Volum e fraction]Ordered By: Dr. Llamas on 07-20-2022 Hematocrit (Bld) [Volume fraction] 38.1 % 37-47 [facility] Laboratory - Hematology and Cell countsOrdered By: Dr. Llamas on 07-20-2022 Erythrocyte distribution width (RBC) [Entitic vol] 41.1 fL 35.1-43.9 [facility] Erythrocyte distribution width (RBC) [Ratio] 11.9 % 11.6-14.6 [facility] Immature granulocytes/100 WBC (Bld) 0.300 % 0.0-0.9 [facility] Comment on above: IG% - Immature Granu locytes (promyelocytes, myelocytes and metamyelocytes) > 1% indicates that a LEFT SHIFT is Present. MCH (RBC) [Entitic mass] 32.4 pg 27.0-32.0 [facility] Nucleated RBC/100 WBC (Bld) [Ratio] 0 % 0-5 [facility] MCHC Auto (RBC) [Mass/Vol]Or dered By: Dr. Llamas on 07-20-2022 MCHC (RBC) [Mass/Vol] 35.2 g/dL 32-36 [facility] No Panel InformationOrdered By: Dr. Llamas on 07-20-2022 Miscellaneous Test Comment MAILED SPECIMEN [facility] Hepatitis B Surface Antigen Non-Reactive Nonreactive [facility] Hepatitis C Antibody Non-Reactive Nonreactive [facility] Comment on above: Non Reactive: < 0.8 Equivocal: >/= 0.8 to < 1.0 Reactive: >/= 1.0The CDC recommends that a reactive/equivocal HCV antibody result be followed up by the HCV Nucleic Acid Amplificationtest ([id number]) Rubella IgG Antibody Reactive Nonreactive [facility] Comment on above: Antibody Results Int erpretation of Immune Status Non Reactive Presumed Non-Immune Equivocal Equivocal Reactive Presumed Immune Platelets bldOrdered By: Dr. Llamas on 07-20-2022 Platelets (Bld) [#/Vol] 346 10*3/uL 150-450 [facility] Serum Treponema species anti body detectionOrdered By: Dr. Llamas on 07-20-2022 Treponema sp Ab Ql (S) Non-Reactive [facility] Culture, urineOrdered By: Dr Sydney Llamas on 07-08-2022 Bacteria identified Cx Nom (U) Mixed Gram Pos & Gram Neg Org [facility] Cervical or vagninal specime n microscopic examination by cytology stain (reported asOrdered By: Dr. Llamas on 07-06-2022 Cytology report Cyto stain Doc (Cvx/Vag) Comment . [facility] Comment on above: The Pap smear [...] rRNA RUSLAN+probe Ql (Unsp spec) Negative Negative [facility] Detection in cervical specim en of any of human papilloma virus (HPV) 16, 18, 31, 33,Ordered By: Dr. Llamas on 07-06-2022 HPV 16+18+31+33+35+39+45+51+ 52+56+58+59+66+68 DNA Probe+sig amp Ql (Cvx) Negative Negative [facility] Comment on above: This nucleic acid am plification test detects fourteen high-risk HPV types (16,18,31,33,35,39,45,51,52,56,58,59,66,68)without differentiation. Laboratory - CytologyOrdered By: Dr. Llamas on 07-06-2022 Business Coordinator Cyto stain Nom (Cvx/Vag) [ID] Comment . [facility] Comment on above: Katt Stewart, Cyto technologist (ASCP) Laboratory - Microbiology an d Antimicrobial susceptibilityOrdered By: Dr. Llamas on 07-06-2022 N. gonorrhoeae DNA RUSLAN+probe Ql (Unsp spec) Negative Negative [facility] Comment on above: Performed at: =G - [facility] [address] [id number] Director: Libby Jin MD, Phone: [phone] Laboratory - Miscellaneous t estsOrdered By: Dr. Llamas on 07-06-2022 Service comment (Unsp spec) [Interp] Comment . [facility] Comment on above: This liquid based Th inPrep(R) pap test was screened withthe use of an image guided system. Service comment (Unsp spec) [Interp] . . [facility] Liquid-based cerv Pap + CT/G C by RUSLAN w reflex to high-risk HPV for ASCUSOrdered By: Dr. Llamas on 07-06-2022 Cytology report Cyto stain.thin prep Doc (Cvx/Vag) Comment . [facility] Comment on above: Criteria not met, HP V Genotype not performed.Performed at: - [facility] [address] [id number] Director: Libby Jin MD, Phone: [phone] at: =G - [facility] [address] [id number] Director: Libby Jin MD, Phone: [phone] No Panel InformationOrdered By: Dr. Llamas on 07-06-2022 Pathology report final diagnosis Narrative Comment . [facility] Comment on above: NEGATIVE FOR INTRAEP ITHELIAL LESION OR MALIGNANCY. OBSOLETEon 07-14-2019 OBSOLETE Refill (OBGYLN) MANPREET TANG ([id number]) 1990 F Date Time Provider Department 07/14/19 SILVIA SCHMITZ OBGYPRATIBHA During your visit today, we recorded the following information about you: Cora Blackwell RN 07/14/2019 11:52 AM Signed Patient overdue for annual exam, last . Seen 10/2018 for problem visit. Order pended, routed to provider. Routed to schedulers, please assist with appt for avoid interruption in medication. Thank you. 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 Advised patient that she would not received any further refills of below medication from provider until Annual GINGER FARMER Exam had been completed per overdue since 2016. Patient verbalized understanding and states that she lives closer to [place] and will schedule with a provider closer [...] Status:Closed by SILVIA SCHMITZ MD on 07/14/19 [facility] OBSOLETEon 01-17-2019 OBSOLETE Refill (OBGYLN) MANPREET TANG ([id number]) 1990 F Date Time Provider Department 01/17/19 DAVIN EDGE (JIM) LORI During your visit today, we recorded the [...] Status:Closed by SILVIA SCHMITZ MD on 01/22/19 [facility] 12-17-[facility] CNNURSE Nurse Visit (GASTMN) LONAMANPREET ([id number]) 1990 F Date Time Provider Department 12/17/18 8:00 AM NURSE GI LAB I GASTMN During your visit today, we recorded the following information about you: Arias Jones RN, RN 12/17/2018 9:02 AM Signed Name: Manpreet Tang [facility]#: [id number] Date: 12/17/2018 H-PYLORI BREATH TEST Indication: Bloating [...] Arias Jones RN Referring Provider: KI LOUIS [[id number]] Allergies As of Date: 12/17/2018 (No Known Allergies) Date Reviewed: 11/29/2018 Reviewed by: Brett Lagunas Ma - Fully Assessed Reason for Visit: Procedure [88] Cmt: Breath Test H Pylori Visit Diagnosis:Bloating [R14.0] Order(s):BREATH TEST H PYLORI [SQHPYLBR] Order #: [id number] Prescriptions as of 12/17/2018 Sig: METRONIDAZOLE 500 MG TABLET Take 1 tablet by mouth twice * Patient not taking: Reported on 11/29/2018 L NORGEST/E ESTRADIOL-E ESTRA* Take 1 tablet by mouth once d* Problem List As Of Date 12/17/2018 Noted Resolved Bloating [R14.0] INVALID FOR* Encounter Status:Closed by ARIAS JONES on 12/17/18 Normal [facility] H pylori Breath Teston 12-17 H pylori Breath Test 0.4 Normal <2.4 [facility] Comment on above: Result Comment: Nega tive for H. pylori Performed By: #### H PYLBR ####[facility] [place], [place] [phone] PROGRESSon 12-17-2018 PROGRESS HNO ID: [id number] Author: Arias ([place]) DARIEN Jones Service: ? Author Type: Registered Nurse Type: Progress Notes Filed: 12/17/2018 9:02 AM Note Text: Name: Manpreet Tang [facility]#: [id number] Date: 12/17/2018 H-PYLORI BREATH TEST Indication: Bloating [...] and the specimens were sent to the [facility]'s lab for processing. Arias Jones RN [facility] CNOVon 11-29-2018 CNOV Office Visit (GAINLL) MANPREET TANG ([id number]) 1990 F Date Time Provider Department 11/29/18 11:30 AM KI LOUIS During your visit today, we recorded the following information about you: Pulse Blood pressure Weight Height 86/minute 110/60 54.4 kg 1.575 m Brett Lagunas Ma 11/29/2018 11:31 AM Signed [facility] LAB AND RADIOLOGY FACTS LAB HOURS: Lab is open 7:30am to 6pm M-, and open 8am -12pm on Saturdays RADIOLOGY [...] to the scheduled exam. EXPRESS CARE HOURS [facility]: Sunday through Sunday 6:00am to 9:00pm. Sunday and Sunday 8:00am to 4:00pm. The walk in clinic is for patients 2 years and older. [facility]: Sunday through Sunday 8:00am to 8:00pm. Sunday and Sunday 8:00am to 4:00pm. The walk in clinic is for patients 2 years and older. [facility]: Sunday 8:00am to 8:00pm. Sunday and Sunday 8:00am to 4:00pm. The walk in clinic is for patients 2 years and older. [facility] WALK IN MAMMOGRAM HOURS Sunday-Sunday 3:00pm- 7:00 pm Sunday 8:00 am- 12:00 pm For Express Care LOCATIONS, HOURS OF OPERATION and CURRENT WAIT TIMES, visit the following link [email or web address] dFR[types][0]=Expres s%20Care%20ClinicsAN D for details. Ki [...] file Gets together: Not on file Attends latter day service: Not on file Active member of [...] 2018 11:39 AM Referring Provider: SILVIA SCHMITZ [[id number]] Allergies As of Date: 11/29/2018 (No Known Allergies) Date Reviewed: 11/29/2018 Reviewed by: Brett Lagunas Ma - Fully Assessed Reason for Visit: New Patient [172] Cmt: bloating Rectal Bleeding [202] Diarrhea [35] Reason For Visit History Recorded Visit Diagnosis:Bloating [R14.0] Order(s):BREATH TEST H PYLORI [SQHPYLBR] Order #: [id number] FUTURE BREATH TEST GLUCOSE [[id number]] Order #: [id number] FUTURE Prescriptions as of 11/29/2018 Sig: L NORGEST/E ESTRADIOL-E ESTRA* Take 1 tablet by mouth once d* METRONIDAZOLE 500 MG TABLET Take 1 tablet by mouth twice * Patient not taking: Reported on 11/29/2018 Problem List As Of Date 11/29/2018 Noted Resolved Bloating [R14.0] INVALID FOR* Other instructions from your clinician: [facility] LAB AND RADIOLOGY FACTS LAB [...] to the scheduled exam. EXPRESS CARE HOURS [facility]: Sunday through Sunday 6:00am to 9:00pm. Sunday and Sunday 8:00am to 4:00pm. The walk in clinic is for patients 2 years and older. [facility]: Sunday through Sunday 8:00am to 8:00pm. Sunday and Sunday 8:00am to 4:00pm. The walk in clinic is for patients 2 years and older. [facility]: Sunday through Sunday 8:00am to 8:00pm. Sunday and Sunday 8:00am to 4:00pm. The walk in clinic is for patients 2 years and older. [facility] WALK IN MAMMOGRAM HOURS Sunday-Sunday 3:00pm- 7:00 pm Sunday 8:00 am- 12:00 pm For Express Care LOCATIONS, HOURS OF OPERATION and CURRENT WAIT TIMES, visit the following link [email or web address] dFR[types][0]=Expres s%20Care%20Clin [facility] for details. Encounter Status:Closed by KI LOUIS MD on 11/29/18 Normal [facility] Pepscan BREAST LTD LTon 11-29 [employer] BREAST [employer] LT * * *Final Report* * * DATE OF EXAM: Nov 29 2018 2:10PM MCW 0593 - [employer] BREAST [employer] LT / PROCEDURE REASON: Breast pain, left * * * * Physician Interpretation * * * * RESULT: #[id number] - [employer] BREAST [employer] LT ULTRASOUND OF LEFT BREAST: 11/29/2018 HISTORY: [...] Follow-up with ACR/NCCN guidelines. Gwyn morris/nahid:11/29/2018 17:08:52 Accounting Consultant(s): ROXANA Agustin)(M), [facility] Ultrasound BI-RADS: 1 Negative Multiple national specialty [...] Oncology, the [facility] has carefully reviewed the data and reached [...] their providers when to stop screening mammograms. Welder Fabricator: Nahid Transcribe Date/Time: Nov 29 2018 2:23P Dictated by : GWYN OBANDO MD This examination was interpreted and the report reviewed and electronically signed by: GWYN OBANDO MD on Nov 29 2018 5:08PM EST [id number] Normal [facility] PROGRESSon 11-29-2018 PROGRESS HNO ID: [id number] Author: Yen Sanders Service: Radiology Author Type: ? Type: Progress [...] IV DATA: Not applicable SIGNED BY: Yen Sanders November 29, 2018 2:07 PM Normal [facility] PROGRESS HNO ID: [id number] Author: Ki Louis Service: ? Author Type: [...] file Gets together: Not on file Attends latter day service: Not on file Active member of [...] MD November 29, 2018 11:39 AM Normal [facility] CNPNon 11-04-2018 CNPN Telephone (OBGYLN) MANPREET TANG ([id number]) 1990 F Date Time Provider Department 11/04/18 SILVIA SCHMITZ OBKATIA During your visit today, we recorded the following information about you: Silvia Schmitz MD 11/04/2018 1:15 PM Signed Positive Yeast Infection. eRx sent to pharmacy. Please pharmacy picking tech Rx as soon as possible. Thank you Dr Schmitz. Cora Dailey RN 11/04/2018 1:51 PM Signed Attempted to call patient, VM not set up. oCra Dailey RN 11/05/2018 10:26 AM Signed Attempted [...] Status:Closed by SILVIA SCHMITZ MD on 11/04/18 [facility] OBSOLETEon 10-31-2018 OBSOLETE Refill (OBGYLN) MANPREET TANG ([id number]) 1990 F Date Time Provider Department 10/31/18 [...] Routed to providers for review. Davin Edge APRN.CNP 10/31/2018 3:01 PM Signed Agree with below. [...] 1 PackageRfl: 3 US BREAST LTD LT [[id number]] Order #: [id number] FUTURE [facility] LT [[id number]] Order #: [id number] FUTURE Prescriptions as of 10/31/2018 Sig: METRONIDAZOLE [...] by CORA DAILEY RN on 10/31/18 Normal [facility] Vag Pathogens DNAon 10-31-19 19 Roz sp DNA Probe Positive Critically abnormal Negative for Roz species by DNA Probe [facility] Comment on above: Result Comment: This is indicative of candidiasis when consistent with clinical signs and symptoms. Performed By: #### V AGDNA #### [facility] [address], [place] [address] Hernandez vag DNA Probe Positive Critically abnormal Negative for Gardnerella vaginalis by DNA Probe [facility] Comment on above: Result Comment: This is suggestive, but not diagnostic of bacterial vaginosis, results should be interpreted in conjunction with other data such as pH, amine odor, clue cells and vaginal discharge characteristics. Performed By: #### V AGDNA #### [facility] [address] [place], [place] [address] Trich vag DNA Probe Negative Normal Negative for Trichomonas vaginalis by DNA Probe [facility] Comment on above: Performed By: #### V AGDNA #### [facility] [address] [place], [place] [address] CNOVon 10-29-2018 CNOV Office Visit (OBGYLN) MANPREET TANG ([id number]) 1990 F Date Time Provider Department 10/29/18 [...] [N89.8] Order(s):CONSULT TO GASTROENTEROLOGY [9010] Order #: [id number]: 1 VAGINAL PATHOGENS DNA PROBES [SQVAGDNA] Order #: [id number] Problem List As Of Date: 10/29/2018 (None) Encounter Status:Closed by SILVIA SCHMITZ MD on 10/29/18 Normal [facility] PROGRESSon 10-29-2018 PROGRESS HNO ID: [id number] Author: Silvia Schmitz Service: ? Author Type: [...] MD October 29, 2018 6:47 PM Normal [facility] Vital Signs Date Time Vital Sign Value Performing Clinician Juan Carlos mejia 01-21-2025 14:29-0400 Body height 157.48 cm No Primary Care Physician [facility] 01-21-2025 14:26-0400 Body mass index (BMI) [Ratio] 24.9 kg/m2 No Primary Care Physician [facility] 01-21-2025 14:26-0400 Body weight 61.83 kg No Primary Care Physician [facility] 01-21-2025 14:26-0400 Diastolic blood pressure 83 mm[Hg] No Primary Care Physician [facility] 01-21-2025 14:26-0400 Systolic blood pressure 146 mm[Hg] No Primary Care Physician [facility] 03-28-2023 10:06-0500 Body height 157.48 cm No Primary Care Physician [facility] 03-26-2023 10:57-0500 Body mass index (BMI) [Ratio] 23.8 kg/m2 No Primary Care Physician [facility] 03-26-2023 10:57-0500 Body weight 58.96 kg No Primary Care Physician [facility] 03-26-2023 10:57-0500 Diastolic blood pressure 74 mm[Hg] No Primary Care Physician [facility] 03-26-2023 10:57-0500 Systolic blood pressure 127 mm[Hg] No Primary Care Physician [facility] 02-12-2023 08:00-0400 Body temperature 97.6 [degF] No Primary Care Physician [facility] 02-12-2023 08:00-0400 Diastolic blood pressure 72 mm[Hg] No Primary Care Physician [facility] 02-12-2023 08:00-0400 Heart rate 100 /min No Primary Care Physician [facility] 02-12-2023 08:00-0400 Respiratory rate 16 /min No Primary Care Physician [facility] 02-12-2023 08:00-0400 Systolic blood pressure 126 mm[Hg] No Primary Care Physician [facility] [facility] 02-11-2023 07:55-0400 SaO2% (BldA) [Mass fraction] 99 % No Primary Care Physician [facility] 02-10-2023 09:02-0400 Body mass index (BMI) [Ratio] 28 kg/m2 No Primary Care Physician [facility] 02-10-2023 09:02-0400 Body weight 69.58 kg No Primary Care Physician [facility] 02-07-2023 11:13-0400 Diastolic blood pressure 82 mm[Hg] No Primary Care Physician [facility] 02-07-2023 11:13-0400 Systolic blood pressure 126 mm[Hg] No Primary Care Physician [facility] 02-07-2023 10:38-0400 Body mass index (BMI) [Ratio] 28.3 kg/m2 No Primary Care Physician [facility] 02-07-2023 10:38-0400 Body weight 70.42 kg No Primary Care Physician [facility] 02-05-2023 12:49-0400 Body mass index (BMI) [Ratio] 27.8 kg/m2 No Primary Care Physician [facility] 02-05-2023 12:49-0400 Body weight 69.11 kg No Primary Care Physician [facility] 02-05-2023 12:49-0400 Diastolic blood pressure 86 mm[Hg] No Primary Care Physician [facility] 02-05-2023 12:49-0400 Systolic blood pressure 130 mm[Hg] No Primary Care Physician [facility] 01-31-2023 13:55-0400 Body mass index (BMI) [Ratio] 27.8 kg/m2 No Primary Care Physician [facility] 01-31-2023 13:55-0400 Body weight 69.17 kg No Primary Care Physician [facility] 01-31-2023 13:55-0400 Diastolic blood pressure 84 mm[Hg] No Primary Care Physician [facility] 01-31-2023 13:55-0400 Systolic blood pressure 128 mm[Hg] No Primary Care Physician [facility] 01-26-2023 11:16-0400 Body height 157.48 cm No Primary Care Physician [facility] 01-26-2023 11:12-0400 Body mass index (BMI) [Ratio] 27.2 kg/m2 No Primary Care Physician [facility] 01-26-2023 11:12-0400 Body weight 67.58 kg No Primary Care Physician [facility] 01-26-2023 11:12-0400 Diastolic blood pressure 75 mm[Hg] No Primary Care Physician [facility] 01-26-2023 11:12-0400 Systolic blood pressure 124 mm[Hg] No Primary Care Physician [facility] 01-19-2023 09:18-0400 Body mass index (BMI) [Ratio] 27.3 kg/m2 No Primary Care Physician [facility] 01-19-2023 09:18-0400 Body weight 67.69 kg No Primary Care Physician [facility] 01-19-2023 09:18-0400 Diastolic blood pressure 84 mm[Hg] No Primary Care Physician [facility] 01-19-2023 09:18-0400 Systolic blood pressure 126 mm[Hg] No Primary Care Physician [facility] 01-12-2023 11:43-0400 Body height 157.48 cm No Primary Care Physician [facility] 01-12-2023 11:42-0400 Body mass index (BMI) [Ratio] 27.1 kg/m2 No Primary Care Physician [facility] 01-12-2023 11:42-0400 Body weight 67.3 kg No Primary Care Physician [facility] 01-12-2023 11:42-0400 Diastolic blood pressure 76 mm[Hg] No Primary Care Physician [facility] 01-12-2023 11:42-0400 Systolic blood pressure 125 mm[Hg] No Primary Care Physician [facility] 12-29-2022 11:52-0400 Body mass index (BMI) [Ratio] 26.7 kg/m2 No Primary Care Physician [facility] 12-29-2022 11:52-0400 Body weight 66.28 kg No Primary Care Physician [facility] 12-29-2022 11:52-0400 Diastolic blood pressure 80 mm[Hg] No Primary Care Physician [facility] 12-29-2022 11:52-0400 Systolic blood pressure 122 mm[Hg] No Primary Care Physician [facility] 12-11-2022 13:03-0400 Body height 157.48 cm No Primary Care Physician [facility] 12-11-2022 13:02-0400 Body mass index (BMI) [Ratio] 26.6 kg/m2 No Primary Care Physician [facility] 12-11-2022 13:02-0400 Body weight 65.99 kg No Primary Care Physician [facility] 12-11-2022 13:02-0400 Diastolic blood pressure 85 mm[Hg] No Primary Care Physician [facility] 12-11-2022 13:02-0400 Systolic blood pressure 124 mm[Hg] No Primary Care Physician [facility] 11-27-2022 11:38-0400 Body mass index (BMI) [Ratio] 25.9 kg/m2 No Primary Care Physician [facility] 11-27-2022 11:38-0400 Body weight 64.41 kg No Primary Care Physician [facility] 11-27-2022 11:38-0400 Diastolic blood pressure 71 mm[Hg] No Primary Care Physician [facility] 11-27-2022 11:38-0400 Systolic blood pressure 139 mm[Hg] No Primary Care Physician [facility] 11-17-2022 11:45-0400 Body height 157.48 cm No Primary Care Physician [facility] 11-17-2022 11:35-0400 Body mass index (BMI) [Ratio] 25.7 kg/m2 No Primary Care Physician [facility] 11-17-2022 11:35-0400 Body weight 63.72 kg No Primary Care Physician [facility] 11-17-2022 11:35-0400 Diastolic blood pressure 76 mm[Hg] No Primary Care Physician [facility] 11-17-2022 11:35-0400 Systolic blood pressure 120 mm[Hg] No Primary Care Physician [facility] 10-27-2022 11:55-0400 Body mass index (BMI) [Ratio] 25 kg/m2 No Primary Care Physician [facility] 10-27-2022 11:55-0400 Body weight 62.14 kg No Primary Care Physician [facility] 10-27-2022 11:55-0400 Diastolic blood pressure 68 mm[Hg] No Primary Care Physician [facility] 10-27-2022 11:55-0400 Systolic blood pressure 118 mm[Hg] No Primary Care Physician [facility] 09-29-2022 11:28-0400 Body mass index (BMI) [Ratio] 23.9 kg/m2 No Primary Care Physician [facility] 09-29-2022 11:28-0400 Body weight 59.42 kg No Primary Care Physician [facility] 09-29-2022 11:28-0400 Diastolic blood pressure 83 mm[Hg] No Primary Care Physician [facility] 09-29-2022 11:28-0400 Systolic blood pressure 130 mm[Hg] No Primary Care Physician [facility] 08-28-2022 11:28-0400 Body mass index (BMI) [Ratio] 23.4 kg/m2 No Primary Care Physician [facility] 08-28-2022 11:28-0400 Body weight 58.22 kg No Primary Care Physician [facility] 08-28-2022 11:28-0400 Diastolic blood pressure 82 mm[Hg] No Primary Care Physician [facility] 08-28-2022 11:28-0400 Systolic blood pressure 118 mm[Hg] No Primary Care Physician [facility] 2022 11:53-0400 Body mass index (BMI) [Ratio] 22.6 kg/m2 No Primary Care Physician [facility] 2022 11:53-0400 Body weight 56.3 kg No Primary Care Physician [facility] 2022 11:53-0400 Diastolic blood pressure 80 mm[Hg] No Primary Care Physician [facility] 2022 11:53-0400 Systolic blood pressure 137 mm[Hg] No Primary Care Physician [facility] 07-06-2022 10:28-0500 Body height 157.48 cm No Primary Care Physician [facility] 07-06-2022 10:28-0500 Body mass index (BMI) [Ratio] 23.2 kg/m2 No Primary Care Physician [facility] 07-06-2022 10:28-0500 Body weight 57.6 kg No Primary Care Physician [facility] 07-06-2022 10:28-0500 Diastolic blood pressure 76 mm[Hg] No Primary Care Physician [facility] 07-06-2022 10:28-0500 Systolic blood pressure 114 mm[Hg] No Primary Care Physician [facility] Encounters Encounter Date Encounter Type Care Provider Facility Start: 02-20-2025 End: 02-20-2025 ambulatory [place] Facility:[facility] Start: 02-02-2025 End: 02-02-2025 ambulatory No Primary Care Physician -Lab [facility] Start: 02-02-2025 End: 02-02-2025 Patient encounter procedure Crystal Langley BAR GAUGER AND LUBRICATOR TENDER-C -Lab [facility] Start: 02-02-2025 End: 02-02-2025 ambulatory Maryellen Anderson NP Facility:[facility] Start: 01-26-2025 End: 01-26-2025 ambulatory No Primary Care Physician -Ultrasound [facility] Start: 01-26-2025 End: 01-26-2025 Patient encounter procedure Crystal Langley BAR GAUGER AND LUBRICATOR TENDER-C -Ultrasound [facility] Work Phone: Start: 01-26-2025 End: 01-26-2025 ambulatory Crystal Langley Facility:[facility] Start: 01-21-2025 End: 01-21-2025 Patient encounter procedure Crystal Langley BAR GAUGER AND LUBRICATOR TENDER-C -[facility] Work Phone: Start: 01-21-2025 End: 01-21-2025 ambulatory No Primary Care Physician -[facility] Start: 01-21-2025 End: 01-21-2025 ambulatory Crystal Langley Facility:[facility] Start: 11-17-2024 End: 11-17-2024 ambulatory MARYELLEN ANDERSON GOLF COURSE LABORER-PROCESS CONTROL BOARD OPERATOR Facility:[facility] Start: 11-17-2024 End: 11-17-2024 Patient encounter procedure MARYELLEN ANDERSON GOLF COURSE LABORER-PROCESS CONTROL BOARD OPERATOR [facility] Start: 11-17-2024 End: 11-17-2024 Well adult monitoring check done MARYELLEN ANDERSON GOLF COURSE LABORER-PROCESS CONTROL BOARD OPERATOR [facility] Start: 04-05-2023 End: 04-05-2023 ambulatory No Primary Care Physician [facility] Work Phone: Start: 04-05-2023 End: 04-05-2023 Patient encounter procedure No Primary Care Physician [facility]-Ultrasound, [facility] Work Phone: Start: 03-26-2023 End: 03-26-2023 ambulatory No Primary Care Physician [facility] Work Phone: Start: 03-26-2023 End: 03-26-2023 Patient encounter procedure No Primary Care Physician [facility]-Laboratory Work Phone: Start: 03-26-2023 End: 03-26-2023 Patient encounter procedure No Primary Care Physician [facility] Work Phone: Start: 02-14-2023 End: 02-14-2023 Patient encounter procedure No Primary Care Physician [facility] Work Phone: Start: 02-12-2023 Non-patient / Non-visit No Primary Care Physician [facility] Start: 02-11-2023 Non-patient / Non-visit No Primary Care Physician [facility] Start: 02-10-2023 Non-patient / Non-visit No Primary Care Physician [facility] Start: 02-10-2023 End: 02-12-2023 Evaluation and management of inpatient No [facility] Work Phone: Start: 02-07-2023 End: 02-07-2023 Patient encounter procedure No Primary Care Physician [facility] Work Phone: Start: 02-05-2023 End: 02-05-2023 Patient encounter procedure No Primary Care Physician [facility] Work Phone: Start: 01-31-2023 End: 01-31-2023 Patient encounter procedure No Primary Care Physician [facility] Work Phone: Start: 01-26-2023 End: 01-26-2023 Patient encounter procedure No Primary Care Physician [facility] Work Phone: Start: 01-23-2023 End: 01-23-2023 ambulatory No Primary Care Physician [facility] Work Phone: Start: 01-23-2023 End: 01-23-2023 Patient encounter procedure No Primary Care Physician [facility] Ul[facility]ound Work Phone: Start: 01-19-2023 End: 01-19-2023 Patient encounter procedure No Primary Care Physician [facility] Work Phone: Start: 01-12-2023 End: 01-12-2023 Patient encounter procedure No Primary Care Physician [facility]-Laboratory, Specimen Work Phone: Start: 01-12-2023 End: 01-12-2023 Patient encounter procedure No Primary Care Physician [facility] Work Phone: Start: 01-09-2023 End: 01-09-2023 ambulatory No Primary Care Physician [facility] Work Phone: Start: 01-09-2023 End: 01-09-2023 Patient encounter procedure No Primary Care Physician [facility]-Ultrasound, [facility] Work Phone: Start: 12-29-2022 End: 12-29-2022 Patient encounter procedure No Primary Care Physician [facility] Work Phone: Start: 12-11-2022 End: 12-11-2022 Patient encounter procedure No Primary Care Physician [facility] Work Phone: Start: 12-11-2022 End: 12-11-2022 ambulatory No Primary Care Physician [facility] Work Phone: Start: 12-11-2022 End: 12-11-2022 Patient encounter procedure No Primary Care Physician [facility]-Ultrasound, [facility] Work Phone: Start: 11-27-2022 End: 11-27-2022 Patient encounter procedure No Primary Care Physician [facility] Work Phone: Start: 11-17-2022 End: 11-17-2022 ambulatory No Primary Care Physician [facility] Work Phone: Start: 11-17-2022 End: 11-17-2022 Patient encounter procedure No Primary Care Physician [facility] Work Phone: Start: 10-27-2022 End: 10-27-2022 Patient encounter procedure No Primary Care Physician [facility] Work Phone: Start: 10-04-2022 End: 10-04-2022 ambulatory MD NO [facility] Start: 09-29-2022 End: 09-29-2022 Patient encounter procedure No Primary Care Physician [facility] Work Phone: Start: 09-06-2022 End: 09-07-2022 ambulatory MD NO [facility] Start: 09-06-2022 End: 09-06-2022 Subsequent hospital visit by physician Janeth Burch MD Work Phone: [facility] Comment on above: 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 Start: 09-05-2022 End: 09-05-2022 ambulatory [facility] Start: 08-28-2022 End: 08-28-2022 Patient encounter procedure No Primary Care Physician [facility] Work Phone: Start: 2022 End: 2022 Patient encounter procedure No Primary Care Physician [facility] Work Phone: Start: 07-20-2022 End: 07-20-2022 ambulatory No Primary Care Physician [facility] Work Phone: Start: 07-20-2022 End: 07-20-2022 Patient encounter procedure No Primary Care Physician [facility] Start: 07-06-2022 End: 07-06-2022 ambulatory No Primary Care Physician [facility] Work Phone: Start: 07-06-2022 End: 07-06-2022 Patient encounter procedure No Primary Care Physician [facility]-Laboratory, Specimen Start: 07-06-2022 End: 07-06-2022 Patient encounter procedure No Primary Care Physician [facility] Procedures Date Procedure Procedure Detail Performing Clinician Start: 01-26-2025 Pelvic echography No Pr imary Care Physician Start: 01-21-2025 Serum progesterone measurement No Primary Care Physician Comment on above: Follicular phase 0.1 - 0.9 Luteal phase 1.8 - 23.9 Ovulation phase 0.1 - 12.0 First trimester 11.0 - 44.3 Second trimester 25.4 - 83.3 Third trimester 58.7 - 214.0 Postmenopausal 0.0 - 0.1Performed at: [address] [id number] Director: Abel Tran PhD, Phone: [phone] Start: 04-05-2023 Transvaginal echography No Primary Care [...] Treatment Date Care Activity Detail Author Start: 03-12-2025 ambulatory Ambulatory Facility:[facility] Start: 01-21-2025 CBC W Auto Differential panel - Blood [facility] Start: 01-21-2025 Comprehensive metabolic 2000 panel - Serum or Plasma [facility] Start: 01-21-2025 Serum progesterone measurement [facility] Start: 01-21-2025 T4 free measurement [facility] Start: 01-21-2025 Thyroid stimulating hormone measurement [facility] Start: 01-21-2025 [facility] Start: 03-26-2023 Patient referral [facility] Work Phone: Start: 02-12-2023 Patient discharge [facility] Start: 02-11-2023 Administration of blood product [facility] Start: 02-10-2023 Administration of medication [facility] Start: 02-10-2023 Application of ice collar, cap or bag [facility] Start: 02-10-2023 Catheterization of vein [facility] Start: 02-10-2023 Introduction of urinary catheter [facility] Start: 02-10-2023 Measuring intake and output [facility] Start: 02-10-2023 Notification of physician [facility] Start: 02-10-2023 Procedure discontinued [facility] Start: 02-10-2023 Provision of activity privileges [facility] Start: 02-10-2023 Vital signs measurements [facility] Start: 02-10-2023 [facility] Start: 02-10-2023 Admission procedure [facility] Start: 02-10-2023 Consultation [facility] Start: 01-05-2023 FLU (Season Ended) FLU (Season Ended) [facility] Start: 10-04-2022 End: 10-04-2022 Patient encounter procedure [facility] Start: 10-04-2022 End: 10-04-2022 Professional / ancillary services management 10/04/2022 12:00 PM EDT Ancillary Procedure Visit [address], [address] [place] [address] [facility] Start: 07-06-2022 Liquid based cervical cytology screening [facility] Start: 08-04-2011 Microscopic observation [Identifier] in Cervix by Cyto stain Pap Smear [facility] Start: 2006 MenB (1 of 2 - MenB 2-Dose Series Bexsero) MenB (1 of 2 - MenB 2-Dose Series Bexsero) [facility] Start: 1997 Tetanus Diphtheria and Pertussis Vaccines (1 - Tdap) Tetanus Diphtheria and Pertussis Vaccines (1 - Tdap) [facility] Start: 08-04-1991 MMR (1 of 1 - Standard series) MMR (1 of 1 - Standard series) [facility] Start: 08-04-1991 Varicella (1 of 2 - 2-dose childhood series) Varicella (1 of 2 - 2-dose childhood series) [facility] Start: 02-03-1991 COVID-19 (#1) COVID-19 (#1) [facility] Start: 1990 Hepatitis B (1 of 3 - 3-dose series) Hepatitis B (1 of 3 - 3-dose series) [facility] Alanine aminotransfe rase [Enzymatic activity/volume] in Serum or Plasma [facility] Albumin [Mass/volume ] in Serum or Plasma [facility] Alkaline phosphatase [Enzymatic activity/volume] in Serum or Plasma [facility] Anion gap in Serum or Plasma [facility] Bilirubin, total measurement [facility] BUN/Creatinine ratio [facility] Calcium [Mass/volume ] in Serum or Plasma [facility] Carbon dioxide, tota l [Moles/volume] in Central venous blood [facility] CBC W Auto Different ial panel - Blood [facility] CMV IgG Ab CMV IgG Ab Lab Routine Echogenic bowel of fetus on ultrasound 09/06/2022 1:03 PM EDT [facility] Work Phone: CMV IgM Ab CMV IgM Ab Lab Routine Echogenic bowel of fetus on ultrasound 09/06/2022 1:03 PM EDT [facility] Creatinine [Mass/vol ume] in Serum or Plasma [facility] Erythrocyte mean cor puscular volume determination [facility] Glucose [Mass/volume ] in Serum or Plasma [facility] Hematocrit [Volume F raction] of Blood [facility] Hemoglobin [Mass/vol ume] in Blood [facility] Hepatitis B surface antigen measurement [facility] Hepatitis C antibody measurement [facility] HIV 1+2 Ab+HIV1 p24 Ag [Presence] in Serum or Plasma by Immunoassay [facility] Leukocytes [#/volume ] in Blood [facility] Mean corpuscular hem oglobin concentration determination [facility] Mean corpuscular hem oglobin determination [facility] Measurement of renal function [facility] Neutrophil count [facility] Neutrophil percent differential count [facility] Path report.final Dx Spec [facility] Patient Education After a Vagina l Incision Care After Vaginal Taking a Sitz Bath [facility] Work Phone: Patient referral [facility] Work Phone: Platelets [#/volume] in Blood [facility] Potassium measurement [facility] Red blood cell count [facility] Red cell distributio n width determination [facility] Rubella IgG measurement [facility] Serum chloride measurement [facility] Sodium measurement [facility] Total protein measurement [facility] Toxoplasma IgG & IgM (initial screening for neg IgM by another lab) [place] Toxoplasma IgG & IgM (initial screening for neg IgM by another lab) [facility] Routine Echogenic bowel of fetus on ultrasound 09/06/2022 1:03 PM EDT [facility] Treponema sp Ab [Pre sence] in Serum [facility] Urea nitrogen [Mass/ volume] in Serum or Plasma [facility] US Pelvis [facility] US Pelvis transvaginal [facility] Payers Date Payer Category Payer Self-pay 2024 Private Health Insurance [id number] 2024 Unknown [id number] 2019 Unknown DARRYL ANDREWS BS PPO [id number] 2019-Present [address] [place] [address] [id number] 1990 Unknown [id number] 1990 Unknown [id number] 1990 Unknown [id number] 1990 Unknown [id number] 479 1990 Unknown [id number] 479 1990 Unknown [id number] 627 Unknown [id number]. 462 Unknown [id number]. 462 Unknown [id number]. 462 Unknown [id number] [id number]. 462 Unknown [id number]. 462 Unknown [id number] 462 Social History Date Type Detail Facility Start: 07-06-2022 End: 03-26-2023 Tobacco smoking status MNIS Unknown if ever smoked [facility] Start: 1990 Sex Assigned At Female W [facility] Start: 1990 Sex Assigned At Not on file A [facility] Gender identity Not on file [facility] Start: 11-17-2024 Tobacco smoking status Never s moked tobacco (finding) Destini [facility] [place] Sexual Orientation Destini gandhi [facility] Sex Female (finding) [facility] Start: 03-26-2023 Tobacco smoking stat us MNIS Ex-smoker (finding) [facility] Goals Date Patient Goal Desired Activity /State Clinical Notes 07-06-2022 to 01-28-2025 Note Date & Type Note Facility 01-28-2025 Radiology Diagnostic study note [facility] Imaging Services [address] [place] [address] Pelvic w/ Transvaginal MR#: [id number] Acct: [id number] Name: MANPREET TANG Rep #: [id number] : 1990 F 34 From: Trace Cerna MD PCP: FREDDIE Duron Status: RE G CLI Study:Pelvic w/ Transvaginal Date of Exam: 01/26/25 Exam# [id number] Ordering Dr: Crystal Langley PROCEDURE: PELVIC W/ [...] No other abnormality is seen. Reading Location: [place] [address] CC: FREDDIE Langley; FREDDIE Anderson ~ Welder Fabricator: Signed [facility] 09-17-2025 Evaluation note Diagnosis Onset Date Resolution Infertility counseling acute Se ptember 2024 2:20pm [facility] Work Phone: 1(192) 247-317507-14-2025 Evaluation + Plan note Diagnostic Tests Pending * Testosterone Level Total 11/17/24 * Follicle Stimulating Hormone Level 11/17/24 * Estrogens Fractionated, S 11/17/24 * Luteinizing Hormone 11/17/24 * Progesterone Level 11/17/24 [facility] Consultation has been requested by Dr. 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 Please refer to the ultrasound report for full details. Genetic Counseling Summary I discussed with the couple the following issues: 1. We talked about a negative FOB result is not a 100% test, and given ethnicity of FOB ([place]) we talked about the 97% accuracy of testing for CF, we talked through the possibility of also of false positive testing for carrier screening on the screening as well 2. We talked about the concerns for echogenic bowel and today's ultrasound with resolution 3. See genetics notes about her carrier status and symptoms associated with Type 5 and also mgdzehx-rluxjgj-kqbtol dysplasia Follow Up She expressed understanding of the above information. Continued serial growth every 4 weeks Continued pelvic rest until the placenta migrates Follow up TV for placental migration Questions answered The total patient time of the visit was 30 minutes, of which greater than 50% of the time was spent counseling and coordinating care. Janeth Burch [facility]03-02-2023 NotePap Smear Specimen AdequacyMarch 2022 5:31pmComment.Satisfactory for evaluation. No endocervical component is identified.[facility] INTERFACED A#[id number] HospitalComment on above:Satisfactory for evaluation. No endocervical component is identified.Evaluation note* Diagnosis Onset Date Resolution Status Family history of gene mutation acute acute Supervision of normal first acute [facility] Work Phone: Evaluation note* Diagnosis Echogenic bowel of fetus on ultrasound [facility] Onset Date Resolution Status [...] during acute Supervision of normal first acute [facility] Work Phone: Evaluation note* Diagnosis Onset [...] during acute Supervision of normal first acute [facility] Work Phone: Evaluation note* Diagnosis Onset [...] during acute Supervision of normal first acute [facility] Work Phone: Evaluation note* Diagnosis Onset [...] thout hemorrhage, third trimester resolved Polyhydramnios resolved [facility] Work Phone: Evaluation note* Diagnosis Onset [...] following vaginal delivery acute Routine Follow-Up noneactive [facility] Work Phone: Evaluation noteNo assessment information available [facility] [employer] Work Phone: Hospital course Narrative No data available for this section [facility] Hospital Discharge instructions No data available for this section [facility] Progress note No data available for this section [facility] Reason for referral (narrative)No reason for referral [facility] Work Phone: Summary Purpose Family History No [...] No February 10 3 8:37am Power of Instructional Materials Director No February 10 023 8:37am Chief Complaint [...] for Visit Admit Date Infertility counseling January 21, 2 025 2:20pm Additional Source Comments INFORMATION SOURCE (unrecogn ized section and content) DATE CREATED AUTHOR 07/15/2019 [facility] DATE CREATED AUTHOR AUTHOR'S ORGANIZ ATION 11/10/2022 [facility] DATE CREATED AUTHOR AUTHOR'S ORGANIZ ATION 11/21/2024 [facility] DATE CREATED AUTHOR AUTHOR'S ORGANIZ ATION 03/07/2025 [facility] Care Teams (unrecognized sec tion and [...] DO Attending Provider, Refe rring Provider Active Lead Shop Operator Relationship Specialty Start Date End Date No Primary Care, [place] [address] PCP - General Pediatrics 08/08/22 Team Status: Inactive Member Role Status Dates No Primary Care Physician Primary Care Provider, Refer ring Provider Active Ashlee Saul NP, BAR GAUGER AND LUBRICATOR TENDER-C Attending Provider Active Team Status: Inactive Member [...] Provider, Refer ring Provider Active Kaye Gan NP, BAR GAUGER AND LUBRICATOR TENDER-C Attending Provider Active Team Status: Inactive Member [...] Member Role/Relationship Status Dates Maryellen Anderson NP, BAR GAUGER AND LUBRICATOR TENDER-C Primary care physician Acti ve Team Status: [...] Member Role/Relationship Status Dates Maryellen Anderson NP, BAR GAUGER AND LUBRICATOR TENDER-C Primary care physician Acti ve Start: January 26, 2025 FREDDIE Moser Attending physician Active Start: January 26, 2025 FREDDIE Moser Referring Provider Active Start: January 26, 2025 Team Status: Active Member Role/Relationship Status Dates Maryellen Anderson NP, BAR GAUGER AND LUBRICATOR TENDER-C Primary care physician Acti ve Start: February 02, 2025 FREDDIE Moser Attending physician Active Start: February 02, 2025 FREDDIE Moser Referring Provider Active Start: February 02, 2025 Team Status: Inactive Member Role/Relationship Status Dates Maryellen Anderson NP, BAR GAUGER AND LUBRICATOR TENDER-C Primary care physician Acti ve Start: January 26, 2025 End: January 26, 2025 FREDDIE Moser Attending physician Active Start: January 26, 2025 End: January 26, 2025 FREDDIE Moser Referring Provider Active Start: January 26, 2025 End: January 26, 2025 Team Status: Inactive Member Role/Relationship Status Dates Maryellen Anderson NP, BAR GAUGER AND LUBRICATOR TENDER-C Primary care physician Acti ve Start: February 02, 2025 End: February 02, 2025 FREDDIE Moser Attending physician Active Start: February 02, 2025 End: February 02, 2025 FREDDIE Moser Referring Provider Active Start: February 02, 2025 End: February 02, 2025 Goals (unrecognized section and content) Type Care Experience svdLabor Preferences -CB/BF classes: discussed labor support person: Timlabor intervention preferences: nonepain management options preferred: epidural [...] BE BASED ON THE PRIMARY CLINICAL RECORDS. [facility] [employer] [facility]. provides no warranty or guarantee of the accuracy or completeness of information in this document.
[2025-04-07 08:52] LABS: Hematocrit 36.2 % (37-47); Hemoglobin 12.7 g/dL (12.0-15.0); Mean Corp Hgb Conc 35.1 g/dL (32-36); Mean Corpuscular Volume 91.6 fL (81-99); Mean Platelet Vol. 9.3 fl (6.2-12.0); Platelet Count 315 K/mm3 (150-450); RBC Distribution Width CV 12.4 % (11.6-14.6); RBC Distribution Width SD 41.1 fl (35.1-43.9); Red Blood Count 3.95 M/mm3 (4.2-5.4); White Blood Count 7.4 K/mm3 (4.4-11.0)
[2025-04-07] MEDS: Lactated Ringers 1,000 ML 15 ML IV (08:52)
--- NOTE | 2025-04-07 08:55 | PCM.HP.BLA ---
History and Physical Justine Tang is a 34-year-old who presented for a new obstetric visit at 8 weeks but was diagnosed with a non-viable , concerning for a molar due to elevated quantitative hCG levels. She is not having any bleeding or severe cramping. She is still having symptoms such as nausea. Assessment & Plan Assessment/Plan (1) Non-viable : PLAN: proceed with suction D&C under ultrasound guidance doxycycline 200mg PO patient declines genetic testing of POC Physical Exam Const Vital Signs: 04/07/25 08:45 04/07/25 08:45 Temperature 98.5 F Temperature Source Temporal Pulse Rate 92 Respiratory Rate 16 Blood Pressure 108/76 Blood Pressure Mean 86 Blood Pressure Source Monitor Blood Pressure Position Sitting Blood Pressure Location Right Arm Baseline BP 108/76 Pulse Ox 99 Oxygen Delivery Method Room Air Positive well developed, alert and no apparent distress General Appearance ED: well developed HEENT Reports normocephalic Neck full ROM General: normal visual inspection Resp normal respiratory effort and normal air movement GI soft to palpation and non-tender
--- NOTE | 2025-04-07 09:15 | PRE.ANES_ITS ---
ASA Classification* ASA Classification ASA Classification: 2 Assessment & Plan Anesthesia* Anesthesia Assessment Anesthesia Assessment: Discussed sedation and/or anesthesia options, risks, benefits, and alternatives with patient/parents/legal guardian/POA. Questions invited. The patient/parents/legal guardian/POA seems to understand and agrees to proceed with anesthesia plan. Reviewed the physical assessment, medical history, allergy history and patient home medications list prior to surgery/procedure/anesthetic and documented any changes. Performed airway and anesthesia risk assessments. Anesthesia Type Anesthesia Type: MAC History Source History Obtained from:: Patient and Chart Anesthesia Focused Assessment* Temperature: 98.5 F Pulse Rate: 92 Blood Pressure: 108/76 Respiratory Rate: 16 Pulse Ox: 99 Oxygen Delivery Method: Room Air Airway Assessment Mouth opens: >3 cm Mallampati Score: I Teeth Condition: Intact Neck Range of motion (ROM): Full ROM Labs Anesthesia Preop lab: CBC WBC, (4.4-11.0) 7.4 K/mm3 Today, 08:30 RBC, (4.2-5.4) 3.95 M/mm3 L Today, 08:30 Hgb, (12.0-15.0) 12.7 g/dL Today, 08:30 Hct, (37-47) 36.2 % L Today, 08:30 Plt Count, (150-450) 315 K/mm3 Today, 08:30 CHEMISTRY Potassium, (3.3-5.1) 4.3 mmol/L 01/21/25, 14:57 Sodium, (133-145) 137 mmol/L 01/21/25, 14:57 BUN, (4-19) 14 mg/dL 01/21/25, 14:57 Creatinine, (0.70-1.20) 0.96 mg/dL 01/21/25, 14:57 Glucose, (70-99) 86 mg/dL 01/21/25, 14:57 TSH, (0.300-4.200) 0.716 uIU/mL 01/21/25, 14:57 COAG HCG, Quant, (<9 non-preg) [id number] mIU/mL H 04/01/25, 11:1 0 Pre-Assessment Diagnosis/Proposed Procedure Planned Operative Procedure(s): SUCTION D&C FOR DX OF MOLAR Anesthesia History Anesthesia History - gis scientist: Anesthesia History - gis scientist Hx Hospitalization No 04/03/25 10:24 Any Problems With Anesthesia No 04/03/25 10:24 Cholinesterase deficiency No 04/03/25 10:24 You/Your Family Experience No 04/03/25 10:24 fever (hyperthermia) with Relationship Recent Exposure to Contagious Disease Does patient have nerve No 04/03/25 10:24 stimulator Patient instructed to have device shut off --Does patient have Pacemaker No 04/07/25 08:45 or ICD? When Was Last Pacemaker Check QUESTION #4 FULL TEXT: You/Your Family Experience fever (hyperthermia) with Anesthesia Last Oral Intake Last Oral intake: Last Oral Intake NPO since 06:30 04/07/25 08:45 Meds taken in AM with sips of Yes 04/07/25 08:45 water? Meds patient instructed to LEVOTHYROXINE 04/07/25 08:45 take am of surgery PONV PONV - gis scientist: PONV - gis scientist Female Yes 04/03/25 10:24 HX of Motion Sickness Yes 04/03/25 10:24 HX of N/V After Surgery No 04/03/25 10:24 Non-Smoker Yes 04/03/25 10:24 Duration of Surgery greater No 04/03/25 10:24 than 60 minutes Number of Risk Factors 3 04/03/25 10:24 PONV Score Moderate Risk 04/03/25 10:24 Height & Weight Height & Weight: Anesthesia: Height & Weight Height 5 ft 2 in 04/07/25 08:45 Weight: 62 kg 04/07/25 08:45 Body Mass Index (BMI) 25.0 04/07/25 08:45 Respiratory Assessment Respiratory Assessment - gis scientist: Respiratory Tract Infection Hx - gis scientist Hx Respiratory Tract Infection No 04/03/25 10:24 STOP Sleep Apnea STOP Sleep Apnea - gis scientist: STOP Sleep Apnea - gis scientist Hx Hypertension No 04/03/25 10:24 Hx Sleep Apnea No 04/03/25 10:24 CPAP BIPAP Do you snore loudly (louder No 04/03/25 10:24 than talking or can be heard Do you often feel tired/ No 04/03/25 10:24 fatigued/ sleepy during daytime? Has anyone observed you stop No 04/03/25 10:24 breathing during sleep? STOP Results Negative 04/03/25 10:24 QUESTION #5 FULL TEXT : Do you snore loudly (louder than talking or can be heard through closed doors)? Tobacco Use History Tobacco Use History - gis scientist: Tobacco Use History - gis scientist Tobacco Use Smoking Status Former smoker 04/03/25 10:24 Hx Tobacco Use No 04/03/25 10:24 Years Smoking Packs Smoked per Day Smoking Cessation Date was Yes - quit smoking within 15 04/03/25 10:24 within the last 15 years years Hx Smoking Cessation Date 05/07/14 04/03/25 10:24 Hx Smoking Cessation No 04/03/25 10:24 Counseling Hematologic Medial History Hematologic Hx - gis scientist: Hematologic Medical Hx - comfort station attendant Hx of Blood Transfusion No 04/03/25 10:24 Hx of Transfusion in last 3 No 04/03/25 10:24 Months Date of Last Transfusion (if within last 3 months) Ever experience any problems No 04/03/25 10:24 with transfusion(s)? Specify any problems Hx of Preganancy in last 3 N/A 04/03/25 10:24 Months Nurse Filling Out Transfusion NBUCHER 04/03/25 10:24 & Questions: Date: 04/03/25 04/03/25 10:24 Time: 10:25 04/03/25 10:24 Patient unable to answer at this time (ie. confused, unrespo /Reproduction History /Reproductive History - gis scientist: /Reproductive Hx- gis scientist Hx Now Yes 04/03/25 10:24 Gestational Age (in weeks): EDC: Hx Hx Para Hx Section SAB No 04/03/25 10:24 Does the father of the baby or No 04/03/25 10:24 his family experience fever w Father of the baby Malignant Hypertension history comment Active Medications Active Medications: Current Medications Generic Name Dose Route Start Last Admin Trade Name Freq PRN Reason Stop Dose Admin Doxycycline Monohydrate 200 mg 04/07/25 09:15 04/07/25 08:52 Doxycycline 100 Mg Capsule PO 04/07/25 09:16 200 mg X1 ONE Administration Lactated Ringer's 1,000 mls @ 999 mls/hr 04/07/25 09:15 IV 04/07/25 10:15 .Q1H1M SHIRLEY Lactated Ringer's 1,000 mls @ 15 mls/hr 04/07/25 08:30 04/07/25 08:52 IV 15 mls/hr .Q48H SHIRLEY Administration PFSH Medical History (Updated 04/07/25 @ 08:[address] Leigh Ann Lara, DO) Wears contact lenses Thyroid disease Former smoker Non-smoker History of nicotine vaping Infertility counseling Bowel and bladder incontinence Anemia Third degree laceration of perineum during delivery, (spontaneous vaginal delivery) Abnormal genetic test during Home Medications ?Medication ?Instructions ?Recorded ?Last Taken ?Type levothyroxine 25 mcg tablet 25 mcg PO QDAY 01/21/25 06:30 History (Levoxyl) multivit-min no.71-iron fum 28 1 cap PO DAILY 03/26/25 Unknown History mg-folate no.1 1 mg-dha 300 mg capsule (PNV-[place]) Allergy/AdvReac Type Severity Reaction Status Date / Time No Known Allergies Allergy Verified 04/07/25 08:44 Family History Grandmother Diabetes Grandmother Colon cancer, Onset Age: 75 Paternal Grandfather Heart disease Myocardial infarction paternal grandfather Father Myocardial infarction, Onset Age: 52 Heart disease Maternal Grandfather Colon cancer, Onset Age: 74 Surgical History H/O colonoscopy Social History adopted: No household members: significant other and children housing: apartment number of children: 1 current occupational status: employed current occupation: [employer] current occupational exposures/hazards: No pets and animals: Yes (does not do litter box) pets and animals: cat(s) history of recent travel: Yes (December) out of state: Yes out of country: No sexually active: Yes Smoking Status: Former smoker Electronic Cigarette Use: with nicotine how long ago did patient quit smoking: not since aware of preg second hand exposure: No quit status: quit date established alcohol intake: current alcohol intake frequency: a few times a month details: not while substance use type: does not use well-balanced diet: daily or most days caffeine: Yes Type: coffee Number of servings: 1 eating out: 1-3 times/week during the past year weight has: increased > 10 lbs what type of physical activity do you participate in: none silvano/baptism: None seatbelt use: always do you feel safe at home: Yes additional social history: boyfriend- Meño- IT Review of Systems (Anesthesia) ROS Narrative System reviewed and no additional complaints, except as documented.
[2025-04-07] MEDS: Midazolam 2 MG/2 ML Syringe IV (09:21)
[2025-04-07] MEDS: Lidocaine 1% (5 ml sdv) 5 ML Vial IV (09:24)
[2025-04-07] MEDS: Lidocaine 1% (20 ml mdv) 20 ML Vial (09:35)
[2025-04-07] MEDS: fentaNYL 100 MCG/2 ML Ampul IV (09:40)
[2025-04-07] MEDS: Ketorolac 30 MG/ML Syringe IV (09:55)
--- NOTE | 2025-04-07 10:02 | PCM.OPRPT ---
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 Type of Anesthesia: MAC/Supplemental/Local RN Documented Start/Stop Times: Operation Date: 04/07/25 09:15 Case Time Into Pre-Op 04/07/25 08:19 Out of Pre-Op 04/07/25 09:15 Anesthesia Start 04/07/25 09:20 Into Room 04/07/25 09:20 Procedure Start 04/07/25 09:37 Procedure End 04/07/25 09:52 Anesthesia End 04/07/25 09:59 Out of Room 04/07/25 09:59 Into Recovery 04/07/25 10:02 Procedure Start Time: 09:37 Procedure Stop Time: 09:52 Select all DRAINS/GRAFTS/IMPLANTS that apply: None Estimated Blood Loss: 200cc Specimen collected: Yes Description of specimen(s) removed: products of conception Description of surgery: Patient was taken to the operating room and placed under MAC local anesthesia. She was prepped and draped in the normal sterile fashion the dorsal lithotomy position. Bladder was drained of clear urine. Anterior lip of the cervix was grasped and the uterus sounded to 9cm. Cervix was progressively dilated to allow passage of a 9 curved suction curette. Under ultrasound guidance, progressive passes were made removing the retained products of conception without complication. All instruments were removed from the vagina and excellent hemostasis was noted and the patient was taken to recovery in stable condition. Surgical Findings: 9 week sized uterus previously seen yolk sac no longer visualized Complications Complications: No Admit VTE Documentation VTE Mechan Device Prophylaxis: SCD's
--- NOTE | 2025-04-07 10:05 | PCM.POST.ANE ---
Anesthesia: Postop Eval I Current Vital Signs Temperature: 97.1 F Pulse Rate: 95 Blood Pressure: 107/70 Respiratory Rate: 16 Pulse Ox: 99 Oxygen Delivery Method: Room Air Assessment Airway patent: Yes Spontaneous unlabored respirations: Yes Mental status: Awake and Calm nausea: No Vomiting: No Anesthesia Complication: No Fluid Hydration Crystalloid volume administer (ml): 700 Total IV fluid infused: 700 Progress Note Anesthesia document: Postop Eval 1 completed: Yes
--- NOTE | 2025-04-07 20:47 | POSTOPAN2_ITS ---
Anesthesia Postop Eval I Sum Postop Eval Completion status Anesthesia document: Postop Eval 1 completed: Yes Anesthesia Postop Eval I Summary Anesthesia Postop Eval I Summary: Anesthesia Postop Eval I: Assessment Summary Airway patent Yes 04/07/25 10:06 POWER CHECKER.GDOTT Spontaneous unlabored Yes 04/07/25 10:06 POWER CHECKER.GDOTT respirations Mental status Awake,Calm 04/07/25 10:06 POWER CHECKER.GDOTT nausea No 04/07/25 10:06 POWER CHECKER.GDOTT Vomiting No 04/07/25 10:06 POWER CHECKER.GDOTT Anesthesia Postop Eval I: Fluid Summary Crystalloid volume administer 700 04/07/25 10:06 POWER CHECKER.GDOTT (ml) Colloids volume administered ( ml) Blood Product volume administered (ml) Total IV fluid infused 700 04/07/25 10:06 POWER CHECKER.GDOTT Anesthesia Postop Eval I: Summary Notes Anesthesia Complication No 04/07/25 10:06 POWER CHECKER.GDOTT Anesthesia Complication Comment: Post-operative progress note Anesthesia: Postop Eval II Evaluation Mental status: Awake and Calm Pain Level: 1 nausea: No Vomiting: No Complications Anesthesia Complication: No
--- NOTE | 2025-04-07 20:47 | PCM.POSTANE2 ---
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 Spontaneous unlabored Yes 04/07/25 10:06 THEATER SET PRODUCTION DESIGNER.GDOTT respirations Mental status Awake,Calm 04/07/25 10:06 THEATER SET PRODUCTION DESIGNER.GDOTT nausea No 04/07/25 10:06 THEATER SET PRODUCTION DESIGNER.GDOTT Vomiting No 04/07/25 10:06 THEATER SET PRODUCTION DESIGNER.GDOTT Anesthesia Postop Eval I: Fluid Summary Crystalloid volume administer 700 04/07/25 10:06 THEATER SET PRODUCTION DESIGNER.GDOTT (ml) Colloids volume administered ( ml) Blood Product volume administered (ml) Total IV fluid infused 700 04/07/25 10:06 THEATER SET PRODUCTION DESIGNER.GDOTT Anesthesia Postop Eval I: Summary Notes Anesthesia Complication No 04/07/25 10:06 THEATER SET PRODUCTION DESIGNER.GDOTT Anesthesia Complication Comment: Post-operative progress note Anesthesia: Postop Eval II Evaluation Mental status: Awake and Calm Pain Level: 1 nausea: No Vomiting: No Complications Anesthesia Complication: No
== END 2025-04-07 11:33 | disposition home or self-care (01) ==
LOC: SDC 07:52 → AC 07:54
PROVIDERS: PCP Registered Nurse; Referring Provider Student in an Organized Health Care Education/Training Program; Visit Provider Student in an Organized Health Care Education/Training Program
PROC: (CPT 59820; principal; 2025-04-07 09:00)
DX: O02.1 Missed abortion (principal); Z87.891 Personal history of nicotine dependence; E07.9 Disorder of thyroid, unspecified; Z79.890 Hormone replacement therapy; O99.281 Endocrine, nutritional and metabolic diseases complicating pregnancy, first trimester
CPT/HCPCS: 59820; 01965; 85027; 86850; 86900; 86901; 88305; J2405

== ENCOUNTER → 2025-04-27 | Outpatient (CLI) | payer BC, SELFPAY ==
[2025-04-27 17:23] LABS: hCG Titer Quant., Serum 21 mIU/mL (<9 non-preg)
== END | disposition home or self-care (01) ==
PROVIDERS: PCP Registered Nurse; Visit Provider Student in an Organized Health Care Education/Training Program
DX: O03.9 Complete or unspecified spontaneous abortion without complication (principal)
CPT/HCPCS: 36415; 84439; 84443; 84702

== ENCOUNTER → 2025-04-29 | Outpatient (CLI) | payer BC, SELFPAY ==
--- OUTSIDE RECORDS SUMMARY | 2025-04-29 11:29 | XMS RPT_ITS | CCD ---
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 Flower Hatch Attending Provider [phone] No fresh work wrapper layer, Md Primary Care Provider Hortensia vailable FLOWER CONWAY Referring Unavailab le NO PRIMARY CARE, Primary Care Unavailable BRAYDEN MCCOY Attending Unavailable FLOWER CONWAY Referring Unavailab le NO PRIMARY CARE, Primary Care Unavailable JANETH BURCH Attending Unavailable NO PRIMARY CARE, Primary Care Unavailable JANETH UBRCH Attending Unavailable JANETH BURCH Referring Unavailable FLOWER [...] Dr. Flower Hatch Attending Provider [phone] BARNDON Laird Attending Provider [phone] Dr. Cathie Farr Attending Provider [phone] BRANDON Velasquez Admit Provider BRANDON Velasquez Other Provider Malik PLASTER PATTERNMAKER, PLASTER PATTERNMAKER-C Kaye Attending Provider [phone] MONICA CHEST PAIN COORDINATOR-PORTRAIT CONSULTANT, MARYELLEN Quiroz Primary Care Physi wayne MONICA CHEST PAIN COORDINATOR-PORTRAIT CONSULTANT, MARYELLEN Quiroz Attending Un available MONICA FOREMAN-PORTRAIT CONSULTANT, MARYELLEN Quiroz Primary Care Un available Care Physician, No Primary Primary Care Physicia n Unavailable Care Physician, No Primary Referring Provider Un available Shivam PLASTER PATTERNMAKER-C, Crystal Attending Physician [phone] Shivam PLASTER PATTERNMAKER-C, Crystal Referring Provider [phone] Monica PLASTER PATTERNMAKER-C, Maryellen Primary Care Physician Crystal Langley Attending Unavailable Monica PLASTER PATTERNMAKER, Maryellen Primary Care Unavailabl e Care Physician, No Primary Referring Unava ilable Care Physician, No Primary Primary Care Unava ilable Care Physician, No Primary Referring Unava ilable Crystal Langley Attending Unavailable Crystal Langley Referring Unavailable Care Physician, No Primary Primary Care Unava ilable Crystal Langley Attending Unavailable Crystal Langley Referring Unavailable Monica PLASTER PATTERNMAKER, Maryellen Primary Care UnavailCrystal Stallworth Attending Unavailable Monica PLASTER PATTERNMAKER, Maryellen Primary Care UnavailCrystal Stallworth Attending Unavailable Crystal Langley Referring Unavailable Flower Hatch Attending Unavaildianne Anderson PLASTER PATTERNMAKER, Maryellen Primary Care Unavailabl e Medications Current Medications Medication Drug Class(es) Dates Sig (Normalized) Sig (Original) levothyroxine sodium 0.025 mg oral tablet (4 sources) l-Thyroxine Start: 01-21-2025 take 1 tablet by mouth once daily Hgxwuqcv-Nrk-Al-Fa (2 sources) Start: 02-10-2023 take 1 tablet by mouth once Tlzadcyd-Vvr-Hq-Fa Active TABLET PO February 09, 2023 11:00pm [...] 26, 2023 1:00am January 21, 2025 2:26pm Igjygjml-Ogx-Nv-Fa 1 mg tablet (4 sources) Start: 02-10-2023 End: 01-21-2025 take 1 tablet by mouth once Ezmtmili-Zfd-Gn-Fa 1 mg tablet Discontinued {tbl} PO February [...] 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 car rier screen ordered. pt states [...] ultrasound scan 11-16-2022 Episodic Comment on above: [facility] recommends growt hs q 4 weeks Spondylosis; [...] 4317on 02-23-20 PROGESTERONE 14.7 ng/mL Normal . [facility] Comment on above: Order Comment: N day 21 lab Result Comment: Foll icular phase 0.1 - 0.9 Luteal phase 1.8 - 23.9 Ovulation phase 0.1 - 12.0 First trimester 11.0 - 44.3 Second trimester 25.4 - 83.3 Third trimester 58.7 - 214.0 Postmenopausal 0.0 - 0.1 Performed at: - [facility] [id number] Lifestyle Block Farmer: Abel Tran PhD, Phone: [phone] Performed By: #### L 586.1453 #### [facility] [place], [address] Pelvic w/ Transvaginalon Pelvic w/ Transvaginal [facility] Services [address] [place] [address] Pelvic w/ Transvaginal MR#: [id number] Acct: [id number] Name: MANPREET TANG Rep #: [id number] : 1990 F 34 From: Gregg mims MD PCP: FREDDIE Duron Status: REG CLI Study: Pelvic w/ Transvaginal Date of Exam: 01/26/25 Exam# [id number] Ordering Dr: Crystal Langley PROCEDURE: PELVIC W/ [...] No other abnormality is seen. Reading Location: [facility] CC: FREDDIE Langley; FREDDIE Anderson House Decorator: Signed Normal [facility] PROGESTERONE 4317on 01-24-20 25 PROGESTERONE 13.9 ng/mL Normal . [facility] Comment on above: Order Comment: N day 21 Result Comment: Foll icular phase 0.1 - 0.9 Luteal phase 1.8 - 23.9 Ovulation phase 0.1 - 12.0 First trimester 11.0 - 44.3 Second trimester 25.4 - 83.3 Third trimester 58.7 - 214.0 Postmenopausal 0.0 - 0.1 Performed at: [facility] [id number] Lifestyle Block Farmer: Abel Tran PhD, Phone: [phone] Performed By: #### L 501.3020, L506.0400, L500.4050, L801.2600, L100.0100 #### [facility] [address] [place], [address] Absolute lymphocyte countOrd ered By: Crystal Langley on 01-21-2025 Lymphocytes Auto (Unsp spec) [#/Vol] 2.49 10*3/uL 0.83-4.51 [facility] Absolute neutrophil countOrd ered By: Crystal Langley on 01-21-2025 Neutrophils (Bld) [#/Vol] 5.8 10*3/uL 2.0-7.7 [facility] Anion gap in Serum or Plasma Ordered By: Crystal Langley on 01-21-2025 Anion gap [Moles/Vol] 13 mmol/L 5-15 [facility] Automated lymphocyte count a s percentage of total leukocytesOrdered By: Crystal Langley on 01-21-2025 Lymphocytes/100 WBC Auto (Unsp spec) 25.6 % - [facility] BUN/creatinine ratioOrdered By: Crystal Langley on 01-21-2025 Urea nitrogen/Creatinine [Mass ratio] 14.6 mg/mg 10-20 [facility] Basophil percentageOrdered B y: Crystal Langley on 01-21-2025 Basophils/100 WBC (Bld) 0.8 % 0-1 [facility] Bilirubin, totalOrdered By: Crystal Langley on 01-21-2025 Bilirubin [Mass/Vol] 0.27 mg/dL 0.00-1.30 [facility] CBC W/Diff, Automatedon 01-05 Absolute Lymph 2.49 X10 3/uL Normal 0.83-4.51 [facility] Comment on above: Performed By: #### L 501.9520, L506.0400, L500.4050, L801.2600, L100.0100 #### [facility] [address] [place], [address] Absolute Neut 5.8 X10 3/uL Normal 2.0-7.7 [facility] Comment on above: Performed By: #### L 501.9520, L506.0400, L500.4050, L801.2600, L100.0100 #### [facility] [address] [place], [address] Basophils/100 WBC (Bld) 0.8 % Normal 0-1 [facility] Comment on above: Performed By: #### L 501.9520, L506.0400, L500.4050, L801.2600, L100.0100 #### [facility] [address] [place], [address] Eosinophils/100 WBC (Bld) 3.6 % Normal 0-5 [facility] Comment on above: Performed By: #### L 501.9520, L506.0400, L500.4050, L801.2600, L100.0100 #### [facility] [address] [place], [address] Erythrocyte distribution width (RBC) [Ratio] 12.4 % Normal 11.6-14.6 [facility] Comment on above: Performed By: #### L 501.9520, L506.0400, L500.4050, L801.2600, L100.0100 #### [facility] [address] [place], [address] Hematocrit (Bld) [Volume fraction] 40.1 % Normal 37-47 [facility] Comment on above: Performed By: #### L 501.9520, L506.0400, L500.4050, L801.2600, L100.0100 #### [facility] [address] [place], [address] Hemoglobin (Bld) [Mass/Vol] 13.3 g/dL Normal 12.0-15.0 [facility] Comment on above: Performed By: #### L 501.9520, L506.0400, L500.4050, L801.2600, L100.0100 #### [facility] [address] [place], [address] IG% 0.200 Normal 0.0-0.9 [facility] Comment on above: Result Comment: IG% - Immature Granulocytes (promyelocytes, myelocytes and metamyelocytes) > 1% indicates that a LEFT SHIFT is Present. Performed By: #### L 501.9520, L506.0400, L500.4050, L801.2600, L100.0100 #### [facility] [address] [place], [address] Lymphocytes/100 WBC (Bld) 25.6 % Normal 19-41 [facility] Comment on above: Performed By: #### L 501.9520, L506.0400, L500.4050, L801.2600, L100.0100 #### [facility] [address] [place], [address] MCH (RBC) [Entitic mass] 30.6 pg Normal 27.0-32.0 [facility] Comment on above: Performed By: #### L 501.9520, L506.0400, L500.4050, L801.2600, L100.0100 #### [facility] [address] [place], [address] MCHC (RBC) [Mass/Vol] 33.2 g/dL Normal 32-36 [facility] Comment on above: Performed By: #### L 501.9520, L506.0400, L500.4050, L801.2600, L100.0100 #### [facility] [address] [place], [address] MCV (RBC) [Entitic vol] 92.2 fL Normal 81-99 [facility] Comment on above: Performed By: #### L 501.9520, L506.0400, L500.4050, L801.2600, L100.0100 #### [facility] [address] [place], [address] Monocytes/100 WBC (Bld) 9.9 % Normal 0-10 [facility] Comment on above: Performed By: #### L 501.9520, L506.0400, L500.4050, L801.2600, L100.0100 #### [facility] [address] [place], [address] Neutrophils/100 WBC (Bld) 59.9 % Normal 47-70 [facility] Comment on above: Performed By: #### L 501.9520, L506.0400, L500.4050, L801.2600, L100.0100 #### [facility] [address] [place], [address] Nucleated RBC (Bld) [#/Vol] 0 10*3/uL Normal 0-5 [facility] Comment on above: Performed By: #### L 501.9520, L506.0400, L500.4050, L801.2600, L100.0100 #### [facility] [address] [place], [address] Platelet mean volume (Bld) [Entitic vol] 9.4 fL Normal 6.2-12.0 [facility] Comment on above: Performed By: #### L 501.9520, L506.0400, L500.4050, L801.2600, L100.0100 #### [facility] [address] [place], [address] Platelets (Bld) [#/Vol] 401 10*3/uL Normal 150-450 [facility] Comment on above: Performed By: #### L 501.9520, L506.0400, L500.4050, L801.2600, L100.0100 #### [facility] [address] [place], [address] RBC (Bld) [#/Vol] 4.35 10*6/uL Normal 4.2-5.4 [facility] Comment on above: Performed By: #### L 501.9520, L506.0400, L500.4050, L801.2600, L100.0100 #### [facility] [address] [place], [address] RDW SD 42.1 fl Normal 35.1-43.9 [facility] Comment on above: Performed By: #### L 501.9520, L506.0400, L500.4050, L801.2600, L100.0100 #### [facility] [address] [place], [address] WBC (Bld) [#/Vol] 9.7 10*3/uL Normal 4.4-11.0 [facility] Comment on above: Performed By: #### L 501.9520, L506.0400, L500.4050, L801.2600, L100.0100 #### [facility] [address] [place], [address] Carbon dioxide, total [Moles /volume] in Central venous bloodOrdered By: Crystal Langley on 01-21-2025 CO2 [Moles/Vol] 22.8 mmol/L 21.0-32.0 [facility] Chloride assayOrdered By: Hilda romina Shivam on 01-21-2025 Chloride [Moles/Vol] 101 mmol/L 98-108 [facility] Comprehensive Metabolic Prof ilon 01-21-2025 Albumin [Mass/Vol] 4.9 g/dL Normal 3.5-5.0 [facility] Comment on above: Order Comment: day 2 1 Performed By: #### L 501.9520, L506.0400, L500.4050, L801.2600, L100.0100 #### [facility] [address] [place], [address] Albumin/Globulin [Mass ratio] 1.6 {ratio} Normal 0.9-2.4 [facility] Comment on above: Order Comment: day 2 1 Performed By: #### L 501.9520, L506.0400, L500.4050, L801.2600, L100.0100 #### [facility] [address] [place], [address] ALK PHOS 63 U/L Normal 35-104 [facility] Comment on above: Order Comment: day 2 1 Performed By: #### L 501.9520, L506.0400, L500.4050, L801.2600, L100.0100 #### [facility] [address] [place], [address] ALT [Catalytic activity/Vol] 13 U/L Normal <=34 [facility] Comment on above: Order Comment: day 2 1 Performed By: #### L 501.9520, L506.0400, L500.4050, L801.2600, L100.0100 #### [facility] [address] [place], [address] AST [Catalytic activity/Vol] 20 U/L Normal <=31 [facility] Comment on above: Order Comment: day 2 1 Performed By: #### L 501.9520, L506.0400, L500.4050, L801.2600, L100.0100 #### [facility] [address] [place], [address] Bilirubin [Mass/Vol] 0.27 mg/dL Normal 0.00-1.30 [facility] Comment on above: Order Comment: day 2 1 Performed By: #### L 501.9520, L506.0400, L500.4050, L801.2600, L100.0100 #### [facility] [address] [place], [address] BUN/CRE 14.6 RATIO Normal 10-20 [facility] Comment on above: Order Comment: day 2 1 Performed By: #### L 501.9520, L506.0400, L500.4050, L801.2600, L100.0100 #### [facility] [address] [place], [address] Calcium [Mass/Vol] 9.5 mg/dL Normal 7.6-11.0 [facility] Comment on above: Order Comment: day 2 1 Performed By: #### L 501.9520, L506.0400, L500.4050, L801.2600, L100.0100 #### [facility] [address] [place], [address] Chloride [Moles/Vol] 101 mmol/L Normal 98-108 [facility] Comment on above: Order Comment: day 2 1 Performed By: #### L 501.9520, L506.0400, L500.4050, L801.2600, L100.0100 #### [facility] [address] [place], [address] CO2 [Moles/Vol] 22.8 mmol/L Normal 21.0-32.0 [facility] Comment on above: Order Comment: day 2 1 Performed By: #### L 501.9520, L506.0400, L500.4050, L801.2600, L100.0100 #### [facility] [address] [place], [address] Creatinine [Mass/Vol] 0.96 mg/dL Normal 0.70-1.20 [facility] Comment on above: Order Comment: day 2 1 Performed By: #### L 501.9520, L506.0400, L500.4050, L801.2600, L100.0100 #### [facility] [address] [place], [address] GAP 13 Normal 5-15 [facility] Comment on above: Order Comment: day 2 1 Performed By: #### L 501.9520, L506.0400, L500.4050, L801.2600, L100.0100 #### [facility] [address] [place], [address] GFR/1.73 sq M.predicted among non-blacks MDRD (S/P/Bld) [Vol rate/Area] 80 mL/min/{1.73_m2} Normal >60 [facility] Comment on above: Order Comment: day 2 1 Result Comment: mL/m in/1.73m2 CKD-EPI Creatinine Equation (2020) Performed By: #### L 501.9520, L506.0400, L500.4050, L801.2600, L100.0100 #### [facility] [address] [place], [address] Globulin (S) [Mass/Vol] 3.1 g/dL Normal 2.2-4.2 [facility] Comment on above: Order Comment: day 2 1 Performed By: #### L 501.9520, L506.0400, L500.4050, L801.2600, L100.0100 #### [facility] [address] [place], [address] Glucose [Mass/Vol] 86 mg/dL Normal 70-99 [facility] Comment on above: Order Comment: day 2 1 Performed By: #### L 501.9520, L506.0400, L500.4050, L801.2600, L100.0100 #### [facility] [address] [place], [address] Potassium [Moles/Vol] 4.3 mmol/L Normal 3.3-5.1 [facility] Comment on above: Order Comment: day 2 1 Performed By: #### L 501.9520, L506.0400, L500.4050, L801.2600, L100.0100 #### [facility] [address] [place], [address] Sodium [Moles/Vol] 137 mmol/L Normal 133-145 [facility] Comment on above: Order Comment: day 2 1 Performed By: #### L 501.9520, L506.0400, L500.4050, L801.2600, L100.0100 #### [facility] [address] [place], [address] T PROT 8.0 g/dL Normal 5.9-8.4 [facility] Comment on above: Order Comment: day 2 1 Performed By: #### L 501.9520, L506.0400, L500.4050, L801.2600, L100.0100 #### [facility] [address] [place], [address] Urea nitrogen [Mass/Vol] 14 mg/dL Normal 4-19 [facility] Comment on above: Order Comment: day 2 1 Performed By: #### L 501.9520, L506.0400, L500.4050, L801.2600, L100.0100 #### [facility] [address] [place], [address] Eosinophil percentageOrdered By: Crystal Langley on 01-21-2025 Eosinophils/100 WBC (Bld) 3.6 % 0-5 [facility] Erythrocyte distribution wid th ratioOrdered By: Crystal Langley on 01-21-2025 Erythrocyte distribution width (RBC) [Ratio] 12.4 % 11.6-14.6 [facility] Erythrocyte distribution wid th standard deviationOrdered By: Crystal Langley on 01-21-2025 Erythrocyte distribution width (RBC) [Ratio] 42.1 fl 35.1-43.9 [facility] Glomerular filtration rate ( GFR) estimation/1.73 sq m using serum, plasma, or whole bOrdered By: Crystal Langley on 01-21-2025 GFR/1.73 sq M.predicted among non-blacks MDRD (S/P/Bld) [Vol rate/Area] 80 mL/min/{1.73_m2} >60 [facility] Comment on above: mL/min/1.73m2 CKD-EP I Creatinine Equation (2020) Hematocrit Auto (Bld) [Volum e fraction]Ordered By: Crystal Langley on 01-21-2025 Hematocrit (Bld) [Volume fraction] 40.1 % 37-47 [facility] Hemoglobin measurementOrdere d By: Crystal Langley on 01-21-2025 Hemoglobin (Bld) [Mass/Vol] 13.3 g/dL 12.0-15.0 [facility] Immature granulocytes/100 WB C Auto (Bld)Ordered By: Crystal Langley on 01-21-2025 Immature granulocytes/100 WBC (Bld) 0.200 % 0.0-0.9 [facility] Comment on above: IG% - Immature Granu locytes (promyelocytes, myelocytes and metamyelocytes) > 1% indicates that a LEFT SHIFT is Present. Laboratory - Chemistry and C hemistry - challengeOrdered By: Crystal Langley on 01-21-2025 AST [Catalytic activity/Vol] 20 U/L <32 [facility] MCV (mean corpuscular volume ) determinationOrdered By: Crystal Langley on 01-21-2025 MCV (RBC) [Entitic vol] 92.2 fL 81-99 [facility] Mean corpuscular hemoglobin (MCH) determinationOrdered By: Crystal Langley on 01-21-2025 MCH (RBC) [Entitic mass] 30.6 pg 27.0-32.0 [facility] Mean corpuscular hemoglobin concentration (MCHC) determinationOrdered By: Crystal Langley on 01-21-2025 MCHC (RBC) [Mass/Vol] 33.2 g/dL 32-36 [facility] Mean platelet volume determi nationOrdered By: Crystal Langley on 01-21-2025 Platelet mean volume (Bld) [Entitic vol] 9.4 fL 6.2-12.0 [facility] Monocyte percentageOrdered B y: Crystal Langley on 01-21-2025 Monocytes/100 WBC (Bld) 9.9 % 0-10 [facility] Neutrophil percentageOrdered By: Crystal Langley on 01-21-2025 Neutrophils/100 WBC (Bld) 59.9 % 47-70 [facility] Nucleated red blood cell per centageOrdered By: Crystal Langley on 01-21-2025 Nucleated RBC/100 WBC (Bld) [Ratio] 0 % 0-5 [facility] Welder Oxyhydrogen Office Visit Reporton 01-21-2025 Welder Oxyhydrogen Office Visit Report [facility] [address], [address] [place] [address] OFFICE VISIT Date of Service: 01/21/25 MR#: [id number] Acct: [id number] Name: MANPREET TANG Rep #: [id number] : 1990 Provider: FREDDIE Hudson Age/Sex: 34/F [place] 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 Mariza (more content not included)... Normal [facility] Platelet countOrdered By: Hilda Langley on 01-21-2025 Platelets (Bld) [#/Vol] 401 10*3/uL 150-450 [facility] Potassium measurement (mass/ volume)Ordered By: Crystal Langley on 01-21-2025 Potassium (Unsp spec) [Mass/Vol] 4.3 mmol/L 3.3-5.1 [facility] RBC Auto (Bld) [#/Vol]Ordere d By: Crystal Langley on 01-21-2025 RBC (Bld) [#/Vol] 4.35 10*6/uL 4.2-5.4 [facility] Serum creatinine measurement (mass/volume)Ordered By: Crystal Langley on 01-21-2025 Creatinine [Mass/Vol] 0.96 mg/dL 0.70-1.20 [facility] Serum globulin measurementOr dered By: Crystal Langley on 01-21-2025 Globulin (S) [Mass/Vol] 3.1 g/dL 2.2-4.2 [facility] Serum glucose measurement (m ass/volume)Ordered By: Crystal Langley on 01-21-2025 Glucose [Mass/Vol] 86 mg/dL 70-99 [facility] Serum or plasma alanine floyd otransferase (ALT) measurementOrdered By: Crystal Langley on 01-21-2025 ALT [Catalytic activity/Vol] 13 U/L <35 [facility] Serum or plasma albumin corrine urement (mass/volume)Ordered By: Crystal Langley on 01-21-2025 Albumin [Mass/Vol] 4.9 g/dL 3.5-5.0 [facility] Serum or plasma albumin/glob ulin mass ratioOrdered By: Crystal Langley on 01-21-2025 Albumin/Globulin [Mass ratio] 1.6 {ratio} 0.9-2.4 [facility] Serum or plasma alkaline berto sphatase measurementOrdered By: Crystal Langley on 01-21-2025 ALP [Catalytic activity/Vol] 63 U/L 35-104 [facility] Serum or plasma calcium corrine urement (mass/volume)Ordered By: Crystal Langley on 01-21-2025 Calcium [Mass/Vol] 9.5 mg/dL 7.6-11.0 [facility] Serum or plasma urea nitroge n measurement (mass/volume)Ordered By: Crystal Langley on 01-21-2025 Urea nitrogen [Mass/Vol] 14 mg/dL 4-19 [facility] Sodium levelOrdered By: Danuta Langley on 01-21-2025 Sodium [Moles/Vol] 137 mmol/L 133-145 [facility] T4 Free Directon 01-21-2025 T4 FREE DIRECT 1.10 ng/dL Normal 0.76-1.46 [facility] Comment on above: Order Comment: N Performed By: #### L 501.1475, L506.0400, L500.4050, L801.2600, L100.0100 #### [facility] [address] [place], [place], [id number] T4 freeOrdered By: Crystal Steve angela on 01-21-2025 Free T4 [Mass/Vol] 1.10 ng/dL 0.76-1.46 [facility] TSH DL <= 0.005 mIU/L QnOrde red By: Crystal Genegustavo on 01-21-2025 TSH Qn 0.716 uIU/mL 0.300-4.200 [facility] Thyroid Stim Hormone (TSH)on 01-21-2025 TSH 0.716 uIU/mL Normal 0.300-4.200 [facility] Comment on above: Performed By: #### L 501.9520, L506.0400, L500.4050, L801.2600, L100.0100 #### [facility] [address] [place], [place], [id number] Total proteinOrdered By: Earl Langley on 01-21-2025 Protein [Mass/Vol] 8.0 g/dL 5.9-8.4 [facility] White blood cell (WBC) count Ordered By: Crystal Genegustavo on 01-21-2025 WBC (Bld) [#/Vol] 9.7 10*3/uL 4.4-11.0 [facility] ESTGENon 11-20-2024 Estradiol 32.9 pg/mL Normal [facility] Comment on above: Result Comment: Adul t Female Range Follicular phase 12.5 - 166.0 Ovulation phase 85.8 - 498.0 Luteal phase 43.8 - 211.0 Postmenopausal <6.0 - 54.7 1st trimester 215.0 - >4300.0 Nina ECLIA methodology Performed At: [facility] [id number] Augusto Stephens MD Ph:[phone] Performed At: [facility] [id number] Marc Roman PhD Ph:[phone] Performed By: #### P SAMY, FSH, TESTO, LH #### [place] [address] #### [id number], ANEU, TSH, FT4, CMP, ADIFF, GFR, CBC #### [address] [address] Estrone 29 pg/mL Normal 27-231 [facility] Comment on above: Result Comment: Rang e Adult (Premenopausal) 27 - 231 Menstrual Cycle (1-10 days) 19 - 149 Menstrual Cycle (11-20 days) 32 - 176 Menstrual Cycle (21-30 days) 37 - 200 Performed By: #### P SAMY, FSH, TESTO, LH #### [place] [address] #### [id number], ANEU, TSH, FT4, CMP, ADIFF, GFR, CBC #### [address] [address] FSHon 11-18-2024 FSH 8.5 mIU/mL Normal [facility] Comment on above: Result Comment: Adul t Female FSH Reference Ranges (03/30/99): Follicular phase 2.5 - 10.2 mIU/mL Midcycle phase 3.4 - 33.4 mIU/mL Luteal phase 1.5 - 9.1 mIU/mL Post menopausal 23.0 -116.3 mIU/mL Adult Male: 1.4 - 18.1 mIU/mL Performed By: #### P SAMY, FSH, TESTO, LH #### [place] [address] #### [id number], ANEU, TSH, FT4, CMP, ADIFF, GFR, CBC #### [address] [address] LHon 11-18-2024 LH 5.4 mIU/mL Normal [facility] Comment on above: Result Comment: No te - New Reference Range in effect 19Adult Female LH Reference Ranges: Follicular phase 1.9 - 12.5 mIU/mL Midcycle phase 8.7 - 76.3 mIU/mL Luteal phase 0.5 - 16.9 mIU/mL Post menopausal 5.0 - 55.2 mIU/mL Performed By: #### P SAMY, FSH, TESTO, LH #### [place] [address] #### [id number], ANEU, TSH, FT4, CMP, ADIFF, GFR, CBC #### [address] [address] PROGon 11-18-2024 Progesterone Level 0.2 ng/mL Normal [facility] Comment on above: Result Comment: [...] #### P SAMY, FSH, TESTO, LH #### [place] [address] #### [id number], ANEU, TSH, FT4, CMP, ADIFF, GFR, CBC #### [place] [id number] TESTOon 11-18-2024 Testosterone Lvl 14.82 ng/dL Normal [facility] Comment on above: Result Comment: Norm al Reference Ranges for Females: Female Premenopause Age 21-60 9.01-47.94 ng/dL Female Postmenopause Age 45-89 <7.00-45.62 ng/dL Performed By: #### P SAMY, FSH, TESTO, LH #### [place] [address] #### [id number], ANEU, TSH, FT4, CMP, ADIFF, GFR, CBC #### [address] [address] .Auto Diffon 11-17-2024 Basophil, Absolute 0.1 10 3/mcL Normal 0.0-0.3 [facility] Comment on above: Performed By: #### P SAMY, FSH, TESTO, LH #### [place] [address] #### [id number], ANEU, TSH, FT4, CMP, ADIFF, GFR, CBC #### [address] [address] Basophils/100 WBC (Bld) 0.8 % Normal 0.0-2.5 [facility] Comment on above: Performed By: #### P SAMY, FSH, TESTO, LH #### [place] [address] #### [id number], ANEU, TSH, FT4, CMP, ADIFF, GFR, CBC #### [address] [address] Eosinophil, Absolute 0.2 10 3/mcL Normal 0.0-0.7 [facility] Comment on above: Performed By: #### P SAMY, FSH, TESTO, LH #### [place] [address] #### [id number], ANEU, TSH, FT4, CMP, ADIFF, GFR, CBC #### [address] [address] Eosinophils/100 WBC (Bld) 3.7 % Normal 0.0-6.0 [facility] Comment on above: Performed By: #### P SAMY, FSH, TESTO, LH #### [place] [address] #### [id number], ANEU, TSH, FT4, CMP, ADIFF, GFR, CBC #### [address] [address] Lymphocyte, Absolute 2.0 10 3/mcL Normal 0.9-4.3 [facility] Comment on above: Performed By: #### P SAMY, FSH, TESTO, LH #### [place] [address] #### [id number], ANEU, TSH, FT4, CMP, ADIFF, GFR, CBC #### [address] [address] Lymphocytes/100 WBC (Bld) 30.5 % Normal 20.0-40.0 [facility] Comment on above: Performed By: #### P SAMY, FSH, TESTO, LH #### [place] [address] #### [id number], ANEU, TSH, FT4, CMP, ADIFF, GFR, CBC #### [address] [address] Monocyte, Absolute 0.6 10 3/mcL Normal 0.1-1.4 [facility] Comment on above: Performed By: #### P SAMY, FSH, TESTO, LH #### [place] [address] #### [id number], ANEU, TSH, FT4, CMP, ADIFF, GFR, CBC #### [address] [address] Monocytes/100 WBC (Bld) 8.5 % Normal 2.0-13.0 [facility] Comment on above: Performed By: #### P SAMY, FSH, TESTO, LH #### [place] [address] #### [id number], ANEU, TSH, FT4, CMP, ADIFF, GFR, CBC #### [address] [address] Neutrophils/100 WBC (Bld) 56.5 % Normal 50.0-75.0 [facility] Comment on above: Performed By: #### P SAMY, FSH, TESTO, LH #### [place] [address] #### [id number], ANEU, TSH, FT4, CMP, ADIFF, GFR, CBC #### [address] [address] .GFRon 11-17-2024 Estimated Glomerular Filtration Rate 105 ml/min/1.73sqm Normal [facility] Comment on above: Result Comment: [...] #### P SAMY, FSH, TESTO, LH #### [place] [address] #### [id number], ANEU, TSH, FT4, CMP, ADIFF, GFR, CBC #### [address] [address] .NEUABSon 11-17-2024 Neutrophil, Absolute 3.7 10 3/mcL Normal 2.3-8.1 [facility] Comment on above: Performed By: #### P SAMY, FSH, TESTO, #### [place] [address] #### [id number], ANEU, TSH, FT4, CMP, ADIFF, GFR, CBC #### [address] [address] CBCon 11-17-2024 Erythrocyte distribution width (RBC) [Ratio] 13.5 % Normal 11.5-15.5 [facility] Comment on above: Performed By: #### P SAMY, FSH, TESTO, #### [place] [address] #### [id number], ANEU, TSH, FT4, CMP, ADIFF, GFR, CBC #### [address] [address] Hematocrit (Bld) [Volume fraction] 38.0 % Normal 34.0-46.0 [facility] Comment on above: Performed By: #### P SAMY, FSH, TESTO, LH #### [place] [address] #### [id number], ANEU, TSH, FT4, CMP, ADIFF, GFR, CBC #### [address] [address] Hgb 13.0 G/dL Normal 12.0-16.0 [facility] Comment on above: Performed By: #### P ASMY, FSH, TESTO, LH #### [place] [address] #### [id number], ANEU, TSH, FT4, CMP, ADIFF, GFR, CBC #### [address] [address] MCH (RBC) [Entitic mass] 30.9 pg Normal 27.0-33.0 [facility] Comment on above: Performed By: #### P SAMY, FSH, TESTO, LH #### [place] [address] #### [id number], ANEU, TSH, FT4, CMP, ADIFF, GFR, CBC #### [address] [address] MCHC 34.1 G/dL Normal 32.0-36.0 [facility] Comment on above: Performed By: #### P SAMY, FSH, TESTO, LH #### [place] [address] #### [id number], ANEU, TSH, FT4, CMP, ADIFF, GFR, CBC #### [address] [address] MCV (RBC) [Entitic vol] 90.6 fL Normal 80.0-99.0 [facility] Comment on above: Performed By: #### P SAMY, FSH, TESTO, LH #### [place] [address] #### [id number], ANEU, TSH, FT4, CMP, ADIFF, GFR, CBC #### [address] [address] Platelet 360 10 3/mcL Normal 150-450 [facility] Comment on above: Performed By: #### P SAMY, FSH, TESTO, LH #### [place] [address] #### [id number], ANEU, TSH, FT4, CMP, ADIFF, GFR, CBC #### [address] [address] Platelet mean volume (Bld) [Entitic vol] 7.3 fL Normal 6.6-10.5 [facility] Comment on above: Performed By: #### P SAMY, FSH, TESTO, LH #### [place] [address] #### [id number], ANEU, TSH, FT4, CMP, ADIFF, GFR, CBC #### [place] [address] RBC 4.20 10 6/mcL Normal 4.10-5.30 [facility] Comment on above: Performed By: #### P SAMY, FSH, TESTO, LH #### [place] [address] #### [id number], ANEU, TSH, FT4, CMP, ADIFF, GFR, CBC #### [place] [address] WBC 6.6 10 3/mcL Normal 4.5-10.8 [facility] Comment on above: Performed By: #### P SAMY, FSH, TESTO, LH #### [place] [address] #### [id number], ANEU, TSH, FT4, CMP, ADIFF, GFR, CBC #### [address] [address] CMPon 11-17-2024 Albumin Level 4.2 G/dL Normal 3.5-5.0 [facility] Comment on above: Performed By: #### P SAMY, FSH, TESTO, LH #### [place] [address] #### [id number], ANEU, TSH, FT4, CMP, ADIFF, GFR, CBC #### [place] [id number] Albumin/Globulin [Mass ratio] 1.2 {ratio} Normal 1.1-2.5 [facility] Comment on above: Performed By: #### P SAMY, FSH, TESTO, LH #### [place] [address] #### [id number], ANEU, TSH, FT4, CMP, ADIFF, GFR, CBC #### [address] [address] ALP [Catalytic activity/Vol] 55 U/L Normal 40-135 [facility] Comment on above: Performed By: #### P SAMY, FSH, TESTO, LH #### [place] [address] #### [id number], ANEU, TSH, FT4, CMP, ADIFF, GFR, CBC #### [place] [id number] ALT [Catalytic activity/Vol] 21 U/L Normal 14-59 [facility] Comment on above: Performed By: #### P SAMY, FSH, TESTO, LH #### [place] [address] #### [id number], ANEU, TSH, FT4, CMP, ADIFF, GFR, CBC #### [address] [address] AST [Catalytic activity/Vol] 11 U/L Normal 10-40 [facility] Comment on above: Performed By: #### P SAMY, FSH, TESTO, LH #### [place] [address] #### [id number], ANEU, TSH, FT4, CMP, ADIFF, GFR, CBC #### [place] [id number] Bili Total 0.3 mg/dL Normal 0.2-1.0 [facility] Comment on above: Result Comment: Use of this assay is not recommended for patients undergoing treatment with eltrombopag due to the potential for falsely elevated results. Performed By: #### P SAMY, FSH, TESTO, LH #### [place] [address] #### [id number], ANEU, TSH, FT4, CMP, ADIFF, GFR, CBC #### [address] [address] BUN/Creatinine Ratio 21 ratio Normal 7-27 [facility] Comment on above: Performed By: #### P SAMY, FSH, TESTO, LH #### [place] [address] #### [id number], ANEU, TSH, FT4, CMP, ADIFF, GFR, CBC #### [address] [address] Calcium [Mass/Vol] 9.2 mg/dL Normal 8.4-10.2 [facility] Comment on above: Performed By: #### P SAMY, FSH, TESTO, LH #### [place] [address] #### [id number], ANEU, TSH, FT4, CMP, ADIFF, GFR, CBC #### [address] [address] Chloride [Moles/Vol] 103 mmol/L Normal 98-107 [facility] Comment on above: Performed By: #### P SAMY, FSH, TESTO, LH #### [place] [address] #### [id number], ANEU, TSH, FT4, CMP, ADIFF, GFR, CBC #### [address] [address] CO2 [Moles/Vol] 28 mmol/L Normal 22-29 [facility] Comment on above: Performed By: #### P SAMY, FSH, TESTO, LH #### [place] [address] #### [id number], ANEU, TSH, FT4, CMP, ADIFF, GFR, CBC #### [address] [address] Creatinine [Mass/Vol] 0.76 mg/dL Normal 0.51-0.95 [facility] Comment on above: Performed By: #### P SAMY, FSH, TESTO, LH #### [place] [address] #### [id number], ANEU, TSH, FT4, CMP, ADIFF, GFR, CBC #### [address] [address] Electrolyte Balance 9.0 mEq/L Normal 4.0-15.0 [facility] Comment on above: Performed By: #### P SAMY, FSH, TESTO, LH #### [place] [address] #### 518153, ANEU, TSH, FT4, CMP, ADIFF, GFR, CBC #### [address] [address] Globulin 3.5 G/dL Normal 2.7-4.4 [facility] Comment on above: Performed By: #### P SAMY, FSH, TESTO, LH #### [place] [address] #### [id number], ANEU, TSH, FT4, CMP, ADIFF, GFR, CBC #### [address] [address] Glucose [Mass/Vol] 92 mg/dL Normal 70-105 [facility] Comment on above: Performed By: #### P SAMY, FSH, TESTO, LH #### [place] [address] #### [id number], ANEU, TSH, FT4, CMP, ADIFF, GFR, CBC #### [address] [address] Potassium [Moles/Vol] 3.8 mmol/L Normal 3.5-5.1 [facility] Comment on above: Performed By: #### P SAMY, FSH, TESTO, LH #### [place] [address] #### [id number], ANEU, TSH, FT4, CMP, ADIFF, GFR, CBC #### [address] [address] Sodium [Moles/Vol] 140 mmol/L Normal 136-145 [facility] Comment on above: Performed By: #### P SAMY, FSH, TESTO, LH #### [place] [address] #### [id number], ANEU, TSH, FT4, CMP, ADIFF, GFR, CBC #### [address] [address] Total Protein 7.7 G/dL Normal 6.4-8.2 [facility] Comment on above: Performed By: #### P SAMY, FSH, TESTO, LH #### [place] [address] #### [id number], ANEU, TSH, FT4, CMP, ADIFF, GFR, CBC #### [address] [address] Urea nitrogen [Mass/Vol] 16 mg/dL Normal 7-18 [facility] Comment on above: Performed By: #### P SAMY, FSH, TESTO, LH #### [place] [address] #### [id number], ANEU, TSH, FT4, CMP, ADIFF, GFR, CBC #### [address] [address] FT4on 11-17-2024 Free T4 [Mass/Vol] 0.67 ng/dL Low 0.76-1.46 [facility] Comment on above: Performed By: #### P SAMY, FSH, TESTO, LH #### [place] [address] #### [id number], ANEU, TSH, FT4, CMP, ADIFF, GFR, CBC #### [address] [address] LABORATORYOrdered By: SYSTEM SYSTEM on 11-17-2024 Albumin [...] 11-17-2024 TSH Qn 1.39 m[IU]/L Normal 0.36-3.74 [facility] Comment on above: Performed By: #### P SAMY, FSH, TESTO, LH #### [address] [address] #### [id number], ANEU, TSH, FT4, CMP, ADIFF, GFR, CBC #### [facility] [address] [place] [address] Absolute lymphocyte countOrd ered By: Tiffanie Velasquez on 03-26-2023 Lymphocytes Auto (Unsp spec) [#/Vol] 2.05 10*3/uL 0.83-4.51 [facility] Basophil percentageOrdered B y: Tiffanie Velasquez on 03-26-2023 Basophils/100 WBC (Bld) 0.8 % 0-1 [facility] Eosinophils/100 WBC (Bld) 5.9 % 0-5 [facility] Neutrophils (Bld) [#/Vol] 3.3 10*3/uL 2.0-7.7 [facility] Neutrophils/100 WBC (Bld) 51.4 % 47-70 [facility] WBC (Bld) [#/Vol] 6.4 10*3/uL 4.4-11.0 [facility] Blood erythrocytes count (nu mber/volume)Ordered By: Tiffanie Velasquez on 03-26-2023 RBC (Bld) [#/Vol] 4.27 10*6/uL 4.2-5.4 [facility] Blood hemoglobin measurement (mass/volume)Ordered By: Tiffanie Velasquez on 03-26-2023 Hemoglobin (Bld) [Mass/Vol] 12.8 g/dL 12.0-15.0 [facility] Blood lymphocytes/100 leukoc ytesOrdered By: Tiffanie Velasquez on 03-26-2023 Lymphocytes/100 WBC (Bld) 32.1 % 19-41 [facility] Blood monocytes/100 leukocyt esOrdered By: Tiffanie Velasquez on 03-26-2023 Monocytes/100 WBC (Bld) 9.5 % 0-10 [facility] Blood platelet mean volumeOr dered By: Tiffanie Velasquez on 03-26-2023 Platelet mean volume (Bld) [Entitic vol] 9.3 fL 6.2-12.0 [facility] Determination of erythrocyte mean corpuscular volume (MCV)Ordered By: Tiffanie Velasquez on 03-26-2023 MCV (RBC) [Entitic vol] 93.7 fL 81-99 [facility] Hematocrit Auto (Bld) [Volum e fraction]Ordered By: Tiffanie Velasquez on 03-26-2023 Hematocrit (Bld) [Volume fraction] 40.0 % 37-47 [facility] - Hematology and Cell countsOrdered By: Tiffanie Velasquez on 03-26-2023 Erythrocyte distribution width (RBC) [Entitic vol] 42.7 fL 35.1-43.9 [facility] Erythrocyte distribution width (RBC) [Ratio] 12.5 % 11.6-14.6 [facility] Immature granulocytes/100 WBC (Bld) 0.300 % 0.0-0.9 [facility] Comment on above: IG% - Immature Granu locytes (promyelocytes, myelocytes and metamyelocytes) > 1% indicates that a LEFT SHIFT is Present. MCH (RBC) [Entitic mass] 30.0 pg 27.0-32.0 [facility] Nucleated RBC/100 WBC (Bld) [Ratio] 0 % 0-5 [facility] MCHC Auto (RBC) [Mass/Vol]Or dered By: Tiffanie Velasquez on 03-26-2023 MCHC (RBC) [Mass/Vol] 32.0 g/dL 32-36 [facility] Platelets bldOrdered By: Sherron Velasquez on 03-26-2023 Platelets (Bld) [#/Vol] 333 10*3/uL 150-450 [facility] Basophil percentageOrdered B y: Tiffanie Velasquez on 02-11-2023 WBC (Bld) [#/Vol] 18.7 10*3/uL 4.4-11.0 [facility] Blood erythrocytes count (nu mber/volume)Ordered By: Tiffanie Velasquez on 02-11-2023 RBC (Bld) [#/Vol] 2.67 10*6/uL 4.2-5.4 [facility] Blood hemoglobin measurement (mass/volume)Ordered By: Tiffanie Velasquez on 02-11-2023 Hemoglobin (Bld) [Mass/Vol] 8.5 g/dL 12.0-15.0 [facility] Blood platelet mean volumeOr dered By: Tiffanie Velasquez on 02-11-2023 Platelet mean volume (Bld) [Entitic vol] 10.6 fL 6.2-12.0 [facility] Determination of erythrocyte mean corpuscular volume (MCV)Ordered By: Tiffanie Velasquez on 02-11-2023 MCV (RBC) [Entitic vol] 94.8 fL 81-99 [facility] Hematocrit Auto (Bld) [Volum e fraction]Ordered By: Tiffanie Velasquez on 02-11-2023 Hematocrit (Bld) [Volume fraction] 25.3 % 37-47 [facility] - Hematology and Cell countsOrdered By: Tiffanie Velasquez on 02-11-2023 Erythrocyte distribution width (RBC) [Entitic vol] 49.7 fL 35.1-43.9 [facility] Erythrocyte distribution width (RBC) [Ratio] 14.5 % 11.6-14.6 [facility] MCH (RBC) [Entitic mass] 31.8 pg 27.0-32.0 [facility] MCHC Auto (RBC) [Mass/Vol]Or dered By: Tiffanie Velasquez on 02-11-2023 MCHC (RBC) [Mass/Vol] 33.6 g/dL 32-36 [facility] Platelets bldOrdered By: Sherron Velasquez on 02-11-2023 Platelets (Bld) [#/Vol] 255 10*3/uL 150-450 [facility] Absolute lymphocyte countOrd ered By: Tiffanie Velasquez on 02-10-2023 Lymphocytes Auto (Unsp spec) [#/Vol] 1.63 10*3/uL 0.83-4.51 [facility] Basophil percentageOrdered B y: Tiffanie Velasquez on 02-10-2023 Basophils/100 WBC (Bld) 0.2 % 0-1 [facility] Eosinophils/100 WBC (Bld) 0.2 % 0-5 [facility] Neutrophils (Bld) [#/Vol] 14.1 10*3/uL 2.0-7.7 [facility] Neutrophils/100 WBC (Bld) 82.6 % 47-70 [facility] Blood lymphocytes/100 leukoc ytesOrdered By: Tiffanie Velasquez on 02-10-2023 Lymphocytes/100 WBC (Bld) 9.5 % 19-41 [facility] Blood monocytes/100 leukocyt esOrdered By: Tiffanie Velasquez on 02-10-2023 Monocytes/100 WBC (Bld) 6.9 % 0-10 [facility] Laboratory - Hematology and Cell countsOrdered By: Tiffanie Velasquez on 02-10-2023 Immature granulocytes/100 WBC (Bld) 0.600 % 0.0-0.9 [facility] Comment on above: IG% - Immature Granu locytes (promyelocytes, myelocytes and metamyelocytes) > 1% indicates that a LEFT SHIFT is Present. Nucleated RBC/100 WBC (Bld) [Ratio] 0 % 0-5 [facility] Serum Treponema species anti body detectionOrdered By: Tiffaine Velasquez on 02-10-2023 Treponema sp Ab Ql (S) Non-Reactive [facility] - Chemistry and C hemistry - challengeon 02-07-2023 Glucose Ql (U) Negative [facility] - Urinalysison Protein Ql (U) Negative [facility] - Chemistry and C hemistry - challengeon 02-05-2023 Glucose Ql (U) Negative [facility] - Urinalysison Protein Ql (U) Negative [facility] - Chemistry and C hemistry - challengeon 01-31-2023 Glucose Ql (U) Negative [facility] - Urinalysison Protein Ql (U) Negative [facility] - Chemistry and C hemistry - challengeon 01-19-2023 Glucose Ql (U) Negative [facility] - Urinalysison Protein Ql (U) Negative [facility] No Panel InformationOrdered By: Leigh Ann Laird on 01-12-2023 Group B Streptococcus Culture Streptococcus agalactiae (B) [facility] Group B Streptococcus Culture Streptococcus agalactiae (B) [facility] - Chemistry and C hemistry - challengeon 12-29-2022 Glucose Ql (U) Negative [facility] - Urinalysison Protein Ql (U) Negative [facility] - Chemistry and C hemistry - challengeon 12-11-2022 Glucose Ql (U) Negative [facility] - Urinalysison Protein Ql (U) Negative [facility] - Chemistry and C hemistry - challengeon 11-27-2022 Glucose Ql (U) Negative [facility] - Urinalysison Protein Ql (U) Negative [facility] Absolute lymphocyte countOrd ered By: Flower Llamas on 11-17-2022 Lymphocytes Auto (Unsp spec) [#/Vol] 2.12 10*3/uL 0.83-4.51 [facility] Basophil percentageOrdered B y: Flower Llamas on 11-17-2022 Basophils/100 WBC (Bld) 0.5 % 0-1 [facility] Eosinophils/100 WBC (Bld) 2.2 % 0-5 [facility] Neutrophils (Bld) [#/Vol] 7.1 10*3/uL 2.0-7.7 [facility] Neutrophils/100 WBC (Bld) 67.9 % 47-70 [facility] WBC (Bld) [#/Vol] 10.4 10*3/uL 4.4-11.0 [facility] Blood erythrocytes count (nu mber/volume)Ordered By: Flower Llamas on 11-17-2022 RBC (Bld) [#/Vol] 3.65 10*6/uL 4.2-5.4 [facility] Blood hemoglobin measurement (mass/volume)Ordered By: Flower Llamas on 11-17-2022 Hemoglobin (Bld) [Mass/Vol] 11.8 g/dL 12.0-15.0 [facility] Blood lymphocytes/100 leukoc ytesOrdered By: Flower Llamas on 11-17-2022 Lymphocytes/100 WBC (Bld) 20.3 % 19-41 [facility] Blood monocytes/100 leukocyt esOrdered By: Flower Llamas on 11-17-2022 Monocytes/100 WBC (Bld) 8.4 % 0-10 [facility] Blood platelet mean volumeOr dered By: Flower Llamas on 11-17-2022 Platelet mean volume (Bld) [Entitic vol] 9.4 fL 6.2-12.0 [facility] Determination of erythrocyte mean corpuscular volume (MCV)Ordered By: Flower Llamas on 11-17-2022 MCV (RBC) [Entitic vol] 95.9 fL 81-99 [facility] Gestational diabetes screen 1-hour screen with 50g oral glucose loadOrdered By: Flower Llamas on 11-17-2022 Glucose 1 Hr post 50 g glucose PO [Mass/Vol] 120 mg/dL 70-140 [facility] HIV 1 and HIV-2 antibody ass ay with HIV-1 p24 antigen detectionOrdered By: Flower Llamas on 11-17-2022 HIV 1+2 Ab+HIV1 p24 Ag IA Ql Non-Reactive Nonreactive [facility] Hematocrit Auto (Bld) [Volum e fraction]Ordered By: Flower Llamas on 11-17-2022 Hematocrit (Bld) [Volume fraction] 35.0 % 37-47 [facility] - Chemistry and C hemistry - challengeon 11-17-2022 Glucose Ql (U) Negative [facility] - Hematology and Cell countsOrdered By: Flower Llamas on 11-17-2022 Erythrocyte distribution width (RBC) [Entitic vol] 41.7 fL 35.1-43.9 [facility] Erythrocyte distribution width (RBC) [Ratio] 12.0 % 11.6-14.6 [facility] Immature granulocytes/100 WBC (Bld) 0.700 % 0.0-0.9 [facility] Comment on above: IG% - Immature Granu locytes (promyelocytes, myelocytes and metamyelocytes) > 1% indicates that a LEFT SHIFT is Present. MCH (RBC) [Entitic mass] 32.3 pg 27.0-32.0 [facility] Nucleated RBC/100 WBC (Bld) [Ratio] 0 % 0-5 [facility] Laboratory - Urinalysison Protein Ql (U) Negative [facility] MCHC Auto (RBC) [Mass/Vol]Or dered By: Flower Llamas on 11-17-2022 MCHC (RBC) [Mass/Vol] 33.7 g/dL 32-36 [facility] Platelets bldOrdered By: Darcy Llamas on 11-17-2022 Platelets (Bld) [#/Vol] 319 10*3/uL 150-450 [facility] Serum Treponema species anti body detectionOrdered By: Flower Llamas on 11-17-2022 Treponema sp Ab Ql (S) Non-Reactive [facility] - Chemistry and C hemistry - challengeon 10-27-2022 Glucose Ql (U) Negative [facility] - Urinalysison Protein Ql (U) Negative [facility] - Chemistry and C hemistry - challengeon 09-29-2022 Glucose Ql (U) Negative [facility] - Urinalysison Protein Ql (U) Negative [facility] Toxoplasma IGG AND IGM (Pren atal Screen)on 09-15-2022 Toxoplasma IgG (Dye Test) <1:16 Normal <1:16 NEGATIVE [facility] Comment on above: Order Comment: Order a CMV Avidity test if IgM is positive. Release to patient->Automatic 30639&Blood Performed By: #### T SLPN #### [address] [id number] Toxoplasma IgM LOLY 0.0 Normal [facility] Comment on above: Order Comment: Order a CMV Avidity test if IgM is positive. Release to patient->Automatic 34909&Blood Result Comment: 0.0-1.6 = Negative 1.7-1.9 = Equivocal >= 2.0 = Positive Testing Performed: [facility], [address] [id number] Performed By: #### T SLPN #### [address] [id number] CMV IgG Abon 09-09-2022 CMV IgG Ab Positive Abnormal Negative [facility] Comment on above: Order Comment: Order a CMV Avidity test if IgM is positive. Release to patient->Automatic 12438&Blood Result Comment: Test Performed by: [place] [address] Lifestyle Block Farmer: Gomez Canas M.D. Ph.D.; CLIA# [id number] Performed By: #### C MVIG #### [address] [address] CMV IgM Abon 09-09-2022 CMV IgM Ab Negative Normal Negative [facility] Comment on above: Order Comment: Order a CMV Avidity test if IgM is positive. Release to patient->Automatic [address]8545&Blood Result Comment: Test Performed by: [place] [address] Lifestyle Block Farmer: Gomez Canas M.D. Ph.D.; CLIA# [id number] Performed By: #### C MVIM #### [address] [id number] Progress Noteon 09-05-2022 Insurance Application Investigator Authentication Interface Message Text MFM ultrasound finding [...] today as well regarding echogenic bowel. Normal [facility] Laboratory - Chemistry and C hemistry - challengeon 04-24-2023 Glucose Ql (U) Negative [facility] Laboratory - Urinalysison Protein Ql (U) Negative [facility] Laboratory - Chemistry and C hemistry - challengeon 2022 Glucose Ql (U) Negative [facility] Laboratory - Urinalysison Protein Ql (U) Negative [facility] Absolute lymphocyte countOrd ered By: Dr. Llamas on 07-20-2022 Lymphocytes Auto (Unsp spec) [#/Vol] 2.80 10*3/uL 0.83-4.51 [facility] Basophil percentageOrdered B y: Dr. Llamas on 07-20-2022 Basophils/100 WBC (Bld) 0.5 % 0-1 [facility] Eosinophils/100 WBC (Bld) 1.4 % 0-5 [facility] Neutrophils (Bld) [#/Vol] 6.4 10*3/uL 2.0-7.7 [facility] Neutrophils/100 WBC (Bld) 63.5 % 47-70 [facility] WBC (Bld) [#/Vol] 10.1 10*3/uL 4.4-11.0 [facility] Blood erythrocytes count (nu mber/volume)Ordered By: Dr. Llamas on 07-20-2022 RBC (Bld) [#/Vol] 4.13 10*6/uL 4.2-5.4 [facility] Blood hemoglobin measurement (mass/volume)Ordered By: Dr. Llamas on 07-20-2022 Hemoglobin (Bld) [Mass/Vol] 13.4 g/dL 12.0-15.0 [facility] Blood lymphocytes/100 leukoc ytesOrdered By: Dr. Llamas on 07-20-2022 Lymphocytes/100 WBC (Bld) 27.9 % 19-41 [facility] Blood monocytes/100 leukocyt esOrdered By: Dr. Llamas on 07-20-2022 Monocytes/100 WBC (Bld) 6.4 % 0-10 [facility] Blood platelet mean volumeOr dered By: Dr. Llamas on 07-20-2022 Platelet mean volume (Bld) [Entitic vol] 9.5 fL 6.2-12.0 [facility] Determination of erythrocyte mean corpuscular volume (MCV)Ordered By: Dr. Llamas on 07-20-2022 MCV (RBC) [Entitic vol] 92.3 fL 81-99 [facility] HIV 1 and HIV-2 antibody ass ay with HIV-1 p24 antigen detectionOrdered By: Dr. Llamas on 07-20-2022 HIV 1+2 Ab+HIV1 p24 Ag IA Ql Non-Reactive Nonreactive [facility] Hematocrit Auto (Bld) [Volum e fraction]Ordered By: Dr. Llamas on 07-20-2022 Hematocrit (Bld) [Volume fraction] 38.1 % 37-47 [facility] Laboratory - Hematology and Cell countsOrdered By: Dr. Llamas on 07-20-2022 Erythrocyte distribution width (RBC) [Entitic vol] 41.1 fL 35.1-43.9 [facility] Erythrocyte distribution width (RBC) [Ratio] 11.9 % 11.6-14.6 [facility] Immature granulocytes/100 WBC (Bld) 0.300 % 0.0-0.9 [facility] Comment on above: IG% - Immature Granu locytes (promyelocytes, myelocytes and metamyelocytes) > 1% indicates that a LEFT SHIFT is Present. MCH (RBC) [Entitic mass] 32.4 pg 27.0-32.0 [facility] Nucleated RBC/100 WBC (Bld) [Ratio] 0 % 0-5 [facility] MCHC Auto (RBC) [Mass/Vol]Or dered By: Dr. Llamas on 07-20-2022 MCHC (RBC) [Mass/Vol] 35.2 g/dL 32-36 [facility] No Panel InformationOrdered By: Dr. Llamas on 07-20-2022 Miscellaneous Test Comment MAILED SPECIMEN [facility] Hepatitis B Surface Antigen Non-Reactive Nonreactive [facility] Hepatitis C Antibody Non-Reactive Nonreactive [facility] Comment on above: Non Reactive: < 0.8 Equivocal: >/= 0.8 to < 1.0 Reactive: >/= 1.0The CDC recommends that a reactive/equivocal HCV antibody result be followed up by the HCV Nucleic Acid Amplificationtest (137583) Rubella IgG Antibody Reactive Nonreactive [facility] Comment on above: Antibody Results Int erpretation of Immune Status Non Reactive Presumed Non-Immune Equivocal Equivocal Reactive Presumed Immune Platelets bldOrdered By: Dr. Llamas on 07-20-2022 Platelets (Bld) [#/Vol] 346 10*3/uL 150-450 [facility] Serum Treponema species anti body detectionOrdered By: Dr. Llamas on 07-20-2022 Treponema sp Ab Ql (S) Non-Reactive [facility] Culture, urineOrdered By: Dr Sydney Llamas on 07-08-2022 Bacteria identified Cx Nom (U) Mixed Gram Pos & Gram Neg Org [facility] Cervical or vagninal specime n microscopic examination by cytology stain (reported asOrdered By: Dr. Llamas on 07-06-2022 Cytology report Cyto stain Doc (Cvx/Vag) Comment . [facility] Comment on above: The Pap [...] rRNA RUSLAN+probe Ql (Unsp spec) Negative Negative [facility] Detection in cervical specim en of any of human papilloma virus (HPV) 16, 18, 31, 33,Ordered By: Dr. Llamas on 07-06-2022 HPV 16+18+31+33+35+39+45+51+ 52+56+58+59+66+68 DNA Probe+sig amp Ql (Cvx) Negative Negative [facility] Comment on above: This nucleic acid am plification test detects fourteen high-risk HPV types (16,18,31,33,35,39,45,51,52,56,58,59,66,68)without differentiation. Laboratory - CytologyOrdered By: Dr. Llamas on 07-06-2022 Engineering Teacher Cyto stain Nom (Cvx/Vag) [ID] Comment . [facility] Comment on above: Katt Stewart, Cyto technologist (ASCP) Laboratory - Microbiology an d Antimicrobial susceptibilityOrdered By: Dr. Llamas on 07-06-2022 N. gonorrhoeae DNA RUSLAN+probe Ql (Unsp spec) Negative Negative [facility] Comment on above: Performed at: =G - [facility] [address] [id number] Director: Libby Jin MD, Phone: [phone] Laboratory - Miscellaneous t estsOrdered By: Dr. Llamas on 07-06-2022 Service comment (Unsp spec) [Interp] Comment . [facility] Comment on above: This liquid based Th inPrep(R) pap test was screened withthe use of an image guided system. Service comment (Unsp spec) [Interp] . . [facility] Liquid-based cerv Pap + CT/G C by RUSLAN w reflex to high-risk HPV for ASCUSOrdered By: Dr. Llamas on 07-06-2022 Cytology report Cyto stain.thin prep Doc (Cvx/Vag) Comment . [facility] Comment on above: Criteria not met, HP V Genotype not performed.Performed at: - [facility] [address] [id number] Director: Libby Jin MD, Phone: [phone] at: =G - [facility] [address] [id number] Director: Libby Jin MD, Phone: [phone] No Panel InformationOrdered By: Dr. Llamas on 07-06-2022 Pathology report final diagnosis Narrative Comment . [facility] Comment on above: NEGATIVE FOR INTRAEP ITHELIAL LESION OR MALIGNANCY. 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 Advised patient that she would not received any further refills of below medication from provider until Annual PUBLIC RELATIONS ASSISTANT Exam had been completed per overdue since 2016. Patient verbalized understanding and states that she lives closer to [place] and will schedule with a provider closer [...] Status:Closed by SILVIA SCHMITZ MD on 07/14/19 [facility] OBSOLETEon 01-17-2019 OBSOLETE Refill (OBGYLN) MANPREET TANG ([id number]) 1990 F Date Time Provider Department 01/17/19 [...] Status:Closed by SILVIA SCHMITZ MD [facility] (GASTMN) LONAMANPREET ([id number]) 1990 F Date Time Provider Department 12/17/18 8:00 AM NURSE GI LAB I GASTMN During your visit today, we recorded the following information about you: Arias Jones RN, RN 12/17/2018 9:02 AM Signed Name: Manpreet Tang [facility]#: [id number] Date: 12/17/2018 H-PYLORI BREATH TEST Indication: Bloating [...] Arias Jones RN Referring Provider: KI LOUIS [[id number]] Allergies As of Date: 12/17/2018 (No Known Allergies) Date Reviewed: 11/29/2018 Reviewed by: Brett Lagunas Ma - Fully Assessed Reason for Visit: Procedure [88] Cmt: Breath Test H Pylori Visit Diagnosis:Bloating [R14.0] Order(s):BREATH TEST H PYLORI [SQHPYLBR] Order #: [id number] Prescriptions as of 12/17/2018 Sig: METRONIDAZOLE 500 MG TABLET Take 1 tablet by mouth twice * Patient not taking: Reported on 11/29/2018 L NORGEST/E ESTRADIOL-E ESTRA* Take 1 tablet by mouth once d* Problem List As Of Date 12/17/2018 Noted Resolved Bloating [R14.0] INVALID FOR* Encounter Status:Closed by ARIAS JONES on 12/17/18 Normal [facility] H pylori Breath Teston 12-17 H pylori Breath Test 0.4 Normal <2.4 [facility] Comment on above: Result Comment: Nega tive for H. pylori Performed By: #### H PYLBR ####[facility] [place], [place] [phone] PROGRESSon 12-17-2018 PROGRESS HNO ID: [id number] Author: Arias ([place]) DARIEN Jones Service: ? Author Type: Registered Nurse Type: Progress Notes Filed: 12/17/2018 9:02 AM Note Text: Name: Manpreet Tang [facility]#: [id number] Date: 12/17/2018 H-PYLORI BREATH TEST Indication: Bloating [...] and the specimens were sent to the [facility]'s lab for processing. Arias Jones RN [facility] CNOVon 11-29-2018 CNOV Office Visit (GAINLL) MANPREET TANG ([id number]) 1990 F Date Time Provider Department 11/29/18 11:30 AM KI LOUIS During your visit today, we recorded the following information about you: Pulse Blood pressure Weight Height 86/minute 110/60 54.4 kg 1.575 m Brett Lagunas Ma 11/29/2018 11:31 AM Signed [facility] LAB AND RADIOLOGY FACTS LAB HOURS: [...] is for patients 2 years and older. [facility]: Sunday through Sunday 8:00am to 8:00pm. Sunday and Sunday 8:00am to 4:00pm. The walk in clinic is for patients 2 years and older. [facility]: Sunday 8:00am to 8:00pm. Sunday and Sunday 8:00am to 4:00pm. The walk in clinic is for patients 2 years and older. [facility] WALK IN MAMMOGRAM HOURS Sunday-Sunday 3:00pm- 7:00 pm Sunday 8:00 am- 12:00 pm For Express Care LOCATIONS, HOURS OF OPERATION and CURRENT WAIT TIMES, visit the following link [email or web address] dFR[types][0]=Expres s%20Care%20ClinicsAN D for details. Ki [...] file Gets together: Not on file Attends jewish service: Not on file Active member of [...] 2018 11:39 AM Referring Provider: SILVIA SCHMITZ [[id number]] Allergies As of Date: 11/29/2018 (No Known Allergies) Date Reviewed: 11/29/2018 Reviewed by: Brett Lagunas Ma - Fully Assessed Reason for Visit: New Patient [172] Cmt: bloating Rectal Bleeding [202] Diarrhea [35] Reason For Visit History Recorded Visit Diagnosis:Bloating [R14.0] Order(s):BREATH TEST H PYLORI [SQHPYLBR] Order #: [id number] FUTURE BREATH TEST GLUCOSE [2282887] Order #: [id number] FUTURE Prescriptions as of 11/29/2018 Sig: L NORGEST/E ESTRADIOL-E ESTRA* Take 1 tablet by mouth once d* METRONIDAZOLE 500 MG TABLET Take 1 tablet by mouth twice * Patient not taking: Reported on 11/29/2018 Problem List As Of Date 11/29/2018 Noted Resolved Bloating [R14.0] INVALID FOR* Other instructions from your clinician: [facility] LAB AND RADIOLOGY FACTS LAB HOURS: Lab [...] to the scheduled exam. EXPRESS CARE HOURS [facility]: Sunday through Sunday 6:00am to 9:00pm. Sunday and Sunday 8:00am to 4:00pm. The walk in clinic is for patients 2 years and older. [facility]: Sunday through Sunday 8:00am to 8:00pm. Sunday and Sunday 8:00am to 4:00pm. The walk in clinic is for patients 2 years and older. [facility]: Sunday through Sunday 8:00am to 8:00pm. Sunday and Sunday 8:00am to 4:00pm. The walk in clinic is for patients 2 years and older. [facility] WALK IN MAMMOGRAM HOURS Sunday-Sunday 3:00pm- 7:00 pm Sunday 8:00 am- 12:00 pm For Express Care LOCATIONS, HOURS OF OPERATION and CURRENT WAIT TIMES, visit the following link [email or web address] dFR[types][0]=Expres s%20Care%20Clin [facility] for details. Encounter Status:Closed by KI LOUIS MD on 11/29/18 Normal [facility] ViaSat BREAST LTD LTon 11-29 [facility]Sat BREAST [facility] * * *Final Report* * * DATE OF EXAM: Nov 29 2018 2:10PM MCW 0593 - [facility] BREAST [facility] / PROCEDURE REASON: Breast pain, left * * * * Physician Interpretation * * * * RESULT: #[id number] - [facility] BREAST [facility] ULTRASOUND OF LEFT BREAST: 11/29/2018 HISTORY: [...] Follow-up with ACR/NCCN guidelines. Gwyn morris/nahid:11/29/2018 17:08:52 Teacher Cclc(s): ROXANA Agustin)(M), [facility] [...] Health, Family Medicine, and Medical/Surgical Oncology, the [facility] has carefully reviewed the data and reached [...] their providers when to stop screening mammograms. House Decorator: Nahid Transcribe Date/Time: Nov 29 2018 2:23P Dictated by : GWYN OBANDO MD This examination was interpreted and the report reviewed and electronically signed by: GWYN OBANDO MD on Nov 29 2018 5:08PM EST [id number] Normal [facility] PROGRESSon 11-29-2018 PROGRESS HNO ID: [id number] Author: Yen Sanders Service: Radiology Author Type: [...] Sanders November 29, 2018 2:07 PM Normal [facility] PROGRESS HNO ID: [id number] Author: Ki Louis Service: ? Author Type: [...] file Gets together: Not on file Attends jewish service: Not on file Active member of [...] MD November 29, 2018 11:39 AM Normal [facility] CNPNon 11-04-2018 CNPN Telephone (OBGYLN) MANPREET TANG ([id number]) 1990 F Date Time Provider Department 11/04/18 SILVIA SCHMITZ OBKATIA During your visit today, we recorded the following information about you: Silvia Schmitz MD 11/04/2018 1:15 PM Signed Positive Yeast Infection. eRx sent to pharmacy. 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 Thank you [...] Status:Closed by SILVIA SCHMITZ MD on 11/04/18 [facility] OBSOLETEon 10-31-2018 OBSOLETE Refill (OBGYLN) MANPREET TANG ([id number]) 1990 F Date Time Provider Department 10/31/18 [...] 1 PackageRfl: 3 US BREAST LTD LT [[id number]] Order #: [id number] FUTURE [facility] [[id number]] Order #: [id number] FUTURE Prescriptions as of 10/31/2018 Sig: METRONIDAZOLE [...] by CORA DAILEY RN on 10/31/18 Normal [facility] Vag Pathogens DNAon 10-31-19 19 Roz sp DNA Probe Positive Critically abnormal Negative for Roz species by DNA Probe [facility] Comment on above: Result Comment: This is indicative of candidiasis when consistent with clinical signs and symptoms. Performed By: #### V AGDNA #### [facility] [address] [place], [place] [address] [place] vag DNA Probe Positive Critically abnormal Negative for Gardnerella vaginalis by DNA Probe [facility] Comment on above: Result Comment: This is suggestive, but not diagnostic of bacterial vaginosis, results should be interpreted in conjunction with other data such as pH, amine odor, clue cells and vaginal discharge characteristics. Performed By: #### V AGDNA #### [facility] [address] [address] [place], [place] [address] Trich vag DNA Probe Negative Normal Negative for Trichomonas vaginalis by DNA Probe [facility] Comment on above: Performed By: #### V AGDNA #### [facility] [address] [place], [place] [address] CNOVon 10-29-2018 CNOV Office Visit (OBGYLN) MANPREET TANG ([id number]) 1990 F Date Time Provider Department 10/29/18 [...] [N89.8] Order(s):CONSULT TO GASTROENTEROLOGY [9010] Order #: [id number]: 1 VAGINAL PATHOGENS DNA PROBES [SQVAGDNA] Order #: [id number] Problem List As Of Date: 10/29/2018 (None) Encounter Status:Closed by SILVIA SCHMITZ MD on 10/29/18 Normal [facility] PROGRESSon 10-29-2018 PROGRESS HNO ID: [id number] Author: Silvia Schmitz Service: ? Author Type: [...] MD October 29, 2018 6:47 PM Normal [facility] Vital Signs Date Time Vital Sign Value Performing Clinician Juan Carlos mejia 01-21-2025 14:29-0400 Body height 157.48 cm No Primary Care Physician [facility] 01-21-2025 14:26-0400 Body mass index (BMI) [Ratio] 24.9 kg/m2 No Primary Care Physician [facility] 01-21-2025 14:26-0400 Body weight 61.83 kg No Primary Care Physician [facility] 01-21-2025 14:26-0400 Diastolic blood pressure 83 mm[Hg] No Primary Care Physician [facility] 01-21-2025 14:26-0400 Systolic blood pressure 146 mm[Hg] No Primary Care Physician [facility] 03-28-2023 10:06-0500 Body height 157.48 cm No Primary Care Physician [facility] 03-26-2023 10:57-0500 Body mass index (BMI) [Ratio] 23.8 kg/m2 No Primary Care Physician [facility] 03-26-2023 10:57-0500 Body weight 58.96 kg No Primary Care Physician [facility] 03-26-2023 10:57-0500 Diastolic blood pressure 74 mm[Hg] No Primary Care Physician [facility] 03-26-2023 10:57-0500 Systolic blood pressure 127 mm[Hg] No Primary Care Physician [facility] 02-12-2023 08:00-0400 Body temperature 97.6 [degF] No Primary Care Physician [facility] 02-12-2023 08:00-0400 Diastolic blood pressure 72 mm[Hg] No Primary Care Physician [facility] 02-12-2023 08:00-0400 Heart rate 100 /min No Primary Care Physician [facility] 02-12-2023 08:00-0400 Respiratory rate 16 /min No Primary Care Physician [facility] 02-12-2023 08:00-0400 Systolic blood pressure 126 mm[Hg] No Primary Care Physician [facility] 02-11-2023 07:55-0400 SaO2% (BldA) [Mass fraction] 99 % No Primary Care Physician [facility] 02-10-2023 09:02-0400 Body mass index (BMI) [Ratio] 28 kg/m2 No Primary Care Physician [facility] 02-10-2023 09:02-0400 Body weight 69.58 kg No Primary Care Physician [facility] 02-07-2023 11:13-0400 Diastolic blood pressure 82 mm[Hg] No Primary Care Physician [facility] 02-07-2023 11:13-0400 Systolic blood pressure 126 mm[Hg] No Primary Care Physician [facility] 02-07-2023 10:38-0400 Body mass index (BMI) [Ratio] 28.3 kg/m2 No Primary Care Physician [facility] 02-07-2023 10:38-0400 Body weight 70.42 kg No Primary Care Physician [facility] 02-05-2023 12:49-0400 Body mass index (BMI) [Ratio] 27.8 kg/m2 No Primary Care Physician [facility] 02-05-2023 12:49-0400 Body weight 69.11 kg No Primary Care Physician [facility] 02-05-2023 12:49-0400 Diastolic blood pressure 86 mm[Hg] No Primary Care Physician [facility] 02-05-2023 12:49-0400 Systolic blood pressure 130 mm[Hg] No Primary Care Physician [facility] 01-31-2023 13:55-0400 Body mass index (BMI) [Ratio] 27.8 kg/m2 No Primary Care Physician [facility] 01-31-2023 13:55-0400 Body weight 69.17 kg No Primary Care Physician [facility] 01-31-2023 13:55-0400 Diastolic blood pressure 84 mm[Hg] No Primary Care Physician [facility] 01-31-2023 13:55-0400 Systolic blood pressure 128 mm[Hg] No Primary Care Physician [facility] 01-26-2023 11:16-0400 Body height 157.48 cm No Primary Care Physician [facility] 01-26-2023 11:12-0400 Body mass index (BMI) [Ratio] 27.2 kg/m2 No Primary Care Physician [facility] 01-26-2023 11:12-0400 Body weight 67.58 kg No Primary Care Physician [facility] 01-26-2023 11:12-0400 Diastolic blood pressure 75 mm[Hg] No Primary Care Physician [facility] 01-26-2023 11:12-0400 Systolic blood pressure 124 mm[Hg] No Primary Care Physician [facility] 01-19-2023 09:18-0400 Body mass index (BMI) [Ratio] 27.3 kg/m2 No Primary Care Physician [facility] 01-19-2023 09:18-0400 Body weight 67.69 kg No Primary Care Physician [facility] 01-19-2023 09:18-0400 Diastolic blood pressure 84 mm[Hg] No Primary Care Physician [facility] 01-19-2023 09:18-0400 Systolic blood pressure 126 mm[Hg] No Primary Care Physician [facility] 01-12-2023 11:43-0400 Body height 157.48 cm No Primary Care Physician [facility] 01-12-2023 11:42-0400 Body mass index (BMI) [Ratio] 27.1 kg/m2 No Primary Care Physician [facility] 01-12-2023 11:42-0400 Body weight 67.3 kg No Primary Care Physician [facility] 01-12-2023 11:42-0400 Diastolic blood pressure 76 mm[Hg] No Primary Care Physician [facility] 01-12-2023 11:42-0400 Systolic blood pressure 125 mm[Hg] No Primary Care Physician [facility] 12-29-2022 11:52-0400 Body mass index (BMI) [Ratio] 26.7 kg/m2 No Primary Care Physician [facility] 12-29-2022 11:52-0400 Body weight 66.28 kg No Primary Care Physician [facility] 12-29-2022 11:52-0400 Diastolic blood pressure 80 mm[Hg] No Primary Care Physician [facility] 12-29-2022 11:52-0400 Systolic blood pressure 122 mm[Hg] No Primary Care Physician [facility] 12-11-2022 13:03-0400 Body height 157.48 cm No Primary Care Physician [facility] 12-11-2022 13:02-0400 Body mass index (BMI) [Ratio] 26.6 kg/m2 No Primary Care Physician [facility] 12-11-2022 13:02-0400 Body weight 65.99 kg No Primary Care Physician [facility] 12-11-2022 13:02-0400 Diastolic blood pressure 85 mm[Hg] No Primary Care Physician [facility] 12-11-2022 13:02-0400 Systolic blood pressure 124 mm[Hg] No Primary Care Physician [facility] 11-27-2022 11:38-0400 Body mass index (BMI) [Ratio] 25.9 kg/m2 No Primary Care Physician [facility] 11-27-2022 11:38-0400 Body weight 64.41 kg No Primary Care Physician [facility] 11-27-2022 11:38-0400 Diastolic blood pressure 71 mm[Hg] No Primary Care Physician [facility] 11-27-2022 11:38-0400 Systolic blood pressure 139 mm[Hg] No Primary Care Physician [facility] 11-17-2022 11:45-0400 Body height 157.48 cm No Primary Care Physician [facility] 11-17-2022 11:35-0400 Body mass index (BMI) [Ratio] 25.7 kg/m2 No Primary Care Physician [facility] 11-17-2022 11:35-0400 Body weight 63.72 kg No Primary Care Physician [facility] 11-17-2022 11:35-0400 Diastolic blood pressure 76 mm[Hg] No Primary Care Physician [facility] 11-17-2022 11:35-0400 Systolic blood pressure 120 mm[Hg] No Primary Care Physician [facility] 10-27-2022 11:55-0400 Body mass index (BMI) [Ratio] 25 kg/m2 No Primary Care Physician [facility] 10-27-2022 11:55-0400 Body weight 62.14 kg No Primary Care Physician [facility] 10-27-2022 11:55-0400 Diastolic blood pressure 68 mm[Hg] No Primary Care Physician [facility] 10-27-2022 11:55-0400 Systolic blood pressure 118 mm[Hg] No Primary Care Physician [facility] 09-29-2022 11:28-0400 Body mass index (BMI) [Ratio] 23.9 kg/m2 No Primary Care Physician [facility] 09-29-2022 11:28-0400 Body weight 59.42 kg No Primary Care Physician [facility] 09-29-2022 11:28-0400 Diastolic blood pressure 83 mm[Hg] No Primary Care Physician [facility] 09-29-2022 11:28-0400 Systolic blood pressure 130 mm[Hg] No Primary Care Physician [facility] 08-28-2022 11:28-0400 Body mass index (BMI) [Ratio] 23.4 kg/m2 No Primary Care Physician [facility] 08-28-2022 11:28-0400 Body weight 58.22 kg No Primary Care Physician [facility] 08-28-2022 11:28-0400 Diastolic blood pressure 82 mm[Hg] No Primary Care Physician [facility] 08-28-2022 11:28-0400 Systolic blood pressure 118 mm[Hg] No Primary Care Physician [facility] 2022 11:53-0400 Body mass index (BMI) [Ratio] 22.6 kg/m2 No [facility] [facility] 11:53-0400 Body weight 56.3 kg No Primary Care Physician [facility] 2022 11:53-0400 Diastolic blood pressure 80 mm[Hg] No Primary Care Physician [facility] 2022 11:53-0400 Systolic blood pressure 137 mm[Hg] No Primary Care Physician [facility] 07-06-2022 10:28-0500 Body height 157.48 cm No Primary Care Physician [facility] 07-06-2022 10:28-0500 Body mass index (BMI) [Ratio] 23.2 kg/m2 No Primary Care Physician [facility] 07-06-2022 10:28-0500 Body weight 57.6 kg No Primary Care Physician [facility] 07-06-2022 10:28-0500 Diastolic blood pressure 76 mm[Hg] No Primary Care Physician [facility] 07-06-2022 10:28-0500 Systolic blood pressure 114 mm[Hg] No Primary Care Physician [facility] Encounters Encounter Date Encounter Type Care Provider Facility Start: 02-20-2025 End: 02-20-2025 ambulatory [place] Facility:[facility] Start: 02-02-2025 End: 02-02-2025 ambulatory No Primary Care Physician -Lab [facility] Start: 02-02-2025 End: 02-02-2025 Patient encounter procedure Crystal Langley PLASTER PATTERNMAKER-C -Lab [facility] Start: 02-02-2025 End: 02-02-2025 ambulatory Maryellen Anderson NP Facility:[facility] Start: 01-26-2025 End: 01-26-2025 ambulatory No Primary Care Physician -Ultrasound [facility] Start: 01-26-2025 End: 01-26-2025 Patient encounter procedure Crystal Langley PLASTER PATTERNMAKER-C -Ultrasound [facility] Work Phone: Start: 01-26-2025 End: 01-26-2025 ambulatory Crystal Langley Facility:[facility] Start: 01-21-2025 End: 01-21-2025 Patient encounter procedure Crystal Langley PLASTER PATTERNMAKER-C -[facility] Work Phone: Start: 01-21-2025 End: 01-21-2025 ambulatory No Primary Care Physician -[facility] Start: 01-21-2025 End: 01-21-2025 ambulatory Crystal Langley Facility:[facility] Start: 11-17-2024 End: 11-17-2024 ambulatory MARYELLEN ANDERSON CHEST PAIN COORDINATOR-PORTRAIT CONSULTANT Facility:[facility] Start: 11-17-2024 End: 11-17-2024 Patient encounter procedure MARYELLEN ANDERSON CHEST PAIN COORDINATOR-PORTRAIT CONSULTANT [facility] Start: 11-17-2024 End: 11-17-2024 Well adult monitoring check done MARYELLEN ANDERSON CHEST PAIN COORDINATOR-PORTRAIT CONSULTANT [facility] Start: 04-05-2023 End: 04-05-2023 ambulatory No Primary Care Physician [facility] Work Phone: Start: 04-05-2023 End: 04-05-2023 Patient encounter procedure No Primary Care Physician [facility]-Ultrasound, [facility] Work Phone: Start: 03-26-2023 End: 03-26-2023 ambulatory No Primary Care Physician [facility] Work Phone: Start: 03-26-2023 End: 03-26-2023 Patient encounter procedure No Primary Care Physician [facility]-Laboratory Work Phone: Start: 03-26-2023 End: 03-26-2023 Patient encounter procedure No Primary Care Physician [facility] Work Phone: Start: 02-14-2023 End: 02-14-2023 Patient encounter procedure No Primary Care Physician [facility] Work Phone: Start: 02-12-2023 Non-patient / Non-visit No Primary Care Physician [facility] Start: 02-11-2023 Non-patient / Non-visit No Primary Care Physician [facility] Start: 02-10-2023 Non-patient / Non-visit No Primary Care Physician [facility] Start: 02-10-2023 End: 02-12-2023 Evaluation and management of inpatient No [facility] Work Phone: Start: 02-07-2023 End: 02-07-2023 Patient encounter procedure No Primary Care Physician [facility] Work Phone: Start: 02-05-2023 End: 02-05-2023 Patient encounter procedure No Primary Care Physician [facility] Work Phone: Start: 01-31-2023 End: 01-31-2023 Patient encounter procedure No Primary Care Physician [facility] Work Phone: Start: 01-26-2023 End: 01-26-2023 Patient encounter procedure No Primary Care Physician [facility] Work Phone: Start: 01-23-2023 End: 01-23-2023 ambulatory No Primary Care Physician [facility] Work Phone: Start: 01-23-2023 End: 01-23-2023 Patient encounter procedure No Primary Care Physician [facility]-Outpatient Pavilion Ultrasound Work Phone: Start: 01-19-2023 End: 01-19-2023 Patient encounter procedure No Primary Care Physician [facility] Work Phone: Start: 01-12-2023 End: 01-12-2023 Patient encounter procedure No Primary Care Physician [facility]-Laboratory, Specimen Work Phone: Start: 01-12-2023 End: 01-12-2023 Patient encounter procedure No Primary Care Physician [facility] Work Phone: Start: 01-09-2023 End: 01-09-2023 ambulatory No Primary Care Physician [facility] Work Phone: Start: 01-09-2023 End: 01-09-2023 Patient encounter procedure No Primary Care Physician [facility]-Ultrasound, [facility] Work Phone: Start: 12-29-2022 End: 12-29-2022 Patient encounter procedure No Primary Care Physician [facility] Work Phone: Start: 12-11-2022 End: 12-11-2022 Patient encounter procedure No Primary Care Physician [facility] Work Phone: Start: 12-11-2022 End: 12-11-2022 ambulatory No Primary Care Physician [facility] Work Phone: Start: 12-11-2022 End: 12-11-2022 Patient encounter procedure No Primary Care Physician [facility]-Ultrasound, [facility] Work Phone: Start: 11-27-2022 End: 11-27-2022 Patient encounter procedure No Primary Care Physician [facility] Work Phone: Start: 11-17-2022 End: 11-17-2022 ambulatory No Primary Care Physician [facility] Work Phone: Start: 11-17-2022 End: 11-17-2022 Patient encounter procedure No Primary Care Physician [facility] Work Phone: Start: 10-27-2022 End: 10-27-2022 Patient encounter procedure No Primary Care Physician [facility] Work Phone: Start: 10-04-2022 End: 10-04-2022 ambulatory MD NO [facility] Start: 09-29-2022 End: 09-29-2022 Patient encounter procedure No Primary Care Physician [facility] Work Phone: Start: 09-06-2022 End: 09-07-2022 ambulatory MD NO [facility] Start: 09-06-2022 End: 09-06-2022 Subsequent hospital visit by physician Janeth Burch MD Work Phone: [facility] Comment on above: 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 Start: 09-05-2022 End: 09-05-2022 ambulatory [place] [facility] Start: 08-28-2022 End: 08-28-2022 Patient encounter procedure No Primary Care Physician [facility] Work Phone: Start: 2022 End: 2022 Patient encounter procedure No Primary Care Physician [facility] Work Phone: Start: 07-20-2022 End: 07-20-2022 ambulatory No Primary Care Physician [facility] Work Phone: Start: 07-20-2022 End: 07-20-2022 Patient encounter procedure No Primary Care Physician [facility] Start: 07-06-2022 End: 07-06-2022 ambulatory No Primary Care Physician [facility] Work Phone: Start: 07-06-2022 End: 07-06-2022 Patient encounter procedure No Primary Care Physician [facility]-Laboratory, Specimen Start: 07-06-2022 End: 07-06-2022 Patient encounter procedure No Primary Care Physician [facility] Procedures Date Procedure Procedure Detail Performing Clinician Start: 01-26-2025 Pelvic echography No Pr imary Care Physician Start: 01-21-2025 Serum progesterone measurement No Primary Care Physician Comment on above: Follicular phase 0.1 - 0.9 Luteal phase 1.8 - 23.9 Ovulation phase 0.1 - 12.0 First trimester 11.0 - 44.3 Second trimester 25.4 - 83.3 Third trimester 58.7 - 214.0 Postmenopausal 0.0 - 0.1Performed at: [address] [id number] Director: Abel Tran PhD, Phone: [phone] Start: 04-05-2023 Transvaginal echography No Primary Care [...] Activity Detail Author Start: 03-12-2025 ambulatory Ambulatory Facility[facility] Start: 01-21-2025 CBC W Auto Differential panel - Blood [facility] Start: 01-21-2025 Comprehensive metabolic 2000 panel - Serum or Plasma [facility] Start: 01-21-2025 Serum progesterone measurement [facility] Start: 01-21-2025 T4 free measurement [facility] Start: 01-21-2025 Thyroid stimulating hormone measurement [facility] Start: 01-21-2025 [facility] Start: 03-26-2023 Patient referral [facility] Work Phone: Start: 02-12-2023 Patient discharge [facility] Start: 02-11-2023 Administration of blood product [facility] Start: 02-10-2023 Administration of medication [facility] Start: 02-10-2023 Application of ice collar, cap or bag [facility] Start: 02-10-2023 Catheterization of vein [facility] Start: 02-10-2023 Introduction of urinary catheter [facility] Start: 02-10-2023 Measuring intake and output [facility] Start: 02-10-2023 Notification of physician [facility] Start: 02-10-2023 Procedure discontinued [facility] Start: 02-10-2023 Provision of activity privileges [facility] Start: 02-10-2023 Vital signs measurements [facility] Start: 02-10-2023 [facility] Start: 02-10-2023 Admission procedure [facility] Start: 02-10-2023 Consultation [facility] Start: 01-05-2023 FLU (Season Ended) FLU (Season Ended) [facility] Start: 10-04-2022 End: 10-04-2022 Patient encounter procedure [facility] Start: 10-04-2022 End: 10-04-2022 Professional / ancillary services management 10/04/2022 12:00 PM EDT Ancillary Procedure Visit [address], [address] [place] [address] [facility] Start: 07-06-2022 Liquid based cervical cytology screening [facility] Start: 08-04-2011 Microscopic observation [Identifier] in Cervix by Cyto stain Pap Smear [facility] Start: 2006 MenB (1 of 2 - MenB 2-Dose Series Bexsero) MenB (1 of 2 - MenB 2-Dose Series Bexsero) [facility] Start: 1997 Tetanus Diphtheria and Pertussis Vaccines (1 - Tdap) Tetanus Diphtheria and Pertussis Vaccines (1 - Tdap) [facility] Start: 08-04-1991 MMR (1 of 1 - Standard series) MMR (1 of 1 - Standard series) [facility] Start: 08-04-1991 Varicella (1 of 2 - 2-dose childhood series) Varicella (1 of 2 - 2-dose childhood series) [facility] Start: 02-03-1991 COVID-19 (#1) COVID-19 (#1) [facility] Start: 1990 Hepatitis B (1 of 3 - 3-dose series) Hepatitis B (1 of 3 - 3-dose series) [facility] Alanine aminotransfe rase [Enzymatic activity/volume] in Serum or Plasma [facility] Albumin [Mass/volume ] in Serum or Plasma [facility] Alkaline phosphatase [Enzymatic activity/volume] in Serum or Plasma [facility] Anion gap in Serum or Plasma [facility] Bilirubin, total measurement [facility] BUN/Creatinine ratio [facility] Calcium [Mass/volume ] in Serum or Plasma [facility] Carbon dioxide, tota l [Moles/volume] in Central venous blood [facility] CBC W Auto Different ial panel - Blood [facility] CMV IgG Ab CMV IgG Ab Lab Routine Echogenic bowel of fetus on ultrasound 09/06/2022 1:03 PM EDT [facility] Work Phone: CMV IgM Ab CMV IgM Ab Lab Routine Echogenic bowel of fetus on ultrasound 09/06/2022 1:03 PM EDT [facility] Creatinine [Mass/vol ume] in Serum or Plasma [facility] Erythrocyte mean cor puscular volume determination [facility] Glucose [Mass/volume ] in Serum or Plasma [facility] Hematocrit [Volume F raction] of Blood [facility] Hemoglobin [Mass/vol ume] in Blood [facility] Hepatitis B surface antigen measurement [facility] Hepatitis C antibody measurement [facility] HIV 1+2 Ab+HIV1 p24 Ag [Presence] in Serum or Plasma by Immunoassay [facility] Leukocytes [#/volume ] in Blood [facility] Mean corpuscular hem oglobin concentration determination [facility] Mean corpuscular hem oglobin determination [facility] Measurement of renal function [facility] Neutrophil count [facility] Neutrophil percent differential count [facility] Path report.final Dx Spec [facility] Patient Education After a Vagina l Incision Care After Vaginal Taking a Sitz Bath [facility] Work Phone: Patient referral [facility] Work Phone: Platelets [#/volume] in Blood [facility] Potassium measurement [facility] Red blood cell count [facility] Red cell distributio n width determination [facility] Rubella IgG measurement [facility] Serum chloride measurement [facility] Sodium measurement [facility] Total protein measurement [facility] Toxoplasma IgG & IgM (initial screening for neg IgM by another lab) [place] Toxoplasma IgG & IgM (initial screening for neg IgM by another lab) [place] Lab Routine Echogenic bowel of fetus on ultrasound 09/06/2022 1:03 PM EDT [facility] Treponema sp Ab [Pre sence] in Serum [facility] Urea nitrogen [Mass/ volume] in Serum or Plasma [facility] US Pelvis [facility] US Pelvis transvaginal [facility] Payers Date Payer Category Payer Self-pay 2024 Private Health Insurance [id number] [id number] 2024 Unknown [id number] 2019 Unknown DARRYL ANDREWS BS PPO [id number] 2019-Present [address] [place] [address] [id number] 1990 Unknown [id number] 1990 Unknown [id number] 479 1990 Unknown [id number]. 479 1990 Unknown [id number]. 479 1990 Unknown [id number]. 479 1990 Unknown [id number]. 627 Unknown [id number]. 462 Unknown [id number]. 462 Unknown [id number] [id number]. 462 Unknown [id number] [id number]. 462 Unknown [id number]. 462 Unknown [id number]. 462 Social History Date Type Detail Facility Start: 07-06-2022 End: 03-26-2023 Tobacco smoking status MIIS Unknown if ever smoked [facility] Start: 1990 Sex Assigned At Female [facility] Start: 1990 Sex Assigned At Not on file [facility] Gender identity Not on file [facility] Start: 11-17-2024 Tobacco smoking status Never s moked tobacco (finding) [facility] Sexual Orientation Destini gandhi [facility] Sex Female (finding) [facility] Start: 03-26-2023 Tobacco smoking stat us MIIS Ex-smoker (finding) [facility] Goals Date Patient Goal Desired Activity /State Clinical Notes 07-06-2022 to 01-28-2025 Note Date & Type Note Facility 01-28-2025 Radiology Diagnostic study note [facility] Imaging Services [address] [place] [address] Pelvic w/ Transvaginal MR#: [id number] Acct: [id number] Name: MANPREET TANG Rep #: [id number] : 1990 F 34 From: Trace Cerna MD PCP: FREDDIE Duron Status: RE G CLI Study:Pelvic w/ Transvaginal Date of Exam: 01/26/25 Exam# [id number] Ordering Dr: Crystal Langley PROCEDURE: PELVIC W/ [...] No other abnormality is seen. Reading Location: [place] [address] CC: FREDDIE Langley; FREDDIE Anderson ~ House Decorator: Signed [facility] 09-17-2025 Evaluation note Diagnosis Onset Date Resolution Infertility counseling acute Se ptember 2024 2:20pm [facility] Work Phone: 1(932) 394-232107-14-2025 Evaluation + Plan note Diagnostic Tests Pending * Testosterone Level Total 11/17/24 * Follicle Stimulating Hormone Level 11/17/24 * Estrogens Fractionated, S 11/17/24 * Luteinizing Hormone 11/17/24 * Progesterone Level 11/17/24 [facility] Consultation has been requested by Dr. 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 Please refer to the ultrasound report for full details. Genetic Counseling Summary I discussed with the couple the following issues: 1. We talked about a negative FOB result is not a 100% test, and given ethnicity of FOB (Causasian/Vincentian) we talked about the 97% accuracy of testing for CF, we talked through the possibility of also of false positive testing for carrier screening on the screening as well 2. We talked about the concerns for echogenic bowel and today's ultrasound with resolution 3. See genetics notes about her carrier status and symptoms associated with Type 5 and also cqkdeec-uhjrask-cqimsj dysplasia Follow Up She expressed understanding of the above information. Continued serial growth every 4 weeks Continued pelvic rest until the placenta migrates Follow up TV for placental migration Questions answered The total patient time of the visit was 30 minutes, of which greater than 50% of the time was spent counseling and coordinating care. Janeth Burch [facility]03-02-2023 NotePap Smear Specimen AdequacyMarch 2022 5:31pmComment.Satisfactory for evaluation. No endocervical component is identified.[facility] INTERFACED A#[id number] Memorial HospitalComment on above:Satisfactory for evaluation. No endocervical component is identified.Evaluation note* Diagnosis Onset Date Resolution Status Family history of gene mutation acute acute Supervision of normal first acute [facility] Work Phone: Evaluation note* Diagnosis Echogenic bowel of fetus on ultrasound documented in this [facility] Diagnosis Onset Date Resolution Status [...] during acute Supervision of normal first acute [facility] Work Phone: Evaluation note* Diagnosis [...] during acute Supervision of normal first acute [facility] Work Phone: Evaluation note* Diagnosis [...] during acute Supervision of normal first acute [facility] Work Phone: Evaluation note* Diagnosis [...] thout hemorrhage, third trimester resolved Polyhydramnios resolved [facility] Work Phone: Evaluation note* Diagnosis [...] following vaginal delivery acute Routine Follow-Up noneactive [facility] Work Phone: Evaluation noteNo assessment information available [facility] Work Phone: Hospital course Narrative No data available for this section [facility] Hospital Discharge instructions No data available for this section [facility] Progress note No data available for this section [facility] Reason for referral (narrative)No reason for referral [facility] Work Phone: Summary Purpose Family History No [...] No February 10 3 8:37am 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 No February 10 023 8:37am Chief Complaint [...] section and content) DATE CREATED AUTHOR 07/15/2019 [facility] DATE CREATED AUTHOR AUTHOR'S ORGANIZ ATION 11/10/2022 [facility] DATE CREATED AUTHOR AUTHOR'S ORGANIZ ATION 11/21/2024 [facility] DATE CREATED AUTHOR AUTHOR'S ORGANIZ ATION 03/07/2025 [facility] Care Teams (unrecognized sec tion and content) [...] DO Attending Provider, Refe rring Provider Active 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 Relationship Specialty Start Date End Date No Primary Care, [place] [address] PCP - General Pediatrics 08/08/22 Team Status: Inactive Member Role Status Dates No Primary Care Physician Primary Care Provider, Refer ring Provider Active Ashlee Saul NP, PLASTER PATTERNMAKER-C Attending Provider Active Team Status: Inactive Member [...] Refer ring Provider Active Kaye Gan NP, PLASTER PATTERNMAKER-C Attending Provider Active Team Status: Inactive Member [...] Member Role/Relationship Status Dates Maryellen Anderson NP, PLASTER PATTERNMAKER-C Primary care physician Acti ve Team Status: [...] Member Role/Relationship Status Dates Maryellen Anderson NP, PLASTER PATTERNMAKER-C Primary care physician Acti ve Start: January 26, 2025 FREDDIE Moser Attending physician Active Start: January 26, 2025 FREDDIE Moser Referring Provider Active Start: January 26, 2025 Team Status: Active Member Role/Relationship Status Dates Maryellen Anderson NP, PLASTER PATTERNMAKER-C Primary care physician Acti ve Start: February 02, 2025 FREDDIE Moser Attending physician Active Start: February 02, 2025 FREDDIE Moser Referring Provider Active Start: February 02, 2025 Team Status: Inactive Member Role/Relationship Status Dates Maryellen Anderson NP, PLASTER PATTERNMAKER-C Primary care physician Acti ve Start: January 26, 2025 End: January 26, 2025 FREDDIE Moser Attending physician Active Start: January 26, 2025 End: January 26, 2025 FREDDIE Moser Referring Provider Active Start: January 26, 2025 End: January 26, 2025 Team Status: Inactive Member Role/Relationship Status Dates Maryellen Anderson NP, PLASTER PATTERNMAKER-C Primary care physician Acti ve Start: February [...] BE BASED ON THE PRIMARY CLINICAL RECORDS. [facility]. provides no warranty or guarantee of the accuracy or completeness of information in this document.
[2025-04-29 13:06] LABS: hCG Titer Quant., Serum 17 mIU/mL (<9 non-preg)
== END | disposition home or self-care (01) ==
LOC: BWCLAB 11:07
PROVIDERS: PCP Registered Nurse; Visit Provider Student in an Organized Health Care Education/Training Program
DX: O02.1 Missed abortion (principal)
CPT/HCPCS: 36415; 84702